=== PATIENT | female | born 1955 | race Caucasian/White ===

== ENCOUNTER 2016-10-10 08:42 | Inpatient (IN) ==
[2016-10-10] MEDS ORDERED: ACETAMINOPHEN 325 MG TABLET PO PRN (08:48)
[2016-10-10] MEDS ORDERED: ONDANSETRON 4 MG/2 ML VIAL IV PRN (08:48)
--- NOTE | 2016-10-10 10:28 | Family Practice History&Phys ---
Assessment and Plan (1) probable abscess mid abdomen Status: Acute Assessment and plan: We'll obtain cultures and started on appropriate antibiotics consult surgery. (2) abdominal pain unknown etiology Status: Acute Assessment and plan: We'll obtain an abdominal CT and consult surgery (3) area of skin breakdown midabdomen Status: Acute Assessment and plan: . Appropriate wound care and obtain cultures (4) large area of scar tissue midabdomen Status: Acute Assessment and plan: We'll start appropriate wound care and obtain cultures (5) hypertension Status: Chronic Assessment and plan: We'll resume home medications and monitor (6) iron deficiency anemia Status: Chronic Assessment and plan: We'll resume home meds and obtain lab studies (7) hyperlipidemia Status: Chronic Assessment and plan: We will resume home meds and pain laxities (8) previous gastric bypass Status: Chronic Assessment and plan: Stable at present History of Present Illness Chief complaint: draining abscess abdominal wall History of present illness: Ms. Ramachandran is a 61 year old female Patient is 61-year-old white female who is intubated the emergency room on 2 occasions the last 7-10 days with a draining abscess from the abdominal wall. This had a previous hernia repair. Subsequently had poor healing and required prolonged wound care. Subsequently developed a large area of scar tissue in the mid abdominal wall.. States she's had skin breakdown with a purulent drainage over the last 2 weeks.. She has been to the emergency room on 2 occasions and placed on medications with no significant improvement.. Now has approximately 3 cm area of skin breakdown in the center of the wound.. She's been on various antibiotics with no improvement. Now complaining of significant abdominal pain in the region of the area of skin breakdown. She has some induration and diffuse tenderness on palpation . Patient states that she says some chills and low-grade fever.. Generally feels bad. States she's been very weak. Apparently had cultures obtained on one of the ER visits but it did not have a copy of that report. In view of diarrhea. Symptoms will admit for more aggressive evaluation and treatment. Home Medications Medication Instructions Recorded Confirmed Type Atorvastatin Calcium 20 mg PO DAILY 08/18/16 08/18/16 History Citalopram [CeleXA] 40 mg PO BEDTIME 08/18/16 08/18/16 History Clindamycin HCl [Clindamycin Cap] 300 mg PO Q6HR 7 Days 08/18/16 Rx Cyanocobalamin (Vitamin B-12) 1,000 mcg IJ Q30D 08/18/16 08/18/16 History [Cyanocobalamin Injection] Cyclobenzaprine HCl 10 mg PO BEDTIME 08/18/16 08/18/16 History Ferrous Sulfate 325 mg PO BID 08/18/16 08/18/16 History HYDROcodone/ACETAMIN 5-325 [[place] 1 tablet PO Q6H PRN #10 tablet 08/18/16 Rx 5-325] Meloxicam [Mobic] 15 mg PO DAILY 08/18/16 08/18/16 History amLODIPine [Norvasc] 10 mg PO DAILY 08/18/16 08/18/16 History cloNIDine TAB [Catapres Tab] 0.2 mg PO DAILY 08/18/16 08/18/16 History Allergies Allergy/AdvReac Type Severity Reaction Status Date / Time Penicillins Allergy RASH Verified 08/18/16 11:02 Medical,Surgical,& Family Hx - Medical History Cardio: History of: Hypertension Endocrine: History of: Dyslipidemia Rheumatology: History of;: Fibromyalgia Gastrointestinal: History of: GERD Musculoskeletal: History of: Musculoskeletal Problems Hematology: History of: Anemia (history iron deficiency anemia) Other: History of: Miscellaneous Medical Problems (history of depression and B12 deficiency) - Surgical History Abdominal Surgeries: Surgical HX of: Cholecystectomy, Gastric Bypass Surgery, Hernia Repair Reproductive Surgeries: Surgical HX of;: Section Orthopedic Surgeries: Surgical HX of;: Total Hip Replacement (left hip) - Family History Family History: Reports;: Family Heart Disease, Family Hypertension - Social History Smoking Status: Current every day smoker Have you smoked in the last 12 months: Yes Time spent discussing smoking cessation with patient: 3 to 10 minutes Frequency of Alcohol Use: None Type of Drug Use: None Marital Status: Lives With:: Alone Functional capacity: independent ambulation Exam - Constitutional General appearance: mild distress - Head Head exam: Present: normal inspection - Eye Pupils: Present: RIOS - ENT ENT exam: Present: normal exam - Neck Neck exam: Present: normal inspection - Respiratory Respiratory exam: Present: clear to auscultation bilaterally - Cardiovascular Cardiovascular exam: Present: regular rate and rhythm - GI/Abdominal GI/Abdominal exam: Present: normal bowel sounds, tenderness, other (has area approximately 3 cm of the skin breakdown and mid abdomen with some clear drainage present.. Has some diffuse tenderness and fullness in the area of scar tissue from previous hernia repair) - Extremities Exam Extremities exam: Present: normal inspection - Back Exam Back exam: Present: normal inspection - Neurological Exam Neurological exam: Present: alert - Psychiatric Psychiatric exam: Present: normal affect - Skin Skin exam: Present: normal color
[2016-10-10] MEDS ORDERED: POVIDONE IODINE 10% TOP PRN (11:29)
[2016-10-10 12:07] LABS: Basophils % 0.4 % (0.0-0.8); Eosinophils # 0.1 10*3/uL (0.0-0.87); Hematocrit 44.8 VOL% (35.7-47.0); Hemoglobin 14.6 GM/DL (12.0-16.0); Immature Granulocytes % 0.2 %; Immature Granulocytes Absolute 0.02 #; Lymphocytes # 3.5 10*3/uL (1.4-4.0); Lymphocytes % 33.9 % (21.3-54.2); Mean Corpuscular HGB Conc 32.6 GM/DL (32-36); Mean Corpuscular Hemoglobin 30 PG (27-34); Mean Corpuscular Volume 92.4 FL (87-102); Mean Platelet Volume 11.9 FL (9.6-12.0); Monocytes # 0.8 10*3/uL (0.11-0.8); Monocytes % 7.3 % (1.7-12.7); Neutrophils # 5.9 10*3/uL (1.4-7.4); Neutrophils % 57.2 % (38.7-73.9); Platelet Count 218 T/CUMM (130-400); Red Blood Count 4.85 MC/CUMM (3.8-5.5); Red Cell Distribution Width 14.1 % (9.3-17.3); White Blood Count 10.3 T/CUMM (4-12)
[2016-10-10] MEDS: SODIUM CHLORIDE 0.45% 1,000 ML IV SCH ×2 (12:14→20:35)
[2016-10-10 12:37] LABS: Albumin 3.2 G/DL (3.4-5.0); Bilirubin,Total 0.4 MG/DL (0.2-1.0); Calcium 8.8 MG/DL (8.5-10.1); Potassium 3.8 MMOL/L (3.5-5.1); Total Protein 5.8 G/DL (6.4-8.3)
--- NOTE | 2016-10-10 14:02 | CT Report ---
Exam: CT abdomen pelvis w con Date: 10/10/2016 1:11 PM Comparison: None Indication: Abdominal pain, mass Total DLP: 1618.6 mGy*cm Technical: Oral contrast administered. Images were obtained from the lung bases to the iliac crest continuation through the pelvis with 100 cc of Omnipaque 350 with axial sagittal coronal imaging available for review. Dose reduction was performed with decreasing kv and mA and automated exposure Findings: Lung bases: No obvious infiltrates or effusions the heart is normal in size. Liver and Spleen: Unremarkable Gallbladder and Pancreas: Previous cholecystectomy the pancreas is otherwise unremarkable Adrenals: There is enlargement of the left adrenal gland. This area measures approximately 3.08 3.4 cm. The right adrenal gland is also prominent measuring 2.6 x 1.6 cm. Kidneys: The right kidney is demonstrated with a cyst measuring 3.7 x 4.4 cm. The left kidney reveals a small interpolar stone measuring approximately 4 to 5 mm. Small cyst is also present measuring approximately 7 to 8 mm. Smaller calculi are also present measuring 2 to 3 mm no obstruction present. Small stone in the right kidney measures 1 to 2 mm Stomach: Incomplete distended with air fluid and debris and small hiatal hernia present with previous surgical changes at the GE junction. Retroperitoneum: No enlarged lymph nodes. Aorta and IVC: No obvious aneurysm aorta iliac vessels. Vascular calcinosis present. The [place] IVC filter is present. Bowel and Mesentery: A large ventral hernia is present in the lower abdomen and pelvis containing small bowel. No obstruction is present. Moderate fecal debris is present in the large bowel. No diverticulosis or diverticulitis or appendicitis noted. Pelvis: Bladder: Incompletely distended with fluid Fluid: No free fluid identified. Lymph nodes: No enlarged lymph nodes. Pelvic organs: Uterus is slightly deviated towards the right with a small right ovarian cyst Osseous structures: Degenerative changes thoracolumbar spine with vacuum phenomena. Left total hip prosthesis present. Impression: 1. Large ventral hernia containing bowel the abdominal wall defect measures approximately 12.7 cm 2. Left total hip prosthesis present. 3. IVC filter in place 4. Vascular calcinosis 5. Bilateral adrenal enlargement that suggest adrenal adenomas left greater than right. 6. Right renal cyst 7. Bilateral nephrolithiasis 8. Small right ovarian cyst. PROCEDURE INTERPRETED AT [facility] DEPARTMENT OF RADIOLOGY Final Report Signed by: Dr. Juice Molina
[2016-10-10 14:22] LABS: Apearance,Urine Slightly Hazy (Clear); Bilirubin,Urine Negative (Negative); Blood, Urine Negative (Negative); Glucose,Urine (UA) Negative (Negative); Ketones,Urine 5 mg/dL (Negative); Mucus,Urine Occasional /LPF (Occasional); Nitrite,Urine Negative (Negative); Protein,Urine Negative; RBC,Urine 1 /HPF (0-4); Squamous Epithelial Cell,Urine Occasional /HPF (0-10); Urine Color Dark yellow (Yellow); Urine Urobilinogen < 2.0 EU/DL (0.2-1.0); WBC,Urine 1 /HPF (0-6)
--- NOTE | 2016-10-10 14:51 | General Surgery Consult Note ---
Assessment and Plan - Time spent with patient Time spent with patient: Greater than 30 minutes (1) area of skin breakdown midabdomen Status: Acute Assessment and plan: This is likely a chronic draining sinus from her previous surgical scar which probably has mesh beneath it. I would suspect that these are chronic sinuses draining from prosthetic mesh. I reviewed her CT scan and she has a hernia recurrence and I think I can see mesh superiorly. We do not have her off note from [place]. I have reviewed all of the records in our system. We are going to request her op note from [place] and make a plan as far as repair. This will be a very complex repair. For now I would treat her with antibiotics to see that we got any infection cleared up as much as possible. To get definitive repair of this will require resection of this complex scar and an abdominal wall reconstruction which will involve removal of old prosthetic mesh and repair with probably new mesh or a biologic prosthesis. The risks of complications with this will be very high in this repair may fail. This was discussed in detail with the patient and she would like to avoid surgery for now if possible. I do not think that we have signs of strangulated bowel or a contained abscess that needs drainage. I would agree with antibiotics for now. Current Visit: Yes (2) Incisional hernia of anterior abdominal wall without obstruction or gangrene Status: Acute Assessment and plan: This appears to be a chronically incarcerated recurrent incisional hernia which is very complex. This will eventually need repair. I evaluated the integrity of her musculature and she appears to have displacement or loss over rectus muscle in the lower midline to the right. This may make repair more difficult. Current Visit: Yes History of Present Illness Chief complaint: abdominal wound History of present illness: Ms. Ramachandran is a 61 year old female Has a long history of a complex abdominal wound. This dates back to surgery that she had a normal [place] over a year ago. She states that this was a hernia repair then opened up and was treated with an open wound. She was eventually followed up back and [facility] and is been treated at the wound healing center. She is intermittently had draining areas from her old wide complex midline scar. She is recently had increased pain and drainage from a new location. She has had some subjective fever. She has not had GI symptoms. The pain she has is mild and worse with movement. It is localized to her scar. She does not know of aggravating or alleviating factors. [place] in [place] and had her surgery in [place] when she was taking care of a relative. She does not know if mesh was placed. Home Medications Medication Instructions Recorded Confirmed Type Atorvastatin Calcium 20 mg PO DAILY 08/18/16 10/10/16 History Citalopram [CeleXA] 40 mg PO BEDTIME 08/18/16 10/10/16 History Cyclobenzaprine HCl 10 mg PO BEDTIME 08/18/16 10/10/16 History Ferrous Sulfate 325 mg PO BID 08/18/16 10/10/16 History amLODIPine [Norvasc] 10 mg PO DAILY 08/18/16 10/10/16 History cloNIDine TAB [Catapres Tab] 0.2 mg PO DAILY 08/18/16 10/10/16 History HYDROcodone/ACETAMIN 5-325 [[place] 1 tablet PO Q4HR 10/10/16 10/10/16 History 5-325] Lorazepam [Ativan] See Protocol PO BID PRN 10/10/16 10/10/16 History Mv,Iron,Min/Folic Acid/Biotin See Protocol PO DAILY 10/10/16 10/10/16 History [Hair Formula Tablet] Omeprazole [Prilosec] 20 mg PO DAILY 10/10/16 10/10/16 History Vit No.124/Iron/FA 1 each PO DAILY 10/10/16 10/10/16 History [ Vitamin Tablet] Allergies Allergy/AdvReac Type Severity Reaction Status Date / Time Penicillins Allergy RASH Verified 08/18/16 11:02 Medical,Surgical,& Family Hx - Medical History Cardio: History of: Hypertension Endocrine: History of: Dyslipidemia Rheumatology: History of;: Fibromyalgia Gastrointestinal: History of: GERD Musculoskeletal: History of: Musculoskeletal Problems Hematology: History of: Anemia (history iron deficiency anemia) Other: History of: Miscellaneous Medical Problems (history of depression and B12 deficiency) - Surgical History Cardiac Surgeries: Patient Denies: Cardiac Catheterization Abdominal Surgeries: Surgical HX of: Cholecystectomy, Gastric Bypass Surgery, Hernia Repair Reproductive Surgeries: Surgical HX of;: Section Orthopedic Surgeries: Surgical HX of;: Total Hip Replacement (left hip) - Family History Family History: Reports;: Family Heart Disease, Family Hypertension - Social History Smoking Status: Current every day smoker Frequency of Alcohol Use: None Type of Drug Use: None - Constitutional Constitutional: Present: chills, fever(s). Absent: anorexia - Cardiovascular Cardiovascular: Absent: chest pain at rest, chest pain with activity, dyspnea, dyspnea on exertion, syncope - Respiratory Respiratory: Absent: dyspnea, hemoptysis, dyspnea on exertion - Gastrointestinal Gastrointestinal: Present: abdominal pain. Absent: bloating, hematemesis, hematochezia, nausea, vomiting, jaundice - Genitourinary Genitourinary: Absent: hematuria - Musculoskeletal Musculoskeletal: Absent: back pain - Neurological Neurological: Absent: focal weakness, syncope - Endocrine Endocrine: Absent: polyuria Hematologic/Lymphatic: Absent: easy bleeding, easy bruising Exam - Constitutional Vitals: Period Temp Pulse Resp BP Sys/Gil Pulse Ox Last 24 Hr 98.6 F 73 16 113/81 98 General appearance: no acute distress, morbidly obese - Head Head exam: Present: normocephalic - Eye Eye exam: Absent: scleral icterus - ENT Mouth exam: Present: normal voice - Neck Neck exam: Present: trachea midline - Respiratory Respiratory exam: Present: clear to auscultation bilaterally. Absent: accessory muscle use - Cardiovascular Cardiovascular exam: Present: RRR - GI/Abdominal GI/Abdominal exam: Present: normal bowel sounds, soft, other (there is a complex old midline scar with several ulcerated areas which appeared to be old chronic draining sinuses there is no cellulitis.). Absent: distended, guarding , tenderness, rebound - Neurological Exam Neurological exam: Present: alert, oriented X3. Absent: motor sensory deficit Speech: Present: normal - Skin Skin exam: Present: normal color Results - Labs CBC & BMP: 10/10/16 11:39 10/10/16 11:39 Lab Results: I have reviewed the past 24 hour labs - Diagnostic Findings Procedure: CT Abdomen and Pelvis: image reviewed by me, report reviewed by me
--- NOTE | 2016-10-10 16:17 | XRay Report ---
Exam: Chest 2 views Date: October 10, 2016 at 4:07 PM Comparison: Chest PA lateral September 19, 2011 Reason: Shortness of breath Findings: The cardiac silhouette is normal in size. The right hilum is prominent but stable, likely secondary to vascular structures. There is also bronchial wall thickening bilaterally, which can be seen in bronchitis. No focal consolidation, pneumothorax or pleural effusion is identified. There may be a calcified granuloma at the peripheral aspect the left lung base. There is mild degenerative change at the thoracic spine, but no acute osseous process is seen. Surgical clips are present within the upper abdomen, and there appears to be an IVC filter. Impression: Bronchial wall thickening is present bilaterally. This can be seen in bronchitis. PROCEDURE INTERPRETED AT [facility] DEPARTMENT OF RADIOLOGY Final Report Signed by: Dr. Josephine Cook
[2016-10-10] MEDS: PANTOPRAZOLE 40 MG TABLET PO SCH (16:43)
[2016-10-10] MEDS: DOCUSATE SODIUM 100 MG CAPSULE PO SCH ×2 (16:43→20:19)
[2016-10-10] MEDS: VANCOMYCIN INJ 1,000 MG in SODIUM CHLORIDE 0.9% 250 ML IV SCH (16:44)
--- NOTE | 2016-10-10 18:40 | Ultrasound Report ---
Referring Physician: Alvaro Sheets Exam: US renal Bilateral Date: October 10, 2016 Reason: Possible adrenal adenomas and renal calculi Comparison: CT abdomen and pelvis October 10, 2016 Technique: Grayscale ultrasound images of both kidneys were obtained. Ultrasound images were captured and stored. Findings: The right kidney measures 10.6 x 5.7 x 5.6 cm, and the left kidney measures 9.6 x 5.2 x 4.7 cm. No hydronephrosis is present. There is a 5.4 x 5.1 x 4.5 cm exophytic simple cyst at the upper pole of the right kidney. The renal parenchyma echogenicity is unremarkable as visualized. Nonobstructing renal calculi and bilateral adrenal nodules were seen on the recent CT but are not well demonstrated by ultrasound. Impression: 1. The previously seen adrenal nodules and nonobstructing renal calculi are not well demonstrated by ultrasound. 2. Right renal cyst. PROCEDURE INTERPRETED AT [facility] DEPARTMENT OF RADIOLOGY Final Report Signed by: Dr. Josephine Cook
[2016-10-10] MEDS: LEVOFLOXACIN INJ 500 MG in PREMIX 1 EACH IV SCH (18:42)
[2016-10-10] MEDS: FERROUS SULFATE 325 MG TABLET PO SCH (20:19)
[2016-10-10] MEDS: CITALOPRAM 40 MG TABLET PO SCH (20:19)
[2016-10-10] MEDS: LORazepam 1 MG TABLET PO PRN (20:22)
[2016-10-11] MEDS: SODIUM CHLORIDE 0.45% 1,000 ML IV SCH ×3 (04:10→18:28)
[2016-10-11] MEDS: VANCOMYCIN INJ 1,000 MG in SODIUM CHLORIDE 0.9% 250 ML IV SCH ×2 (04:10→16:02)
[2016-10-11 04:53] LABS: Basophils # 0.1 10*3/uL (0.0-0.2); Basophils % 0.6 % (0.0-0.8); Eosinophils # 0.2 10*3/uL (0.0-0.87); Eosinophils % 1.9 % (0.00-10.9); Hemoglobin 14.4 GM/DL (12.0-16.0); Immature Granulocytes % 0.1 %; Immature Granulocytes Absolute 0.01 #; Lymphocytes # 2.7 10*3/uL (1.4-4.0); Lymphocytes % 34.4 % (21.3-54.2); Mean Corpuscular Hemoglobin 31 PG (27-34); Mean Corpuscular Volume 95.3 FL (87-102); Mean Platelet Volume 12.4 FL (9.6-12.0); Monocytes # 0.7 10*3/uL (0.11-0.8); Monocytes % 9.4 % (1.7-12.7); Neutrophils # 4.1 10*3/uL (1.4-7.4); Neutrophils % 53.6 % (38.7-73.9); Platelet Count 197 T/CUMM (130-400); Red Blood Count 4.72 MC/CUMM (3.8-5.5); Red Cell Distribution Width 13.8 % (9.3-17.3); White Blood Count 7.7 T/CUMM (4-12)
[2016-10-11 05:21] LABS: Calcium 8.4 MG/DL (8.5-10.1); Osmolality,Calculated 291.4 MOS/KG (273-304); Potassium 4.1 MMOL/L (3.5-5.1)
[2016-10-11 05:24] LABS: Risk Ratio 1.85; VLDL CHOLESTEROL 11.2 MG/DL
[2016-10-11 05:31] LABS: Ferritin 40.5 ng/ml (8-252); Free T4 (Free Thyroxine) 1.07 NG/DL (0.76-1.46); Thyroid Stimulating Hormone 0.846 uIU/ml (0.358-3.74)
--- NOTE | 2016-10-11 08:18 | Family Practice Progress Note ---
Family Practice - PN: Subj Interval history: Patient states she feels better overall. Reviewed findings in detail with patient. She understands the need for repair of abdominal hernia and revision of previous mesh and scar tissue. She is in agreement with this and understands that we need to clear up any infection or other complications prior even considering surgery. Presently is on Levaquin and vancomycin in view of her penicillin allergies. Her vitals remained stable and lab studies are stable. Appearance-general alert and oriented HEENT-no acute changes Heart-regular rate and rhythm no murmurs Lungs-clear to auscultation Abdomen-soft , wound is slowly healing, still has some diffuse tenderness across the previous scar tissue and abdomen Extremities-slight edema Neurological exam-stable to present PLAN-we will continue present antibiotics and treatment plan Exam (Progress Note) - Constitutional Vitals: Period Temp Pulse Resp BP Sys/Gil Pulse Ox Last 24 Hr 97.9 F-98.6 F 64-97 16-18 96-113/50-81 93-98 Results - Labs CBC & BMP: 10/11/16 04:00 10/11/16 04:45 Assessment and Plan (1) probable abscess mid abdomen Status: Acute Assessment and plan: We'll obtain cultures and started on appropriate antibiotics consult surgery. Current Visit: Yes (2) abdominal pain unknown etiology Status: Acute Assessment and plan: We'll obtain an abdominal CT and consult surgery Current Visit: Yes (3) area of skin breakdown midabdomen Status: Acute Assessment and plan: . Appropriate wound care and obtain cultures Current Visit: Yes (4) large area of scar tissue midabdomen Status: Acute Assessment and plan: We'll start appropriate wound care and obtain cultures Current Visit: Yes (5) hypertension Status: Chronic Assessment and plan: We'll resume home medications and monitor Current Visit: Yes (6) iron deficiency anemia Status: Chronic Assessment and plan: We'll resume home meds and obtain lab studies Current Visit: Yes (7) hyperlipidemia Status: Chronic Assessment and plan: We will resume home meds and pain laxities Current Visit: Yes (8) previous gastric bypass Status: Chronic Assessment and plan: Stable at present Current Visit: Yes
[2016-10-11] MEDS: PANTOPRAZOLE 40 MG TABLET PO SCH (09:35)
[2016-10-11] MEDS: amLODIPine 10 MG TABLET PO SCH (09:35)
[2016-10-11] MEDS: ATORVASTATIN 20 MG TABLET PO SCH (09:35)
[2016-10-11] MEDS: FERROUS SULFATE 325 MG TABLET PO SCH ×2 (09:35→20:54)
[2016-10-11] MEDS: DOCUSATE SODIUM 100 MG CAPSULE PO SCH ×2 (09:35→20:54)
--- NOTE | 2016-10-11 12:49 | General Surgery Progress Note ---
Assessment and Plan (1) area of skin breakdown midabdomen Status: Acute Assessment and plan: This is likely a chronic draining sinus from her previous surgical scar which probably has mesh beneath it. I would suspect that these are chronic sinuses draining from prosthetic mesh. I reviewed her CT scan and she has a hernia recurrence and I think I can see mesh superiorly. We do not have her off note from [place]. I have reviewed all of the records in our system. We are going to request her op note from [place] and make a plan as far as repair. This will be a very complex repair. For now I would treat her with antibiotics to see that we got any infection cleared up as much as possible. To get definitive repair of this will require resection of this complex scar and an abdominal wall reconstruction which will involve removal of old prosthetic mesh and repair with probably new mesh or a biologic prosthesis. The risks of complications with this will be very high in this repair may fail. This was discussed in detail with the patient and she would like to avoid surgery for now if possible. I do not think that we have signs of strangulated bowel or a contained abscess that needs drainage. I would agree with antibiotics for now. 3/: She feels much better today. She is afebrile and her white blood cell count is coming down to normal she denies abdominal pain today. The ulcerated areas in her scar have actually dried up and are not draining. These areas are nontender and I see no evidence of fistula. I think that this is clearing nicely and she can be discharged home soon area we will need to deal with the hernia reconstruction which will probably involve removing her old mesh and reconstructing her abdominal wall electively. I need to get her records from [place] to see exactly what they did before to help all plan definitive surgery. She understands the surgery will be high risk and very high risk for wound complications and failure. Current Visit: Yes (2) Incisional hernia of anterior abdominal wall without obstruction or gangrene Status: Acute Assessment and plan: This appears to be a chronically incarcerated recurrent incisional hernia which is very complex. This will eventually need repair. I evaluated the integrity of her musculature and she appears to have displacement or loss over rectus muscle in the lower midline to the right. This may make repair more difficult. Current Visit: Yes Subjective Patient reports: Present: feels better, pain is less. Absent: fever Exam - Constitutional Vitals: Period Temp Pulse Resp BP Sys/Gil Pulse Ox Last 24 Hr 97.9 F-98.6 F 59-97 16-18 96-130/50-63 93-97 General appearance: no acute distress - Respiratory Respiratory exam: Absent: accessory muscle use - GI/Abdominal GI/Abdominal exam: Present: soft, other (the 2 ulcerated areas are actually drying up and there is no cellulitis or drainage). Absent: distended, tenderness, rebound Results - Labs CBC & BMP: 10/11/16 04:00 10/11/16 04:45 Lab Results: I have reviewed the past 24 hour labs
[2016-10-11] MEDS: LEVOFLOXACIN INJ 500 MG in PREMIX 1 EACH IV SCH (18:27)
[2016-10-11] MEDS: CITALOPRAM 40 MG TABLET PO SCH (20:54)
[2016-10-11] MEDS: LORazepam 1 MG TABLET PO PRN (20:54)
[2016-10-12] MEDS: SODIUM CHLORIDE 0.45% 1,000 ML IV SCH ×3 (02:14→11:27)
[2016-10-12] MEDS: VANCOMYCIN INJ 1,000 MG in SODIUM CHLORIDE 0.9% 250 ML IV SCH (04:36)
[2016-10-12 06:20] LABS: Basophils # 0.1 10*3/uL (0.0-0.2); Basophils % 0.6 % (0.0-0.8); Eosinophils # 0.1 10*3/uL (0.0-0.87); Eosinophils % 1.2 % (0.00-10.9); Hematocrit 45.3 VOL% (35.7-47.0); Hemoglobin 14.4 GM/DL (12.0-16.0); Immature Granulocytes % 0.2 %; Immature Granulocytes Absolute 0.02 #; Lymphocytes # 2.3 10*3/uL (1.4-4.0); Lymphocytes % 25.7 % (21.3-54.2); Mean Corpuscular HGB Conc 31.8 GM/DL (32-36); Mean Corpuscular Hemoglobin 31 PG (27-34); Mean Corpuscular Volume 96.4 FL (87-102); Mean Platelet Volume 12.1 FL (9.6-12.0); Monocytes # 0.7 10*3/uL (0.11-0.8); Neutrophils # 5.8 10*3/uL (1.4-7.4); Neutrophils % 64.3 % (38.7-73.9); Platelet Count 178 T/CUMM (130-400); Red Cell Distribution Width 13.7 % (9.3-17.3)
[2016-10-12 06:54] LABS: Osmolality,Calculated 290.3 MOS/KG (273-304); Potassium 4.2 MMOL/L (3.5-5.1)
--- NOTE | 2016-10-12 07:36 | General Surgery Progress Note ---
Assessment and Plan (1) area of skin breakdown midabdomen Status: Acute Assessment and plan: This is likely a chronic draining sinus from her previous surgical scar which probably has mesh beneath it. I would suspect that these are chronic sinuses draining from prosthetic mesh. I reviewed her CT scan and she has a hernia recurrence and I think I can see mesh superiorly. We do not have her off note from [place]. I have reviewed all of the records in our system. We are going to request her op note from [place] and make a plan as far as repair. This will be a very complex repair. For now I would treat her with antibiotics to see that we got any infection cleared up as much as possible. To get definitive repair of this will require resection of this complex scar and an abdominal wall reconstruction which will involve removal of old prosthetic mesh and repair with probably new mesh or a biologic prosthesis. The risks of complications with this will be very high in this repair may fail. This was discussed in detail with the patient and she would like to avoid surgery for now if possible. I do not think that we have signs of strangulated bowel or a contained abscess that needs drainage. I would agree with antibiotics for now. 3/2: She feels much better today. She is afebrile and her white blood cell count is coming down to normal she denies abdominal pain today. The ulcerated areas in her scar have actually dried up and are not draining. These areas are nontender and I see no evidence of fistula. I think that this is clearing nicely and she can be discharged home soon area we will need to deal with the hernia reconstruction which will probably involve removing her old mesh and reconstructing her abdominal wall electively. I need to get her records from [place] to see exactly what they did before to help all plan definitive surgery. She understands the surgery will be high risk and very high risk for wound complications and failure. 33: She feels much better today and denies abdominal pain. Her abdomen is nontender and she appears to have responded to antibiotics. I will leave discharge up to you. I will see her back in the clinic in the next week or so and we can then make plans for definitive repair of her complex recurrent incisional hernia and possibly chronic infected mesh. Current Visit: Yes (2) Incisional hernia of anterior abdominal wall without obstruction or gangrene Status: Acute Assessment and plan: This appears to be a chronically incarcerated recurrent incisional hernia which is very complex. This will eventually need repair. I evaluated the integrity of her musculature and she appears to have displacement or loss over rectus muscle in the lower midline to the right. This may make repair more difficult. Current Visit: Yes Subjective Patient reports: Present: feels better. Absent: still having pain, nausea, vomiting, shortness of breath, fever Exam - Constitutional Vitals: Period Temp Pulse Resp BP Sys/Gil Pulse Ox Last 24 Hr 98.3 F-99.6 F 59-68 16-18 100-130/53-67 96-98 General appearance: no acute distress - Head Head exam: Present: normocephalic - Eye Eye exam: Absent: scleral icterus - Respiratory Respiratory exam: Absent: accessory muscle use - GI/Abdominal GI/Abdominal exam: Present: soft. Absent: distended, tenderness, rebound Results - Labs CBC & BMP: 10/12/16 06:09 10/12/16 06:09 Lab Results: I have reviewed the past 24 hour labs
[2016-10-12] MEDS: FERROUS SULFATE 325 MG TABLET PO SCH (09:02)
[2016-10-12] MEDS: amLODIPine 10 MG TABLET PO SCH (09:02)
[2016-10-12] MEDS: PANTOPRAZOLE 40 MG TABLET PO SCH (09:02)
[2016-10-12] MEDS: DOCUSATE SODIUM 100 MG CAPSULE PO SCH (09:03)
[2016-10-12] MEDS: ATORVASTATIN 20 MG TABLET PO SCH (09:03)
[2016-10-12 11:37] VITALS: BP 101/63
[2016-10-12] MEDS ORDERED: SULFAMETHOX/TRIMETHOPRIM 800-160 MG TABLET PO SCH (13:30)
--- NOTE | 2016-10-12 13:33 | Discharge Summary ---
Hospital Course - Hospital Course Hospital Course: History of Present Illness Chief complaint: draining abscess abdominal wall History of present illness: Ms. Ramachandran is a 61 year old female Patient is 61-year-old white female who is intubated the emergency room on 2 occasions the last 7-10 days with a draining abscess from the abdominal wall. This had a previous hernia repair. Subsequently had poor healing and required prolonged wound care. Subsequently developed a large area of scar tissue in the mid abdominal wall.. States she's had skin breakdown with a purulent drainage over the last 2 weeks.. She has been to the emergency room on 2 occasions and placed on medications with no significant improvement.. Now has approximately 3 cm area of skin breakdown in the center of the wound.. She's been on various antibiotics with no improvement. Now complaining of significant abdominal pain in the region of the area of skin breakdown. She has some induration and diffuse tenderness on palpation . Patient states that she says some chills and low-grade fever.. Generally feels bad. States she's been very weak. Apparently had cultures obtained on one of the ER visits but it did not have a copy of that report. In view of the degree of Symptoms will admit for more aggressive evaluation and treatment. Hospital course-patient was admitted to hospital lab and x-ray studies obtained. After appropriate cultures obtained patient was started on antibiotics and appropriate wound care was carried out. She was seen in consultation by Dr. Harvey III. Abdominal CT revealed a large ventral hernia containing bowel with a large abdominal wall defect measuring approximately 12.7 cm. There was also some question of bilateral adrenal enlargement. Bilateral renal ultrasound did not show any significant adrenal enlargement. Numerous lab studies were obtained which were stable. Dr. Candice Rayo concurred with antibiotic treatment to try to clear up any infection.. He has discussed in detail with patient and feels that she needs a repair and revision. This will be a very complex procedure and he has spent significant time discussing with patient. The patient is much improved and stable at time of discharge. All cultures have been negative but patient had been on antibiotics prior to admission. Plan to discharge to home on oral antibiotics and recheck to the office. Dr. Harvey will follow the patient and plans to do surgery in the near future. Advised patient to call or return to the emergency room if condition worsens or new problems develop. 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 Status: Acute (3) Large ventral wall hernia Status: Acute (4) area of skin breakdown midabdomen Status: Acute (5) large area of scar tissue midabdomen Status: Acute (6) hypertension Status: Chronic (7) iron deficiency anemia Status: Chronic (8) hyperlipidemia Status: Chronic (9) previous gastric bypass Status: Chronic Discharge Plan - Discharge Data Disposition: Disch To Home/Self Care Condition at Discharge: Stable Discharge Diet: advance to your usual diet Activity: resume usual activities as tolerated Weight Bearing at Discharge: full weight bearing Driving: no restrictions Contact your physician if you experience:: fever over 101, Redness or swelling - Discharge Medications New Sulfameth/Trimeth 800-160 Tab [Bactrim DS Tab] 1 tablet PO BID #30 tablet Povidone Iodine 10% Oint [Betadine Oint] 1 applic TOP PRN PRN #1 applic PRN Reason: Per Protocol Continue Ferrous Sulfate 325 mg PO BID Citalopram [CeleXA] 40 mg PO BEDTIME cloNIDine TAB [Catapres Tab] 0.2 mg PO DAILY amLODIPine [Norvasc] 10 mg PO DAILY Atorvastatin Calcium 20 mg PO DAILY HYDROcodone/ACETAMIN 5-325 [[place] 5-325] 1 tablet PO Q4HR Lorazepam [Ativan] See Protocol PO BID PRN PRN Reason: Anxiety Vit No.124/Iron/FA [ Vitamin Tablet] 1 each PO DAILY Mv,Iron,Min/Folic Acid/Biotin [Hair Formula Tablet] See Protocol PO DAILY Cyclobenzaprine HCl 10 mg PO BEDTIME Omeprazole [Prilosec] 20 mg PO DAILY - Follow Up or Referral Follow Up: Shaji Harvey III., MD [Physician] - (Follow-up in 10 days as directed. Patient will call for appointment) Alvaro Sheets DO [Primary Care Provider] - 1 Week (Have patient call Saturday to arrange a follow-up appointment in 1 week) - Forms/Instructions Exam - Constitutional Vitals: Period Temp Pulse Resp BP Sys/Gil Pulse Ox Last 24 Hr 98.2 F-99.6 F 61-67 16-18 100-119/58-79 96-99 General appearance: no acute distress - Head Head exam: Present: normal inspection - ENT ENT exam: Present: normal exam - Neck Neck exam: Present: normal inspection - Respiratory Respiratory exam: Present: clear to auscultation bilaterally - Cardiovascular Cardiovascular exam: Present: regular rate and rhythm - GI/Abdominal GI/Abdominal exam: Present: normal bowel sounds, other (Large area of scar tissue formation mid abdomen. Draining sinus tract from previous surgery. Large ventral wall hernia noted which is tender on palpation) - Extremities Exam Extremities exam: Present: normal inspection - Back Exam Back exam: Present: normal inspection - Neurological Exam Neurological exam: Present: alert - Psychiatric Psychiatric exam: Present: normal affect - Skin Skin exam: Present: normal color Discharge Results Procedures and tests throughout hospitalization: Pending Orders 10/10/16 06:00 Wound Culture Stat 10/10/16 11:39 Blood Culture Stat 10/12/16 15:30 Vancomycin,Trough Timed 10/13/16 04:00 Basic Metabolic Panel IN AM 10/14/16 04:00 Basic Metabolic Panel IN AM Labs on day of discharge: Labs from last 24 hours 10/12/16 10/12/16 06:09 06:09 WBC 9.0 RBC 4.70 Hgb 14.4 Hct 45.3 MCV 96.4 MCH 31 MCHC 31.8 L RDW 13.7 Plt Count 178 MPV 12.1 H Neut % (Auto) 64.3 Lymph % (Auto) 25.7 [place] % (Auto) 8.0 Eos % (Auto) 1.2 Baso % (Auto) 0.6 Neut # (Auto) 5.8 Lymph # (Auto) 2.3 [place] # (Auto) 0.7 Eos # (Auto) 0.1 Baso # (Auto) 0.1 Immature Gran % 0.2 Nucleated RBC % 0.0 Immature Gran # 0.02 Nucleated RBCs # 0.00 Sodium 148 H Potassium 4.2 Chloride 111 H Carbon Dioxide 27 Anion Gap 14.2 BUN 8 Creatinine 0.50 L GFR Calculation 109 BUN/Creatinine Ratio 16.00 Glucose 88 Calculated Osmolality 290.3 Calcium 8.0 L Preliminary micro results at discharge 10/10/16 06:00 Wound Culture - Preliminary Abdomen - Abscess No growth at 24 hours 10/10/16 11:39 Blood Culture - Preliminary Blood No growth at 1 day 10/10/16 11:39 Blood Culture - Preliminary Blood No growth at 1 day DS: Provider Date of admission: 10/10/16 10:25 Primary care physician: Alvaro Sheets DO Attending physician on admission: Alvaro Sheets DO Consults: 10/10/16 08:48 Consult to Case Mgmt/Social Srvs [CONS] Routine Reason for Case Mgmt/Social Srvs: Discharge Planning Consult to Physician [CONS] Routine Comment: Physician manager neonatal Consulting Provider: Shaji Harvey III. Person Notified: [email or web address] Date Notified: 10/10/16 Time Notified: 11:33 10/10/16 13:45 Consult to Pharmacy [CONS] Routine Reason for Pharmacy Consult: Dose/Manage Vancomycin Discharging clinician: Alvaro Sheets DO
--- NOTE | 2016-10-17 15:05 | Physician Query Form ---
CLICK EDIT DOCUMENT TO SELECT QUERY ANSWER --> OK --> SIGN Sunitha Garces RN Clinical Dairy Farm Manager W) [phone] (f) [phone] [email or web address]: Make your selection(s) from the choices in EACH section by typing an "x" and enter comments in the comment section. Please use your independent medical judgment in providing your response. This request does not imply that any particular answer is desired or expected. CLINICAL INDICATORS: (Providers should not edit this section) Based on documentation of "acute abdominal pain" and "probable abscess mid abdomen". Wound culture of abdomen abscess showed no growth. Dr. Harvey note states " complex recurrent incisional hernia and possibly chronic infected mesh ". Based on the above, could you clarify the appropriate diagnosis, if significant , that supports the above abnormalities and additional evaluation, monitoring, and/or treatment rendered: ( ) Abdominal pain due to probable abscess mid abdomen ( ) Abdominal pain due to recurrent incisional hernia (x ) Abdominal pain due to possible chronic infected mesh ( ) Abdominal pain due to ( ) Other, please specify: ( ) Clinically unable to determine COMMENTS: Use of terms such as suspected, likely, or probable (associated with a specific diagnosis that is being evaluated, monitored, or treated as if it exists) are acceptable and can be restated in the discharge summary if not ruled out. MTDD
== END 2016-10-12 15:01 | disposition home or self-care (01) | DRG 920 ==
LOC: N.5E 10:25
PROVIDERS: ADMIT Family Medicine; ATTEND Family Medicine

== ENCOUNTER 2016-11-08 05:36 | Inpatient (IN) ==
--- NOTE | 2016-11-02 14:51 | EKG Report ---
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
[2016-11-02 15:07] LABS: Basophils % 0.3 % (0.0-0.8); Eosinophils # 0.1 10*3/uL (0.0-0.87); Eosinophils % 1.3 % (0.00-10.9); Hematocrit 47.7 VOL% (35.7-47.0); Hemoglobin 15.2 GM/DL (12.0-16.0); Immature Granulocytes % 0.2 %; Immature Granulocytes Absolute 0.02 #; Lymphocytes # 4.2 10*3/uL (1.4-4.0); Lymphocytes % 43.4 % (21.3-54.2); Mean Corpuscular HGB Conc 31.9 GM/DL (32-36); Mean Corpuscular Hemoglobin 31 PG (27-34); Mean Corpuscular Volume 96.2 FL (87-102); Monocytes # 0.7 10*3/uL (0.11-0.8); Monocytes % 7.6 % (1.7-12.7); Neutrophils # 4.6 10*3/uL (1.4-7.4); Neutrophils % 47.2 % (38.7-73.9); Platelet Count 201 T/CUMM (130-400); Red Blood Count 4.96 MC/CUMM (3.8-5.5); Red Cell Distribution Width 13.9 % (9.3-17.3); White Blood Count 9.6 T/CUMM (4-12)
[2016-11-02 15:34] LABS: Albumin 3.4 G/DL (3.4-5.0); Bilirubin,Total 0.6 MG/DL (0.2-1.0); Calcium 8.3 MG/DL (8.5-10.1); Osmolality,Calculated 290.4 MOS/KG (273-304); Potassium 4.6 MMOL/L (3.5-5.1)
[2016-11-08] MEDS ORDERED: CIPROFLOXACIN INJ 400 MG in PREMIX 1 EACH IV ONE (06:00)
[2016-11-08] MEDS ORDERED: metroNIDAZOLE INJ 500 MG in PREMIX 1 EACH IV ONE (06:00)
[2016-11-08] MEDS ORDERED: FAMOTIDINE 20 MG TABLET PO ONE (06:12)
[2016-11-08] MEDS ORDERED: DIAZEPAM 5 MG TABLET PO ONE (06:12)
[2016-11-08] MEDS ORDERED: metroNIDAZOLE 500 MG/100 ML PREMIX IV ONE (06:14)
[2016-11-08] MEDS ORDERED: CIPROFLOXACIN 400 MG/200 ML PREMIX IV ONE (06:14)
[2016-11-08] MEDS ORDERED: BUPIVACAINE MPF 0.25% /EPI 30 ML VIAL ONE (06:26)
[2016-11-08] MEDS ORDERED: LIDOCAINE 2%/EPI 20 ML VIAL ONE (06:26)
[2016-11-08] MEDS ORDERED: ceFAZolin 1,000 MG VIAL ONE (06:27)
[2016-11-08] MEDS ORDERED: LACTATED RINGERS 1,000 ML IV SCH (06:30)
[2016-11-08] MEDS ORDERED: FAMOTIDINE 20 MG TABLET ONE (06:33)
[2016-11-08] MEDS ORDERED: DIAZEPAM 5 MG TABLET ONE (06:33)
--- NOTE | 2016-11-08 07:18 | History and Physical Update ---
History and Physical Update - History and Physical H&P was reviewed, the patient examined and there: are no changes in the patients condition since last H&P was completed. - Physical Exam History and Physical Changes: Her EKG was read by the computer resect infarcted and the patient has had no chest pain or shortness of breath and has no knowledge of any previous cardiac events. I reviewed her old records from [place] and there were no EKGs in the record but no mention of any cardiac problems during her prolonged complicated course over there. I had her EKG reviewed by Dr. Stevens from cardiology and he feels it is safe to go ahead and proceed with surgery. He does not appear to be inactive change or active events on her EKG. We have contacted the patient yesterday and offered to postpone the surgery and have formal cardiac evaluation performed prior to surgery and she used this. I'll offered that again today and she does not want to do that and wants to go ahead with surgery. I also reviewed the EKG with anesthesia and they feel that her risk for a cardiac event should be low and are willing to proceed with elective surgery. Patient understands there certainly is a risk from a cardiovascular standpoint and that this may be a very prolonged stressful surgery. I also discussed this case with Dr. Sheets as well.
[2016-11-08] MEDS ORDERED: LIDOCAINE 100 MG/5 ML SYRINGE ONE (08:58)
[2016-11-08] MEDS ORDERED: PHENYLEPHRINE 1 MG/10 ML SYRINGE IV ONE (08:58)
[2016-11-08] MEDS ORDERED: KETOROLAC 30 MG/1 ML VIAL ONE (08:58)
[2016-11-08] MEDS ORDERED: GLYCOPYRROLATE 0.4 MG/2 ML VIAL ONE (08:58)
[2016-11-08] MEDS ORDERED: PROPOFOL 200 MG/20 ML VIAL IV ONE (08:58)
[2016-11-08] MEDS ORDERED: SUCCINYLCHOLINE 200 MG/10 ML VIAL ONE (08:58)
[2016-11-08] MEDS ORDERED: ETOMIDATE 20 MG/10 ML VIAL IV ONE (08:58)
[2016-11-08] MEDS ORDERED: MINERAL OIL/PETROLATUM OPH OINT 3.5 GM TUBE ONE (08:58)
[2016-11-08] MEDS ORDERED: ROCURONIUM 100 MG/10 ML VIAL IV ONE (08:58)
[2016-11-08] MEDS ORDERED: NEOSTIGMINE 10 MG/10 ML VIAL ONE (08:58)
[2016-11-08] MEDS ORDERED: ONDANSETRON 4 MG/2 ML VIAL ONE (08:58)
[2016-11-08] MEDS ORDERED: ROPIVACAINE 0.5% 30 ML VIAL ONE (09:16)
[2016-11-08 11:12] LABS: Apearance,Urine CLEAR (Clear); Bilirubin,Urine Negative (Negative); Blood, Urine Negative (Negative); Glucose,Urine (UA) Negative (Negative); Ketones,Urine Negative (Negative); Mucus,Urine Occasional /LPF (Occasional); Nitrite,Urine Negative (Negative); Protein,Urine Negative; RBC,Urine 2 /HPF (0-4); Squamous Epithelial Cell,Urine Occasional /HPF (0-10); Urine Color Yellow (Yellow); Urine Urobilinogen < 2.0 EU/DL (0.2-1.0); WBC,Urine <1 /HPF (0-6)
[2016-11-08] MEDS ORDERED: MIDAZOLAM 2 MG/2 ML VIAL ONE (11:41)
[2016-11-08] MEDS ORDERED: ePHEDrine 50 MG/ML AMP ONE (11:41)
[2016-11-08] MEDS ORDERED: fentaNYL 100 MCG/2 ML VIAL ONE (11:41)
[2016-11-08] MEDS ORDERED: VANCOMYCIN 500 MG VIAL ONE (12:01)
[2016-11-08] MEDS ORDERED: VANCOMYCIN 1,000 MG VIAL ONE (12:02)
--- NOTE | 2016-11-08 13:21 | Operative Note ---
Date of procedure: 11/08/16 Pre-op diagnosis: large complex recurrent incisional hernias midline abdominal wound with com Post-op diagnosis: same Procedure: Abdominal wall reconstruction with repair of multiple large incarcerated recurrent incisional hernias with preperitoneal dissection and placement of 20 x 25 cm stratus biologic mesh prosthesis #2 right sided component separation and myofascial advancement Findings and technique: After informed consent was obtained the patient was brought to the operating room and placed in supine position. After successful induction with general anesthesia the patient's abdomen was prepped and draped in usual sterile fashion. Incision was made inferior to the patient's previous complex scar. Complex scar measured 6 cm wide by 12 cm in length and was jaqueline-shaped. I felt that if I could get into the hernia sac inferiorly that I could not ascertain whether or not bowel was involved in the complex scar and previous repair. I dissected out a hernia sac which was about 12 cm in diameter in the lower midline. The inferior edge of the fascial defect was probably about 4 cm above the symphysis pubis. I dissected this out and then opened up the sac which had incarcerated bowel within it and this bowel was dissected free from the peritoneum and the sac and reduced back into the peritoneal cavity. I could not appreciate any adherence bowel behind the complex scar. I could not identify mesh at this location for really any mesh behind the complex scar. At this point I then excised the complex scar which was probably about a centimeter thick. There was no bowel behind the scar and there was actually a thin layer of subcutaneous tissue behind the scar. There were multiple Ethibond sutures within the scar and behind the scar which appeared to be associated with sinus tracts into the scar which appeared to be the source of her previous draining sinuses. There was not mesh in this location. I excised the scar and then working through the 12 cm fascial defect inferiorly did a preperitoneal dissection inferiorly behind the symphysis pubis and laterally behind the rectus muscles. The right rectus muscle was retracted to the right Bulging was folded upon itself. The left rectus muscle was very thin but was intact. As I dissected the rectus muscle there was a bulging area at the midpoint and then intact fascia lateral to this. I dissected beneath the fascia superiorly and there were several defects and then I encountered her previous mesh which appeared to be a composite mesh and it appeared to be in the preperitoneal and peritoneal space. I dissected the inferior portion of this for about 4 cm to that I would have a point to anchor the new mesh. There was no sign of infection or communication with the skin or the scar and this was actually superior to where her complex scar was located and superior to the areas where she had had draining sinuses. At this point I did a extensive preperitoneal mobilization dissecting about 15 cm to the right and the left well behind the rectus muscles and oblique muscles into each flank. Following this I dissected along the anterior aspect of the muscle medially and laterally and freed up the right rectus muscle and dissected lateral to this were this seemed to be rather fresh tissue. I then did a component separation releasing the internal and external oblique gaining about 2 cm of mobilization of the rectus muscle to the midline. I did an identical dissection left with her was more scar tissue and appeared that there been a previous component release through the oblique muscles on the left. I did not do another component release on the left. I then placed a stratus biologic mesh in the preperitoneal space 20 x 25 cm cut an oval shape. It was anchored inferiorly at the symphysis pubis and superiorly to the inferior edge of the old composite mesh. This was done with 2-0 Prolene suture. Laterally it was anchored through the oblique muscles through all muscle layers about 10 cm back from the fascial edges and secured full-thickness with 2-0 Prolene suture. The fascia in the midline was then closed without any tension with a running 0 Prolene suture. CIERRA drains were placed in the subcutaneous space in the subcutaneous layer closed in the midline with interrupted 2-0 Vicryl suture and the skin closed with skin clips. She appeared to tolerate the procedure well. This was a much more difficult and complex procedure than usual with the previous surgery previous infection and morbid obesity and multiple hernia defects greatly added into the complex in the case and greatly added to the operative time. Anesthesia: GETA Surgeon / Physician: Shaji Harvey III. Estimated blood loss: other (100 mL) Specimens: none sent Condition: stable Disposition: PACU Results - Labs CBC & BMP: 11/02/16 15:00 11/02/16 15:00 Discharge Plan - Discharge Medications No Action Ferrous Sulfate 325 mg PO BID Citalopram [CeleXA] 40 mg PO BEDTIME cloNIDine TAB [Catapres Tab] 0.2 mg PO BID amLODIPine [Norvasc] 10 mg PO DAILY Atorvastatin Calcium 20 mg PO DAILY HYDROcodone/ACETAMIN 5-325 [[place] 5-325] 1 tablet PO Q4HR Lorazepam [Ativan] 2 mg PO BID PRN PRN Reason: Anxiety Vit No.124/Iron/FA [ Vitamin Tablet] 1 each PO DAILY Mv,Iron,Min/Folic Acid/Biotin [Hair Formula Tablet] 1 tablet PO DAILY Sulfameth/Trimeth 800-160 Tab [Bactrim DS Tab] 1 tablet PO BID #30 tablet Cyanocobalamin Inj [Vitamin B12 Inj] 1,000 mcg IM Q30D Aspirin [Ecotrin] 81 mg PO DAILY Cyclobenzaprine HCl 10 mg PO BEDTIME Omeprazole [Prilosec] 20 mg PO DAILY Povidone Iodine 10% Oint [Betadine Oint] 1 applic TOP PRN PRN #1 applic PRN Reason: Per Protocol Lactobacillus Cmb#7/Fos/Inulin [Probiotic Complex Tablet] 1 each PO DAILY - Follow Up or Referral - Forms/Instructions
[2016-11-08] MEDS ORDERED: diphenhydrAMINE CAP 25 MG CAPSULE PO PRN (13:30)
[2016-11-08] MEDS ORDERED: diphenhydrAMINE 50 MG/1 ML VIAL IV PRN (13:30)
[2016-11-08] MEDS ORDERED: ONDANSETRON 4 MG/2 ML VIAL IV PRN (13:30)
[2016-11-08] MEDS: fentaNYL 2 MCG/ROPIV 0.2% EPID 150 ML EPIDURAL SCH (14:26)
[2016-11-08 15:31] LABS: Hematocrit 42.8 VOL% (35.7-47.0); Hemoglobin 13.5 GM/DL (12.0-16.0)
--- NOTE | 2016-11-08 15:39 | EKG Report ---
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
--- NOTE | 2016-11-08 15:50 | Event Note ---
She looks and feels well. She is awake and alert and her pain is controlled. She is conversational and pleased with her surgery. We will observe her overnight in the ICU with the epidural in place especially in light of the amount of soft tissue dissection and the fact that her blood pressure run a little low. This is probably from the epidural. We'll keep an eye on her urine output. Dr. Gaming and will be covering in my absence until Saturday.
[2016-11-08] MEDS: KETOROLAC 10 MG TABLET PO PRN (15:53)
--- NOTE | 2016-11-08 15:58 | Cardiology Consult Note ---
<Janelle Boston Jhoan - Last Filed: 11/08/16 15:50> Assessment and Plan - Time spent with patient Time spent with patient: Less than 30 minutes (1) Abnormal EKG Status: Acute Assessment and plan: Preop EKG showed sinus rhythm, possible right ventricular hypertrophy, septal myocardial infarction, right axis deviation. Patient denies any cardiac symptoms or history of myocardial infarction. We will obtain an echocardiogram to evaluate her heart function. Will further discuss with Dr. Puckett and await her recommendations. Current Visit: Yes (2) Incisional hernia of anterior abdominal wall without obstruction or gangrene Status: Acute Assessment and plan: General surgery is following. Epidural is in place. Current Visit: No (3) hyperlipidemia Status: Chronic Assessment and plan: Continue atorvastatin. Current Visit: No (4) hypertension Status: Chronic Assessment and plan: Currently well controlled with borderline hypotension at times. We will continue to monitor and adjust as needed. Current Visit: No (5) Tobacco abuse Status: Chronic Assessment and plan: Currently smokes 1 pack every 3 days. Encouraged to stop smoking altogether. Current Visit: Yes (6) Obesity Status: Chronic Assessment and plan: Patient has had gastric bypass surgery 7 years ago. Current Visit: Yes (7) Presence of IVC filter Status: Chronic Assessment and plan: Placed prior to gastric bypass surgery in 2009. Current Visit: Yes (8) previous gastric bypass Status: Chronic Assessment and plan: Done in 2009. Current Visit: No History of Present Illness - Data of Consult Patient: new to practice Consult date: 11/08/16 Requesting Physician: Shaji Harvey III. - Consult Narrative Reason for consult: abnormal EKG prior to surgery History of present illness: Ms. 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 She has a history of hypertension, hyperlipidemia, gastric bypass surgery, IVC filter placement, obesity, tobacco abuse. She has risk factors significant for: Hypertension, hyperlipidemia, tobacco abuse, sedentary lifestyle, obesity, family history of CAD. She denies any history of strokes or diabetes. She tells me her father had coronary artery bypass grafting when he was in his 50s. One year ago she had surgery to repair a ventral hernia and was recently referred to Dr. Candice III 4 probable ventral incisional hernia after being hospitalized with an infected complex scar on the center of her abdomen. She was admitted to the hospital today as an outpatient for repair of multiple large incarcerated recurrent incisional hernias. She received an outpatient workup prior to surgery and was found to have an abnormal EKG which showed sinus rhythm, possible right ventricular hypertrophy, septal myocardial infarction, right axis deviation. She denies ever experiencing chest pain or shortness of breath. She reports she does not have chest pain on exertion or dyspnea on exertion. She denies palpitations, dizziness, lightheadedness, syncope, diaphoresis, nausea, vomiting, melena, hematochezia. She denies knowledge of ever having a myocardial infarction. We will obtain repeat EKG and echocardiogram and review. We will further discuss with Dr. Puckett and await her recommendations. Currently her blood pressure is well controlled and she is in normal sinus rhythm with well- controlled rate. Preoperative lab work includes potassium 4.6, creatinine 0.8. CC: Shaji Harvey III., - Home Medications and Allergies Home Medications: Home Medications Medication Instructions Recorded Confirmed Type Atorvastatin Calcium 20 mg PO DAILY 08/18/16 11/08/16 History Citalopram [CeleXA] 40 mg PO BEDTIME 08/18/16 11/08/16 History Cyclobenzaprine HCl 10 mg PO BEDTIME 08/18/16 11/08/16 History Ferrous Sulfate 325 mg PO BID 08/18/16 11/08/16 History amLODIPine [Norvasc] 10 mg PO DAILY 08/18/16 11/08/16 History cloNIDine TAB [Catapres Tab] 0.2 mg PO BID 08/18/16 11/08/16 History HYDROcodone/ACETAMIN 5-325 [[place] 1 tablet PO Q4HR 10/10/16 11/08/16 History 5-325] Lorazepam [Ativan] 2 mg PO BID PRN 10/10/16 11/08/16 History Mv,Iron,Min/Folic Acid/Biotin 1 tablet PO DAILY 10/10/16 11/08/16 History [Hair Formula Tablet] Omeprazole [Prilosec] 20 mg PO DAILY 10/10/16 11/08/16 History Vit No.124/Iron/FA 1 each PO DAILY 10/10/16 11/08/16 History [ Vitamin Tablet] Povidone Iodine 10% Oint [Betadine 1 applic TOP PRN PRN #1 applic 10/12/1611/02 Rx Oint] Sulfameth/Trimeth 800-160 Tab 1 tablet PO BID #30 tablet 10/12/16 11/08/16 Rx [Bactrim DS Tab] Aspirin [Ecotrin] 81 mg PO DAILY 11/02/16 11/08/16 History Cyanocobalamin Inj [Vitamin B12 1,000 mcg IM Q30D 11/02/16 11/08/16 History Inj] Lactobacillus Cmb#7/Fos/Inulin 1 each PO DAILY 11/02/16 11/08/16 History [Probiotic Complex Tablet] Allergies/Adverse Reactions: Allergies Allergy/AdvReac Type Severity Reaction Status Date / Time morphine Allergy Severe Vomiting Verified 11/08/16 06:00 Penicillins Allergy Mild RASH Verified 11/08/16 06:00 Review of systems: - Constitutional: Present: As per HPI. Absent: anorexia, chills, daytime sleepiness, excessive sweating, fever(s), frequent falls, headache(s), increased appetite, lethargy, malaise, night sweats, stops breathing during sleep, weakness, weight gain, weight loss, fatigue. - EENT Eyes: Present: As per HPI. Absent: blurry vision, diplopia, loss of vision Ears: Present: As per HPI. Absent: decreased hearing, ear discharge, ear pain Nose, mouth and throat: Present: As per HPI. Absent: dysphagia, epistaxis, headache(s), hoarseness, lip swelling, nasal congestion, neck mass, neck pain, sinus pressure, sore throat, throat swelling, tongue swelling, vertigo - Cardiovascular: Present: as per HPI. Absent: chest pain at rest, chest pain with activity, dyspnea, dyspnea on exertion, edema, claudication, diaphoresis, radiating jaw, neck or arm pain, lightheadedness, orthopnea, palpitations, PND - Respiratory: Present: as per HPI. Absent: dyspnea, dyspnea on exertion, cough , hemoptysis, wheezing, snoring, pain on inspiration - Gastrointestinal: Present: abdominal pain, As per HPI. Absent: bloating, change in bowel habits, constipation, diarrhea, heartburn, hematemesis, hematochezia, loose stools, melena, nausea, vomiting - Genitourinary: Present: As per HPI. Absent: difficulty urinating, dysuria, flank pain, hematuria, nocturia, urinary frequency, urinary incontinence - Musculoskeletal: Present: As per HPI. Absent: arthralgias, back pain, joint swelling, limited range of motion, muscle cramps, muscle weakness, myalgias - Neurological: Present: As per HPI. Absent: abnormal gait, abnormal speech, behavioral changes, confusion, convulsions, disequilibrium, dizziness, focal weakness, frequent falls, headache(s), memory loss, numbness, paresthesias, radicular pain, syncope, tremor(s) - Psychiatric: Present: As per HPI. Absent: anxiety, confusion, depression, panic attacks - Endocrine: Present: As per HPI. Absent: cold intolerance, fatigue, heat intolerance, polydipsia, polyphagia - Hematologic/Lymphatic: Present: As per HPI. Absent: easy bleeding, easy bruising, lymphadenopathy Medical,Surgical,& Family Hx - Medical History Cardio: History of: Hypertension No history of: Cardiac Dysrhythmia, CHF, [place], Pacemaker Psychological: History of: Depression Neurology: No history of: Seizures HEENT: History of: Eye Problem (GLASSSES) Endocrine: History of: Dyslipidemia No history of: Diabetes Mellitus (IDDM), Diabetes Mellitus (NIDDM) Rheumatology: History of;: Fibromyalgia Respiratory: No history of: Pulmonary Embolism, Pneumonia, Lung Cancer, Respiratory Problems (FLU VAC- YES; PNEU VAC- YES.) Gastrointestinal: History of: GERD Musculoskeletal: History of: Musculoskeletal Problems Hematology: History of: Anemia (history iron deficiency anemia) Other: History of: Miscellaneous Medical Problems (history of depression and B12 deficiency. IVC FILTER LEFT GROIN.) - Surgical History Cardiac Surgeries: Patient Denies: Cardiac Catheterization HEENT Surgeries: Patient denies: Tonsilectomy & Adenoidectomy Abdominal Surgeries: Surgical HX of: Cholecystectomy, Gastric Bypass Surgery ( 2009), Hernia Repair (06/2015 [facility]) Patient denies: Appendectomy Reproductive Surgeries: Surgical HX of;: Section (X2) Orthopedic Surgeries: Surgical HX of;: Total Hip Replacement (left hip (2011)) - Family History Family History: Reports;: Family Heart Disease, Family Hypertension - Social History Smoking Status: Current every day smoker Have you smoked in the last 12 months: Yes (Currently smokes 1 pack every 3 days and has smoked off and on for 40 years) Time spent discussing smoking cessation with patient: 3 to 10 minutes Frequency of Alcohol Use: Rarely Type of Drug Use: None Marital Status: Single Lives With:: Alone Functional capacity: independent ambulation Physical Examination Vital Signs Temp Pulse Resp BP Pulse Ox 97.3 F L 69 20 100/54 99 11/08/16 06:09 11/08/16 06:09 11/08/16 06:09 11/08/16 06:09 11/08/16 06:09 Other: General: Present: Appears Well, No Apparent Distress. Pleasant and cooperative. Appears comfortable. Epidural in place. HEENT: Present: PERRL, Normocephaly, atraumatic. Mucus Membranes Moist. No jaundice noted. Conjunctiva moist and clear, sclerae anicteric Neck: Present: Supple Neck, Midline Trachea, No Masses, No Bruit Cardiac: Present: Regular Rate and Rhythm, No Murmur Lungs: Present: Clear to auscultation bilaterally, no wheeze, rhonchi, rales. Neuro: Present: Awake, alert, and oriented x3. Moves all extremities well without hemiparesis or paralysis. Grossly Intact. Absent: Resting Tremor, Essential Tremor Abdomen: Present: Soft, hypoactive Bowel Sounds, No Masses, Tender. No abdominal bruit or thrill noted. Midline abdominal incision dry and intact. Skin: Present: Clear. Absent: Rash, No skin breakdown. Musculoskeletal: Present: No Fluid Collection, No Pain, Normal Range of Motion Extremities: Present: Normal Gait, No Clubbing, No Cyanosis, Upper Extr. Pulses 2+, Lower Extr. Pulses 2+, No edema. Capillary refill less than 3 seconds. Left radial arterial line in place. Result/EKG - Labs CBC & BMP: 11/08/16 15:30 11/02/16 15:00 Lab Results: I have reviewed the past 24 hour labs Labs: Laboratory Results - last 24 hr 11/08/16 11/08/16 09:30 15:30 Hgb 13.5 Hct 42.8 Urine Color Yellow Urine Appearance Clear Urine pH 7.0 Ur Specific [place] 1.010 Urine Protein Negative Urine Glucose (UA) Negative Urine Ketones Negative Urine Blood Negative Urine Nitrate Negative Urine Bilirubin Negative Urine Urobilinogen < 2.0 H Urine Leukocytes Negative Urine RBC 2 Urine WBC <1 Ur Squamous Epith Cells Occasional Urine Mucus Occasional Ur Culture Indicated? Not indicated - EKG EKG results: interpreted by me, sinus rhythm <Sruthi Puckett - Last Filed: 11/08/16 22:51> History of Present Illness - Consult Narrative History of present illness: I personally interviewed and examined the patient, reviewed the chart, discussed medical decision making with Practioner Darvin. I have read this note and agree with the findings described herein. She has an abnormal ECG which can be a non-specific finding related to lead placement in women, or could represent prior [place]. She has no cadiac sx. we will f/u echo. CC: Shaji Harvey III., Physical Examination Vital Signs Temp Pulse Resp BP Pulse Ox 97.3 F L 69 20 100/54 99 11/08/16 06:09 11/08/16 06:09 11/08/16 06:09 11/08/16 06:09 11/08/16 06:09 Result/EKG - Labs CBC & BMP: 11/08/16 21:57 11/02/16 15:00 Labs: Laboratory Results - last 24 hr 11/08/16 11/08/16 11/08/16 09:30 15:30 19:59 Hgb 13.5 Hct 42.8 POC Glucose 146 H Urine Color Yellow Urine Appearance Clear Urine pH 7.0 Ur Specific [place] 1.010 Urine Protein Negative Urine Glucose (UA) Negative Urine Ketones Negative Urine Blood Negative Urine Nitrate Negative Urine Bilirubin Negative Urine Urobilinogen < 2.0 H Urine Leukocytes Negative Urine RBC 2 Urine WBC <1 Ur Squamous Epith Cells Occasional Urine Mucus Occasional Ur Culture Indicated? Not indicated 11/08/16 21:57 Hgb 12.4 Hct 38.1 POC Glucose Urine Color Urine Appearance Urine pH Ur Specific [place] Urine Protein Urine Glucose (UA) Urine Ketones Urine Blood Urine Nitrate Urine Bilirubin Urine Urobilinogen Urine Leukocytes Urine RBC Urine WBC Ur Squamous Epith Cells Urine Mucus Ur Culture Indicated?
[2016-11-08] MEDS: DEXTROSE 5% LACTATED RINGERS 1,000 ML IV SCH (16:35)
[2016-11-08] MEDS: LORazepam 1 MG TABLET PO PRN ×2 (17:03→22:29)
--- NOTE | 2016-11-08 18:13 | Anesthesia ---
Anesthesia Post OP - Post Ansesthetic Evaluation Patient seen in post op: Yes Resp: within normal limits CV: within normal limits Mental: within normal limits Temp: within normal limits [id number]: within normal limits Nausea and Vomiting: within normal limits Pain: within normal limits
[2016-11-08] MEDS: LACTATED RINGERS 1,000 ML IV SCH (18:18)
[2016-11-08] MEDS ORDERED: KETOROLAC 30 MG/1 ML VIAL IM PRN (19:30)
--- NOTE | 2016-11-08 19:46 | Family Practice History&Phys ---
Assessment and Plan (1) Large ventral wall hernia Status: Acute Assessment and plan: Patient is now status post repair ventral wall hernia and sinus tracts. 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 Assessment and plan: Patient is status post resection of abdominal wall hernia and multiple sinus tract Current Visit: No (3) large area of scar tissue midabdomen Status: Chronic Assessment and plan: Patient is status post resection of large area of scar tissue in sinus tract Current Visit: No (4) Presence of IVC filter Status: Chronic Assessment and plan: Stable for Current Visit: Yes (5) hyperlipidemia Status: Chronic Assessment and plan: Stable on present meds Current Visit: No (6) hypertension Status: Chronic Current Visit: No (7) iron deficiency anemia Status: Chronic Assessment and plan: Stable at present Current Visit: No (8) previous gastric bypass Status: Chronic Assessment and plan: Stable to present Current Visit: No History of Present Illness Chief complaint: Abdominal wall hernia and sinus tracts History of present illness: Ms. Ramachandran is a 61 year old female Patient is well-known to me who was recently admitted for infection to abdominal wall and large abdominal wall hernia. Patient has had a previous extensive mid abdominal surgery for hernia repair which apparently was not successful. She has had intermittent episodes of purulent drainage from the wound site and during recent admission was noted to have multiple sinus tracts. Evaluation and admission revealed a persistent large abdominal wall hernia. This is because patient significant loss of work and pain. Patient seen in consultation with Dr. Harvey and we treated her with appropriate antibiotics and aggressive treatment. She improved and is now admitted for repair of the abdominal wall hernia. She is status post procedure at the time of my evaluation and is presently doing well. Presently is stable and I will review all studies and follow with you. Home Medications Medication Instructions Recorded Confirmed Type Atorvastatin Calcium 20 mg PO DAILY 08/18/16 11/08/16 History Citalopram [CeleXA] 40 mg PO BEDTIME 08/18/16 11/08/16 History Cyclobenzaprine HCl 10 mg PO BEDTIME 08/18/16 11/08/16 History Ferrous Sulfate 325 mg PO BID 08/18/16 11/08/16 History amLODIPine [Norvasc] 10 mg PO DAILY 08/18/16 11/08/16 History cloNIDine TAB [Catapres Tab] 0.2 mg PO BID 08/18/16 11/08/16 History HYDROcodone/ACETAMIN 5-325 [[place] 1 tablet PO Q4HR 10/10/16 11/08/16 History 5-325] Lorazepam [Ativan] 2 mg PO BID PRN 10/10/16 11/08/16 History Mv,Iron,Min/Folic Acid/Biotin 1 tablet PO DAILY 10/10/16 11/08/16 History [Hair Formula Tablet] Omeprazole [Prilosec] 20 mg PO DAILY 10/10/16 11/08/16 History Vit No.124/Iron/FA 1 each PO DAILY 10/10/16 11/08/16 History [ Vitamin Tablet] Povidone Iodine 10% Oint [Betadine 1 applic TOP PRN PRN #1 applic 10/12/1611/02 Rx Oint] Sulfameth/Trimeth 800-160 Tab 1 tablet PO BID #30 tablet 10/12/16 11/08/16 Rx [Bactrim DS Tab] Aspirin [Ecotrin] 81 mg PO DAILY 11/02/16 11/08/16 History Cyanocobalamin Inj [Vitamin B12 1,000 mcg IM Q30D 11/02/16 11/08/16 History Inj] Lactobacillus Cmb#7/Fos/Inulin 1 each PO DAILY 11/02/16 11/08/16 History [Probiotic Complex Tablet] Allergies Allergy/AdvReac Type Severity Reaction Status Date / Time morphine Allergy Severe Vomiting Verified 11/08/16 06:00 Penicillins Allergy Mild RASH Verified 11/08/16 06:00 Medical,Surgical,& Family Hx - Medical History Cardio: History of: Hypertension No history of: Cardiac Dysrhythmia, CHF, [place], Pacemaker Psychological: History of: Depression Neurology: No history of: Seizures HEENT: History of: Eye Problem (GLASSSES) Endocrine: History of: Dyslipidemia No history of: Diabetes Mellitus (IDDM), Diabetes Mellitus (NIDDM) Rheumatology: History of;: Fibromyalgia Respiratory: No history of: Pulmonary Embolism, Pneumonia, Lung Cancer, Respiratory Problems (FLU VAC- YES; PNEU VAC- YES.) Gastrointestinal: History of: GERD Musculoskeletal: History of: Musculoskeletal Problems Hematology: History of: Anemia (history iron deficiency anemia) Other: History of: Miscellaneous Medical Problems (history of depression and B12 deficiency. IVC FILTER LEFT GROIN.) - Surgical History Cardiac Surgeries: Patient Denies: Cardiac Catheterization HEENT Surgeries: Patient denies: Tonsilectomy & Adenoidectomy Abdominal Surgeries: Surgical HX of: Cholecystectomy, Gastric Bypass Surgery ( 2010), Hernia Repair (06/2015 [facility]) Patient denies: Appendectomy Reproductive Surgeries: Surgical HX of;: Section (X2) Orthopedic Surgeries: Surgical HX of;: Total Hip Replacement (left hip (2011)) - Family History Family History: Reports;: Family Heart Disease, Family Hypertension - Social History Smoking Status: Current every day smoker Frequency of Alcohol Use: Rarely Type of Drug Use: None Marital Status: Lives With:: Alone Exam - Constitutional Vitals: Period Temp Pulse Resp BP Sys/Gil Pulse Ox Last 24 Hr 97 F-97.8 F 66-110 14-22 87-167/35-81 96-100 General appearance: mild distress - Head Head exam: Present: normal inspection - ENT ENT exam: Present: normal exam - Neck Neck exam: Present: normal inspection - Respiratory Respiratory exam: Present: clear to auscultation bilaterally - Cardiovascular Cardiovascular exam: Present: regular rate and rhythm (Patient is status post extensive abdominal hernia repair) - Extremities Exam Extremities exam: Present: normal inspection - Back Exam Back exam: Present: normal inspection - Neurological Exam Neurological exam: Present: alert - Psychiatric Psychiatric exam: Present: normal affect - Skin Skin exam: Present: normal color Results - Labs CBC & BMP: 11/08/16 15:30 11/02/16 15:00
[2016-11-08] MEDS: CITALOPRAM 20 MG TABLET PO SCH (20:18)
[2016-11-08 22:28] LABS: Hematocrit 38.1 VOL% (35.7-47.0); Hemoglobin 12.4 GM/DL (12.0-16.0)
[2016-11-09] MEDS: DEXTROSE 5% LACTATED RINGERS 1,000 ML IV SCH ×5 (00:36→20:44)
[2016-11-09] MEDS: KETOROLAC 10 MG TABLET PO PRN (02:57)
[2016-11-09 05:21] LABS: Basophils % 0.1 % (0.0-0.8); Eosinophils # 0.1 10*3/uL (0.0-0.87); Eosinophils % 0.8 % (0.00-10.9); Hematocrit 37.1 VOL% (35.7-47.0); Hemoglobin 11.9 GM/DL (12.0-16.0); Immature Granulocytes % 0.3 %; Immature Granulocytes Absolute 0.03 #; Lymphocytes # 0.5 10*3/uL (1.4-4.0); Lymphocytes % 5.8 % (21.3-54.2); Mean Corpuscular HGB Conc 32.1 GM/DL (32-36); Mean Corpuscular Hemoglobin 30 PG (27-34); Mean Corpuscular Volume 94.4 FL (87-102); Mean Platelet Volume 13.2 FL (9.6-12.0); Monocytes # 0.7 10*3/uL (0.11-0.8); Monocytes % 8.4 % (1.7-12.7); Neutrophils # 7.4 10*3/uL (1.4-7.4); Neutrophils % 84.6 % (38.7-73.9); Platelet Count 145 T/CUMM (130-400); Red Blood Count 3.93 MC/CUMM (3.8-5.5); Red Cell Distribution Width 14.2 % (9.3-17.3); White Blood Count 8.8 T/CUMM (4-12)
[2016-11-09 06:04] LABS: Calcium 7.5 MG/DL (8.5-10.1); Osmolality,Calculated 282.3 MOS/KG (273-304); Potassium 4.3 MMOL/L (3.5-5.1)
[2016-11-09] MEDS ORDERED: ENOXAPARIN 40 MG/0.4 ML SYRINGE SUBCUT SCH (09:00)
[2016-11-09] MEDS: ATORVASTATIN 20 MG TABLET PO SCH (09:25)
[2016-11-09] MEDS: PANTOPRAZOLE 40 MG TABLET PO SCH (09:25)
[2016-11-09] MEDS: amLODIPine 10 MG TABLET PO SCH (09:25)
[2016-11-09] MEDS: ASPIRIN EC 81 MG TABLET PO SCH (09:26)
--- NOTE | 2016-11-09 10:04 | Event Note ---
Afebrile vital signs stable. Pain does not appear to be well controlled per the patient. She also complains of headache. She's been tolerating full liquid diet with no nausea or vomiting. She denies flatus or bowel movement but has excellent bowel sounds on exam. Her abdomen appears soft and appropriately tender nondistended. CIERRA drain with serosanguineous output. Plan: We'll ask anesthesia to adjust her epidural as needed. We'll advance to a regular diet. Continue SCDs. Whenever the epidural was eventually discontinued will be able to get the Edgar out and start her on Lovenox and get her ambulating.
--- NOTE | 2016-11-09 11:38 | ECHO Report ---
Iza Ramachandran Exam Date: 11/09/2016 07:37 Referring Physician: Technologist: Ailyn Castellano Age: 61 Ht (in): Wt (lb): Gender: F Exam Location: [facility] Echo Indications: Abn. EKG, tobacco abuse, obesity, HTN, hyperlipidema BP: 129 / 78 HR: 90 Rhythm: Sinus Technical Quality: Fair IMPRESSIONS Normal LV systolic function without regional wall motion of the mallet. Grade 1/4 diastolic dysfunction. Moderate concentric left ventricular hypertrophy. Trace to mild mitral regurgitation. Mild to moderate tricuspid regurgitation. MEASUREMENTS (Male / Female) Normal Values 2D ECHO LV Diastolic Diameter PLAX 3.7 cm 4.2 - 5.9 / 3.9 - 5.3 cm LV Systolic Diameter PLAX 2.3 cm LV Fractional Shortening PLAX 37.8 % IVS Diastolic Thickness 1.7 cm 0.6 - 1.0 / 0.6 - 0.9 cm LVPW Diastolic Thickness 1.5 cm 0.6 - 1.0 / 0.6 - 0.9 cm RV Internal Dim ED PLAX 3.0 cm Aortic Root Diameter 2.4 cm LA Systolic Diameter LX 3.8 cm 3.0 - 4.0 / 2.7 - 3.8 cm DOPPLER TR Peak Velocity 247.0 cm/s TR Peak Gradient 24.4 mmHg FINDINGS Left Ventricle Normal left ventricular cavity size. Moderate concentric left ventricular hypertrophy with diastolic dysfunction. Left ventricular ejection fraction is estimated at 55-60 %. Right Ventricle Normal right ventricular size. Right Atrium The right atrium is mildly enlarged. Left Atrium Normal left atrial size. Mitral Valve Mild mitral valve sclerosis. Trace - mild mitral valve regurgitation. Aortic Valve Mild aortic valve sclerosis. Tricuspid Valve Morphologically normal tricuspid valve. [id number] tricuspid valve regurgitation. Tricuspid regurgitation velocities suggest a PAP of 24.4 mmHg + RAP. Pulmonic Valve Pulmonic valve not well visualized. Pericardium No pericardial effusion. Aorta Normal size aortic root and proximal ascending aorta. Sruthi Puckett MD (Electronically Signed) Final Date: 09 November 2016 11:37
[2016-11-09] MEDS ORDERED: ENOXAPARIN 30 MG/0.3 ML SYRINGE SUBCUT SCH (12:00)
[2016-11-09] MEDS: ACETAMINOPHEN 325 MG TABLET PO PRN ×2 (12:08→22:40)
[2016-11-09] MEDS: fentaNYL 2 MCG/ROPIV 0.2% EPID 150 ML EPIDURAL SCH (12:21)
--- NOTE | 2016-11-09 13:20 | Family Practice Progress Note ---
Family Practice - PN: Subj Interval history: Patient is generally doing well. She has had moderate pain and her epidural is being adjusted to compensate. Her vitals have remained stable. A.m. labs are stable. Her abdomen is soft with some bowel sounds present. No new problems identified. PLAN: We will continue present treatment plan. Her pain medications are being adjusted via epidural. Hopefully will continue to improve. We'll repeat labs in a.m. Exam (Progress Note) - Constitutional Vitals: Period Temp Pulse Resp BP Sys/Gil Pulse Ox Last 24 Hr 97 F-98.7 F 66-99 12-23 87-181/30-152 93-100 Results - Labs CBC & BMP: 11/09/16 02:58 11/09/16 03:58 Assessment and Plan (1) Large ventral wall hernia Status: Acute Assessment and plan: Patient is now status post repair ventral wall hernia and sinus tracts. 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
--- NOTE | 2016-11-09 14:11 | Cardiology Progress Note ---
Saman Martinez Vanessa, RN, am scribing for, and in the presence of, Sruthi Puckett MD 14:11. Assessment and Plan - Time spent with patient Time spent with patient: Greater than 30 minutes (1) Abnormal EKG Status: Acute Assessment and plan: She has not experienced any recent or current chest discomfort, dyspnea, or other anginal complaint. Denies knowledge of prior FL or other cardiac history. Echocardiogram does not reveal any structural abnormalities or suggestion of prior myocardial infarction. Current Visit: Yes (2) Obesity Status: Chronic Current Visit: Yes (3) Presence of IVC filter Status: Chronic Current Visit: Yes (4) Tobacco abuse Status: Chronic Current Visit: Yes (5) Incisional hernia of anterior abdominal wall without obstruction or gangrene Status: Acute Current Visit: No (6) hyperlipidemia Status: Chronic Assessment and plan: Continue statin. Current Visit: No (7) hypertension Status: Chronic Assessment and plan: Overall, controlled at this time. No adjustments at this time. Current Visit: No (8) previous gastric bypass Status: Chronic Current Visit: No Cardiology - PN: Subj Interval history: Ms. Ramachandran remains in CCU this morning. She is awake and alert this morning. She is status post repair of multiple large incarcerated recurrent incisional hernias on 11/08/16. She is seen in follow up today after consultation for abnormal EKG. EKG demonstrated possible RVH, septal FL. She has not experienced any recent or current chest discomfort, shortness of breath, or other overt anginal complaint. Only complaint is related to surgical pain. Epidural is continued. Echocardiogram completed this morning and reviewed. Sinus rhythm with pulse in the 80s, SBP 120-140. Labs reviewed. Overall unremarkable. She has no prior cardiac history and no cardiac symptoms. ECG was incidentally mildly abnormal in a nonspecific way. Echocardiogram does not show any evidence of prior myocardial infarction. We will sign off, please contact us for any cardiac issues that may arise during her hospital stay. Exam (Progress Note) - Constitutional Vitals: Period Temp Pulse Resp BP Sys/Gil Pulse Ox Last 24 Hr 97 F-98.7 F 66-110 14-22 87-181/30-152 93-100 Exam: General: Present: Appears Well, No Apparent Distress. Pleasant and cooperative. Appears comfortable. Epidural in place. HEENT: Present: PERRL, Normocephaly, atraumatic. Mucus Membranes Moist. No jaundice noted. Conjunctiva moist and clear, sclerae anicteric Neck: Present: Supple Neck, Midline Trachea, No Masses, No Bruit Cardiac: Present: Regular Rate and Rhythm, No Murmur Lungs: Present: Clear to auscultation bilaterally, no wheeze, rhonchi, rales. Neuro: Present: Awake, alert, and oriented x3. Moves all extremities well without hemiparesis or paralysis. Grossly Intact. Absent: Resting Tremor, Essential Tremor Abdomen: Present: Soft, hypoactive Bowel Sounds, No Masses, Tender. No abdominal bruit or thrill noted. Midline abdominal incision dry and intact abdominal binder in place. Skin: Present: Clear. Absent: Rash, No skin breakdown. Musculoskeletal: Present: No Fluid Collection, No Pain, Normal Range of Motion Extremities: Present: Normal Gait, No Clubbing, No Cyanosis, Upper Extr. Pulses 2+, Lower Extr. Pulses 2+, No edema. Capillary refill less than 3 seconds. Left radial arterial line in place. Result/EKG - Labs CBC & BMP: 11/09/16 02:58 11/09/16 03:58 Lab Results: I have reviewed the past 24 hour labs Labs: Laboratory Results - last 24 hr 11/08/16 11/08/16 11/08/16 09:30 15:30 19:59 WBC RBC Hgb 13.5 Hct 42.8 MCV MCH MCHC RDW Plt Count MPV Neut % (Auto) Lymph % (Auto) Chester % (Auto) Eos % (Auto) Baso % (Auto) Neut # (Auto) Lymph # (Auto) Chester # (Auto) Eos # (Auto) Baso # (Auto) Immature Gran % Nucleated RBC % Immature Gran # Nucleated RBCs # Sodium Potassium Chloride Carbon Dioxide Anion Gap BUN Creatinine GFR Calculation BUN/Creatinine Ratio Glucose POC Glucose 146 H Calculated Osmolality Calcium Urine Color Yellow Urine Appearance Clear Urine pH 7.0 Ur Specific Hermosa 1.010 Urine Protein Negative Urine Glucose (UA) Negative Urine Ketones Negative Urine Blood Negative Urine Nitrate Negative Urine Bilirubin Negative Urine Urobilinogen < 2.0 H Urine Leukocytes Negative Urine RBC 2 Urine WBC <1 Ur Squamous Epith Cells Occasional Urine Mucus Occasional Ur Culture Indicated? Not indicated 11/08/16 11/09/16 11/09/16 21:57 02:58 03:58 WBC 8.8 RBC 3.93 Hgb 12.4 11.9 L Hct 38.1 37.1 MCV 94.4 MCH 30 MCHC 32.1 RDW 14.2 Plt Count 145 MPV 13.2 H Neut % (Auto) 84.6 H Lymph % (Auto) 5.8 L Chester % (Auto) 8.4 Eos % (Auto) 0.8 Baso % (Auto) 0.1 Neut # (Auto) 7.4 Lymph # (Auto) 0.5 L Chester # (Auto) 0.7 Eos # (Auto) 0.1 Baso # (Auto) 0.0 Immature Gran % 0.3 Nucleated RBC % 0.0 Immature Gran # 0.03 Nucleated RBCs # 0.00 Sodium 141 Potassium 4.3 Chloride 108 H Carbon Dioxide 25 Anion Gap 12.3 BUN 12 Creatinine 0.70 GFR Calculation 102 BUN/Creatinine Ratio 17.00 Glucose 127 H POC Glucose Calculated Osmolality 282.3 Calcium 7.5 L Urine Color Urine Appearance Urine pH Ur Specific Hermosa Urine Protein Urine Glucose (UA) Urine Ketones Urine Blood Urine Nitrate Urine Bilirubin Urine Urobilinogen Urine Leukocytes Urine RBC Urine WBC Ur Squamous Epith Cells Urine Mucus Ur Culture Indicated? 11/09/16 07:24 WBC RBC Hgb Hct MCV MCH MCHC RDW Plt Count MPV Neut % (Auto) Lymph % (Auto) Chester % (Auto) Eos % (Auto) Baso % (Auto) Neut # (Auto) Lymph # (Auto) Chester # (Auto) Eos # (Auto) Baso # (Auto) Immature Gran % Nucleated RBC % Immature Gran # Nucleated RBCs # Sodium Potassium Chloride Carbon Dioxide Anion Gap BUN Creatinine GFR Calculation BUN/Creatinine Ratio Glucose POC Glucose 105 Calculated Osmolality Calcium Urine Color Urine Appearance Urine pH Ur Specific Herm[place] Urine Protein Urine Glucose (UA) Urine Ketones Urine Blood Urine Nitrate Urine Bilirubin Urine Urobilinogen Urine Leukocytes Urine RBC Urine WBC Ur Squamous Epith Cells Urine Mucus Ur Culture Indicated? - EKG EKG results: interpreted by me EKG shows: sinus rhythm IItalo Jennifer, MD, personally performed the services described in this documentation, ascribed by Jessica Davison RN in my presence, and it is both accurate and complete [id number] .
[2016-11-09] MEDS: LACTATED RINGERS 1,000 ML IV SCH (15:09)
[2016-11-09] MEDS: LORazepam 1 MG TABLET PO PRN ×2 (15:36→20:45)
[2016-11-09] MEDS: ENOXAPARIN 30 MG/0.3 ML SYRINGE SUBCUT SCH (15:36)
[2016-11-09] MEDS: CITALOPRAM 20 MG TABLET PO SCH (20:45)
[2016-11-10] MEDS: DEXTROSE 5% LACTATED RINGERS 1,000 ML IV SCH (04:48)
[2016-11-10 04:57] LABS: Basophils % 0.1 % (0.0-0.8); Eosinophils # 0.3 10*3/uL (0.0-0.87); Eosinophils % 3.6 % (0.00-10.9); Hematocrit 38.7 VOL% (35.7-47.0); Hemoglobin 12.5 GM/DL (12.0-16.0); Immature Granulocytes % 0.5 %; Immature Granulocytes Absolute 0.05 #; Lymphocytes # 1.5 10*3/uL (1.4-4.0); Lymphocytes % 15.7 % (21.3-54.2); Mean Corpuscular HGB Conc 32.3 GM/DL (32-36); Mean Corpuscular Hemoglobin 31 PG (27-34); Mean Corpuscular Volume 95.3 FL (87-102); Monocytes # 0.7 10*3/uL (0.11-0.8); Monocytes % 7.3 % (1.7-12.7); Neutrophils # 6.7 10*3/uL (1.4-7.4); Neutrophils % 72.8 % (38.7-73.9); Platelet Count 145 T/CUMM (130-400); Red Blood Count 4.06 MC/CUMM (3.8-5.5); Red Cell Distribution Width 14.3 % (9.3-17.3); White Blood Count 9.2 T/CUMM (4-12)
[2016-11-10 05:23] LABS: Calcium 7.7 MG/DL (8.5-10.1); Osmolality,Calculated 286.7 MOS/KG (273-304); Potassium 3.7 MMOL/L (3.5-5.1)
[2016-11-10 05:25] LABS: Calcium 7.8 MG/DL (8.5-10.1); Osmolality,Calculated 284.8 MOS/KG (273-304); Potassium 3.7 MMOL/L (3.5-5.1)
[2016-11-10] MEDS: ACETAMINOPHEN 325 MG TABLET PO PRN (05:40)
[2016-11-10] MEDS: fentaNYL 2 MCG/ROPIV 0.2% EPID 150 ML EPIDURAL SCH (08:07)
[2016-11-10] MEDS: amLODIPine 10 MG TABLET PO SCH (08:24)
[2016-11-10] MEDS: PANTOPRAZOLE 40 MG TABLET PO SCH (08:24)
[2016-11-10] MEDS: ATORVASTATIN 20 MG TABLET PO SCH (08:25)
[2016-11-10] MEDS: ASPIRIN EC 81 MG TABLET PO SCH (08:25)
--- NOTE | 2016-11-10 11:36 | Event Note ---
Afebrile vital signs stable. She is tolerating regular diet with nausea when she has waves of pain. Her main complaint is of pain. She has gotten up to chair. Her abdomen is soft and appropriately tender nondistended and the incisions look good. CIERRA drains with moderate serosanguineous output. Will stop her IV fluids. Anesthesia is managing the epidural.
--- NOTE | 2016-11-10 11:37 | Internal Med Progress Note ---
Assessment and Plan (1) Large ventral wall hernia Status: Acute Assessment and plan: 61-year-old female admitted to acute * Status post ventral hernia repair. Patient is doing well after surgery. She is still requiring epidural for pain control * Hypertension. Continue current treatment * Anemia. She will continue iron * Okay to go to floor when okay with surgery Current Visit: No (2) hyperlipidemia Status: Chronic Current Visit: No (3) hypertension Status: Chronic Current Visit: No (4) iron deficiency anemia Status: Chronic Current Visit: No (5) previous gastric bypass Status: Chronic Current Visit: No Internal Medicine - PN: Subj Interval history: 61-year-old female with history of hypertension, hyperlipidemia, gastric bypass surgery, IVC filter placement who underwent incisional hernia repair. She has an epidural in place and is getting pain medications. She feels tired and weak. She is also complaining of abdominal pain. She denies any chest pain or shortness of breath. Exam (Progress Note) - Constitutional Vitals: Period Temp Pulse Resp BP Sys/Gil Pulse Ox Last 24 Hr 97 F-99.6 F 81-100 14-26 94-141/46-79 93-99 Exam: Examination: GENERAL: Patient sedated HEENT: PERRLA. EOMI. NECK: Neck is supple. CVS: Regular rate and rhythm. S1 and S2 are normal. RESPIRATORY: Lungs are clear. No rales or rhonchi. ABDOMEN: Soft and nontender. Bowel sounds are present. Incisional hernia repair EXT: No edema. Peripheral pulses are present. SUPPORT SERVICES MANAGER: Patient is awake, alert and oriented to time place and person. Moving both upper and lower extremities SKIN: Warm and dry. Results - Labs CBC & BMP: 11/10/16 04:26 11/10/16 04:26 Lab Results: I have reviewed the past 24 hour labs
[2016-11-10] MEDS: LACTATED RINGERS 1,000 ML IV SCH (12:45)
[2016-11-10] MEDS: ENOXAPARIN 30 MG/0.3 ML SYRINGE SUBCUT SCH (15:13)
[2016-11-10] MEDS: HYDROmorphone 2 MG/1 ML VIAL IV PRN (15:13)
[2016-11-10] MEDS: KETOROLAC 30 MG/1 ML VIAL IV PRN (18:18)
[2016-11-10] MEDS: LORazepam 1 MG TABLET PO PRN (21:01)
[2016-11-10] MEDS: CITALOPRAM 20 MG TABLET PO SCH (21:01)
[2016-11-11] MEDS: fentaNYL 2 MCG/ROPIV 0.2% EPID 150 ML EPIDURAL SCH ×2 (02:38→21:03)
[2016-11-11] MEDS: KETOROLAC 30 MG/1 ML VIAL IV PRN ×2 (03:51→23:38)
[2016-11-11 05:02] LABS: Basophils % 0.3 % (0.0-0.8); Eosinophils # 0.5 10*3/uL (0.0-0.87); Eosinophils % 4.9 % (0.00-10.9); Hematocrit 40.4 VOL% (35.7-47.0); Hemoglobin 12.7 GM/DL (12.0-16.0); Immature Granulocytes % 0.3 %; Immature Granulocytes Absolute 0.03 #; Lymphocytes # 2.5 10*3/uL (1.4-4.0); Lymphocytes % 26.7 % (21.3-54.2); Mean Corpuscular HGB Conc 31.4 GM/DL (32-36); Mean Corpuscular Hemoglobin 31 PG (27-34); Mean Corpuscular Volume 97.3 FL (87-102); Mean Platelet Volume 12.7 FL (9.6-12.0); Monocytes # 0.9 10*3/uL (0.11-0.8); Monocytes % 9.1 % (1.7-12.7); Neutrophils # 5.5 10*3/uL (1.4-7.4); Neutrophils % 58.7 % (38.7-73.9); Platelet Count 175 T/CUMM (130-400); Red Blood Count 4.15 MC/CUMM (3.8-5.5); Red Cell Distribution Width 14.1 % (9.3-17.3); White Blood Count 9.4 T/CUMM (4-12)
[2016-11-11 05:30] LABS: Calcium 7.9 MG/DL (8.5-10.1); Magnesium 2.2 MG/DL (1.8-2.4); Osmolality,Calculated 290.4 MOS/KG (273-304); Potassium 3.7 MMOL/L (3.5-5.1)
[2016-11-11] MEDS: ASPIRIN EC 81 MG TABLET PO SCH (09:25)
[2016-11-11] MEDS: ATORVASTATIN 20 MG TABLET PO SCH (09:25)
[2016-11-11] MEDS: PANTOPRAZOLE 40 MG TABLET PO SCH (09:25)
[2016-11-11] MEDS: amLODIPine 10 MG TABLET PO SCH (09:25)
--- NOTE | 2016-11-11 11:01 | Internal Med Progress Note ---
Assessment and Plan (1) Large ventral wall hernia Status: Acute Assessment and plan: 61-year-old female admitted to acute * Status post ventral hernia repair. Patient is doing well after surgery. She still has epidural for pain control. * Encouraged patient to use incentive spirometry * Hypertension. Continue current treatment * Anemia. She will continue iron * Okay to go to floor when okay with surgery Current Visit: No (2) hyperlipidemia Status: Chronic Current Visit: No (3) hypertension Status: Chronic Current Visit: No (4) iron deficiency anemia Status: Chronic Current Visit: No (5) previous gastric bypass Status: Chronic Current Visit: No Internal Medicine - PN: Subj Interval history: 61-year-old female with history of hypertension, hyperlipidemia, gastric bypass surgery, IVC filter placement who underwent incisional hernia repair. She has an epidural in place and is getting pain medications. She is feeling better today. No chest pain or shortness of breath. She is still having abdominal wall pain Exam (Progress Note) - Constitutional Vitals: Period Temp Pulse Resp BP Sys/Gil Pulse Ox Last 24 Hr 97.2 F-98.1 F 78-115 12-25 104-152/52-94 93-97 Exam: Examination: GENERAL: Patient sedated NECK: Neck is supple. CVS: Regular rate and rhythm. RESPIRATORY: Lungs are clear. Coarse breath sounds ABDOMEN: Soft and nontender. Bowel sounds are present. Incisional hernia repair EXT: No edema. Peripheral pulses are present. FOOTWEAR SALES COORDINATOR: Nonfocal SKIN: Warm and dry. Results - Labs CBC & BMP: 11/11/16 04:25 11/11/16 04:25 Lab Results: I have reviewed the past 24 hour labs
[2016-11-11] MEDS ORDERED: FUROSEMIDE 20 MG/2 ML VIAL IV ONE (11:40)
--- NOTE | 2016-11-11 13:17 | Event Note ---
Patient had several very large bowel movements. Pain appears better controlled. Anesthesia has been adjusting the epidural. She is also on Toradol. She's been sitting up better. Still requiring quite a bit of nursing care. Her CIERRA drain output has picked up. It remains serosanguineous. She is probably mobilizing a lot of the fluid as she is getting up. Will continue her present care. Hopefully they'll be able to wean the epidural and get it out soon so that she can get up and walk more.
[2016-11-11] MEDS: LACTATED RINGERS 1,000 ML IV SCH (15:39)
[2016-11-11] MEDS: ENOXAPARIN 30 MG/0.3 ML SYRINGE SUBCUT SCH (15:39)
[2016-11-11] MEDS: HYDROmorphone 2 MG/1 ML VIAL IV PRN (15:40)
[2016-11-11] MEDS: LORazepam 1 MG TABLET PO PRN (20:28)
[2016-11-11] MEDS: CITALOPRAM 20 MG TABLET PO SCH (20:28)
[2016-11-12] MEDS: HYDROmorphone 2 MG/1 ML VIAL IV PRN ×2 (03:30→15:42)
[2016-11-12] MEDS: ONDANSETRON 4 MG/2 ML VIAL IV PRN ×3 (03:30→22:56)
[2016-11-12 05:24] LABS: Calcium 8.4 MG/DL (8.5-10.1); Magnesium 2.3 MG/DL (1.8-2.4); Osmolality,Calculated 286.8 MOS/KG (273-304); Potassium 3.7 MMOL/L (3.5-5.1)
--- NOTE | 2016-11-12 08:13 | Event Note ---
She looks and feels well. Her pain is controlled. She is afebrile with stable vital signs and her abdomen looks good. I think where a point we should get her epidural out and get her up into a regular room. Hopefully she will be ready for discharge by tomorrow. She is having bowel movements and has normal bowel function. I see no signs of infection recurrence or any complication at this point.
[2016-11-12] MEDS: ATORVASTATIN 20 MG TABLET PO SCH (09:16)
[2016-11-12] MEDS: amLODIPine 10 MG TABLET PO SCH (09:16)
[2016-11-12] MEDS: ASPIRIN EC 81 MG TABLET PO SCH (09:16)
[2016-11-12] MEDS: PANTOPRAZOLE 40 MG TABLET PO SCH (09:16)
--- NOTE | 2016-11-12 13:56 | Progress Note ---
Family Medicine PN Sub Interval history: On 11/12/16 at 13:34 the epidural catheter was removed intact with a sterile technic by Dr. Blair in ICU. The epidural tip was visualized and shown to the RN Jocelyne. No bleeding. Pt needs to be restarted on Lovenox 40 mg SC today not earlier than 6:30 pm , which was discussed with pt's RN Jocelyne. Dr. Edson Blair Exam (Progress Note) - Constitutional Vitals: Period Temp Pulse Resp BP Sys/Gil Pulse Ox Last 24 Hr 97.6 F-98.5 F 70-92 12-24 85-136/50-96 90-98 Results - Labs CBC & BMP: 11/11/16 04:25 11/12/16 03:57
[2016-11-12] MEDS: LACTATED RINGERS 1,000 ML IV SCH (14:34)
[2016-11-12] MEDS ORDERED: ONDANSETRON 4 MG/2 ML VIAL IV ONE (18:11)
--- NOTE | 2016-11-12 18:22 | Family Practice Progress Note ---
Family Practice - PN: Subj Interval history: Patient is having almost unbearable pain since stopping the epidural. She is crying and unable to lie still due to pain. The Dilaudid caused significant nausea. She lists an allergy to morphine but states it causes nausea no other associated symptoms. Spent a long time since she has tried the morphine and she would like to try this as opposed to staying with the Dilaudid. Advised they can give nausea medications prior to the morphine. She had been well controlled on the fentanyl feels the epidural. I will also place a 25 mg Duragesic patch at least for temporary basis. She appears to be in significant pain. She has never been a pain seeker in the past. Her physical is otherwise stable. Hopefully this will bring her pain under control and we can begin tapering medications Exam (Progress Note) - Constitutional Vitals: Period Temp Pulse Resp BP Sys/Gil Pulse Ox Last 24 Hr 97.6 F-98.5 F 70-87 12-24 85-145/43-96 89-97 Results - Labs CBC & BMP: 11/11/16 04:25 11/12/16 03:57 Assessment and Plan (1) Large ventral wall hernia Status: Acute Assessment and plan: Patient is now status post repair ventral wall hernia and sinus tracts. 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
[2016-11-12] MEDS: MORPHINE 2 MG/1 ML SYRINGE IV PRN ×2 (18:42→22:55)
[2016-11-12] MEDS: ENOXAPARIN 30 MG/0.3 ML SYRINGE SUBCUT SCH (18:46)
[2016-11-12] MEDS: fentaNYL 25 MCG/HR PATCH TRANSDERM SCH (18:47)
[2016-11-12] MEDS ORDERED: POVIDONE IODINE 10% TOP PRN (20:12)
[2016-11-12] MEDS: SULFAMETHOX/TRIMETHOPRIM 800-160 MG TABLET PO SCH (20:46)
[2016-11-12] MEDS: LORazepam 1 MG TABLET PO PRN (20:46)
[2016-11-12] MEDS: CYCLOBENZAPRINE 10 MG TABLET PO SCH (20:46)
[2016-11-12] MEDS: CITALOPRAM 20 MG TABLET PO SCH (20:46)
[2016-11-12] MEDS: FERROUS SULFATE 325 MG TABLET PO SCH (20:46)
[2016-11-13] MEDS: ONDANSETRON 4 MG/2 ML VIAL IV PRN ×3 (05:48→18:28)
[2016-11-13] MEDS: MORPHINE 2 MG/1 ML SYRINGE IV PRN ×2 (05:48→18:30)
[2016-11-13 06:40] LABS: Basophils # 0.1 10*3/uL (0.0-0.2); Basophils % 0.6 % (0.0-0.8); Eosinophils # 0.3 10*3/uL (0.0-0.87); Eosinophils % 3.5 % (0.00-10.9); Hematocrit 40.1 VOL% (35.7-47.0); Hemoglobin 12.7 GM/DL (12.0-16.0); Immature Granulocytes % 0.9 %; Immature Granulocytes Absolute 0.08 #; Lymphocytes # 1.3 10*3/uL (1.4-4.0); Lymphocytes % 15.2 % (21.3-54.2); Mean Corpuscular HGB Conc 31.7 GM/DL (32-36); Mean Corpuscular Hemoglobin 30 PG (27-34); Mean Corpuscular Volume 93.7 FL (87-102); Mean Platelet Volume 12.3 FL (9.6-12.0); Monocytes # 0.9 10*3/uL (0.11-0.8); Monocytes % 10.3 % (1.7-12.7); Neutrophils # 6.2 10*3/uL (1.4-7.4); Neutrophils % 69.5 % (38.7-73.9); Platelet Count 242 T/CUMM (130-400); Red Blood Count 4.28 MC/CUMM (3.8-5.5); Red Cell Distribution Width 13.4 % (9.3-17.3); White Blood Count 8.8 T/CUMM (4-12)
--- NOTE | 2016-11-13 07:10 | Event Note ---
She had a lot of pain once her epidural was discontinued yesterday but Dr. Sheets as adjusting her pain medication and she feels better this morning. She is afebrile with stable vital signs. Her abdomen and wound looked good. She has gotten up some. We will get her Edgar catheter out. We will ambulate her more today and hopefully can discharge her home later today or tomorrow.
[2016-11-13 07:12] LABS: Calcium 7.9 MG/DL (8.5-10.1); Osmolality,Calculated 288.8 MOS/KG (273-304); Potassium 3.8 MMOL/L (3.5-5.1)
[2016-11-13] MEDS: FERROUS SULFATE 325 MG TABLET PO SCH ×2 (08:27→20:25)
[2016-11-13] MEDS: ASPIRIN EC 81 MG TABLET PO SCH (08:27)
[2016-11-13] MEDS: ATORVASTATIN 20 MG TABLET PO SCH (08:27)
[2016-11-13] MEDS: amLODIPine 10 MG TABLET PO SCH (08:27)
[2016-11-13] MEDS: MULTIVITAMIN (CENTRUM) TABLET PO SCH (08:27)
[2016-11-13] MEDS: PANTOPRAZOLE 40 MG TABLET PO SCH (08:27)
[2016-11-13] MEDS: LACTOBACILLUS RHAMNOSUS GG CAPSULE PO SCH (08:27)
[2016-11-13] MEDS: HYDROmorphone 2 MG/1 ML VIAL IV PRN (09:47)
[2016-11-13] MEDS: MULTIVITAMIN (PRENATAL) TABLET PO SCH (09:47)
[2016-11-13] MEDS: SULFAMETHOX/TRIMETHOPRIM 800-160 MG TABLET PO SCH ×2 (09:47→20:25)
--- NOTE | 2016-11-13 13:24 | Pathology Report from [facility] ---
ACCESSION # : [id number] PATIENT NAME : Iza Ramachandran ORDERING DR : KVNG VARGAS III, MD CLINICAL HX: Chronic recurrent incarcerated incisional hernia POST-OP DX: Same SPECIMEN INFO: Midline scar tissue GROSS DESCRIPTION: The specimen is received in formalin labeled with the patient 's name Iza Ramachandran is a triangular shaped fragment of pale byrne subcutaneous tissue measuring 11.5 x up to 0.5 x 2 cm. Pediatric Anesthesiologist sections are submitted in cassettes A through C. DIAGNOSIS FOR IZA RAMACHANDRAN: MIDLINE SCAR TISSUE: Skin with underlying hypertrophic fibrosis, chronic inflammation, hemosiderophages, granulation. SERVICE DATE: 11/08/2016 REPORT DATE: 11/09/2016 PATHOLOGIST: Yariel Don M.D. [facility]
[2016-11-13] MEDS: ENOXAPARIN 30 MG/0.3 ML SYRINGE SUBCUT SCH (18:23)
[2016-11-13] MEDS: CITALOPRAM 20 MG TABLET PO SCH (20:24)
[2016-11-13] MEDS: CYCLOBENZAPRINE 10 MG TABLET PO SCH (20:25)
--- NOTE | 2016-11-13 21:14 | Family Practice Progress Note ---
Family Practice - PN: Subj Interval history: Pt. is doing better this pm.Pain is controlled and she has been up in room and sitting in chair.Vitals are stable and she denies any new problems. Labs are stable.Her exam is stable with active bowl sounds.Pt. is requesting swing bed .she lives alone and doesn't feel she can care for herself.Hopefully will continue to improve. Exam (Progress Note) - Constitutional Vitals: Period Temp Pulse Resp BP Sys/Gil Pulse Ox Last 24 Hr 96.7 F-99.4 F 73-96 16-19 87-143/47-83 90-94 Results - Labs CBC & BMP: 11/13/16 06:12 11/13/16 06:12 Assessment and Plan (1) Large ventral wall hernia Status: Acute Assessment and plan: Patient is now status post repair ventral wall hernia and sinus tracts. 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
[2016-11-13] MEDS ORDERED: SODIUM CHLORIDE 0.9% 500 ML IV ONE (21:53)
[2016-11-14 05:45] LABS: Apearance,Urine Slightly Hazy (Clear); Bacteria,Urine Occasional /HPF (Few); Bilirubin,Urine Negative (Negative); Blood, Urine Negative (Negative); Glucose,Urine (UA) Negative (Negative); Ketones,Urine Negative (Negative); Mucus,Urine Many /LPF (Occasional); Nitrite,Urine Negative (Negative); Protein,Urine Negative; RBC,Urine 3 /HPF (0-4); Squamous Epithelial Cell,Urine Occasional /HPF (0-10); Urine Specific Gravity 1.029 (1.001-1.035); WBC,Urine 7 /HPF (0-6)
[2016-11-14 05:46] LABS: Urine Color Dark yellow (Yellow)
[2016-11-14 05:50] LABS: Basophils # 0.1 10*3/uL (0.0-0.2); Basophils % 0.8 % (0.0-0.8); Eosinophils # 0.6 10*3/uL (0.0-0.87); Eosinophils % 6.6 % (0.00-10.9); Hemoglobin 11.8 GM/DL (12.0-16.0); Immature Granulocytes Absolute 0.09 #; Lymphocytes # 3.5 10*3/uL (1.4-4.0); Lymphocytes % 38.9 % (21.3-54.2); Mean Corpuscular HGB Conc 30.3 GM/DL (32-36); Mean Corpuscular Hemoglobin 30 PG (27-34); Mean Platelet Volume 11.9 FL (9.6-12.0); Monocytes # 0.9 10*3/uL (0.11-0.8); Monocytes % 10.3 % (1.7-12.7); Neutrophils # 3.9 10*3/uL (1.4-7.4); Neutrophils % 42.4 % (38.7-73.9); Platelet Count 236 T/CUMM (130-400); Red Blood Count 3.94 MC/CUMM (3.8-5.5); Red Cell Distribution Width 13.5 % (9.3-17.3); White Blood Count 9.1 T/CUMM (4-12)
[2016-11-14 06:29] LABS: Calcium 7.8 MG/DL (8.5-10.1); Osmolality,Calculated 289.7 MOS/KG (273-304); Potassium 4.1 MMOL/L (3.5-5.1)
--- NOTE | 2016-11-14 08:43 | Event Note ---
She has moderate pain which seems consistent with typical postoperative pain. She is afebrile. Her wound incisions looked good. The drainage in her CIERRA drains serosanguineous. I see no signs of infection. She is getting up some. If we can get her pain controlled I think she should be fine for discharge today.
[2016-11-14] MEDS: ATORVASTATIN 20 MG TABLET PO SCH (09:01)
[2016-11-14] MEDS: FERROUS SULFATE 325 MG TABLET PO SCH ×2 (09:01→20:30)
[2016-11-14] MEDS: amLODIPine 10 MG TABLET PO SCH (09:01)
[2016-11-14] MEDS: MULTIVITAMIN (PRENATAL) TABLET PO SCH (09:01)
[2016-11-14] MEDS: SULFAMETHOX/TRIMETHOPRIM 800-160 MG TABLET PO SCH ×2 (09:01→20:30)
[2016-11-14] MEDS: LACTOBACILLUS RHAMNOSUS GG CAPSULE PO SCH (09:01)
[2016-11-14] MEDS: PANTOPRAZOLE 40 MG TABLET PO SCH (09:01)
[2016-11-14] MEDS: ASPIRIN EC 81 MG TABLET PO SCH (09:01)
[2016-11-14] MEDS: MULTIVITAMIN (CENTRUM) TABLET PO SCH (09:01)
[2016-11-14] MEDS: ENOXAPARIN 30 MG/0.3 ML SYRINGE SUBCUT SCH (18:24)
--- NOTE | 2016-11-14 19:37 | Family Practice Progress Note ---
Family Practice - PN: Subj Interval history: Patient continues to slowly improve. Pain is moderately controlled. Trying to get her placed at swing bed. Denies any new complaints. Vitals and labs are stable. Exam is stable with some diffuse incisional pain as would be expected. Patient is ambulating with assistance. We'll continue present treatment plan. Hopefully will be approved for swing bed tomorrow Exam (Progress Note) - Constitutional Vitals: Period Temp Pulse Resp BP Sys/Gil Pulse Ox Last 24 Hr 96.3 F-98.9 F 58-77 16-20 88-106/47-55 91-96 Results - Labs CBC & BMP: 11/14/16 05:33 11/14/16 05:33 Assessment and Plan (1) Large ventral wall hernia Status: Acute Assessment and plan: Patient is now status post repair ventral wall hernia and sinus tracts. 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
[2016-11-14] MEDS: CYCLOBENZAPRINE 10 MG TABLET PO SCH (20:30)
[2016-11-14] MEDS: CITALOPRAM 20 MG TABLET PO SCH (20:30)
[2016-11-14] MEDS: LORazepam 1 MG TABLET PO PRN (20:36)
--- NOTE | 2016-11-15 08:26 | Family Practice Progress Note ---
Family Practice - PN: Subj Interval history: Patient states that she has had increased pain since we have increased level of activity. Does not want to change her present pain medications. She has been able to ambulate with assistance is sitting in a chair some. I reviewed all lab and studies which are stable. Her vitals have remained stable. She denies any new problems.. Her physical exam is stable except for incisional pain. Patient is tentatively scheduled for transfer to swing bed today. She should continue to do well. Exam (Progress Note) - Constitutional Vitals: Period Temp Pulse Resp BP Sys/Gil Pulse Ox Last 24 Hr 96.3 F-98.2 F 58-73 16-18 90-113/46-62 91-98 Results - Labs CBC & BMP: 11/14/16 05:33 11/14/16 05:33 Assessment and Plan (1) Large ventral wall hernia Status: Acute Assessment and plan: Patient is now status post repair ventral wall hernia and sinus tracts. 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
[2016-11-15] MEDS: fentaNYL 25 MCG/HR PATCH TRANSDERM SCH (09:05)
[2016-11-15] MEDS: amLODIPine 10 MG TABLET PO SCH (09:06)
[2016-11-15] MEDS: ATORVASTATIN 20 MG TABLET PO SCH (09:07)
[2016-11-15] MEDS: LACTOBACILLUS RHAMNOSUS GG CAPSULE PO SCH (09:07)
[2016-11-15] MEDS: MULTIVITAMIN (CENTRUM) TABLET PO SCH (09:07)
[2016-11-15] MEDS: FERROUS SULFATE 325 MG TABLET PO SCH (09:07)
[2016-11-15] MEDS: SULFAMETHOX/TRIMETHOPRIM 800-160 MG TABLET PO SCH (09:07)
[2016-11-15] MEDS: ASPIRIN EC 81 MG TABLET PO SCH (09:07)
[2016-11-15] MEDS: MULTIVITAMIN (PRENATAL) TABLET PO SCH (09:07)
[2016-11-15] MEDS: PANTOPRAZOLE 40 MG TABLET PO SCH (09:07)
[2016-11-15] MEDS ORDERED: DOCUSATE SODIUM 100 MG CAPSULE PO PRN (09:46)
--- NOTE | 2016-11-15 09:57 | Discharge Summary ---
Hospital Course - Hospital Course Hospital Course: See history and physical. The patient has history of previous ventral hernia repair which failed and required surgical intervention. Surgery was performed by Dr. Harvey in the day of discharge including abdominal reconstruction with repair of multiple large incisional hernias as well as implantation of a bioprosthetic mesh. Postoperatively, she required epidural for pain management and was monitored in the ICU for her extensive procedure. Ultimately, she progressed well. Appreciate consultations from family practice and cardiology for which there were no complications. The patient pain was ultimately well controlled on oral analgesics. She was able to produce a bowel movement was voiding without difficulty. Tolerating p.o. intake. She had 2 CIERRA drains with persistent output is serosanguinous in nature decreasing in volume appropriately day by day. She tolerated physical therapy and Occupational Therapy, but did require assistance with mobility and transfers. Ultimately she was deemed appropriate and accepted to a swing bed unit to which she was discharged. 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 No pushing, pulling or lifting >10 lb) Hygiene: keep area(s) dry Driving: not until seen by doctor Contact your physician if you experience:: fever over 101, Difficulty voiding, Redness or swelling, Nausea/Vomiting, Shortness of breath, Bleeding, pain uncontrolled by pain medications Wound / Dressing Care Instructions: Keep wounds clean, dry and covered. May shower if no drainage. - Discharge Medications New HYDROcodone/ACETAMIN 5-325 [Bryan 5-325] 1 - 2 tablet PO Q6H PRN #60 tablet PRN Reason: Pain Moderate To Severe (4-10) LORazepam TAB [Ativan Tab] 2 mg PO BID PRN #0 tablet PRN Reason: Anxiety fentaNYL [Fentanyl 12.5 mcg/hr Patch] 1 patch TRANSDERM Q3DAY #5 patch Docusate Sodium Cap [Colace Cap] 100 mg PO BID PRN #0 capsule PRN Reason: Constipation Pantoprazole Tab [Protonix Tab] 40 mg PO DAILY tablet Continue Ferrous Sulfate 325 mg PO BID Citalopram [CeleXA] 40 mg PO BEDTIME cloNIDine TAB [Catapres Tab] 0.2 mg PO BID amLODIPine [Norvasc] 10 mg PO DAILY Atorvastatin Calcium 20 mg PO DAILY Vit No.124/Iron/FA [ Vitamin Tablet] 1 each PO DAILY Mv,Iron,Min/Folic Acid/Biotin [Hair Formula Tablet] 1 tablet PO DAILY Cyanocobalamin Inj [Vitamin B12 Inj] 1,000 mcg IM Q30D Aspirin [Ecotrin] 81 mg PO DAILY Cyclobenzaprine HCl 10 mg PO BEDTIME Lactobacillus Cmb#7/Fos/Inulin [Probiotic Complex Tablet] 1 each PO DAILY Discontinued HYDROcodone/ACETAMIN 5-325 [Bryan 5-325] 1 tablet PO Q4HR Lorazepam [Ativan] 2 mg PO BID PRN PRN Reason: Anxiety Sulfameth/Trimeth 800-160 Tab [Bactrim DS Tab] 1 tablet PO BID #30 tablet Omeprazole [Prilosec] 20 mg PO DAILY Povidone Iodine 10% Oint [Betadine Oint] 1 applic TOP PRN PRN #1 applic PRN Reason: Per Protocol - Follow Up or Referral Follow Up: Shaji Harvey III., MD [Physician] - Alvaro Sheets DO [Primary Care Provider] - (2-3 weeks for hospital f/u) - Forms/Instructions Instructions: Ventral Hernia (DC) Additional Discharge Instructions: Wear 1-2 binders at all times. May be removed for hygiene. Exam - Constitutional Vitals: Period Temp Pulse Resp BP Sys/Gil Pulse Ox Last 24 Hr 96.3 F-98.2 F 58-73 16-18 90-113/46-62 91-98 General appearance: no acute distress - Head Head exam: Present: normal inspection, normocephalic - Eye Eye exam: Absent: conjunctival injection, scleral icterus - Respiratory Respiratory exam: Present: clear to auscultation bilaterally - Cardiovascular Cardiovascular exam: Present: regular rate and rhythm - GI/Abdominal GI/Abdominal exam: Present: normal bowel sounds, soft, other (dressings c/d/i. CIERRA drains x 2 with serosanguinous output - decreased in volume #1 with 380cc last 24 hrs and #2 with 270cc). Absent: distended, firm, guarding, tenderness, rebound - Extremities Exam Extremities exam: Absent: calf tenderness, edema - Neurological Exam Neurological exam: Present: alert, oriented X3 - Psychiatric Psychiatric exam: Present: normal affect, normal mood - Skin Skin exam: Present: normal color, warm Discharge Results Procedures and tests throughout hospitalization: Pending Orders 11/14/16 Urine Culture Routine Echo: moderate LVH; mild-moderate TR; otherwise, unremarkable Labs on day of discharge: None. Stable prior to discharge. DS: Provider Date of admission: 11/08/16 13:23 Primary care physician: Alvaro Sheets DO Attending physician on admission: Shaji Harvey III., Consults: 11/08/16 13:23 Consult to Physician [CONS] Routine Comment: Consulting Provider: Alvaro Sheets Person Notified: Violet Date Notified: 11/08/16 Time Notified: 14:47 11/08/16 13:28 Consult to Physician [CONS] Routine Comment: abnormal EKG preop please follow Consulting Provider: Cardiology - [facility] Person Notified: Sarai Byrnes Date Notified: 11/08/16 Time Notified: 14:48 11/08/16 14:33 Consult to Pharmacy [CONS] Routine Reason for Pharmacy Consult: Adjust Meds Renal Funct 11/12/16 07:31 Consult to Anesthesiology [CONS] Routine Consulting Provider: Reason for Anesthesiology: Epidural Consult Comment: Have Anesthesia to come and pull epidural per Dr. Barraza 11/13/16 13:38 Consult to Occupational Therapy [CONS] Routine Reason for Occupational Therapy: Evaluate and Treat Consult Comment: Evuluate and Treat for Swing Bed Placement. Consult to Physical Therapy [CONS] Routine Reason for Physical Therapy: Evaluate and Treat Consult Comment: Evaluate and Treat for Swing Bed Placement Discharging clinician: Shayla Rose PA-C
[2016-11-15 11:21] VITALS: BP 88/48
--- NOTE | 2016-11-15 13:13 | Event Note ---
She feels well. Her pain is much better controlled. She is had normal GI function. She is afebrile and her abdomen is benign on exam. We will remove her drains. I think she is okay for discharge to swing bed and we will see her back in the office in the next week or so.
[2016-12-04] MEDS ORDERED: CYANOCOBALAMIN 1000 MCG/1 ML VIAL IM SCH (09:00)
== END 2016-11-15 14:45 | disposition swing bed (61) | DRG 354 ==
LOC: N.OR 05:36 → N.SDSINP 05:37 → N.CC 14:57 → N.3E 11-12 22:06
PROVIDERS: ADMIT Surgery; ATTEND Surgery

== ENCOUNTER 2016-12-08 11:08 | Inpatient (IN) ==
--- NOTE | 2016-12-08 12:07 | Emergency Department Note ---
ICandelario Brittany, am scribing for, and in the presence of, Krystal Leon DO 11:45. IEdward Debra, DO, personally performed the services described in this documentation, ascribed by Xiomara Palomino in my presence, and it is both accurate and complete . Arrival - Arrival Chief Complaint: Non-Specific Stated Complaint: Swelling due to surgery ED Nursing Triage Note: C/O " WHEN I GOT UP THIS MORNING I NOTICED I HAD SWELLING IN RIGHT FOOT AND RIGH ARM"., STATES SHE JUST FEELS BAD., STATES SHE HAD A HERNIA REPAIR ON THE OF LAST MONTH BY DR. RAMON,. DENIES HAVING INCREASE TEMP.,DENIES HAVING INCREASE TEMP., DENIES HAVING ANY NEW PAIN Mode of Arrival: Wheelchair Limitations: No Limitations Source: Patient, RN Notes Reviewed Time Seen by Provider: 12/08/16 11:30 - History of Present Illness HPI Narrative: Patient is a 61 y/o white female presenting to the ED with c/o right foot swelling and right arm swelling that onset this morning. Patient reports recent Hernia Repair November [address] Candice LEE. She was admitted to [facility] for rehabilitation. She was recently discharged a week ago. Patient reports that since discharge she has ambulated and tried to perform as much physical activity that she could tolerate. She has had some abdominal pain as well. She notes that she has also had some suprapubic abdominal erythema and confirms tenderness to palpation. She denies having any shortness of breath, nausea, or vomiting. Patient denies having any history of cardiac issues. No other complaint/pain. Allergies/Adverse Reactions: Allergies Allergy/AdvReac Type Severity Reaction Status Date / Time morphine Allergy Severe Vomiting Verified 12/08/16 11:15 Penicillins Allergy Mild RASH Verified 12/08/16 11:15 Home Medications: Home Medications Medication Instructions Recorded Confirmed Type Atorvastatin Calcium 20 mg PO BEDTIME 08/18/16 12/08/16 History Citalopram [CeleXA] 40 mg PO BEDTIME 08/18/16 12/08/16 History Cyclobenzaprine HCl 10 mg PO BEDTIME 08/18/16 12/08/16 History Ferrous Sulfate 325 mg PO BID 08/18/16 12/08/16 History amLODIPine [Norvasc] 10 mg PO QAM 08/18/16 12/08/16 History cloNIDine TAB [Catapres Tab] 0.2 mg PO BID 08/18/16 12/08/16 History Vit No.124/Iron/Folic 1 each PO QAM 10/10/16 12/08/16 History [ Vitamin Tablet] Aspirin [Ecotrin] 81 mg PO QAM 11/02/16 12/08/16 History Cyanocobalamin Inj [Vitamin B12 1,000 mcg IM Q30D 11/02/16 12/08/16 History Inj] Lactobacillus Cmb#7/Fos/Inulin 1 each PO QAM 11/02/16 12/08/16 History [Probiotic Complex Tablet] Docusate Sodium Cap [Colace Cap] 100 mg PO BID PRN #0 capsule 11/15/16 12/08/16 Rx HYDROcodone/ACETAMIN 5-325 [[place] 2 tablet PO Q6H PRN 11/15/16 12/08/16 History 5-325] LORazepam TAB [Ativan Tab] 2 mg PO BID PRN #0 tablet 11/15/16 12/08/16 Rx fentaNYL [Fentanyl 12.5 mcg/hr 1 patch TRANSDERM Q3DAY #5 patch 11/15/16 Rx Patch] Esomeprazole Magnesium 20 mg PO QPM 12/08/16 12/08/16 History [Esomeprazole] Review of System - Review of System 12 point system: reviewed and no additional remarkable complaints except as stated - Review of System Gastrointestinal: Present: as per HPI, abdominal pain Musculoskeletal: Present: as per HPI Skin: Present: as per HPI Medical,Surgical,& Family Hx - Medical History Cardio: History of: Hypertension No history of: Cardiac Dysrhythmia, CHF, OR, Pacemaker Psychological: History of: Depression Neurology: No history of: Seizures HEENT: History of: Eye Problem (GLASSSES) Endocrine: History of: Dyslipidemia No history of: Diabetes Mellitus (IDDM), Diabetes Mellitus (NIDDM) Rheumatology: History of;: Fibromyalgia Respiratory: No history of: Pulmonary Embolism, Pneumonia, Lung Cancer, Respiratory Problems (FLU VAC- YES; PNEU VAC- YES.) Gastrointestinal: History of: GERD Musculoskeletal: History of: Musculoskeletal Problems Hematology: History of: Anemia (history iron deficiency anemia) Other: History of: Miscellaneous Medical Problems (history of depression and B12 deficiency. IVC FILTER LEFT GROIN.) - Surgical History Cardiac Surgeries: Patient Denies: Cardiac Catheterization Thoracic Surgeries: Patient denies;: Organ Transplant HEENT Surgeries: Patient denies: Tonsilectomy & Adenoidectomy Abdominal Surgeries: Surgical HX of: Abdominal Surgery, Cholecystectomy, Gastric Bypass Surgery (2009), Hernia Repair (06/2015 [place], [place] Patient denies: Appendectomy Reproductive Surgeries: Surgical HX of;: Section (X2), Tubal Ligation Patient denies;: Genitourinary Surgery Orthopedic Surgeries: Surgical HX of;: Total Hip Replacement (left hip (2011)) - Family History Family History: Reports;: Family Heart Disease, Family Hypertension - Social History Smoking Status: Smoker, status unknown Frequency of Alcohol Use: Rarely Type of Drug Use: None Exam Vital Signs: Vital Signs Temperature 98.3 F 12/08/16 12:22 Pulse Rate 101 H 12/08/16 12:22 Respiratory Rate 18 12/08/16 12:22 Blood Pressure 136/80 12/08/16 12:22 O2 Sat by Pulse Oximetry 96 12/08/16 11:11 - General General appearance: alert, in no apparent distress - Head Head exam: Present: atraumatic, normocephalic, normal inspection - Eye Eye exam: Present: normal appearance, PERRL, EOMI - ENT ENT exam: Present: normal exam, normal oropharynx, mucous membranes moist - Neck Neck exam: Present: normal inspection, full ROM, trachea midline - Chest Chest inspection: Present: normal inspection, symmetric chest wall rise - Respiratory Respiratory exam: Present: normal lung sounds bilaterally - Cardiovascular Cardiovascular exam: Present: regular rate, normal rhythm, normal heart sounds - Abdominal Exam Abdominal exam: Present: soft, tenderness (suprapubic), normal bowel sounds, incision (scar consistent with recent surgical procedure). Absent: distention, guarding - Extremities Exam Extremities exam: Present: full ROM, tenderness (right lock tender to palpation) . Absent: normal inspection (swollen right foot) - Back Exam Back exam: Present: normal inspection - Neurological Exam Neurological exam: Present: alert, oriented X3, CN II-XII intact. Absent: motor sensory deficit - Psychiatric Psychiatric exam: Present: normal affect, normal mood - Skin Skin exam: Present: warm, dry, erythema (suprapubic erythema) Results - Labs CBC & BMP: 12/08/16 11:53 12/08/16 11:53 Lab Results: I have reviewed the patients labs Labs: Laboratory Tests 12/08/16 11:53 WBC 8.4 RBC 4.49 Hgb 13.9 Hct 42.9 Plt Count 261 Laboratory Tests 12/08/16 11:53 Sodium 142 Potassium 3.9 Chloride 108 H Carbon Dioxide 28 BUN 11 Creatinine 0.50 L BUN/Creatinine Ratio 22.00 H Glucose 90 AST 16 ALT 18 Alkaline Phosphatase 127 H Total Protein 5.3 L Albumin 2.5 L Globulin 2.8 Albumin/Globulin Ratio 0.8 L - Diagnostic Findings Procedure: CT Abdomen and Pelvis: report reviewed by me (1. Development of prominent fluid density throughout the anterior abdominal wall hernia sac. No definite evidence of small bowel or colonic dilatation/obstruction. No free air is visualized. Lack of oral and intravenous contrast limits evaluation. Impending bowel infarct with assoicated edema remains a consideration. Also correlate with any recent surgical procedures. 2. Stable bilateral edema adrenal nodules likely representing adenomas and bilateral simple appearing renal cysts.) Disposition Clinical Impression: abdominal pain unknown etiology Case discussed with: patient Disposition: Still a Patient Condition: Stable Time of Disposition: 14:06
[2016-12-08 12:23] LABS: Basophils # 0.1 10*3/uL (0.0-0.2); Basophils % 0.7 % (0.0-0.8); Eosinophils # 0.6 10*3/uL (0.0-0.87); Eosinophils % 6.6 % (0.00-10.9); Hematocrit 42.9 VOL% (35.7-47.0); Hemoglobin 13.9 GM/DL (12.0-16.0); Immature Granulocytes % 0.1 %; Immature Granulocytes Absolute 0.01 #; Lymphocytes # 2.1 10*3/uL (1.4-4.0); Lymphocytes % 25.5 % (21.3-54.2); Mean Corpuscular HGB Conc 32.4 GM/DL (32-36); Mean Corpuscular Hemoglobin 31 PG (27-34); Mean Corpuscular Volume 95.5 FL (87-102); Mean Platelet Volume 11.6 FL (9.6-12.0); Monocytes # 0.7 10*3/uL (0.11-0.8); Monocytes % 7.9 % (1.7-12.7); Neutrophils % 59.2 % (38.7-73.9); Platelet Count 261 T/CUMM (130-400); Red Blood Count 4.49 MC/CUMM (3.8-5.5); Red Cell Distribution Width 13.7 % (9.3-17.3); White Blood Count 8.4 T/CUMM (4-12)
--- NOTE | 2016-12-08 12:31 | CT Report ---
CT abdomen pelvis wo con Indication: Abdominal pain, swelling, large abdominal wall hernia. Comparison: 10/10/2016 CT abdomen and pelvis Technique: CT of the abdomen and pelvis was performed without administration of intravenous contrast. Coronal and sagittal reformatted images were additionally created and submitted for review. The total DLP is 1084 mGy*cm. Dose reduction: This CT exam was performed using one or more of the following dose reduction techniques: Automated exposure control, automated adjustment of the mA and/or KV according to patient size, or use of iterative reconstruction technique. Findings: Very minimal posterior basilar dependent atelectatic changes are noted bilaterally. Lung bases are otherwise clear. There is no pleural or pericardial effusion. ABDOMEN: Liver/Gallbladder: Unenhanced liver is grossly unremarkable. There is been a prior cholecystectomy. Spleen: No acute findings. Pancreas: No acute findings. Adrenals: Both adrenal glands demonstrate hypodense nodules, which are similar primarily represent adenomas with near water density noted centrally. Kidneys: Large upper pole right renal cyst appears stable from prior. The left kidney demonstrates a punctate calcific density likely representing a nonobstructing stone. There is no hydronephrosis bilaterally. Bowel/mesentery: Since the prior study, there has been development of marked fluid density about the lower anterior abdominal wall, possibly related to interval surgical procedure versus inflammatory changes within the prominent amount of mesenteric fat and small/large bowel herniated into the anterior soft tissues. There is no obvious evidence of small bowel dilatation/obstruction. Lack of oral and intravenous contrast limits evaluation. No definite free air is visualized within the intra-abdominal mesentery or anterior abdominal wall hernia sac. Retroperitoneum: No evidence of aortic aneurysm or significant retroperitoneal adenopathy. IVC filter is noted in place. PELVIS: No free fluid. No adenopathy. Bladder appears unremarkable. There has been a prior hysterectomy. Left hip total arthroplasty metallic hardware causes streak artifact and limits evaluation. BONES: No acute or suspicious osseous abnormalities are identified. Left total hip arthroplasty hardware noted in place but is poorly evaluated by CT technique. Moderately advanced degenerative changes with disc space loss and endplate sclerosis and facet arthropathy are noted within the mid lumbar spine. IMPRESSION: 1. Development of prominent fluid density throughout the anterior abdominal wall hernia sac. No definite evidence of small bowel or colonic dilatation/obstruction. No free air is visualized. Lack of oral and intravenous contrast limits evaluation. Impending bowel infarct with associated edema remains a consideration. Also correlate with any recent surgical procedures. 2. Stable bilateral adrenal nodules likely representing adenomas and bilateral simple appearing renal cysts. 12/08/2016 12:06 PM PROCEDURE INTERPRETED AT [facility] DEPARTMENT OF RADIOLOGY Final Report Signed by: John Mayo
[2016-12-08 12:54] LABS: Alanine Aminotransferase 18 U/L (13-56); Albumin 2.5 G/DL (3.4-5.0); Alkaline Phosphatase 127 U/L (45-117); Aspartate Amino Transferase 16 U/L (0-37); Bilirubin,Total < 0.39 MG/DL (0.2-1.0); Blood Urea Nitrogen 11 MG/DL (7-18); Calcium 8.5 MG/DL (8.5-10.1); Glucose 90 MG/DL (74-106); Osmolality,Calculated 281.1 MOS/KG (273-304); Potassium 3.9 MMOL/L (3.5-5.1); Sodium 142 MMOL/L (136-145); Total Protein 5.3 G/DL (6.4-8.3)
[2016-12-08] MEDS ORDERED: ONDANSETRON 4 MG/2 ML VIAL IV STA (13:44)
[2016-12-08] MEDS ORDERED: HYDROmorphone 2 MG/1 ML VIAL IV STA (13:44)
[2016-12-08] MEDS ORDERED: HYDROmorphone 2 MG/1 ML VIAL ONE (13:44)
[2016-12-08] MEDS ORDERED: ONDANSETRON 4 MG/2 ML VIAL ONE (13:44)
[2016-12-08] MEDS ORDERED: CIPROFLOXACIN INJ 400 MG in PREMIX 1 EACH IV STA (13:47)
[2016-12-08] MEDS ORDERED: metroNIDAZOLE INJ 500 MG in PREMIX 1 EACH IV STA (13:47)
[2016-12-08] MEDS ORDERED: HYDROmorphone 2 MG/1 ML VIAL IV PRN (13:55)
[2016-12-08] MEDS ORDERED: ONDANSETRON 4 MG/2 ML VIAL IV PRN (13:55)
[2016-12-08] MEDS ORDERED: metroNIDAZOLE 500 MG/100 ML PREMIX IV ONE (14:32)
--- NOTE | 2016-12-08 14:37 | Ultrasound Report ---
Indication: Right leg swelling Duplex scan of the right lower extremity veins Technique: Duplex scan of the right lower extremity veins using B-mode/grayscale imaging and Doppler spectral analysis and color flow Findings: Major venous structures of the right lower extremity demonstrate a normal course and caliber. There is no evidence of deep vein thrombosis. No abnormal intrinsic echogenic lesions are demonstrated in the scanned blood vessels. Veins demonstrate good compressibility with normal color flow study and spectral analysis. Impression: Unremarkable duplex imaging of the right lower extremity veins. No evidence of DVT PROCEDURE INTERPRETED AT [facility] DEPARTMENT OF RADIOLOGY Final Report Signed by: John Mayo
[2016-12-08] MEDS ORDERED: LEVOFLOXACIN INJ 750 MG in PREMIX 1 EACH IV SCH (15:00)
[2016-12-08] MEDS: DEXTROSE 5% NACL 0.45% 1,000 ML IV SCH (16:04)
[2016-12-08] MEDS: metroNIDAZOLE INJ 500 MG in PREMIX 1 EACH IV SCH ×2 (16:35→21:04)
[2016-12-08] MEDS ORDERED: CYANOCOBALAMIN 1000 MCG/1 ML VIAL IM SCH (17:30)
[2016-12-08] MEDS: PANTOPRAZOLE 40 MG TABLET PO SCH (18:26)
[2016-12-08] MEDS: CITALOPRAM 40 MG TABLET PO SCH (20:46)
[2016-12-08] MEDS: FERROUS SULFATE 325 MG TABLET PO SCH (20:46)
[2016-12-08] MEDS: CYCLOBENZAPRINE 10 MG TABLET PO SCH (20:46)
[2016-12-08] MEDS: ATORVASTATIN 20 MG TABLET PO SCH (20:46)
[2016-12-08] MEDS: LORazepam 1 MG TABLET PO PRN (20:46)
[2016-12-09] MEDS: DEXTROSE 5% NACL 0.45% 1,000 ML IV SCH ×4 (01:25→20:18)
[2016-12-09 04:34] LABS: Basophils % 0.6 % (0.0-0.8); Eosinophils # 1.2 10*3/uL (0.0-0.87); Eosinophils % 16.5 % (0.00-10.9); Hematocrit 40.1 VOL% (35.7-47.0); Hemoglobin 12.4 GM/DL (12.0-16.0); Immature Granulocytes % 0.1 %; Immature Granulocytes Absolute 0.01 #; Lymphocytes # 2.4 10*3/uL (1.4-4.0); Lymphocytes % 33.5 % (21.3-54.2); Mean Corpuscular HGB Conc 30.9 GM/DL (32-36); Mean Corpuscular Hemoglobin 30 PG (27-34); Mean Corpuscular Volume 96.9 FL (87-102); Monocytes # 0.6 10*3/uL (0.11-0.8); Monocytes % 8.1 % (1.7-12.7); Neutrophils # 2.9 10*3/uL (1.4-7.4); Neutrophils % 41.2 % (38.7-73.9); Platelet Count 239 T/CUMM (130-400); Red Blood Count 4.14 MC/CUMM (3.8-5.5); Red Cell Distribution Width 13.7 % (9.3-17.3)
[2016-12-09 05:10] LABS: Albumin 2.2 G/DL (3.4-5.0); Bilirubin,Total 0.4 MG/DL (0.2-1.0); Calcium 7.9 MG/DL (8.5-10.1); Potassium 4.3 MMOL/L (3.5-5.1); Total Protein 4.8 G/DL (6.4-8.3)
[2016-12-09 05:30] LABS: Eosinophils 19 % (0-10); Lymphocytes 32 % (20-55); Myelocytes 1 %; Platelet Estimate Normal; Segmented Neutrophils 37 % (50-85); Total Cells Counted 100
[2016-12-09] MEDS: metroNIDAZOLE INJ 500 MG in PREMIX 1 EACH IV SCH (06:12)
[2016-12-09] MEDS: amLODIPine 10 MG TABLET PO SCH (08:39)
[2016-12-09] MEDS: FERROUS SULFATE 325 MG TABLET PO SCH ×2 (08:40→20:16)
[2016-12-09] MEDS: ASPIRIN EC 81 MG TABLET PO SCH (08:40)
[2016-12-09] MEDS ORDERED: PANTOPRAZOLE 40 MG VIAL IV SCH (09:00)
--- NOTE | 2016-12-09 10:08 | Event Note ---
Interval note. This 61-year-old female with multiple comorbidities who underwent extensive abdominal reconstruction and hernia repair by Dr. Harvey several weeks ago. She required swing bed after surgery. She came to the emergency room complaining of swelling of her abdomen. She states it was slowly getting larger and larger. She feels like it pulls on her back because her abdomen is so large. She has not had any nausea or vomiting and has been having bowel movements. She does complain of constipation over the last 24 hours. On exam her abdomen is soft mildly tender at the old incision but no peritoneal signs or any significant intra-abdominal tenderness is appreciated. Lab work was all normal. CT scan revealed recurrence of the hernia with a lot of fluid in the sac. There is no evidence of bowel compromise. I see no evidence of infection. We will stop antibiotics. Dr. Candice Rayo will be back tomorrow to discuss further options with the patient.
[2016-12-09] MEDS ORDERED: BISACODYL 10 MG SUPP RECTAL ONE (10:17)
--- NOTE | 2016-12-09 10:50 | Family Practice History&Phys ---
Assessment and Plan (1) Incisional hernia of anterior abdominal wall without obstruction or gangrene Status: Acute Assessment and plan: Patient has a large hernia sac with large amount of fluid. No signs of infection are vascular compromise. Current Visit: No (2) Status post hernia repair Status: Acute Assessment and plan: Patient has had recent extensive hernia repair. The wound is healed well but apparently the hernia has reoccurred. She was at high risk of recurrence in view of the previous failure from a hernia repair. Current Visit: No (3) Elevated liver enzymes Status: Acute Assessment and plan: Not sure why the enzymes are elevated. Will order additional studies and repeat enzymes in a.m. Current Visit: Yes (4) Gastroesophageal reflux Status: Chronic Assessment and plan: Stable on present medications Current Visit: Yes (5) Presence of IVC filter Status: Chronic Assessment and plan: Stable at present Current Visit: No (6) Tobacco abuse Status: Chronic Current Visit: No (7) hyperlipidemia Status: Chronic Assessment and plan: Stable on present medication Current Visit: No (8) hypertension Status: Chronic Assessment and plan: Stable on present medications Current Visit: No (9) iron deficiency anemia Status: Chronic Assessment and plan: Stable at present Current Visit: No History of Present Illness Chief complaint: Abdominal pain and swelling History of present illness: Ms. Ramachandran is a 61 year old female This 61-year-old female with multiple comorbidities who underwent extensive abdominal reconstruction and hernia repair by Dr. Harvey several weeks ago. She required swing bed after surgery. She came to the emergency room complaining of swelling of her abdomen. She states it was slowly getting larger and larger. She feels like it pulls on her back because her abdomen is so large. She has not had any nausea or vomiting and has been having bowel movements. She does complain of constipation over the last 24 hours. On exam her abdomen is soft mildly tender at the old incision but no peritoneal signs or any significant intra-abdominal tenderness is appreciated. Lab work was all normal. CT scan revealed recurrence of the hernia with a lot of fluid in the sac. There is no evidence of bowel compromise. Patient has a significant amount of swelling on physical examination. No active infection noted. Dr. Banegas has stopped antibiotics. Dr. Harvey will review case in a.m. Will follow with you and repeat abnormal lab studies Home Medications Medication Instructions Recorded Confirmed Type Atorvastatin Calcium 20 mg PO BEDTIME 08/18/16 12/08/16 History Citalopram [CeleXA] 40 mg PO BEDTIME 08/18/16 12/08/16 History Cyclobenzaprine HCl 10 mg PO BEDTIME 08/18/16 12/08/16 History Ferrous Sulfate 325 mg PO BID 08/18/16 12/08/16 History amLODIPine [Norvasc] 10 mg PO QAM 08/18/16 12/08/16 History cloNIDine TAB [Catapres Tab] 0.2 mg PO BID 08/18/16 12/08/16 History Vit No.124/Iron/Folic 1 each PO QAM 10/10/16 12/08/16 History [ Vitamin Tablet] Aspirin [Ecotrin] 81 mg PO QAM 11/02/16 12/08/16 History Cyanocobalamin Inj [Vitamin B12 1,000 mcg IM Q30D 11/02/16 12/08/16 History Inj] Lactobacillus Cmb#7/Fos/Inulin 1 each PO QAM 11/02/16 12/08/16 History [Probiotic Complex Tablet] Docusate Sodium Cap [Colace Cap] 100 mg PO BID PRN #0 capsule 11/15/16 12/08/16 Rx HYDROcodone/ACETAMIN 5-325 [[place] 2 tablet PO Q6H PRN 11/15/16 12/08/16 History 5-325] LORazepam TAB [Ativan Tab] 2 mg PO BID PRN #0 tablet 11/15/16 12/08/16 Rx fentaNYL [Fentanyl 12.5 mcg/hr 1 patch TRANSDERM Q3DAY #5 patch 11/15/16 Rx Patch] Esomeprazole Magnesium 20 mg PO QPM 12/08/16 12/08/16 History [Esomeprazole] Allergies Allergy/AdvReac Type Severity Reaction Status Date / Time morphine Allergy Severe Vomiting Verified 12/08/16 11:15 Penicillins Allergy Mild RASH Verified 12/08/16 11:15 Medical,Surgical,& Family Hx - Medical History Cardio: History of: Hypertension No history of: Cardiac Dysrhythmia, CHF, NE, Pacemaker Psychological: History of: Depression Neurology: No history of: Seizures HEENT: History of: Eye Problem (GLASSSES) Endocrine: History of: Dyslipidemia No history of: Diabetes Mellitus (IDDM), Diabetes Mellitus (NIDDM) Rheumatology: History of;: Fibromyalgia Respiratory: No history of: Pulmonary Embolism, Pneumonia, Lung Cancer, Respiratory Problems (FLU VAC- YES; PNEU VAC- YES.) Gastrointestinal: History of: GERD Musculoskeletal: History of: Musculoskeletal Problems Hematology: History of: Anemia (history iron deficiency anemia) Other: History of: Miscellaneous Medical Problems (history of depression and B12 deficiency. IVC FILTER LEFT GROIN.) - Surgical History Cardiac Surgeries: Patient Denies: Cardiac Catheterization Thoracic Surgeries: Patient denies;: Organ Transplant, Lobectomy Neurologic Surgeries: Patient denies: Neurologic Surgery HEENT Surgeries: Patient denies: Tonsilectomy & Adenoidectomy Abdominal Surgeries: Surgical HX of: Abdominal Surgery, Cholecystectomy, Gastric Bypass Surgery (2009), Hernia Repair (06/2015 [facility] [place] [place]) Patient denies: Appendectomy Reproductive Surgeries: Surgical HX of;: Section (X2), Tubal Ligation Patient denies;: Genitourinary Surgery Orthopedic Surgeries: Surgical HX of;: Total Hip Replacement (left hip (2011)) - Family History Family History: Reports;: Family Heart Disease, Family Hypertension - Social History Smoking Status: Smoker, status unknown Frequency of Alcohol Use: Rarely Type of Drug Use: None Marital Status: Lives With:: Alone Functional capacity: independent ambulation Exam - Constitutional Vitals: Period Temp Pulse Resp BP Sys/Gil Pulse Ox Last 24 Hr 96.6 F-98.8 F 78-82 14-81 97-131/50-79 94-100 General appearance: no acute distress - Head Head exam: Present: normal inspection - ENT ENT exam: Present: normal exam - Neck Neck exam: Present: normal inspection - Respiratory Respiratory exam: Present: clear to auscultation bilaterally - Cardiovascular Cardiovascular exam: Present: regular rate and rhythm - GI/Abdominal GI/Abdominal exam: Present: normal bowel sounds, soft, other (Stomach is enlarged and soft. Has a large hernia sac with fluid on CT scan) - Extremities Exam Extremities exam: Present: edema, other (Full range of motion all extremities. Swelling in right leg probably secondary to edema from hernia) - Back Exam Back exam: Present: normal inspection - Neurological Exam Neurological exam: Present: alert, oriented X3 - Psychiatric Psychiatric exam: Present: normal affect, normal mood - Skin Skin exam: Present: normal color Results - Labs CBC & BMP: 12/09/16 03:24 12/09/16 03:24 Quality Measures - Stroke Symptom Onset Unknown: No
--- NOTE | 2016-12-09 12:53 | XRay Report ---
XR abdomen 2V Clinical Information: Abdominal Pain Comparison: Abdomen radiograph 08/18/[address] abdomen and pelvis 12/08/2016 Findings: Bowel gas pattern is nonspecific and within normal limits. No abnormally dilated small bowel loops are identified to suggest obstruction. There is no free air identified. Large anterior abdominal wall hernia sac seen on prior cross-sectional images is not visualized radiographically. Scattered fecal material is noted throughout colon, which is otherwise nondilated. No abnormal focal soft tissue masses or calcific densities are identified in the abdomen or pelvis. Cholestatic clips are noted. Lung bases appear predominantly clear. Tyree tulip IVC filter is noted in place. There is no acute osseous abnormality. No suspicious osseous lesions are identified. Impression: No acute radiographic abnormality in the abdomen. A mild-moderate degree of fecal stasis/constipation is suspected. PROCEDURE INTERPRETED AT [facility] DEPARTMENT OF RADIOLOGY Final Report Signed by: John Mayo
[2016-12-09] MEDS: PANTOPRAZOLE 40 MG TABLET PO SCH (18:00)
[2016-12-09] MEDS: CYCLOBENZAPRINE 10 MG TABLET PO SCH (20:15)
[2016-12-09] MEDS: BISACODYL 10 MG SUPP RECTAL SCH (20:15)
[2016-12-09] MEDS: CITALOPRAM 40 MG TABLET PO SCH (20:16)
[2016-12-09] MEDS: ATORVASTATIN 20 MG TABLET PO SCH (20:16)
[2016-12-09] MEDS: LORazepam 1 MG TABLET PO PRN (20:16)
[2016-12-10] MEDS: DEXTROSE 5% NACL 0.45% 1,000 ML IV SCH ×3 (04:22→18:55)
[2016-12-10 06:38] LABS: Basophils # 0.1 10*3/uL (0.0-0.2); Basophils % 0.7 % (0.0-0.8); Eosinophils # 1.3 10*3/uL (0.0-0.87); Hematocrit 45.2 VOL% (35.7-47.0); Hemoglobin 13.9 GM/DL (12.0-16.0); Immature Granulocytes % 1.1 %; Immature Granulocytes Absolute 0.09 #; Lymphocytes # 2.5 10*3/uL (1.4-4.0); Lymphocytes % 30.6 % (21.3-54.2); Mean Corpuscular HGB Conc 30.8 GM/DL (32-36); Mean Corpuscular Hemoglobin 30 PG (27-34); Mean Corpuscular Volume 98.7 FL (87-102); Mean Platelet Volume 11.7 FL (9.6-12.0); Monocytes # 0.8 10*3/uL (0.11-0.8); Monocytes % 9.7 % (1.7-12.7); Neutrophils # 3.4 10*3/uL (1.4-7.4); Neutrophils % 41.9 % (38.7-73.9); Platelet Count 209 T/CUMM (130-400); Red Blood Count 4.58 MC/CUMM (3.8-5.5); Red Cell Distribution Width 13.8 % (9.3-17.3); White Blood Count 8.1 T/CUMM (4-12)
[2016-12-10 06:56] LABS: Alanine Aminotransferase 81 U/L (13-56); Albumin 2.3 G/DL (3.4-5.0); Alkaline Phosphatase 231 U/L (45-117); Aspartate Amino Transferase 63 U/L (0-37); Bilirubin,Total < 0.39 MG/DL (0.2-1.0); Blood Urea Nitrogen 7 MG/DL (7-18); Calcium 7.8 MG/DL (8.5-10.1); Cholesterol 113 MG/DL (50-200); Ferritin 116.3 ng/ml (8-252); Glucose 91 MG/DL (74-106); HDL Cholesterol 58 MG/DL (40-60); Magnesium 2.1 MG/DL (1.8-2.4); Potassium 4.1 MMOL/L (3.5-5.1); Risk Ratio 1.95; Sodium 143 MMOL/L (136-145); Total Protein 4.8 G/DL (6.4-8.3); Triglycerides 59 MG/DL (2-150); VLDL CHOLESTEROL 11.8 MG/DL
[2016-12-10 07:26] LABS: Eosinophils 8 % (0-10); Lymphocytes 38 % (20-55); Myelocytes 1 %; Segmented Neutrophils 49 % (50-85); Total Cells Counted 100
[2016-12-10 07:27] LABS: Hypochromasia Slight; Platelet Estimate Adequate
--- NOTE | 2016-12-10 07:32 | Event Note ---
The patient is well known to me and had an abdominal wall reconstruction several weeks ago. She came to the emergency department because of complaints of leg swelling but was noted to have abdominal distention. DVT studies were negative however CT scan of her abdomen shows recurrence of her abdominal wall defect. She had component separation and placement of porcine prosthesis posteriorly. This appears to have given way. She does not have any symptoms consistent with obstruction or infection. I discussed her options with her including attempts at re-repair of this which will be difficult versus referral to Medical [facility] which she has declined. She would rather me do her surgery and I did explain that this may recur again. We discussed the risks associated with the surgery which are not insignificant and will include recurrence bowel injury infection etc. she understands that I may place an additional mesh prosthesis as an overlay to reinforce forces on her midline.
[2016-12-10 07:57] LABS: Hepatitis A Ab IgM Quant 0.21 Index; Hepatitis A Ab IgM Result Negative (Negative); Hepatitis B Core IgM Quant 0.33 Index; Hepatitis B Core IgM Result Negative (Negative); Hepatitis B Surface Ag Quant < 0.10 Index; Hepatitis B Surface Ag Result Negative (Negative); Hepatitis C Virus Ab Quant 0.08 Index; Hepatitis C Virus Ab Result Negative (Negative); Vitamin B12 1552 PG/ML (211-911)
[2016-12-10] MEDS ORDERED: VANCOMYCIN INJ 1,500 MG in SODIUM CHLORIDE 0.9% 500 ML IV ONE (08:00)
[2016-12-10 08:31] LABS: Apearance,Urine CLEAR (Clear); Bilirubin,Urine Negative (Negative); Blood, Urine Negative (Negative); Glucose,Urine (UA) Negative (Negative); Ketones,Urine Negative (Negative); Nitrite,Urine Negative (Negative); Protein,Urine Negative; RBC,Urine 1 /HPF (0-4); Squamous Epithelial Cell,Urine Occasional /HPF (0-10); Urine Color Straw (Yellow); Urine Specific Gravity 1.004 (1.001-1.035); Urine Urobilinogen < 2.0 EU/DL (0.2-1.0); WBC,Urine 1 /HPF (0-6)
[2016-12-10] MEDS: amLODIPine 10 MG TABLET PO SCH (09:26)
[2016-12-10] MEDS ORDERED: BUPIVACAINE MPF 0.25% /EPI 30 ML VIAL ONE (12:19)
[2016-12-10] MEDS ORDERED: LIDOCAINE 1%/EPI INJ 20 ML VIAL ONE (12:19)
[2016-12-10] MEDS ORDERED: VANCOMYCIN 500 MG VIAL ONE (13:12)
--- NOTE | 2016-12-10 14:54 | Operative Note ---
Date of procedure: 12/10/16 Pre-op diagnosis: Recurrent incarcerated giant abdominal wall ventral hernia Post-op diagnosis: same Procedure: Repair complex recurrent incarcerated incisional ventral hernia with 15 x 20 cm Prolene mesh Findings and technique: After informed consent was obtained and an offer made to the patient to transfer her to [facility] she elected to have me do the surgery. This was after a detailed discussion once again about the complexity and high risk of her case and the high risk of failure. She understood these risks and wishes to proceed at our institution. After successful induction with general anesthesia the patient's abdomen was prepped and draped in usual sterile fashion. Incision was made through her old scar where after dissecting through about 2 cm of subcutaneous tissue a fluid-filled seroma cavity was entered which contained small bowel. Some of the small bowel was adherent within the seroma cavity to the subcutaneous tissues and this was dissected free from the subcutaneous tissues including subcutaneous tissue with the dissection in a few cases to avoid risk of injury to the bowel and fistulization. The bowel was completely freed up and reduced back into the peritoneal cavity where it wass herniated through the superior aspect of her previous repair. It appeared that the Stratus had pulled loose superiorly and from the left side and the midline closure had disrupted. After I replaced the bowel back into its normal position the Stratus was then resutured within the preperitoneal space which had to be re-created with tedious dissection. Stratus was anchored out lateral to the rectus muscles on the left. I did not re-anchored on the right because it appeared to be well adherent and I did not want to dissect this free. The midline closure had pulled apart and I felt that there was too much tension on this closure. To get complete coverage over the Stratus and keep this from brain being a bridging repair of biologic material felt that we needed to get complete midline closure. I had only done the component separation previously on the right side because her left side was so scarred. I then did a component separation on the left with this procedure incising lateral to the rectus sheath through the external oblique fascia. This gave me about 2 cm of mobilization towards the midline and the midline defect was then closed with multiple interrupted 2-0 Prolene sutures. This was done after I had re-anchored the Stratus and the preperitoneal space full- thickness through the fascial layers with interrupted horizontal mattress 2-0 Prolene sutures. After I had complete midline closure of the muscle and fascia are then laid a 15 x 20 cm piece of polypropylene mesh over this closure and anchored it laterally with running 2-0 Prolene suture and above and below the closure with interrupted 2-0 Prolene sutures. This was to hopefully help take tension off of the repair. The mesh was irrigated with antibiotic saline and good hemostasis noted. There was a huge seroma cavity which I placed 2 10 mm CIERRA drains in and closed the subcutaneous layer over the mesh with interrupted 2- 0 Vicryl suture and the skin with skin clips. She appeared to tolerate the procedure well. This was a much more difficult procedure than usual with the much larger hernia and all of these factors especially the fact that it was reoperative added greatly to the complexity and time associated with this case. This essentially doubled the expected operative time. Anesthesia: KYLEA Surgeon / Physician: Shaji Harvey III. Estimated blood loss: other (50 mL) Specimens: none sent Condition: stable Disposition: PACU Results - Labs CBC & BMP: 12/10/16 05:46 12/10/16 05:46 Discharge Plan - Discharge Medications No Action Ferrous Sulfate 325 mg PO BID Citalopram [CeleXA] 40 mg PO BEDTIME cloNIDine TAB [Catapres Tab] 0.2 mg PO BID amLODIPine [Norvasc] 10 mg PO QAM Atorvastatin Calcium 20 mg PO BEDTIME Vit No.124/Iron/Folic [ Vitamin Tablet] 1 each PO QAM Cyanocobalamin Inj [Vitamin B12 Inj] 1,000 mcg IM Q30D Aspirin [Ecotrin] 81 mg PO QAM LORazepam TAB [Ativan Tab] 2 mg PO BID PRN #0 tablet PRN Reason: Anxiety fentaNYL [Fentanyl 12.5 mcg/hr Patch] 1 patch TRANSDERM Q3DAY #5 patch Cyclobenzaprine HCl 10 mg PO BEDTIME Lactobacillus Cmb#7/Fos/Inulin [Probiotic Complex Tablet] 1 each PO QAM Docusate Sodium Cap [Colace Cap] 100 mg PO BID PRN #0 capsule PRN Reason: Constipation Esomeprazole Magnesium [Esomeprazole] 20 mg PO QPM HYDROcodone/ACETAMIN 5-325 [[place] 5-325] 2 tablet PO Q6H PRN PRN Reason: Pain Moderate To Severe (4-10) - Follow Up or Referral - Forms/Instructions
[2016-12-10] MEDS ORDERED: ONDANSETRON 4 MG/2 ML VIAL IV PRN (15:11)
[2016-12-10] MEDS ORDERED: MIDAZOLAM 2 MG/2 ML VIAL ONE (15:14)
[2016-12-10] MEDS ORDERED: DESFLURANE 1 UNIT/15 MINUTE INH ONE (15:14)
[2016-12-10] MEDS ORDERED: LACTATED RINGERS 1,000 ML IV ONE (15:14)
[2016-12-10] MEDS ORDERED: ONDANSETRON 4 MG/2 ML VIAL ONE (15:19)
[2016-12-10] MEDS ORDERED: HYDROmorphone 2 MG/1 ML VIAL ONE (15:19)
[2016-12-10] MEDS: HYDROmorphone 2 MG/1 ML VIAL IV PRN ×4 (15:20→23:18)
[2016-12-10] MEDS: ASPIRIN EC 81 MG TABLET PO SCH (16:31)
[2016-12-10] MEDS: FERROUS SULFATE 325 MG TABLET PO SCH ×2 (16:32→20:24)
[2016-12-10] MEDS: BISACODYL 10 MG SUPP RECTAL SCH ×2 (16:32→21:39)
--- NOTE | 2016-12-10 17:19 | Anesthesia Post-Op ---
Anesthesia Post OP - Post Ansesthetic Evaluation Patient seen in post op: Yes Resp: within normal limits CV: within normal limits Mental: within normal limits Temp: within normal limits [id number]: within normal limits Nausea and Vomiting: within normal limits Pain: within normal limits
[2016-12-10 17:27] LABS: Hematocrit 42.4 VOL% (35.7-47.0); Hemoglobin 13.4 GM/DL (12.0-16.0)
[2016-12-10] MEDS: PANTOPRAZOLE 40 MG TABLET PO SCH (18:56)
[2016-12-10] MEDS: LORazepam 1 MG TABLET PO PRN (20:24)
[2016-12-10] MEDS: ATORVASTATIN 20 MG TABLET PO SCH (20:24)
[2016-12-10] MEDS: CITALOPRAM 40 MG TABLET PO SCH (20:24)
[2016-12-10] MEDS: CYCLOBENZAPRINE 10 MG TABLET PO SCH (20:24)
[2016-12-11 00:42] LABS: Hematocrit 40.8 VOL% (35.7-47.0); Hemoglobin 12.7 GM/DL (12.0-16.0)
[2016-12-11] MEDS: DEXTROSE 5% NACL 0.45% 1,000 ML IV SCH ×3 (02:07→18:37)
[2016-12-11] MEDS: HYDROmorphone 2 MG/1 ML VIAL IV PRN ×3 (05:26→20:34)
[2016-12-11 06:21] LABS: Basophils # 0.1 10*3/uL (0.0-0.2); Basophils % 0.5 % (0.0-0.8); Eosinophils # 1.2 10*3/uL (0.0-0.87); Eosinophils % 11.6 % (0.00-10.9); Hematocrit 41.4 VOL% (35.7-47.0); Immature Granulocytes % 0.2 %; Immature Granulocytes Absolute 0.02 #; Lymphocytes # 2.1 10*3/uL (1.4-4.0); Lymphocytes % 20.7 % (21.3-54.2); Mean Corpuscular HGB Conc 31.4 GM/DL (32-36); Mean Corpuscular Hemoglobin 30 PG (27-34); Mean Platelet Volume 11.5 FL (9.6-12.0); Monocytes # 1.1 10*3/uL (0.11-0.8); Monocytes % 11.1 % (1.7-12.7); Neutrophils # 5.7 10*3/uL (1.4-7.4); Neutrophils % 55.9 % (38.7-73.9); Platelet Count 245 T/CUMM (130-400); Red Blood Count 4.27 MC/CUMM (3.8-5.5); Red Cell Distribution Width 13.6 % (9.3-17.3); White Blood Count 10.2 T/CUMM (4-12)
[2016-12-11 06:50] LABS: Eosinophils 9 % (0-10); Hypochromasia Slight; Lymphocytes 21 % (20-55); Platelet Estimate Adequate; Segmented Neutrophils 62 % (50-85); Total Cells Counted 100
--- NOTE | 2016-12-11 07:28 | Event Note ---
Feels well. no NV. VSS. Abdomen OK. Hct stable. Get up OOB this morning.
--- NOTE | 2016-12-11 08:26 | Family Practice Progress Note ---
Family Practice - PN: Subj Interval history: Patient has had a lot of pain but is generally doing well. Denies any nausea or other related complaints. Her vitals are stable and a.m. labs are stable. Denies any other associated complaints. Present meds are controlling pain. Physical examination is stable except for tenderness over abdomen. We will continue present therapy repeat labs in a.m. hopefully will continue to improve. Exam (Progress Note) - Constitutional Vitals: Period Temp Pulse Resp BP Sys/Gil Pulse Ox Last 24 Hr 97.2 F-98.5 F 69-87 14-28 91-124/43-77 90-100 Results - Labs CBC & BMP: 12/11/16 06:05 12/10/16 05:46 Assessment and Plan (1) Incisional hernia of anterior abdominal wall without obstruction or gangrene Status: Acute Assessment and plan: Patient has a large hernia sac with large amount of fluid. No signs of infection are vascular compromise. Current Visit: No (2) Status post hernia repair Status: Acute Assessment and plan: Patient has had recent extensive hernia repair. The wound is healed well but apparently the hernia has reoccurred. She was at high risk of recurrence in view of the previous failure from a hernia repair. Current Visit: No (3) Elevated liver enzymes Status: Acute Assessment and plan: Not sure why the enzymes are elevated. Will order additional studies and repeat enzymes in a.m. Current Visit: Yes (4) Gastroesophageal reflux Status: Chronic Assessment and plan: Stable on present medications Current Visit: Yes (5) Presence of IVC filter Status: Chronic Assessment and plan: Stable at present Current Visit: No (6) Tobacco abuse Status: Chronic Current Visit: No (7) hyperlipidemia Status: Chronic Assessment and plan: Stable on present medication Current Visit: No (8) hypertension Status: Chronic Assessment and plan: Stable on present medications Current Visit: No (9) iron deficiency anemia Status: Chronic Assessment and plan: Stable at present Current Visit: No Quality Measures - VTE Contraindication to Pharmacological VTE Prophylaxis: High Risk of Bleeding - Stroke Symptom Onset Unknown: No
[2016-12-11] MEDS ORDERED: fentaNYL 12 MCG/HR PATCH TRANSDERM SCH (09:00)
[2016-12-11] MEDS: FERROUS SULFATE 325 MG TABLET PO SCH ×2 (09:17→20:35)
[2016-12-11] MEDS: ASPIRIN EC 81 MG TABLET PO SCH (09:17)
[2016-12-11] MEDS: ENOXAPARIN 40 MG/0.4 ML SYRINGE SUBCUT SCH (09:21)
[2016-12-11] MEDS: amLODIPine 10 MG TABLET PO SCH (09:23)
[2016-12-11] MEDS: BISACODYL 10 MG SUPP RECTAL SCH ×2 (09:23→20:35)
[2016-12-11] MEDS: LORazepam 1 MG TABLET PO PRN (12:45)
[2016-12-11] MEDS: PANTOPRAZOLE 40 MG TABLET PO SCH (18:12)
[2016-12-11] MEDS: CITALOPRAM 40 MG TABLET PO SCH (20:34)
[2016-12-11] MEDS: CYCLOBENZAPRINE 10 MG TABLET PO SCH (20:35)
[2016-12-11] MEDS: ATORVASTATIN 20 MG TABLET PO SCH (20:35)
[2016-12-12] MEDS: DEXTROSE 5% NACL 0.45% 1,000 ML IV SCH ×2 (02:09→14:50)
[2016-12-12 06:26] LABS: Basophils # 0.1 10*3/uL (0.0-0.2); Basophils % 0.4 % (0.0-0.8); Eosinophils # 1.5 10*3/uL (0.0-0.87); Eosinophils % 12.5 % (0.00-10.9); Hematocrit 42.1 VOL% (35.7-47.0); Hemoglobin 13.3 GM/DL (12.0-16.0); Immature Granulocytes % 0.3 %; Immature Granulocytes Absolute 0.03 #; Lymphocytes # 2.7 10*3/uL (1.4-4.0); Lymphocytes % 22.5 % (21.3-54.2); Mean Corpuscular HGB Conc 31.6 GM/DL (32-36); Mean Corpuscular Hemoglobin 30 PG (27-34); Mean Corpuscular Volume 94.6 FL (87-102); Mean Platelet Volume 12.2 FL (9.6-12.0); Monocytes # 1.4 10*3/uL (0.11-0.8); Monocytes % 11.9 % (1.7-12.7); Neutrophils # 6.2 10*3/uL (1.4-7.4); Neutrophils % 52.4 % (38.7-73.9); Platelet Count 272 T/CUMM (130-400); Red Blood Count 4.45 MC/CUMM (3.8-5.5); Red Cell Distribution Width 13.8 % (9.3-17.3); White Blood Count 11.9 T/CUMM (4-12)
[2016-12-12 06:46] LABS: Burr Cells Slight; Eosinophils 18 % (0-10); Hypochromasia 1+; Lymphocytes 17 % (20-55); Ovalocytes Slight; Platelet Estimate Adequate; Segmented Neutrophils 54 % (50-85); Total Cells Counted 100
[2016-12-12 06:49] LABS: Bilirubin,Total 0.7 MG/DL (0.2-1.0); Calcium 7.8 MG/DL (8.5-10.1); Osmolality,Calculated 279.3 MOS/KG (273-304); Potassium 4.1 MMOL/L (3.5-5.1); Total Protein 4.4 G/DL (6.4-8.3)
--- NOTE | 2016-12-12 08:33 | Event Note ---
She feels well. She has no fever and stable vital signs. I took her binding and dressing down today and her wound looks good and I see no signs of infection or recurrence. I think she is okay to go home with a binder in place and I want her to wear this at all times. She obviously is at high risk for breakdown of her repair considering her multiple failures in the past as well as her underlying comorbidities which include liver disease and hypoalbuminemia all of these issues have been discussed with the patient. I would like to keep her CIERRA drains in place and we will arrange for home health to help her manage this.
[2016-12-12] MEDS: ASPIRIN EC 81 MG TABLET PO SCH (08:58)
[2016-12-12] MEDS: FERROUS SULFATE 325 MG TABLET PO SCH (08:58)
[2016-12-12] MEDS: amLODIPine 10 MG TABLET PO SCH (08:59)
[2016-12-12] MEDS: ENOXAPARIN 40 MG/0.4 ML SYRINGE SUBCUT SCH (09:00)
[2016-12-12] MEDS: BISACODYL 10 MG SUPP RECTAL SCH (11:26)
--- NOTE | 2016-12-12 12:31 | Discharge Summary ---
Hospital Course - Hospital Course Hospital Course: The patient is a 61-year-old female who verbally had failure of her most recent ventral hernia repair with re-recurrent incarcerated large ventral hernia which required repair with larger mesh. The patient has had multiple surgeries this initially a complex procedure and she has a high risk for failure again. Postoperatively, she actually progressed very well. She was tolerating p.o. intake, mobilizing well, voiding without difficulty, and passing flatus. Her pain was well controlled. Patient was discharged home in good condition in the care of her son and the assistance of home health with continue CIERRA drainage and abdominal binder usage with renewal analgesics. Postoperative bowel regimen was reviewed. No complications to note. Diagnosis - Discharge Diagnosis (1) Large ventral wall hernia Status: Acute (2) Tobacco abuse Status: Chronic Specialty Discharge - Follow Up or Referrals Follow up with: Shaji Harvey III., MD [Physician] - Discharge Plan - Discharge Data Disposition: Home Health Service Condition at Discharge: Stable Discharge Diet: advance to your usual diet Activity: no lifting (>5 lb) Hygiene: may shower Driving: other (No driving while taking narcotics) Contact your physician if you experience:: fever over 101, Difficulty voiding, Redness or swelling, Nausea/Vomiting, Shortness of breath, Bleeding, pain uncontrolled by pain medications Wound / Dressing Care Instructions: -Keep surgical incisions clean, dry and covered. -Empty CIERRA drain twice daily - keep CIERRA drain journal recording amount of fluid - bring to f/u appt with Dr. Harvey. -Change dressing around CIERRA drain daily - Discharge Medications Continue Ferrous Sulfate 325 mg PO BID Citalopram [CeleXA] 40 mg PO BEDTIME cloNIDine TAB [Catapres Tab] 0.2 mg PO BID amLODIPine [Norvasc] 10 mg PO QAM Atorvastatin Calcium 20 mg PO BEDTIME Vit No.124/Iron/Folic [ Vitamin Tablet] 1 each PO QAM Cyanocobalamin Inj [Vitamin B12 Inj] 1,000 mcg IM Q30D Aspirin [Ecotrin] 81 mg PO QAM LORazepam TAB [Ativan Tab] 2 mg PO BID PRN #0 tablet PRN Reason: Anxiety fentaNYL [Fentanyl 12.5 mcg/hr Patch] 1 patch TRANSDERM Q3DAY #5 patch Cyclobenzaprine HCl 10 mg PO BEDTIME Lactobacillus Cmb#7/Fos/Inulin [Probiotic Complex Tablet] 1 each PO QAM Docusate Sodium Cap [Colace Cap] 100 mg PO BID PRN #0 capsule PRN Reason: Constipation Esomeprazole Magnesium [Esomeprazole] 20 mg PO QPM Changed HYDROcodone/ACETAMIN 5-325 [[place] 5-325] 1 tablet PO Q6H PRN #30 PRN Reason: Pain Moderate To Severe (4-10) - Follow Up or Referral Follow Up: Shaji Harvey III., MD [Physician] - 1 Week - Forms/Instructions Instructions: Candelario J-P Drain Discharge Instructions, Abdominal Binder (DC) , Hydrocodone/Acetaminophen (By mouth) Additional Discharge Instructions: Keep abdominal binder in place at all times. Exam - Constitutional Vitals: Period Temp Pulse Resp BP Sys/Gil Pulse Ox Last 24 Hr 97.1 F-99.7 F 84-99 18-20 82-137/43-65 91-100 General appearance: no acute distress - Respiratory Respiratory exam: Present: clear to auscultation bilaterally - Cardiovascular Cardiovascular exam: Present: regular rate and rhythm - GI/Abdominal GI/Abdominal exam: Present: normal bowel sounds, tenderness (appropriate postoperative tenderness), soft. Absent: distended, firm, guarding, rebound - Extremities Exam Extremities exam: Absent: calf tenderness, edema - Neurological Exam Neurological exam: Present: alert, oriented X3 - Psychiatric Psychiatric exam: Present: normal affect, normal mood - Skin Skin exam: Present: normal color, warm Discharge Results Procedures and tests throughout hospitalization: Repair of incarcerated large ventral incisional hernia with mesh prosthesis Labs on day of discharge: Labs from last 24 hours 12/12/16 12/12/16 05:18 05:18 WBC 11.9 RBC 4.45 Hgb 13.3 Hct 42.1 MCV 94.6 MCH 30 MCHC 31.6 L RDW 13.8 Plt Count 272 MPV 12.2 H Neut % (Auto) 52.4 Lymph % (Auto) 22.5 [place] % (Auto) 11.9 Eos % (Auto) 12.5 H Baso % (Auto) 0.4 Neut # (Auto) 6.2 Lymph # (Auto) 2.7 [place] # (Auto) 1.4 H Eos # (Auto) 1.5 H Baso # (Auto) 0.1 Total Counted 100 Immature Gran % 0.3 Nucleated RBC % 0.0 Immature Gran # 0.03 Segmented Neutrophils 54 Lymphocytes 17 L Monocytes 11 Eosinophils 18 H Nucleated RBCs # 0.00 Platelet Estimate Adequate Hypochromasia 1+ Ovalocytes Slight Luis Cells Slight Morphology Comment Sodium 141 Potassium 4.1 Chloride 105 Carbon Dioxide 29 Anion Gap 11.1 BUN 7 Creatinine 0.50 L GFR Calculation 115 BUN/Creatinine Ratio 14.00 Glucose 109 H Calculated Osmolality 279.3 Calcium 7.8 L Total Bilirubin 0.70 AST 141 H ALT 217 H Alkaline Phosphatase 354 H Total Protein 4.4 L Albumin 2.0 L Globulin 2.4 Albumin/Globulin Ratio 0.8 L - Imaging and Cardiology Procedure: Abdominal x-ray: image reviewed by me, report reviewed by me, CT Abdomen and Pelvis: image reviewed by me, report reviewed by me DS: Provider Date of admission: 12/08/16 13:55 Primary care physician: Alvaro Sheets DO Attending physician on admission: Shaji Harvey III., Consults: 12/08/16 14:28 Consult to Pharmacy [CONS] Routine Reason for Pharmacy Consult: Adjust Meds Renal Funct 12/08/16 16:13 Consult to Physician [CONS] Routine Comment: Consulting Provider: Alvaro Sheets Consulting Provider Notified: Yes When should Consulting Provider be notified: Now Person Notified: Dr. Sheets Date Notified: 12/08/16 Time Notified: 16:21 Consult Notification Comment: Dr. Sheets said he would see her on the floor aj called with room number on 12/10/16 12/12/16 08:14 Consult to Case Mgmt/Social Srvs [CONS] Routine Reason for Case Mgmt/Social Srvs: Home Health Consult Comment: SN f/wound care & CIERRA drain x 2 care when D/C'd home Discharging clinician: Shayla Rose PA-C
[2016-12-12 16:03] VITALS: BP 92/53
== END 2016-12-12 16:16 | disposition home health service (06) | DRG 355 ==
LOC: N.ED 11:08 → N.EDINP 13:55 → N.3E 15:30
PROVIDERS: ADMIT Surgery; ATTEND Surgery

== ENCOUNTER 2016-12-15 14:21 | Inpatient (IN) ==
[2016-12-15] MEDS ORDERED: HYDROmorphone 2 MG/1 ML VIAL IV STA (18:23)
[2016-12-15] MEDS ORDERED: SODIUM CHLORIDE 0.9% 1,000 ML IV STA ×2 (18:23→21:54)
[2016-12-15] MEDS ORDERED: ONDANSETRON 4 MG/2 ML VIAL IV STA (18:23)
[2016-12-15] MEDS ORDERED: HYDROmorphone 2 MG/1 ML VIAL ONE (18:39)
[2016-12-15] MEDS ORDERED: PIPERACILLIN/TAZOBACTAM 3,375 MG in SODIUM CHLORIDE 0.9% 100 ML IV STA (18:49)
--- NOTE | 2016-12-15 18:52 | Emergency Department Note ---
Arrival - Arrival Chief Complaint: Fever Stated Complaint: fever,cold,and body aches,red fluids ED Nursing Triage Note: HAD RECONSTRUCTIVE HERNIA SURGERY THIS PAST SATURDAY, ABD PAIN AND FEVER Mode of Arrival: Wheelchair Limitations: No Limitations Source: Patient Time Seen by Provider: 12/15/16 17:55 - History of Present Illness HPI Narrative: The patient complains of fever and increased abdominal pain since this morning. She had a hernia repair done on December 09 and had to have subsequent revision done 5 days ago. She was discharged 3 days ago with drains. She states the drains have been putting out normal amounts of the serosanguineous fluid. No purulence. No drainage from the wounds. Her stools have been normal. Intake has been normal. No vomiting. She denies cough, dysuria, rhinorrhea, sore throat or other symptoms. Allergies/Adverse Reactions: Allergies Allergy/AdvReac Type Severity Reaction Status Date / Time morphine Allergy Severe Vomiting Verified 12/08/16 11:15 Penicillins Allergy Mild RASH Verified 12/08/16 11:15 Home Medications: Home Medications Medication Instructions Recorded Confirmed Type Atorvastatin Calcium 20 mg PO BEDTIME 08/18/16 12/15/16 History Citalopram [CeleXA] 40 mg PO BEDTIME 08/18/16 12/15/16 History Cyclobenzaprine HCl 10 mg PO BEDTIME 08/18/16 12/15/16 History Ferrous Sulfate 325 mg PO BID 08/18/16 12/15/16 History amLODIPine [Norvasc] 10 mg PO QAM 08/18/16 12/15/16 History cloNIDine TAB [Catapres Tab] 0.2 mg PO BID 08/18/16 12/15/16 History Vit No.124/Iron/Folic 1 each PO QAM 10/10/16 12/15/16 History [ Vitamin Tablet] Aspirin [Ecotrin] 81 mg PO QAM 11/02/16 12/15/16 History Cyanocobalamin Inj [Vitamin B12 1,000 mcg IM Q30D 11/02/16 12/15/16 History Inj] Lactobacillus Cmb#7/Fos/Inulin 1 each PO QAM 11/02/16 12/15/16 History [Probiotic Complex Tablet] Docusate Sodium Cap [Colace Cap] 100 mg PO BID PRN #0 capsule 11/15/16 12/15/16 Rx LORazepam TAB [Ativan Tab] 2 mg PO BID PRN #0 tablet 11/15/16 12/15/16 Rx fentaNYL [Fentanyl 12.5 mcg/hr 1 patch TRANSDERM Q3DAY #5 patch 11/15/16 Rx Patch] Esomeprazole Magnesium 20 mg PO QPM 12/08/16 12/15/16 History [Esomeprazole] HYDROcodone/ACETAMIN 5-325 [[place] 1 tablet PO Q6H PRN #30 12/12/16 12/15/16 Rx 5-325] Review of System - Review of System 12 point system: reviewed and no additional remarkable complaints except as stated - Review of System Constitutional: Present: fever Head/Ears/Nose/Throat: Absent: nasal drainage, sore throat Respiratory: Absent: cough, respiratory distress Cardiovascular: Absent: chest pain Gastrointestinal: Present: abdominal pain. Absent: nausea, vomiting, diarrhea, constipation Genitourinary female: Absent: dysuria, frequency Medical,Surgical,& Family Hx - Medical History Cardio: History of: Hypertension No history of: Cardiac Dysrhythmia, CHF, [place], Pacemaker Psychological: History of: Depression Neurology: No history of: Seizures HEENT: History of: Eye Problem (GLASSSES) Endocrine: History of: Dyslipidemia No history of: Diabetes Mellitus (IDDM), Diabetes Mellitus (NIDDM) Rheumatology: History of;: Fibromyalgia Respiratory: No history of: Pulmonary Embolism, Pneumonia, Lung Cancer, Respiratory Problems (FLU VAC- YES; PNEU VAC- YES.) Gastrointestinal: History of: GERD Musculoskeletal: History of: Musculoskeletal Problems Hematology: History of: Anemia (history iron deficiency anemia) Other: History of: Miscellaneous Medical Problems (history of depression and B12 deficiency. IVC FILTER LEFT GROIN.) - Surgical History Cardiac Surgeries: Patient Denies: Cardiac Catheterization Thoracic Surgeries: Patient denies;: Organ Transplant, Lobectomy Neurologic Surgeries: Patient denies: Neurologic Surgery HEENT Surgeries: Patient denies: Tonsilectomy & Adenoidectomy Abdominal Surgeries: Surgical HX of: Abdominal Surgery, Cholecystectomy, Gastric Bypass Surgery (2009), Hernia Repair (06/2015 [facility]) Patient denies: Appendectomy Reproductive Surgeries: Surgical HX of;: Section (X2), Tubal Ligation Patient denies;: Genitourinary Surgery Orthopedic Surgeries: Surgical HX of;: Total Hip Replacement (left hip (2011)) - Family History Family History: Reports;: Family Heart Disease, Family Hypertension - Social History Smoking Status: Smoker, status unknown Exam Physical Examination: GENERAL: Alert. No acute distress. HEENT: Normocephalic and atraumatic. There is no nasal drainage. No pharyngeal erythema or exudate. Mucous membranes a little dry. NECK: Normal inspection. Supple. No lymphadenopathy or meningismus. LUNGS: No respiratory distress. Clear to auscultation bilaterally, no wheezes, rales or rhonchi. HEART: Regular rate and rhythm. ABDOMEN: Soft, nondistended. Normal bowel sounds. Moderate diffuse tenderness without guarding or rebound. There is a large midline incision with deangelo in place. No drainage or excessive erythema. There are 2 drains in as well, draining serosanguineous fluid. There is no erythema or drainage around these wounds either. BACK: Normal inspection. SKIN: Color normal. Warm and dry. EXTREMITIES: Nontender. Normal range of motion. No pedal edema. NEUROLOGICAL/PSYCHIATRIC: Alert and oriented -3 with normal mood and affect. Cranial nerves normal. No motor or sensory deficit. Vital Signs: Vital Signs Temperature 100.2 F H 12/15/16 17:50 Pulse Rate 104 H 12/15/16 17:48 Respiratory Rate 20 12/15/16 17:48 Blood Pressure 98/44 12/15/16 17:48 Course - Reevaluation(s) Reevaluation #1: The CT scan of the abdomen shows no definite abscess but there is a fluid collection and some air around the mesh. Given the patient's increasing tenderness and fever I suspect that this is an abscess. Regardless she will need to be admitted for antibiotics and observation. I have discussed patient with Dr. Terry and will admit to Dr. Candice Rayo Time: 21:52 Results - Labs CBC & BMP: 12/15/16 18:39 12/15/16 18:39 Lab Results: I have reviewed the patients labs Labs: Laboratory Tests 12/15/16 12/15/16 12/15/16 18:39 18:39 Unknown Lactic Acid 1.8 Total Bilirubin 0.60 AST 21 ALT 44 Urine pH 6.0 Ur Specific [place] 1.027 Urine Protein 30 Urine Leukocytes Negative Disposition Clinical Impression: Abdominal pain, Postsurgical fever Case discussed with: patient, patient's family Disposition: Still a Patient Condition: Stable Time of Disposition: 21:53
[2016-12-15 18:53] LABS: Basophils # 0.1 10*3/uL (0.0-0.2); Basophils % 0.4 % (0.0-0.8); Eosinophils # 0.1 10*3/uL (0.0-0.87); Eosinophils % 0.3 % (0.00-10.9); Hematocrit 37.8 VOL% (35.7-47.0); Hemoglobin 12.5 GM/DL (12.0-16.0); Immature Granulocytes % 0.4 %; Immature Granulocytes Absolute 0.07 #; Lymphocytes # 1.7 10*3/uL (1.4-4.0); Lymphocytes % 9.9 % (21.3-54.2); Mean Corpuscular HGB Conc 33.1 GM/DL (32-36); Mean Corpuscular Hemoglobin 31 PG (27-34); Mean Corpuscular Volume 92.4 FL (87-102); Mean Platelet Volume 11.5 FL (9.6-12.0); Monocytes # 1.5 10*3/uL (0.11-0.8); Monocytes % 8.9 % (1.7-12.7); Neutrophils # 13.5 10*3/uL (1.4-7.4); Neutrophils % 80.1 % (38.7-73.9); Platelet Count 355 T/CUMM (130-400); Red Blood Count 4.09 MC/CUMM (3.8-5.5); Red Cell Distribution Width 13.8 % (9.3-17.3); White Blood Count 16.8 T/CUMM (4-12)
--- NOTE | 2016-12-15 18:57 | XRay Report ---
Referring Physician: Juice Oh Exam: XR chest 1V portable Date: December 15, 2016 at 6:34 PM Reason: Fever Comparison: Chest 2 views November 23, 2016, chest PA lateral November 26, 2009 Findings: The cardiac silhouette is normal in size for the portable technique, but there is calcified plaque at the aortic arch. No focal consolidation, pneumothorax or pleural effusion is identified. However, there may be venous congestion. No acute osseous process is seen. Impression: Possible venous congestion. No focal consolidation is identified. PROCEDURE INTERPRETED AT [facility] DEPARTMENT OF RADIOLOGY Final Report Signed by: Dr. Josephine Cook
[2016-12-15 19:32] LABS: Albumin 1.7 G/DL (3.4-5.0); Bilirubin,Total 0.6 MG/DL (0.2-1.0); Calcium 7.5 MG/DL (8.5-10.1); Osmolality,Calculated 276.5 MOS/KG (273-304); Potassium 4.4 MMOL/L (3.5-5.1); Total Protein 4.3 G/DL (6.4-8.3)
--- NOTE | 2016-12-15 19:42 | CT Report ---
Referring physician: Juice Oh EXAM: CT abdomen and pelvis with contrast DATE: December 15, 2016 COMPARISON: CT abdomen and pelvis without contrast December 08, 2016, CT abdomen and pelvis with contrast October 10, 2016 REASON: Status post hernia surgery, pain and fever TECHNIQUE: Axial images of the abdomen and pelvis were obtained after administration of 100 cc of Omnipaque 350 IV contrast. Coronal and sagittal reformatted images were also provided. Total DLP is 2264.3 mGy*cm. FINDINGS: Lower thorax: There is minimal bibasilar atelectasis. There is also mild bronchial wall thickening at the lower lobes and mild bronchial secretions at the left lower lobe. A small hiatal hernia is present, and there is surgical change at gastroesophageal junction.. ABDOMEN: Liver: Unremarkable. Gallbladder and bile ducts: The patient is status post cholecystectomy. The intrahepatic bile ducts are slightly prominent. This may be related to the cholecystectomy status, but please correlate with bilirubin levels. Pancreas: The pancreatic tail is not well visualized and may be partially surgically resected. Spleen: Unremarkable. Adrenals: There is a 2.5 cm right adrenal nodule and 3.2 cm left adrenal nodule. These nodules demonstrated Hounsfield units of less than -10 on the previous noncontrast study and are most consistent with adrenal adenomas. They are stable in size when considering differences in measuring technique. Kidneys and ureters: No hydronephrosis is present, but there are nonobstructing left renal calculi, measuring up to 0.4 cm. There are also bilateral renal hypodensities. These hypodensities are most consistent with cysts, but some are too small to well characterize. The largest is located at the right kidney and measures 5.2 cm. PELVIS: Bladder: The bladder is poorly distended and difficult to evaluate. Reproductive: Unremarkable as visualized. ABDOMEN AND PELVIS: Bowel: There is again surgical change at the stomach, which could reflect gastrectomy or gastric bypass surgery. There are few mildly prominent loops of small bowel with air-fluid levels present. There is also mild air within the colon. This could represent enteritis or mild ileus. There are also colonic diverticula but no evidence of diverticulitis. Appendix: The appendix is not identified, but there are no secondary signs of appendicitis. Vasculature: The abdominal aorta is normal in size. There is mild scattered calcified plaque at the arteries. An IVC filter is present. Peritoneum/retroperitoneum/abdominal wall: There is mesenteric fat stranding within the right lower quadrant, extending to the anterior abdominal wall. The patient is status post interval ventral hernia repair. There is minimal fluid and scattered foci of air adjacent to the mesh, and surgical drains are in place at the anterior lower aspect of the mesh material. The amount of fluid in this region has decreased. Prominent subcutaneous edema is also seen at the lower abdominal and pelvic wall, and there is skin thickening. This could be related to recent surgery or could reflect cellulitis. A surgical scar is noted near midline. There is also scattered anasarca at the remaining abdominal and pelvic wall. Varicosities are noted at the anterior pelvic wall. Lymph nodes: No suspicious adenopathy is seen. Bones: The patient is status post left total hip replacement. There is also degenerative change and mild scoliosis at the spine. No acute osseous process is identified. IMPRESSION: 1. There has been interval ventral hernia repair at the lower abdominal wall/pelvic wall with surgical mesh material in place. There is mesenteric fat stranding within the right lower quadrant, extending to the mesh. There is also minimal fluid and scattered foci of air adjacent to the mesh and prominent subcutaneous edema and skin thickening at the lower abdominal wall and pelvic wall. These findings could be related to surgery, but an infectious process cannot be excluded. As mentioned above, there is minimal fluid adjacent to the mesh, but there is no clear evidence of abscess formation at this time. Follow-up could be performed to see if an abscess develops. 2. There are a few minimally prominent loops of small bowel and air-fluid levels at the small bowel. However, there is also mild air within the colon. This could represent mild ileus or enteritis. 3. Stable bilateral adrenal lesions, most consistent with adrenal adenomas. 4. There is mild bronchial wall thickening at the lower lobes and mild bronchial secretions at the left lower lobe. 5. The intrahepatic bile ducts are minimally prominent. This could be related to the cholecystectomy status, especially since the common bile duct is not dilated. However, please correlate with bilirubin levels. 6. There is a small hiatal hernia and surgical change at the stomach as before. 7. Small nonobstructing left renal calculi. There are also bilateral renal cysts, some of which are too small to well characterize. 8. Colonic diverticulosis without evidence diverticulitis. The CT exam was performed using one or more of the following dose reduction techniques: Automated exposure control and adjustment of the mA and/or kV according to patient size. PROCEDURE INTERPRETED AT [facility] DEPARTMENT OF RADIOLOGY Final Report Signed by: Dr. Josephine Cook
[2016-12-15 19:44] LABS: Apearance,Urine CLEAR (Clear); Bilirubin,Urine Negative (Negative); Blood, Urine Negative (Negative); Glucose,Urine (UA) Negative (Negative); Ketones,Urine Negative (Negative); Mucus,Urine Occasional /LPF (Occasional); Nitrite,Urine Negative (Negative); Protein,Urine 30 MG/DL; RBC,Urine 1 /HPF (0-4); Squamous Epithelial Cell,Urine Occasional /HPF (0-10); Urine Color Amber (Yellow); Urine Specific Gravity 1.027 (1.001-1.035); WBC,Urine 2 /HPF (0-6)
[2016-12-15] MEDS ORDERED: ACETAMINOPHEN 325 MG TABLET PO PRN (23:49)
[2016-12-15] MEDS ORDERED: ONDANSETRON 4 MG/2 ML VIAL IV PRN (23:49)
[2016-12-16] MEDS: DEXT 5% LACT RING KCL 20 MEQ 20 MEQ/1,000 ML BAG IV SCH ×5 (00:38→18:35)
[2016-12-16] MEDS: HYDROmorphone 2 MG/1 ML VIAL IV PRN (07:43)
[2016-12-16] MEDS ORDERED: ALUMINUM/MAGNES/SIMETH MAX STR 30 ML UDCUP PO PRN (07:58)
[2016-12-16] MEDS ORDERED: DOCUSATE SODIUM 100 MG CAPSULE PO PRN (08:23)
--- NOTE | 2016-12-16 08:27 | General Surg History&Physical ---
Assessment and Plan (1) abdominal pain and no etiology Status: Acute Assessment and plan: Impression: 1. Abdominal pain with fever status post surgical repair of ventral hernia 2. Status post large ventral hernia repair 3. Moderate abdominal pain and discomfort in relation to her hernia repair 4. Low blood pressure may be related to medication rather than infection Plan: Continue present IV fluids and IV antibiotics Careful observation at this time Current Visit: No History of Present Illness Chief complaint: Fever and increased abdominal pain status post hernia repair History of present illness: Ms. Ramachandran is a 61 year old female white female who is status post a large ventral hernia repair comes in because of increased fever and pain and discomfort. White count was 16,[address] scan was questionable for any infection. Because of blood pressure was low probably related to pain medication where she was put in the unit given some additional IV fluids. Patient had a large hernia repair back in October had come back in and have a revision with drains left this past Saturday. She still has drains in place who was sent home on Saturday came back last night because of her increased pain and concern for fever. Exam really does not suggest that there is any recurrent infection present that I can tell at this time because her blood pressure will keep her in the unit today see how she does especially with pain management. Home Medications Medication Instructions Recorded Confirmed Type Atorvastatin Calcium 20 mg PO BEDTIME 08/18/16 12/15/16 History Citalopram [CeleXA] 40 mg PO BEDTIME 08/18/16 12/15/16 History Cyclobenzaprine HCl 10 mg PO BEDTIME 08/18/16 12/15/16 History Ferrous Sulfate 325 mg PO BID 08/18/16 12/15/16 History amLODIPine [Norvasc] 10 mg PO QAM 08/18/16 12/15/16 History cloNIDine TAB [Catapres Tab] 0.2 mg PO BID 08/18/16 12/15/16 History Vit No.124/Iron/Folic 1 each PO QAM 10/10/16 12/15/16 History [ Vitamin Tablet] Aspirin [Ecotrin] 81 mg PO QAM 11/02/16 12/15/16 History Cyanocobalamin Inj [Vitamin B12 1,000 mcg IM Q30D 11/02/16 12/15/16 History Inj] Lactobacillus Cmb#7/Fos/Inulin 1 each PO QAM 11/02/16 12/15/16 History [Probiotic Complex Tablet] Docusate Sodium Cap [Colace Cap] 100 mg PO BID PRN #0 capsule 11/15/16 12/15/16 Rx LORazepam TAB [Ativan Tab] 2 mg PO BID PRN #0 tablet 11/15/16 12/15/16 Rx fentaNYL [Fentanyl 12.5 mcg/hr 1 patch TRANSDERM Q3DAY #5 patch 11/15/16 Rx Patch] Esomeprazole Magnesium 20 mg PO QPM 12/08/16 12/15/16 History [Esomeprazole] HYDROcodone/ACETAMIN 5-325 [[place] 1 tablet PO Q6H PRN #30 12/12/16 12/15/16 Rx 5-325] Allergies Allergy/AdvReac Type Severity Reaction Status Date / Time morphine Allergy Severe Vomiting Verified 12/08/16 11:15 Penicillins Allergy Mild RASH Verified 12/08/16 11:15 Medical,Surgical,& Family Hx - Medical History Cardio: History of: Hypertension No history of: Cardiac Dysrhythmia, CHF, [place], Pacemaker Psychological: History of: Depression Neurology: No history of: Seizures HEENT: History of: Eye Problem (GLASSSES) Endocrine: History of: Dyslipidemia No history of: Diabetes Mellitus (IDDM), Diabetes Mellitus (NIDDM) Rheumatology: History of;: Fibromyalgia Respiratory: No history of: Pulmonary Embolism, Pneumonia, Lung Cancer, Respiratory Problems (FLU VAC- YES; PNEU VAC- YES.) Gastrointestinal: History of: GERD Musculoskeletal: History of: Musculoskeletal Problems Hematology: History of: Anemia (history iron deficiency anemia) No history of: Blood Transfusion Reaction Other: History of: Miscellaneous Medical Problems (history of depression and B12 deficiency. IVC FILTER LEFT GROIN.) - Surgical History Cardiac Surgeries: Patient Denies: Cardiac Catheterization Thoracic Surgeries: Patient denies;: Organ Transplant, Lobectomy Neurologic Surgeries: Patient denies: Neurologic Surgery HEENT Surgeries: Patient denies: Tonsilectomy & Adenoidectomy Abdominal Surgeries: Surgical HX of: Abdominal Surgery, Cholecystectomy, Gastric Bypass Surgery (2009), Hernia Repair (06/2015 [facility].) Patient denies: Appendectomy Reproductive Surgeries: Surgical HX of;: Section (X2), Tubal Ligation Patient denies;: Genitourinary Surgery Orthopedic Surgeries: Surgical HX of;: Total Hip Replacement (left hip (2012)) - Family History Family History: Reports;: Family Heart Disease, Family Hypertension - Social History Smoking Status: Smoker, status unknown Frequency of Alcohol Use: Occasionally Exam - Constitutional Vitals: Period Temp Pulse Resp BP Sys/Gil Pulse Ox Last 24 Hr 98.6 F-101.3 F 77-93 14-17 78-112/43-62 92-97 General appearance: mild distress - Head Head exam: Present: normal inspection - ENT ENT exam: Present: normal exam - Neck Neck exam: Present: normal inspection - Respiratory Respiratory exam: Present: rales - Cardiovascular Cardiovascular exam: Present: RRR - GI/Abdominal GI/Abdominal exam: Present: normal bowel sounds, tenderness (Tenderness over the lower pole of the abdomen with there is bruising and some induration a little bit around the incisional area.), other (Large midline incision present with no obvious erythematous changes or draining present. 2 CIERRA drains are present and they appear to be draining just serosanguineous fluid.). Absent: distended - Extremities Exam Extremities exam: Present: normal inspection - Neurological Exam Neurological exam: Present: alert, oriented X3, CN II-XII intact - Skin Skin exam: Present: normal color, warm, dry 12 point system: reviewed and no additional remarkable complaints except as stated Results - Labs CBC & BMP: 12/15/16 18:39 12/15/16 18:39 Lab Results: I have reviewed the past 24 hour labs
[2016-12-16] MEDS ORDERED: CYANOCOBALAMIN 1000 MCG/1 ML VIAL IM SCH (08:30)
[2016-12-16] MEDS: PANTOPRAZOLE 40 MG VIAL IV SCH (09:40)
[2016-12-16] MEDS: amLODIPine 10 MG TABLET PO SCH (09:47)
[2016-12-16] MEDS: LACTOBACILLUS RHAMNOSUS GG CAPSULE PO SCH (09:48)
[2016-12-16] MEDS: FERROUS SULFATE 325 MG TABLET PO SCH ×2 (09:48→20:42)
[2016-12-16] MEDS: MULTIVITAMIN (PRENATAL) TABLET PO SCH (09:48)
[2016-12-16] MEDS: CITALOPRAM 40 MG TABLET PO SCH (20:42)
[2016-12-16] MEDS: PANTOPRAZOLE 40 MG TABLET PO SCH (20:42)
[2016-12-16] MEDS: ATORVASTATIN 20 MG TABLET PO SCH (20:43)
[2016-12-16] MEDS: LORazepam 1 MG TABLET PO PRN (20:46)
[2016-12-16] MEDS ORDERED: CYCLOBENZAPRINE 10 MG TABLET PO SCH (21:00)
[2016-12-17] MEDS: DEXT 5% LACT RING KCL 20 MEQ 20 MEQ/1,000 ML BAG IV SCH ×3 (03:04→16:10)
[2016-12-17 05:07] LABS: Basophils % 0.3 % (0.0-0.8); Eosinophils % 10.1 % (0.00-10.9); Hematocrit 36.7 VOL% (35.7-47.0); Hemoglobin 11.4 GM/DL (12.0-16.0); Immature Granulocytes % 0.5 %; Immature Granulocytes Absolute 0.05 #; Lymphocytes # 1.7 10*3/uL (1.4-4.0); Mean Corpuscular HGB Conc 31.1 GM/DL (32-36); Mean Corpuscular Hemoglobin 30 PG (27-34); Mean Corpuscular Volume 96.6 FL (87-102); Mean Platelet Volume 11.5 FL (9.6-12.0); Monocytes % 10.1 % (1.7-12.7); Neutrophils # 6.4 10*3/uL (1.4-7.4); Platelet Count 318 T/CUMM (130-400); Red Cell Distribution Width 13.8 % (9.3-17.3); White Blood Count 10.3 T/CUMM (4-12)
[2016-12-17 05:40] LABS: Calcium 7.6 MG/DL (8.5-10.1); Magnesium 2.1 MG/DL (1.8-2.4); Osmolality,Calculated 280.1 MOS/KG (273-304); Potassium 4.3 MMOL/L (3.5-5.1)
--- NOTE | 2016-12-17 08:29 | Event Note ---
She feels better. She has not had fever though she reported having fever at home. Her white blood cell count is now normal. Her vital signs are stable and her abdomen is benign. There is nothing in her CIERRA drains that looks purulent. Her CT scan does not show anything specific as far as abscess and this looks like postoperative change to me with an intact repair. She is okay to go to the floor.
[2016-12-17] MEDS: PROMETHAZINE 25 MG/1 ML VIAL IM PRN ×3 (09:30→20:51)
[2016-12-17] MEDS: LORazepam 1 MG TABLET PO PRN (09:30)
[2016-12-17] MEDS: HYDROmorphone 2 MG/1 ML VIAL IV PRN ×2 (09:30→16:00)
[2016-12-17] MEDS: LACTOBACILLUS RHAMNOSUS GG CAPSULE PO SCH (10:56)
[2016-12-17] MEDS: amLODIPine 10 MG TABLET PO SCH (10:58)
[2016-12-17] MEDS: FERROUS SULFATE 325 MG TABLET PO SCH ×2 (10:58→20:37)
[2016-12-17] MEDS: MULTIVITAMIN (PRENATAL) TABLET PO SCH (10:58)
[2016-12-17] MEDS: PANTOPRAZOLE 40 MG VIAL IV SCH (10:58)
[2016-12-17] MEDS: PANTOPRAZOLE 40 MG TABLET PO SCH (18:32)
[2016-12-17] MEDS ORDERED: HYDROmorphone 2 MG/1 ML VIAL IV PRN (19:12)
[2016-12-17] MEDS ORDERED: LORazepam 0.5 MG TABLET PO PRN (19:12)
[2016-12-17] MEDS ORDERED: CYCLOBENZAPRINE 10 MG TABLET PO PRN (19:12)
--- NOTE | 2016-12-17 19:22 | Family Practice History&Phys ---
Assessment and Plan (1) Fever of unknown etiology Status: Acute Assessment and plan: Have ordered additional studies and cultures. Patient improved at the time of evaluation Current Visit: Yes (2) Abdominal pain Status: Acute Assessment and plan: Abdominal pain secondary to recent hernia repair and incision. No signs of infection or other abdominal pathology noted Current Visit: Yes (3) Status post hernia repair Status: Acute Assessment and plan: Recent abdominal hernia repair and revision stable at present Current Visit: No (4) Gastroesophageal reflux Status: Chronic Assessment and plan: Stable on present medication Current Visit: No (5) Presence of IVC filter Status: Chronic Current Visit: No (6) hyperlipidemia Status: Chronic Assessment and plan: Stable at present Current Visit: No (7) hypertension Status: Chronic Assessment and plan: Stable on present medication Current Visit: No History of Present Illness Chief complaint: Abdominal pain and fever History of present illness: Ms. Ramachandran is a 61 year old female Patient was admitted to the emergency room after she reported having temperature of 101 associated with abdominal pain and weakness. Patient related that her abdominal pain had worsened since the a.m. of admission. Patient was recently discharged after having a revision of a very large hernia repair. Very complicated surgery but had a good outcome. When seen in emergency room she had a temperature of 100.2 and was slightly hypotensive 98/ 44. She has some slight tenderness over the wound site but no signs of infection were noted. She had no active drainage from her wound VAC. No purulence is noted. White blood cell count was elevated at 16,800 but hemoglobin and hematocrit were stable. No source of infection was noted. In view of history and degree of symptoms she was admitted for close observation therapy. She was initially admitted to intensive care in view of the hypotension, but is now being transferred to a regular floor. She is afebrile at the time of my evaluation. We will plan to follow with surgery. Home Medications Medication Instructions Recorded Confirmed Type Atorvastatin Calcium 20 mg PO BEDTIME 08/18/16 12/15/16 History Citalopram [CeleXA] 40 mg PO BEDTIME 08/18/16 12/15/16 History Cyclobenzaprine HCl 10 mg PO BEDTIME 08/18/16 12/15/16 History Ferrous Sulfate 325 mg PO BID 08/18/16 12/15/16 History amLODIPine [Norvasc] 10 mg PO QAM 08/18/16 12/15/16 History cloNIDine TAB [Catapres Tab] 0.2 mg PO BID 08/18/16 12/15/16 History Vit No.124/Iron/Folic 1 each PO QAM 10/10/16 12/15/16 History [ Vitamin Tablet] Aspirin [Ecotrin] 81 mg PO QAM 11/02/16 12/15/16 History Cyanocobalamin Inj [Vitamin B12 1,000 mcg IM Q30D 11/02/16 12/15/16 History Inj] Lactobacillus Cmb#7/Fos/Inulin 1 each PO QAM 11/02/16 12/15/16 History [Probiotic Complex Tablet] Docusate Sodium Cap [Colace Cap] 100 mg PO BID PRN #0 capsule 11/15/16 12/15/16 Rx LORazepam TAB [Ativan Tab] 2 mg PO BID PRN #0 tablet 11/15/16 12/15/16 Rx fentaNYL [Fentanyl 12.5 mcg/hr 1 patch TRANSDERM Q3DAY #5 patch 11/15/16 Rx Patch] Esomeprazole Magnesium 20 mg PO QPM 12/08/16 12/15/16 History [Esomeprazole] HYDROcodone/ACETAMIN 5-325 [[place] 1 tablet PO Q6H PRN #30 12/12/16 12/15/16 Rx 5-325] Allergies Allergy/AdvReac Type Severity Reaction Status Date / Time morphine Allergy Severe Vomiting Verified 12/08/16 11:15 Penicillins Allergy Mild RASH Verified 12/08/16 11:15 Medical,Surgical,& Family Hx - Medical History Cardio: History of: Hypertension No history of: Cardiac Dysrhythmia, CHF, MD, Pacemaker Psychological: History of: Depression Neurology: No history of: Seizures HEENT: History of: Eye Problem (GLASSSES) Endocrine: History of: Dyslipidemia No history of: Diabetes Mellitus (IDDM), Diabetes Mellitus (NIDDM) Rheumatology: History of;: Fibromyalgia Respiratory: No history of: Pulmonary Embolism, Pneumonia, Lung Cancer, Respiratory Problems (FLU VAC- YES; PNEU VAC- YES.) Gastrointestinal: History of: GERD Musculoskeletal: History of: Musculoskeletal Problems Hematology: History of: Anemia (history iron deficiency anemia) No history of: Blood Transfusion Reaction Other: History of: Miscellaneous Medical Problems (history of depression and B12 deficiency. IVC FILTER LEFT GROIN.) - Surgical History Cardiac Surgeries: Patient Denies: Cardiac Catheterization Thoracic Surgeries: Patient denies;: Organ Transplant, Lobectomy Neurologic Surgeries: Patient denies: Neurologic Surgery HEENT Surgeries: Patient denies: Tonsilectomy & Adenoidectomy Abdominal Surgeries: Surgical HX of: Abdominal Surgery, Cholecystectomy, Gastric Bypass Surgery (2010), Hernia Repair (06/2015 [place] Patient denies: Appendectomy Reproductive Surgeries: Surgical HX of;: Section (X2), Tubal Ligation Patient denies;: Genitourinary Surgery Orthopedic Surgeries: Surgical HX of;: Total Hip Replacement (left hip (2011)) - Family History Family History: Reports;: Family Heart Disease, Family Hypertension - Social History Smoking Status: Smoker, status unknown Frequency of Alcohol Use: Occasionally Marital Status: Lives With:: Alone Functional capacity: independent ambulation Exam - Constitutional Vitals: Period Temp Pulse Resp BP Sys/Gil Pulse Ox Last 24 Hr 97.8 F-98.7 F 72-97 8-25 90-160/26-85 90-99 General appearance: mild distress - Head Head exam: Present: normal inspection - ENT ENT exam: Present: normal exam - Neck Neck exam: Present: normal inspection - Respiratory Respiratory exam: Present: clear to auscultation bilaterally - Cardiovascular Cardiovascular exam: Present: tachycardia. Absent: regular rate and rhythm - GI/Abdominal GI/Abdominal exam: Present: normal bowel sounds, tenderness - Extremities Exam Extremities exam: Present: normal inspection - Back Exam Back exam: Present: normal inspection - Neurological Exam Neurological exam: Present: alert, oriented X3 - Psychiatric Psychiatric exam: Present: normal affect - Skin Skin exam: Present: normal color Results - Labs CBC & BMP: 12/17/16 04:52 12/17/16 04:52
[2016-12-17] MEDS ORDERED: ENOXAPARIN 40 MG/0.4 ML SYRINGE SUBCUT SCH (19:30)
[2016-12-17] MEDS: ATORVASTATIN 20 MG TABLET PO SCH (20:37)
[2016-12-17] MEDS: CITALOPRAM 40 MG TABLET PO SCH (20:37)
[2016-12-18 05:49] LABS: Basophils % 0.5 % (0.0-0.8); Eosinophils % 12.3 % (0.00-10.9); Hematocrit 37.3 VOL% (35.7-47.0); Hemoglobin 11.7 GM/DL (12.0-16.0); Immature Granulocytes % 0.6 %; Immature Granulocytes Absolute 0.05 #; Lymphocytes # 1.6 10*3/uL (1.4-4.0); Lymphocytes % 20.1 % (21.3-54.2); Mean Corpuscular HGB Conc 31.4 GM/DL (32-36); Mean Corpuscular Hemoglobin 30 PG (27-34); Mean Corpuscular Volume 94.7 FL (87-102); Mean Platelet Volume 11.6 FL (9.6-12.0); Monocytes # 0.7 10*3/uL (0.11-0.8); Neutrophils # 4.7 10*3/uL (1.4-7.4); Neutrophils % 57.5 % (38.7-73.9); Platelet Count 400 T/CUMM (130-400); Red Blood Count 3.94 MC/CUMM (3.8-5.5); Red Cell Distribution Width 13.5 % (9.3-17.3); White Blood Count 8.1 T/CUMM (4-12)
[2016-12-18 06:17] LABS: Potassium 4.4 MMOL/L (3.5-5.1)
[2016-12-18 06:21] LABS: Band Neutrophils 2 % (0-10); Eosinophils 14 % (0-10); Hypochromasia 1+; Lymphocytes 17 % (20-55); Segmented Neutrophils 59 % (50-85); Total Cells Counted 100
--- NOTE | 2016-12-18 07:04 | Event Note ---
She feels well. She has minimal abdominal discomfort now. She is gotten out of bed. Her wound looks good and there is no fever or signs of infection. I think that she is fine for discharge home and I will follow her up in the next week or so. We will keep her CIERRA drains for now because of the large space in her subcutaneous layer.
--- NOTE | 2016-12-18 08:01 | Family Practice Progress Note ---
Family Practice - PN: Subj Interval history: Patient states she is hearing much improved this a.m. She has remained afebrile lab studies are stable. AM WBC is 8,100. Denies any new complaints. Tolerating diet activity medications. Abdomen is soft flat some incisional pain but otherwise stable. No active signs of infection. Cultures have remained negative. Dr. Harvey plans to discharge this a.m. was follow-up in the clinic. Call or return to emergency room condition worsening problems develop Exam (Progress Note) - Constitutional Vitals: Period Temp Pulse Resp BP Sys/Gil Pulse Ox Last 24 Hr 97.8 F-98.2 F 75-96 8-21 90-123/26-74 92-99 Results - Labs CBC & BMP: 12/18/16 05:12 12/18/16 05:12 Assessment and Plan (1) Fever of unknown etiology Status: Acute Assessment and plan: Have ordered additional studies and cultures. Patient improved at the time of evaluation Current Visit: Yes (2) Abdominal pain Status: Acute Assessment and plan: Abdominal pain secondary to recent hernia repair and incision. No signs of infection or other abdominal pathology noted Current Visit: Yes (3) Status post hernia repair Status: Acute Assessment and plan: Recent abdominal hernia repair and revision stable at present Current Visit: No (4) Gastroesophageal reflux Status: Chronic Assessment and plan: Stable on present medication Current Visit: No (5) Presence of IVC filter Status: Chronic Current Visit: No (6) hyperlipidemia Status: Chronic Assessment and plan: Stable at present Current Visit: No (7) hypertension Status: Chronic Assessment and plan: Stable on present medication Current Visit: No
[2016-12-18] MEDS ORDERED: ASPIRIN EC 81 MG TABLET PO SCH (09:00)
[2016-12-18] MEDS: amLODIPine 10 MG TABLET PO SCH (09:50)
[2016-12-18] MEDS: LACTOBACILLUS RHAMNOSUS GG CAPSULE PO SCH (09:50)
[2016-12-18] MEDS: FERROUS SULFATE 325 MG TABLET PO SCH (09:50)
--- NOTE | 2016-12-18 10:54 | Discharge Summary ---
Hospital Course - Hospital Course Hospital Course: Patient is a 61-year-old female readmitted status post complicated abdominal hernia repair with fever and leukocytosis. She was also hypotensive and there was concern for sepsis so she was placed in the intensive care unit. There she received fluid resuscitation and IV antibiotics. She quickly responded with improvement in her blood pressures and she remained afebrile for the remainder of the stay and her leukocytosis resolved. Hypotension thought to possibly be secondary to medications. Etiology of fever remains unclear. Blood cultures were negative. CT abdomen pelvis is negative. Chest x-ray was unremarkable and influenza testing was also negative. Patient was ultimately discharged home in good condition. Diagnosis - Discharge Diagnosis (1) Fever of unknown etiology Status: Acute (2) Status post hernia repair Status: Acute (3) Obesity Status: Chronic Discharge Plan - Discharge Data Disposition: Disch To Home/Self Care Condition at Discharge: Stable Discharge Diet: advance to your usual diet Activity: no lifting (> 5lb) Hygiene: may shower Driving: not until seen by doctor Contact your physician if you experience:: fever over 101, Difficulty voiding, Redness or swelling, Nausea/Vomiting, Shortness of breath, Bleeding, pain uncontrolled by pain medications Wound / Dressing Care Instructions: CIERRA drain care as attached. Maintain abdominal binder at all times. - Discharge Medications Continue Ferrous Sulfate 325 mg PO BID Citalopram [CeleXA] 40 mg PO BEDTIME Atorvastatin Calcium 20 mg PO BEDTIME Vit No.124/Iron/Folic [ Vitamin Tablet] 1 each PO QAM Cyanocobalamin Inj [Vitamin B12 Inj] 1,000 mcg IM Q30D Aspirin [Ecotrin] 81 mg PO QAM HYDROcodone/ACETAMIN 5-325 [[place] 5-325] 1 tablet PO Q6H PRN #30 PRN Reason: Pain Moderate To Severe (4-10) Lactobacillus Cmb#7/Fos/Inulin [Probiotic Complex Tablet] 1 each PO QAM Docusate Sodium Cap [Colace Cap] 100 mg PO BID PRN #0 capsule PRN Reason: Constipation Esomeprazole Magnesium [Esomeprazole] 20 mg PO QPM Changed Cyclobenzaprine HCl 10 mg PO BEDTIME PRN #0 PRN Reason: Muscle Spasm LORazepam TAB [Ativan Tab] 1 mg PO BID PRN #0 tablet PRN Reason: Anxiety Discontinued cloNIDine TAB [Catapres Tab] 0.2 mg PO BID amLODIPine [Norvasc] 10 mg PO QAM fentaNYL [Fentanyl 12.5 mcg/hr Patch] 1 patch TRANSDERM Q3DAY #5 patch - Follow Up or Referral Follow Up: Shaji Harvey III., MD [Physician] - 1 Week Alvaro Sheets DO [Primary Care Provider] - 1 Week - Forms/Instructions Instructions: Candelario Reinoso Drain Discharge Instructions, Hydrocodone/ Acetaminophen (By mouth), How to Take a Blood Pressure (DC) Additional Discharge Instructions: -Take blood pressure twice daily and document for primary care physician. Notify physician if BP elevating with SBP ( top number) >160 and/or DBP (bottom number) >90. -Recommend taking 1/2 dose of lorazepam and flexeril. -Hold previous home blood pressure medications and monitor pressure as above. Resume medications as under direction of your primary care provider only. Exam - Constitutional Vitals: Period Temp Pulse Resp BP Sys/Gil Pulse Ox Last 24 Hr 97.7 F-98.2 F 75-96 8-21 90-137/26-84 92-99 General appearance: no acute distress, morbidly obese - Head Head exam: Present: normal inspection, normocephalic - Eye Eye exam: Absent: conjunctival injection, scleral icterus - Respiratory Respiratory exam: Present: clear to auscultation bilaterally - Cardiovascular Cardiovascular exam: Present: regular rate and rhythm - GI/Abdominal GI/Abdominal exam: Present: normal bowel sounds, soft, other (Midline surgical incision is clean, dry and intact with deangelo intact. No erythema edema or drainage. CIERRA drains with serosanguineous drainage. Drain site is clean and dry without erythema.). Absent: distended, firm, tenderness - Extremities Exam Extremities exam: Absent: calf tenderness, edema - Back Exam Back exam: Absent: CVA tenderness (L), CVA tenderness (R) - Neurological Exam Neurological exam: Present: alert, oriented X3 - Psychiatric Psychiatric exam: Present: normal affect, normal mood - Skin Skin exam: Present: normal color, warm Discharge Results Labs on day of discharge: Labs from last 24 hours 12/18/16 12/18/16 05:12 05:12 WBC 8.1 RBC 3.94 Hgb 11.7 L Hct 37.3 MCV 94.7 MCH 30 MCHC 31.4 L RDW 13.5 Plt Count 400 D MPV 11.6 Neut % (Auto) 57.5 Lymph % (Auto) 20.1 L Gillespie % (Auto) 9.0 Eos % (Auto) 12.3 H Baso % (Auto) 0.5 Neut # (Auto) 4.7 Lymph # (Auto) 1.6 Gillespie # (Auto) 0.7 Eos # (Auto) 1.0 H Baso # (Auto) 0.0 Total Counted 100 Immature Gran % 0.6 Nucleated RBC % 0.0 Immature Gran # 0.05 Segmented Neutrophils 59 Band Neutrophils 2 Lymphocytes 17 L Monocytes 8 Eosinophils 14 H Nucleated RBCs # 0.00 Hypochromasia 1+ Morphology Comment Sodium 143 Potassium 4.4 Chloride 105 Carbon Dioxide 31 Anion Gap 11.4 BUN 6 L Creatinine 0.80 GFR Calculation 86 BUN/Creatinine Ratio 7.00 Glucose 76 Calculated Osmolality 281.0 Calcium 8.0 L - Imaging and Cardiology Procedure: Chest x-ray: image reviewed by me, report reviewed by me, CT Abdomen and Pelvis: image reviewed by me, report reviewed by me DS: Provider Date of admission: 12/15/16 21:54 Primary care physician: Alvaro Sheets DO Attending physician on admission: Shaji Harvey III., Consults: 12/15/16 23:49 Consult to Physician [CONS] Routine Comment: Consulting Provider: Alvaro Sheets 12/16/16 08:20 Consult to Physician [CONS] Routine Comment: pt known to you s/p hernia repair Consulting Provider: Shaji Harvey III. When should Consulting Provider be notified: In am Discharging clinician: Shayla Rose PA-C
[2016-12-18 12:17] VITALS: BP 141/81
== END 2016-12-18 15:55 | disposition home or self-care (01) | DRG 864 ==
LOC: N.ED 14:21 → N.EDINP 21:54 → N.3E 22:12 → N.CC 22:37
PROVIDERS: ADMIT Surgery; ATTEND Surgery

== ENCOUNTER 2017-01-05 09:57 | Inpatient (IN) ==
--- NOTE | 2017-01-05 10:53 | Emergency Department Note ---
Arrival - Arrival Chief Complaint: Extremity Problem Stated Complaint: infection on rt leg alex't move it ED Nursing Triage Note: c/o having pain in the left foot since last night, denies having known injury., states she woke up with rash on legs bilateral up to the knees., states did not having the rash on either leg when went to sleep., Mode of Arrival: Ambulatory Limitations: No Limitations Source: Patient (Poor historian), Family, RN Notes Reviewed Time Seen by Provider: 01/05/17 10:20 - History of Present Illness HPI Narrative: 61-year-old white female presents to ED with chief complaint of rash on lower legs, and pain in left foot. Rash onset was this a.m., patient states the rash was definitely not there last night when she went to bed. Significant history is hernia repair done twice in the last 2 months. Incision is still present on abdomen, daughter states it has become red. She has had an elevated temp intermittently previous to the rash. Temp max was 100.0. Surgery was done by Dr. Harvey. PCP is Dr. Sheets. Denies CAD, renal problems, liver problems, diabetes. Rest of medical history is listed in chart. Patient denies any new medications. She is on [place] postop, but states she was on this before surgery. Allergies/Adverse Reactions: Allergies Allergy/AdvReac Type Severity Reaction Status Date / Time morphine Allergy Severe Vomiting Verified 01/05/17 10:02 Penicillins Allergy Mild RASH Verified 01/05/17 10:02 Home Medications: Home Medications Medication Instructions Recorded Confirmed Type Atorvastatin Calcium 20 mg PO BEDTIME 08/18/16 01/05/17 History Citalopram [CeleXA] 40 mg PO BEDTIME 08/18/16 01/05/17 History Ferrous Sulfate 325 mg PO BID 08/18/16 01/05/17 History Vit No.124/Iron/Folic 1 each PO QAM 10/10/16 01/05/17 History [ Vitamin Tablet] Aspirin [Ecotrin] 81 mg PO QAM 11/02/16 01/05/17 History Cyanocobalamin Inj [Vitamin B12 1,000 mcg IM Q30D 11/02/16 01/05/17 History Inj] Lactobacillus Cmb#7/Fos/Inulin 1 each PO QAM 11/02/16 01/05/17 History [Probiotic Complex Tablet] Docusate Sodium Cap [Colace Cap] 100 mg PO BID PRN #0 capsule 11/15/16 01/05/17 Rx Cyclobenzaprine HCl 10 mg PO BEDTIME PRN #0 12/18/16 01/05/17 Rx Hydrocodone/Acetaminophen [[place] 1 each PO Q4H PRN 01/05/17 01/05/17 History 10-325 Tablet] LORazepam [Lorazepam] 2 mg PO BEDTIME 01/05/17 01/05/17 History Omeprazole [Prilosec] 20 mg PO DAILY 01/05/17 01/05/17 History Sulfameth/Trimeth 800-160 Tab 1 tablet PO BID 01/05/17 01/05/17 History [Bactrim DS Tab] amLODIPine [Norvasc] 10 mg PO DAILY 01/05/17 01/05/17 History cloNIDine TAB [Catapres Tab] 0.2 mg PO BEDTIME 01/05/17 01/05/17 History Review of System - Review of System 12 point system: reviewed and no additional remarkable complaints except as stated - Review of System Skin: Present: as per HPI, rash, lesions Medical,Surgical,& Family Hx - Medical History Cardio: History of: Hypertension No history of: Cardiac Dysrhythmia, CHF, DC, Pacemaker Psychological: History of: Depression Neurology: No history of: Seizures HEENT: History of: Eye Problem (GLASSSES) Endocrine: History of: Dyslipidemia No history of: Diabetes Mellitus (IDDM), Diabetes Mellitus (NIDDM) Rheumatology: History of;: Fibromyalgia Respiratory: No history of: Pulmonary Embolism, Pneumonia, Lung Cancer, Respiratory Problems (FLU VAC- YES; PNEU VAC- YES.) Gastrointestinal: History of: GERD Musculoskeletal: History of: Musculoskeletal Problems Hematology: History of: Anemia (history iron deficiency anemia) No history of: Blood Transfusion Reaction Other: History of: Miscellaneous Medical Problems (history of depression and B12 deficiency. IVC FILTER LEFT GROIN.) - Surgical History Cardiac Surgeries: Patient Denies: Cardiac Catheterization Thoracic Surgeries: Patient denies;: Organ Transplant, Lobectomy Neurologic Surgeries: Patient denies: Neurologic Surgery HEENT Surgeries: Patient denies: Tonsilectomy & Adenoidectomy Abdominal Surgeries: Surgical HX of: Abdominal Surgery, Cholecystectomy, Gastric Bypass Surgery (2009), Hernia Repair (06/[facility]) Patient denies: Appendectomy Reproductive Surgeries: Surgical HX of;: Section (X2), Tubal Ligation Patient denies;: Genitourinary Surgery Orthopedic Surgeries: Surgical HX of;: Total Hip Replacement (left hip (2012)) - Family History Family History: Reports;: Family Heart Disease, Family Hypertension - Social History Smoking Status: Smoker, status unknown Frequency of Alcohol Use: None Type of Drug Use: None Exam Physical Examination: - General General appearance: alert, in no apparent distress - Head Head exam: Present: atraumatic, normocephalic - Chest Chest inspection: Present: normal inspection, symmetric chest wall rise - Respiratory Respiratory exam: Present: normal lung sounds bilaterally. Absent: rales, rhonchi, wheezes - Cardiovascular Cardiovascular exam: Present: regular rate, normal rhythm, normal heart sounds - Abdominal Exam Abdominal exam: Present: soft, normal bowel sounds. Incision to mid abdomen poorly approximated on ~1/3 distal area, with minimal drainage present, Steri- Strips still intact to distal 1/4 of incision. Erythema and stasis edema noted to lower abdomen. Absent: distention, - Extremities Exam Extremities exam: Present: rash as described below, full ROM - Neurological Exam Neurological exam: Present: alert, oriented X3 - Psychiatric Psychiatric exam: Present: normal affect, normal mood - Skin Skin exam: Present: Circular lesions, dried to lower legs. One large area on right foot. Circular area approximately 3-4 cm in diameter with prominent red streaks. These are pruritic. Approximately 5 cm area on the left foot that is erythematous and warm to touch. This area is painful to touch. - Expanded Skin Exam Type of lesion: Present: rash, purpuric Distribution: Present: BLE Description: Present: circular lesions, flat, surrounded by erythema, one lesion on right foot as described above Absent: Discharge, Fluctuance, Induration Vital Signs: Vital Signs Temperature 99.4 F 01/07/17 20:35 Pulse Rate 107 H 01/07/17 20:35 Respiratory Rate 20 01/07/17 20:35 Blood Pressure 109/62 01/07/17 20:35 O2 Sat by Pulse Oximetry 95 01/07/17 22:02 Course - Reevaluation(s) Time: 11:45 (Pt given report of my converstaion with Dr. Harvey and updated plan of care.) - Consultations Time: 11:30 (Dr. Harvey notified of patient presence and status.) Time: 12:50 (Dr. Harvey here. Will admit patient.) Results - Labs CBC & BMP: 01/07/17 04:56 01/05/17 11:13 Lab Results: I have reviewed the patients labs Labs: Laboratory Tests 01/05/17 11:13 AST 15 ALT 12 L Alkaline Phosphatase 117 Total Protein 5.1 L Albumin 1.4 L Globulin 3.7 H Albumin/Globulin Ratio 0.3 L Laboratory Tests 01/05/17 11:13 INR 1.1 PT Patient/Control Mix 11.2 Disposition Clinical Impression: probable abscess mid abdomen, Rash and nonspecific skin eruption, Purpura Case discussed with: patient, patient's family, patient's physician Disposition: Still a Patient Condition: Stable
[2017-01-05 11:31] LABS: Basophils % 0.5 % (0.0-0.8); Eosinophils # 0.2 10*3/uL (0.0-0.87); Eosinophils % 2.1 % (0.00-10.9); Hematocrit 34.5 VOL% (35.7-47.0); Hemoglobin 10.9 GM/DL (12.0-16.0); Immature Granulocytes % 0.4 %; Immature Granulocytes Absolute 0.03 #; Lymphocytes # 1.4 10*3/uL (1.4-4.0); Mean Corpuscular HGB Conc 31.6 GM/DL (32-36); Mean Corpuscular Hemoglobin 29 PG (27-34); Mean Corpuscular Volume 90.8 FL (87-102); Monocytes # 0.8 10*3/uL (0.11-0.8); Monocytes % 9.1 % (1.7-12.7); Neutrophils % 70.9 % (38.7-73.9); Platelet Count 460 T/CUMM (130-400); Red Cell Distribution Width 13.7 % (9.3-17.3); White Blood Count 8.5 T/CUMM (4-12)
[2017-01-05 11:50] LABS: INR 1.1; PT Patient Result 11.2 SECS
[2017-01-05 12:03] LABS: Alanine Aminotransferase 12 U/L (13-56); Albumin 1.4 G/DL (3.4-5.0); Alkaline Phosphatase 117 U/L (45-117); Aspartate Amino Transferase 15 U/L (0-37); Bilirubin,Total < 0.39 MG/DL (0.2-1.0); Blood Urea Nitrogen 14 MG/DL (7-18); Calcium 7.9 MG/DL (8.5-10.1); Glucose 77 MG/DL (74-106); Lactic Acid 0.9 MMOL/L (0.4-2.0); Sodium 143 MMOL/L (136-145); Total Protein 5.1 G/DL (6.4-8.3)
--- NOTE | 2017-01-05 13:06 | General Surg History&Physical ---
Assessment and Plan - Time spent with patient Time spent with patient: Less than 30 minutes (1) Rash and nonspecific skin eruption Status: Acute Assessment and plan: The etiology of this rash is unclear. Its relationship to the swelling and tenderness of her left ankle which may represent cellulitis is also unclear her wound does not overtly look infected but there is increased edema and erythema of the abdominal wall pannus. This is not tender. We will put her in and stop the Bactrim. This could be drug related. I am going to put her on IV vancomycin. Current Visit: Yes History of Present Illness Chief complaint: Rash on legs History of present illness: Ms. Ramachandran is a 61 year old female Who woke up this morning with a diffuse rash on both of her lower extremities as well as increased redness in her trunk especially along her abdominal wall pannus. She has not had abdominal pain or drainage. She does not think that she has had fever or chills. She is also developed redness and tenderness of her left ankle. She does not know of any aggravating or alleviating factors. She states that she was doing well yesterday. She is on Bactrim. I do not know if we started this on her as an outpatient or not. Home Medications Medication Instructions Recorded Confirmed Type Atorvastatin Calcium 20 mg PO BEDTIME 08/18/16 01/05/17 History Citalopram [CeleXA] 40 mg PO BEDTIME 08/18/16 01/05/17 History Ferrous Sulfate 325 mg PO BID 08/18/16 01/05/17 History Vit No.124/Iron/Folic 1 each PO QAM 10/10/16 01/05/17 History [ Vitamin Tablet] Aspirin [Ecotrin] 81 mg PO QAM 11/02/16 01/05/17 History Cyanocobalamin Inj [Vitamin B12 1,000 mcg IM Q30D 11/02/16 01/05/17 History Inj] Lactobacillus Cmb#7/Fos/Inulin 1 each PO QAM 11/02/16 01/05/17 History [Probiotic Complex Tablet] Docusate Sodium Cap [Colace Cap] 100 mg PO BID PRN #0 capsule 11/15/16 01/05/17 Rx Cyclobenzaprine HCl 10 mg PO BEDTIME PRN #0 12/18/16 01/05/17 Rx Hydrocodone/Acetaminophen [[place] 1 each PO Q4H PRN 01/05/17 01/05/17 History 10-325 Tablet] LORazepam [Lorazepam] 2 mg PO BEDTIME 01/05/17 01/05/17 History Omeprazole [Prilosec] 20 mg PO DAILY 01/05/17 01/05/17 History Sulfameth/Trimeth 800-160 Tab 1 tablet PO BID 01/05/17 01/05/17 History [Bactrim DS Tab] amLODIPine [Norvasc] 10 mg PO DAILY 01/05/17 01/05/17 History cloNIDine TAB [Catapres Tab] 0.2 mg PO BEDTIME 01/05/17 01/05/17 History Allergies Allergy/AdvReac Type Severity Reaction Status Date / Time morphine Allergy Severe Vomiting Verified 01/05/17 10:02 Penicillins Allergy Mild RASH Verified 01/05/17 10:02 Medical,Surgical,& Family Hx - Medical History Cardio: History of: Hypertension No history of: Cardiac Dysrhythmia, CHF, [place], Pacemaker Psychological: History of: Depression Neurology: No history of: Seizures HEENT: History of: Eye Problem (GLASSSES) Endocrine: History of: Dyslipidemia No history of: Diabetes Mellitus (IDDM), Diabetes Mellitus (NIDDM) Rheumatology: History of;: Fibromyalgia Respiratory: No history of: Pulmonary Embolism, Pneumonia, Lung Cancer, Respiratory Problems (FLU VAC- YES; PNEU VAC- YES.) Gastrointestinal: History of: GERD Musculoskeletal: History of: Musculoskeletal Problems Hematology: History of: Anemia (history iron deficiency anemia) No history of: Blood Transfusion Reaction Other: History of: Miscellaneous Medical Problems (history of depression and B12 deficiency. IVC FILTER LEFT GROIN.) - Surgical History Cardiac Surgeries: Patient Denies: Cardiac Catheterization Thoracic Surgeries: Patient denies;: Organ Transplant, Lobectomy Neurologic Surgeries: Patient denies: Neurologic Surgery HEENT Surgeries: Patient denies: Tonsilectomy & Adenoidectomy Abdominal Surgeries: Surgical HX of: Abdominal Surgery, Cholecystectomy, Gastric Bypass Surgery (2009), Hernia Repair (06/2015 [facility] Patient denies: Appendectomy Reproductive Surgeries: Surgical HX of;: Section (X2), Tubal Ligation Patient denies;: Genitourinary Surgery Orthopedic Surgeries: Surgical HX of;: Total Hip Replacement (left hip (2011)) - Family History Family History: Reports;: Family Heart Disease, Family Hypertension - Social History Smoking Status: Smoker, status unknown Frequency of Alcohol Use: None Type of Drug Use: None Exam - Constitutional Vitals: Period Temp Pulse Resp BP Sys/Gil Pulse Ox Last 24 Hr 98.0 F-98.0 F 86-101 16-20 104-136/62-78 96-96 General appearance: no acute distress, morbidly obese - Head Head exam: Present: normocephalic - Eye Eye exam: Absent: scleral icterus - ENT Mouth exam: Present: normal voice - Respiratory Respiratory exam: Present: clear to auscultation bilaterally. Absent: accessory muscle use - Cardiovascular Cardiovascular exam: Present: RRR - GI/Abdominal GI/Abdominal exam: Present: soft. Absent: distended, guarding, tenderness, rebound - Extremities Exam Extremities exam: Present: other (The left ankle is very tender and red and she has a petechial rash on both of her lower extremities.). Absent: calf tenderness, edema - Neurological Exam Neurological exam: Present: alert, oriented X3 Speech: Present: normal - Skin Skin exam: Present: normal color - Constitutional Constitutional: Absent: anorexia, chills, fever(s), weight loss - Cardiovascular Cardiovascular: Absent: chest pain at rest, dyspnea, dyspnea on exertion - Respiratory Respiratory: Absent: cough, dyspnea - Gastrointestinal Gastrointestinal: Absent: abdominal pain, bloating, hematemesis, hematochezia, nausea, vomiting - Musculoskeletal Musculoskeletal: Absent: back pain - Neurological Neurological: Absent: focal weakness, syncope Hematologic/Lymphatic: Absent: easy bruising Results - Labs CBC & BMP: 01/05/17 11:13 01/05/17 11:13 Lab Results: I have reviewed the past 24 hour labs
[2017-01-05] MEDS ORDERED: ONDANSETRON 4 MG/2 ML VIAL IV PRN (13:13)
[2017-01-05] MEDS ORDERED: GLUCAGON 1 MG VIAL IM PRN (13:13)
[2017-01-05] MEDS ORDERED: ACETAMINOPHEN 325 MG TABLET PO PRN (13:13)
[2017-01-05] MEDS ORDERED: DEXTROSE 50% 25 GM/50 ML VIAL IV PRN (13:13)
--- NOTE | 2017-01-05 14:17 | XRay Report ---
History: Ankle pain Date: 01/04/2017 Study: Left ankle 3 views Comparison exam: No previous similar study There is no fracture, dislocation, or focal destructive osseous abnormality. There is some mild plantar calcaneal spur formation. There is minimal osteophyte formation of the tibiotalar joint. There is suspected mild osteopenia. Impression: No acute fracture. Degenerative changes. Mild osteopenia PROCEDURE INTERPRETED AT [facility] DEPARTMENT OF RADIOLOGY Final Report Signed by: Dr. Celeste Arteaga
[2017-01-05] MEDS: VANCOMYCIN INJ 1,250 MG in SODIUM CHLORIDE 0.9% 250 ML IV SCH (15:37)
[2017-01-05] MEDS: HYDROmorphone 2 MG/1 ML VIAL IV PRN (16:40)
[2017-01-06] MEDS: HYDROmorphone 2 MG/1 ML VIAL IV PRN ×4 (00:06→23:41)
[2017-01-06] MEDS: VANCOMYCIN INJ 1,250 MG in SODIUM CHLORIDE 0.9% 250 ML IV SCH ×2 (03:42→16:33)
--- NOTE | 2017-01-06 08:29 | Consultation ---
Assessment and Plan (1) Purpura Status: Acute Assessment and plan: 12/29/2016: I do not think this is Henoch-Schonlein Purpura. Patient also has a normal platelet count. I do not think her Lovenox is causing this rash. Her sed rate is 104 and I am certainly worried she may have septic emboli but once again her white counts normal and she is not running fever. This is probably a reaction to the Bactrim and I certainly agree with stopping this. I think she would benefit from low-dose steroids but I am going to go ahead and check blood cultures uric acid and CRP. Current Visit: Yes History of Present Illness - Data of Consult Patient: new to practice Consult date: 01/06/17 Requesting Physician: Shaji Harvey III. - Consult Narrative Reason for consult: Rash History of present illness: Ms. Ramachandran is a 61 year old female Patient 58-year-old white female who was admitted with increasing abdominal pain she also noted to have left ankle pain and a rash. Patient states this started 2 days ago and she has not had any trauma or injury. Left ankle is quite swollen and red and states she can barely bear weight on it. She has been on Bactrim for wound infection and this was halted. Patient is on Lovenox as well. She denies any fever or chills and states her rash is not painful and her left ankle certainly is. She has never had gout. CC: Shaji Harvey III., - Home Medications and Allergies Home Medications: Home Medications Medication Instructions Recorded Confirmed Type Atorvastatin Calcium 20 mg PO BEDTIME 08/18/16 01/05/17 History Citalopram [CeleXA] 40 mg PO BEDTIME 08/18/16 01/05/17 History Ferrous Sulfate 325 mg PO BID 08/18/16 01/05/17 History Vit No.124/Iron/Folic 1 each PO QAM 10/10/16 01/05/17 History [ Vitamin Tablet] Aspirin [Ecotrin] 81 mg PO QAM 11/02/16 01/05/17 History Cyanocobalamin Inj [Vitamin B12 1,000 mcg IM Q30D 11/02/16 01/05/17 History Inj] Lactobacillus Cmb#7/Fos/Inulin 1 each PO QAM 11/02/16 01/05/17 History [Probiotic Complex Tablet] Docusate Sodium Cap [Colace Cap] 100 mg PO BID PRN #0 capsule 11/15/16 01/05/17 Rx Cyclobenzaprine HCl 10 mg PO BEDTIME PRN #0 12/18/16 01/05/17 Rx Hydrocodone/Acetaminophen [[place] 1 each PO Q4H PRN 01/05/17 01/05/17 History 10-325 Tablet] LORazepam [Lorazepam] 2 mg PO BEDTIME 01/05/17 01/05/17 History Omeprazole [Prilosec] 20 mg PO DAILY 01/05/17 01/05/17 History Sulfameth/Trimeth 800-160 Tab 1 tablet PO BID 01/05/17 01/05/17 History [Bactrim DS Tab] amLODIPine [Norvasc] 10 mg PO DAILY 01/05/17 01/05/17 History cloNIDine TAB [Catapres Tab] 0.2 mg PO BEDTIME 01/05/17 01/05/17 History Allergies/Adverse Reactions: Allergies Allergy/AdvReac Type Severity Reaction Status Date / Time morphine Allergy Severe Vomiting Verified 01/05/17 10:02 Penicillins Allergy Mild RASH Verified 01/05/17 10:02 - Constitutional Constitutional: Present: fever(s) (Subjective). Absent: chills, night sweats - EENT Eyes: Absent: blurry vision Nose, mouth and throat: Absent: epistaxis, nasal congestion, sinus pressure, sore throat - Cardiovascular Cardiovascular: Absent: chest pain at rest, chest pain with activity - Respiratory Respiratory: Absent: cough, dyspnea on exertion - Gastrointestinal Gastrointestinal: Present: abdominal pain. Absent: diarrhea, nausea, vomiting - Genitourinary Genitourinary: Absent: difficulty urinating, dysuria, hematuria, urinary frequency - Musculoskeletal Musculoskeletal: Present: as per HPI, arthralgias, joint swelling (Left ankle) - Neurological Neurological: Absent: focal weakness, numbness, paresthesias - Psychiatric Psychiatric: Absent: anxiety, confusion - Endocrine Endocrine: Absent: fatigue, polydipsia, polyphagia - Hematologic/Lymphatic Hematologic/Lymphatic: Absent: easy bleeding, easy bruising Medical,Surgical,& Family Hx - Medical History Cardio: History of: Hypertension No history of: Cardiac Dysrhythmia, CHF, [place], Pacemaker Psychological: History of: Depression Neurology: No history of: Seizures HEENT: History of: Eye Problem (GLASSSES) Endocrine: History of: Dyslipidemia No history of: Diabetes Mellitus (IDDM), Diabetes Mellitus (NIDDM) Rheumatology: History of;: Fibromyalgia Respiratory: No history of: Pulmonary Embolism, Pneumonia, Lung Cancer, Respiratory Problems (FLU VAC- YES; PNEU VAC- YES.) Gastrointestinal: History of: GERD Musculoskeletal: History of: Musculoskeletal Problems Hematology: History of: Anemia (history iron deficiency anemia) No history of: Blood Transfusion Reaction Other: History of: Miscellaneous Medical Problems (history of depression and B12 deficiency. IVC FILTER LEFT GROIN.) - Surgical History Cardiac Surgeries: Patient Denies: Cardiac Catheterization Thoracic Surgeries: Patient denies;: Organ Transplant, Lobectomy Neurologic Surgeries: Patient denies: Neurologic Surgery HEENT Surgeries: Patient denies: Tonsilectomy & Adenoidectomy Abdominal Surgeries: Surgical HX of: Abdominal Surgery, Cholecystectomy, Gastric Bypass Surgery (2009), Hernia Repair (06/2015 [facility]) Patient denies: Appendectomy Reproductive Surgeries: Surgical HX of;: Section (X2), Tubal Ligation Patient denies;: Genitourinary Surgery Orthopedic Surgeries: Surgical HX of;: Total Hip Replacement (left hip (2011)) - Family History Family History: Reports;: Family Cancer (mother-skin, father-penile, brother- prostate), Family Diabetes (brother and sister), Family Heart Disease (father- heart attack), Family Hypertension (mother, father, brother, sister-HTN) - Social History Smoking Status: Current every day smoker Frequency of Alcohol Use: None Type of Drug Use: None Exam - Constitutional Vitals: Period Temp Pulse Resp BP Sys/Gil Pulse Ox Last 24 Hr 98.0 F-99.3 F 86-102 16-20 94-136/55-78 93-96 Exam: General: Objective patient is a well-developed white female in no acute distress. She is able give good history. HEENT: Pupils equal and reactive to light. Patent nares and airway. Patient's pharynx is benign and there is no petechiae on the gums or the oral mucosa. Neck: No meningismus, adenopathy, thyromegaly. There are no auscultated carotid bruits. Cardiovascular: Regular rhythm. No murmurs or gallops Chest: Clear to auscultation without rales rhonchi wheezes. Abdomen: Soft nontender to palpation No masses, rebound, guarding or tenderness. Neuro: Cranial nerves intact and DTRs and strength symmetric in all extremities. Dermatologic: Patient's noted to have a purpuric rash to the lower extremities. She has a large erythematous purpura to the dorsum of the right foot and other smaller lesions scattered to both lower extremities. I saw a few lesions on her fingers but nowhere else. Musculoskeletal: Patient has prominent joint swelling in the left ankle which is both warm and erythematous. Results - Labs CBC & BMP: 01/05/17 11:13 01/05/17 11:13 Lab Results: I have reviewed the past 24 hour labs
[2017-01-06] MEDS: PANTOPRAZOLE 40 MG TABLET PO SCH (08:42)
[2017-01-06] MEDS: ENOXAPARIN 40 MG/0.4 ML SYRINGE SUBCUT SCH (08:42)
[2017-01-06 09:45] LABS: Uric Acid 2.3 MG/DL (2.6-6.0)
--- NOTE | 2017-01-06 11:53 | General Surgery Progress Note ---
Assessment and Plan - Time spent with patient Time spent with patient: Less than 30 minutes (1) Rash and nonspecific skin eruption Status: Acute Assessment and plan: The etiology of this rash is unclear. Its relationship to the swelling and tenderness of her left ankle which may represent cellulitis is also unclear her wound does not overtly look infected but there is increased edema and erythema of the abdominal wall pannus. This is not tender. We will put her in and stop the Bactrim. This could be drug related. I am going to put her on IV vancomycin. 01/06: The etiology of her rash is unclear. There is also a appearance of panniculitis of her large abdominal wall pannus. This pannus actually hangs down below where her hernia repair was done. Certainly there is a risk of infection in her abdominal wall and in her hernia repair. This is made more troublesome by the fact that she now has a prosthetic mesh as an onlay over her abdominal wall closure. If this had to be removed and this would not disrupt her main abdominal wall reconstruction which consists of an underlay of biologic mesh. I do not think that it is clear at this point that she has a mesh or surgical site infection. I would continue to watch this for now. The relationship between this and the rash is unclear. She was on Bactrim which we have stopped. She does have a markedly elevated ESR and C-reactive protein. Current Visit: Yes Subjective Patient reports: Present: feels better, pain is less. Absent: nausea, vomiting , fever Exam - Constitutional Vitals: Period Temp Pulse Resp BP Sys/Gil Pulse Ox Last 24 Hr 97.6 F-99.3 F 86-102 17-20 92-113/44-60 93-96 General appearance: no acute distress, morbidly obese - Respiratory Respiratory exam: Absent: accessory muscle use - GI/Abdominal GI/Abdominal exam: Present: other (There is some erythema of her lower abdominal wall pannus suggestive of a panniculitis type of picture). Absent: distended, guarding, tenderness, rebound - Neurological Exam Neurological exam: Present: alert, oriented X3 - Skin Skin exam: Present: petechiae, rash Results - Labs CBC & BMP: 01/05/17 11:13 01/05/17 11:13 Lab Results: I have reviewed the past 24 hour labs
[2017-01-07] MEDS: VANCOMYCIN INJ 1,250 MG in SODIUM CHLORIDE 0.9% 250 ML IV SCH ×2 (03:33→16:57)
[2017-01-07 05:23] LABS: Basophils % 0.4 % (0.0-0.8); Eosinophils # 0.2 10*3/uL (0.0-0.87); Eosinophils % 1.6 % (0.00-10.9); Immature Granulocytes % 0.4 %; Immature Granulocytes Absolute 0.04 #; Lymphocytes # 1.8 10*3/uL (1.4-4.0); Lymphocytes % 18.4 % (21.3-54.2); Mean Corpuscular HGB Conc 31.4 GM/DL (32-36); Mean Corpuscular Hemoglobin 28 PG (27-34); Mean Corpuscular Volume 89.5 FL (87-102); Mean Platelet Volume 11.1 FL (9.6-12.0); Monocytes # 0.9 10*3/uL (0.11-0.8); Monocytes % 9.2 % (1.7-12.7); Neutrophils # 6.9 10*3/uL (1.4-7.4); Platelet Count 423 T/CUMM (130-400); Red Blood Count 3.91 MC/CUMM (3.8-5.5); Red Cell Distribution Width 14.1 % (9.3-17.3); White Blood Count 9.9 T/CUMM (4-12)
--- NOTE | 2017-01-07 06:06 | General Surgery Progress Note ---
Assessment and Plan (1) Rash and nonspecific skin eruption Status: Acute Assessment and plan: The etiology of this rash is unclear. Its relationship to the swelling and tenderness of her left ankle which may represent cellulitis is also unclear her wound does not overtly look infected but there is increased edema and erythema of the abdominal wall pannus. This is not tender. We will put her in and stop the Bactrim. This could be drug related. I am going to put her on IV vancomycin. 01/06: The etiology of her rash is unclear. There is also a appearance of panniculitis of her large abdominal wall pannus. This pannus actually hangs down below where her hernia repair was done. Certainly there is a risk of infection in her abdominal wall and in her hernia repair. This is made more troublesome by the fact that she now has a prosthetic mesh as an onlay over her abdominal wall closure. If this had to be removed and this would not disrupt her main abdominal wall reconstruction which consists of an underlay of biologic mesh. I do not think that it is clear at this point that she has a mesh or surgical site infection. I would continue to watch this for now. The relationship between this and the rash is unclear. She was on Bactrim which we have stopped. She does have a markedly elevated ESR and C-reactive protein. 01/07: The pannus appears to have panniculitis. Whether this is related to the surgical site whether or not this cellulitis communicates with the deep space and the mesh is unclear. White blood cell count is normal. She is afebrile. If this persists then I can explore her wound. I think this is the only way to know if there is mesh involvement. If this is an isolated panniculitis and I hate to expose the deep space to any potential skin or subcutaneous infection. I will continue IV antibiotics for now. If this persists over the next couple of days then I may need to look at surgical exploration. Current Visit: Yes Subjective Patient reports: Present: feels better, still having pain. Absent: nausea, vomiting, shortness of breath, fever Exam - Constitutional Vitals: Period Temp Pulse Resp BP Sys/Gil Pulse Ox Last 24 Hr 97.6 F-99.3 F 89-94 18-20 92-116/44-68 91-96 General appearance: no acute distress, morbidly obese - Eye Eye exam: Absent: scleral icterus - Respiratory Respiratory exam: Absent: accessory muscle use - GI/Abdominal GI/Abdominal exam: Present: soft, other (There is erythema of the pannus below the incision). Absent: distended, guarding, tenderness, rebound Results - Labs CBC & BMP: 01/07/17 04:56 01/05/17 11:13 Lab Results: I have reviewed the past 24 hour labs
[2017-01-07] MEDS: HYDROmorphone 2 MG/1 ML VIAL IV PRN ×3 (06:40→23:11)
--- NOTE | 2017-01-07 09:17 | Family Practice Progress Note ---
Family Practice - PN: Subj Interval history: Patient states she is feeling about the same and her rash is certainly not progressed. Left ankle is feeling a little bit better. Her CRP and sed rate are very high. I suspect these represent septic emboli and I think her left ankle may be the result of this as well. Her uric acid level was normal. She is on vancomycin which certainly probably the best choice of antibiotic for this problem. I discussed this with Dr. Harvey and see if he would be agreeable to me consulting orthopedic surgeons for their opinion. Exam (Progress Note) - Constitutional Vitals: Period Temp Pulse Resp BP Sys/Gil Pulse Ox Last 24 Hr 98.2 F-99.3 F 89-97 18-20 94-116/47-68 91-96 Exam: Objective a well-developed white female no acute distress this morning. She states her left ankle may be feeling a little bit better. She has no pain in her rash. I told her I was concerned that she may have septic embolization leading to this rash and causing her ankle pain as well. She is presently on vancomycin told her I did not think we could improve upon that she was present. Cardiovascular heart rates regular without murmurs or gallops. Respiratory: Lungs clear to auscultation. Extremities: Patient has purpuric rash which is quite erythematous. Her left ankle pain and swelling has declined Results - Labs CBC & BMP: 01/07/17 04:56 01/05/17 11:13 Lab Results: I have reviewed the past 24 hour labs Assessment and Plan (1) Purpura Status: Acute Assessment and plan: 12/29/2016: I do not think this is Henoch-Schonlein Purpura. Patient also has a normal platelet count. I do not think her Lovenox is causing this rash. Her sed rate is 104 and I am certainly worried she may have septic emboli but once again her white counts normal and she is not running fever. This is probably a reaction to the Bactrim and I certainly agree with stopping this. I think she would benefit from low-dose steroids but I am going to go ahead and check blood cultures uric acid and CRP. 01/06/2017: Think her rash probably represents septic embolization Current Visit: Yes
[2017-01-07] MEDS: PANTOPRAZOLE 40 MG TABLET PO SCH (10:31)
[2017-01-07] MEDS: ENOXAPARIN 40 MG/0.4 ML SYRINGE SUBCUT SCH (10:34)
[2017-01-08] MEDS ORDERED: CYANOCOBALAMIN 1000 MCG/1 ML VIAL IM SCH (08:30)
--- NOTE | 2017-01-08 08:33 | Family Practice Progress Note ---
Family Practice - PN: Subj Interval history: Patient has had several recent admissions for abdominal hernia repair and complications thereof. She was admitted this time as she developed a diffuse rash with pain and swelling her left ankle. There was some redness around the posterior aspect of the recent wound but no obvious infection or abscess formation. She actually feels better today with less swelling and pain in her stomach and and left ankle. Presently on IV vancomycin. Dr. Harvey is trying to keep from having to explore her abdominal wound which would potentially infect her mesh. Findings on the leg could be from septic emboli or could simply be from the Septra that she has been on since discharge her. She seems to be responding to therapy and I would be more inclined to continue the vancomycin. Physical examination is otherwise stable. We will repeat labs in a.m. Exam (Progress Note) - Constitutional Vitals: Period Temp Pulse Resp BP Sys/Gil Pulse Ox Last 24 Hr 97.2 F-99.9 F 89-107 18-20 109-137/56-65 88-95 Results - Labs CBC & BMP: 01/07/17 04:56 01/05/17 11:13
--- NOTE | 2017-01-08 08:42 | General Surgery Progress Note ---
Assessment and Plan (1) Rash and nonspecific skin eruption Status: Acute Assessment and plan: The etiology of this rash is unclear. Its relationship to the swelling and tenderness of her left ankle which may represent cellulitis is also unclear her wound does not overtly look infected but there is increased edema and erythema of the abdominal wall pannus. This is not tender. We will put her in and stop the Bactrim. This could be drug related. I am going to put her on IV vancomycin. 01/06: The etiology of her rash is unclear. There is also a appearance of panniculitis of her large abdominal wall pannus. This pannus actually hangs down below where her hernia repair was done. Certainly there is a risk of infection in her abdominal wall and in her hernia repair. This is made more troublesome by the fact that she now has a prosthetic mesh as an onlay over her abdominal wall closure. If this had to be removed and this would not disrupt her main abdominal wall reconstruction which consists of an underlay of biologic mesh. I do not think that it is clear at this point that she has a mesh or surgical site infection. I would continue to watch this for now. The relationship between this and the rash is unclear. She was on Bactrim which we have stopped. She does have a markedly elevated ESR and C-reactive protein. 01/07: The pannus appears to have panniculitis. Whether this is related to the surgical site whether or not this cellulitis communicates with the deep space and the mesh is unclear. White blood cell count is normal. She is afebrile. If this persists then I can explore her wound. I think this is the only way to know if there is mesh involvement. If this is an isolated panniculitis and I hate to expose the deep space to any potential skin or subcutaneous infection. I will continue IV antibiotics for now. If this persists over the next couple of days then I may need to look at surgical exploration. Current Visit: Yes (2) Panniculitis Status: Acute Assessment and plan: It is unclear whether this is an isolated panniculitis or whether or not this involves her surgical site. I am reluctant to explore her deep spaces as this could introduce infection from the panniculitis into her recent abdominal wall reconstruction where she has an onlay piece of prosthetic mesh. The redness of her pannus is subsiding with IV antibiotics. I would continue this for now. This is inferior to the actual area of the repair. Current Visit: Yes Subjective Patient reports: Present: feels better, pain is less, fever (Low-grade). Absent : nausea, vomiting Exam - Constitutional Vitals: Period Temp Pulse Resp BP Sys/Gil Pulse Ox Last 24 Hr 97.2 F-99.9 F 89-107 18-20 109-137/56-65 88-95 General appearance: no acute distress, morbidly obese - Eye Eye exam: Absent: scleral icterus - Respiratory Respiratory exam: Absent: accessory muscle use - GI/Abdominal GI/Abdominal exam: Present: soft. Absent: distended, tenderness, rebound Results - Labs CBC & BMP: 01/07/17 04:56 01/05/17 11:13 Lab Results: I have reviewed the past 24 hour labs
--- NOTE | 2017-01-08 09:35 | Orthopedic Consult Note ---
History of Present Illness Chief complaint: Left ankle pain/ swelling History of present illness: Ms. Ramachandran is a 61 year old female admitted to the medical service with acute onset of rash and left ankle pain she is being treated now by the [facility] as well as Dr. Candice Tsai. in consultation I was asked to evaluate but after Dr. Mosqueda rounded yesterday regarding orthopedic impression regarding left ankle pain patient reports she had acute onset of pain on Saturday 3 days ago she is markedly improved today reporting she is able to stand and walk on it without much discomfort she also reports that the swelling and erythema have dissipated. Exam confirms well-developed nourished to femur the left ankle wrist reveals functional range of motion actively and there is no edema there is no ankle joint effusion or swelling about the hindfoot midfoot or forefoot there is an area of erythema and soft tissue swelling just above the ankle in the anterior compartment is mildly tender there is no fluctuance, about 3 cm in length. There is no pain over the fibula more proximally to the knee X-rays left ankle are normal I see no bony involvement Impression cellulitis left ankle improved Plan I do not see much to add at this point she is markedly better over the past 48 hours is getting IV Vanco expect that to continue have encouraged her to continue with bed to chair mobility and even weightbearing as tolerated. Call me if any changes or worsening of condition. Home Medications Medication Instructions Recorded Confirmed Type Atorvastatin Calcium 20 mg PO BEDTIME 08/18/16 01/05/17 History Citalopram [CeleXA] 40 mg PO BEDTIME 08/18/16 01/05/17 History Ferrous Sulfate 325 mg PO BID 08/18/16 01/05/17 History Vit No.124/Iron/Folic 1 each PO QAM 10/10/16 01/05/17 History [ Vitamin Tablet] Aspirin [Ecotrin] 81 mg PO QAM 11/02/16 01/05/17 History Cyanocobalamin Inj [Vitamin B12 1,000 mcg IM Q30D 11/02/16 01/05/17 History Inj] Lactobacillus Cmb#7/Fos/Inulin 1 each PO QAM 11/02/16 01/05/17 History [Probiotic Complex Tablet] Docusate Sodium Cap [Colace Cap] 100 mg PO BID PRN #0 capsule 11/15/16 01/05/17 Rx Cyclobenzaprine HCl 10 mg PO BEDTIME PRN #0 12/18/16 01/05/17 Rx Hydrocodone/Acetaminophen [[place] 1 each PO Q4H PRN 01/05/17 01/05/17 History 10-325 Tablet] LORazepam [Lorazepam] 2 mg PO BEDTIME 01/05/17 01/05/17 History Omeprazole [Prilosec] 20 mg PO DAILY 01/05/17 01/05/17 History Sulfameth/Trimeth 800-160 Tab 1 tablet PO BID 01/05/17 01/05/17 History [Bactrim DS Tab] amLODIPine [Norvasc] 10 mg PO DAILY 01/05/17 01/05/17 History cloNIDine TAB [Catapres Tab] 0.2 mg PO BEDTIME 01/05/17 01/05/17 History Allergies Allergy/AdvReac Type Severity Reaction Status Date / Time morphine Allergy Severe Vomiting Verified 01/05/17 10:02 Penicillins Allergy Mild RASH Verified 01/05/17 10:02 Medical,Surgical,& Family Hx - Medical History Cardio: History of: Hypertension No history of: Cardiac Dysrhythmia, CHF, MT, Pacemaker Psychological: History of: Depression Neurology: No history of: Seizures HEENT: History of: Eye Problem (GLASSSES) Endocrine: History of: Dyslipidemia No history of: Diabetes Mellitus (IDDM), Diabetes Mellitus (NIDDM) Rheumatology: History of;: Fibromyalgia Respiratory: No history of: Pulmonary Embolism, Pneumonia, Lung Cancer, Respiratory Problems (FLU VAC- YES; PNEU VAC- YES.) Gastrointestinal: History of: GERD Musculoskeletal: History of: Musculoskeletal Problems Hematology: History of: Anemia (history iron deficiency anemia) No history of: Blood Transfusion Reaction Other: History of: Miscellaneous Medical Problems (history of depression and B12 deficiency. IVC FILTER LEFT GROIN.) - Surgical History Cardiac Surgeries: Patient Denies: Cardiac Catheterization Thoracic Surgeries: Patient denies;: Organ Transplant, Lobectomy Neurologic Surgeries: Patient denies: Neurologic Surgery HEENT Surgeries: Patient denies: Tonsilectomy & Adenoidectomy Abdominal Surgeries: Surgical HX of: Abdominal Surgery, Cholecystectomy, Gastric Bypass Surgery (2009), Hernia Repair (06/2015 [facility]) Patient denies: Appendectomy Reproductive Surgeries: Surgical HX of;: Section (X2), Tubal Ligation Patient denies;: Genitourinary Surgery Orthopedic Surgeries: Surgical HX of;: Total Hip Replacement (left hip (2012)) - Family History Family History: Reports;: Family Cancer (mother-skin, father-penile, brother- prostate), Family Diabetes (brother and sister), Family Heart Disease, Family Hypertension - Social History Smoking Status: Smoker, status unknown Frequency of Alcohol Use: None Type of Drug Use: None Exam - Constitutional Vitals: Period Temp Pulse Resp BP Sys/Gil Pulse Ox Last 24 Hr 97.2 F-99.9 F 89-107 18-20 109-137/56-65 88-95 Results - Labs CBC & BMP: 01/07/17 04:56 01/05/17 11:13
[2017-01-08] MEDS: amLODIPine 10 MG TABLET PO SCH (09:46)
[2017-01-08] MEDS: ENOXAPARIN 40 MG/0.4 ML SYRINGE SUBCUT SCH (09:52)
[2017-01-08] MEDS: FERROUS SULFATE 325 MG TABLET PO SCH ×2 (09:53→21:12)
[2017-01-08] MEDS: ASPIRIN EC 81 MG TABLET PO SCH (09:53)
[2017-01-08] MEDS: MULTIVITAMIN (PRENATAL) TABLET PO SCH (09:53)
[2017-01-08] MEDS: LACTOBACILLUS RHAMNOSUS GG CAPSULE PO SCH (09:53)
[2017-01-08] MEDS: PANTOPRAZOLE 40 MG TABLET PO SCH (09:54)
[2017-01-08] MEDS: VANCOMYCIN INJ 1,250 MG in SODIUM CHLORIDE 0.9% 250 ML IV SCH ×2 (11:52→21:12)
[2017-01-08] MEDS: ATORVASTATIN 20 MG TABLET PO SCH (21:12)
[2017-01-08] MEDS: LORazepam 1 MG TABLET PO SCH (21:12)
[2017-01-08] MEDS: CITALOPRAM 40 MG TABLET PO SCH (21:12)
[2017-01-09 04:28] LABS: Basophils % 0.5 % (0.0-0.8); Eosinophils # 0.4 10*3/uL (0.0-0.87); Eosinophils % 4.6 % (0.00-10.9); Hematocrit 30.9 VOL% (35.7-47.0); Hemoglobin 9.5 GM/DL (12.0-16.0); Immature Granulocytes % 0.5 %; Immature Granulocytes Absolute 0.04 #; Lymphocytes # 1.7 10*3/uL (1.4-4.0); Lymphocytes % 21.9 % (21.3-54.2); Mean Corpuscular HGB Conc 30.7 GM/DL (32-36); Mean Corpuscular Hemoglobin 28 PG (27-34); Mean Corpuscular Volume 90.1 FL (87-102); Mean Platelet Volume 11.3 FL (9.6-12.0); Monocytes # 0.8 10*3/uL (0.11-0.8); Neutrophils # 4.9 10*3/uL (1.4-7.4); Neutrophils % 62.5 % (38.7-73.9); Platelet Count 433 T/CUMM (130-400); Red Blood Count 3.43 MC/CUMM (3.8-5.5); Red Cell Distribution Width 14.2 % (9.3-17.3); White Blood Count 7.9 T/CUMM (4-12)
[2017-01-09 05:30] LABS: Calcium 7.9 MG/DL (8.5-10.1); Osmolality,Calculated 281.1 MOS/KG (273-304); Potassium 4.2 MMOL/L (3.5-5.1)
[2017-01-09 08:40] LABS: Sedimentation Rate-Westergren 102 MM/HR (0-30)
--- NOTE | 2017-01-09 09:19 | Internal Med Progress Note ---
Assessment and Plan (1) Purpura Status: Acute Assessment and plan: 61-year-old female admitted to acute care * Purpuric rash. Patient is on IV antibiotics and the rash is improved. Continue vancomycin * Incisional hernia wound. Appears to be improving * Hypertension. Blood pressure is stable * Hyperlipidemia. Continue atorvastatin * Discussed with patient. Current Visit: Yes (2) Rash and nonspecific skin eruption Status: Acute Current Visit: Yes (3) Status post hernia repair Status: Acute Current Visit: No (4) Gastroesophageal reflux Status: Chronic Current Visit: No (5) Obesity Status: Chronic Current Visit: No Internal Medicine - PN: Subj Interval history: Patient is 61-year-old female known to me from previous visits. She is a patient of Dr. Sheets who is out of town and will be following her. She was admitted with rash on her left lower extremity. Patient has history of recurrent abdominal incisional hernia for which she has underwent several surgeries. She also has history of morbid obesity, hypertension, anxiety. She is feeling better this morning. She denies any chest pain or shortness of breath. She denies any nausea vomiting or diarrhea Exam (Progress Note) - Constitutional Vitals: Period Temp Pulse Resp BP Sys/Gil Pulse Ox Last 24 Hr 96.1 F-98.1 F 79-92 18-20 89-130/48-84 94-99 Exam: Examination: GENERAL: NAD. NECK: Neck is supple. CVS: Regular rate and rhythm. S1 and S2 are normal. RESPIRATORY: Lungs are clear. No rales or rhonchi. ABDOMEN: Soft and nontender. Bowel sounds are present. No hepatosplenomegaly. Healing incisional wound on the abdominal wall EXT: No edema. Peripheral pulses are present. SKIN: Warm and dry. Purpuric rash on the right ankle. Rash on the left lower extremity is resolving MSK: No obvious deformity. Results - Labs CBC & BMP: 01/09/17 03:48 01/09/17 03:48 Lab Results: I have reviewed the past 24 hour labs
[2017-01-09] MEDS: FERROUS SULFATE 325 MG TABLET PO SCH ×2 (11:35→21:10)
[2017-01-09] MEDS: ASPIRIN EC 81 MG TABLET PO SCH (11:35)
[2017-01-09] MEDS: LACTOBACILLUS RHAMNOSUS GG CAPSULE PO SCH (11:35)
[2017-01-09] MEDS: VANCOMYCIN INJ 1,250 MG in SODIUM CHLORIDE 0.9% 250 ML IV SCH ×2 (11:36→21:10)
[2017-01-09] MEDS: PANTOPRAZOLE 40 MG TABLET PO SCH (11:36)
[2017-01-09] MEDS: amLODIPine 10 MG TABLET PO SCH (11:36)
[2017-01-09] MEDS: ENOXAPARIN 40 MG/0.4 ML SYRINGE SUBCUT SCH (11:36)
[2017-01-09] MEDS: MULTIVITAMIN (PRENATAL) TABLET PO SCH (11:36)
[2017-01-09] MEDS: HYDROmorphone 2 MG/1 ML VIAL IV PRN (18:40)
[2017-01-09] MEDS: LORazepam 1 MG TABLET PO SCH (21:10)
[2017-01-09] MEDS: CITALOPRAM 40 MG TABLET PO SCH (21:11)
[2017-01-09] MEDS: ATORVASTATIN 20 MG TABLET PO SCH (21:11)
--- NOTE | 2017-01-10 08:18 | Internal Med Progress Note ---
Assessment and Plan (1) Purpura Status: Acute Assessment and plan: 61-year-old female admitted to acute care * Purpuric rash. Improving * Incisional hernia wound. Continue antibiotics. Cultures are negative so far * Hypertension. Blood pressure is stable * Hyperlipidemia. Continue atorvastatin * Discussed with patient. Current Visit: Yes (2) Rash and nonspecific skin eruption Status: Acute Current Visit: Yes (3) Status post hernia repair Status: Acute Current Visit: No (4) Gastroesophageal reflux Status: Chronic Current Visit: No (5) Obesity Status: Chronic Current Visit: No Internal Medicine - PN: Subj Interval history: Patient is 61-year-old female known to me. She is feeling okay this morning. She had a good night. She denies any chest pain or shortness of breath Exam (Progress Note) - Constitutional Vitals: Period Temp Pulse Resp BP Sys/Gil Pulse Ox Last 24 Hr 97.5 F-98.4 F 64-97 16-20 83-124/50-78 94-98 Exam: Examination: GENERAL: NAD. NECK: Neck is supple. CVS: Regular rate and rhythm. S1 and S2 are normal. RESPIRATORY: Lungs are clear. No rales or rhonchi. ABDOMEN: Soft and nontender. Healing incisional wound on the abdominal wall. She still has some drainage EXT: No edema. Peripheral pulses are present. SKIN: Warm and dry. Purpuric rash on the right ankle. Rash on the left lower extremity is resolving MSK: No obvious deformity. Results - Labs CBC & BMP: 01/09/17 03:48 01/09/17 03:48 Lab Results: I have reviewed the past 24 hour labs
[2017-01-10] MEDS: MULTIVITAMIN (PRENATAL) TABLET PO SCH (08:56)
[2017-01-10] MEDS: LACTOBACILLUS RHAMNOSUS GG CAPSULE PO SCH (08:56)
[2017-01-10] MEDS: ASPIRIN EC 81 MG TABLET PO SCH (08:56)
[2017-01-10] MEDS: ENOXAPARIN 40 MG/0.4 ML SYRINGE SUBCUT SCH (08:56)
[2017-01-10] MEDS: VANCOMYCIN INJ 1,250 MG in SODIUM CHLORIDE 0.9% 250 ML IV SCH ×2 (08:56→21:59)
[2017-01-10] MEDS: amLODIPine 10 MG TABLET PO SCH (08:56)
[2017-01-10] MEDS: FERROUS SULFATE 325 MG TABLET PO SCH ×2 (08:56→21:58)
[2017-01-10] MEDS: PANTOPRAZOLE 40 MG TABLET PO SCH (08:56)
--- NOTE | 2017-01-10 10:14 | General Surgery Progress Note ---
Assessment and Plan (1) Rash and nonspecific skin eruption Status: Acute Assessment and plan: The etiology of this rash is unclear. Its relationship to the swelling and tenderness of her left ankle which may represent cellulitis is also unclear her wound does not overtly look infected but there is increased edema and erythema of the abdominal wall pannus. This is not tender. We will put her in and stop the Bactrim. This could be drug related. I am going to put her on IV vancomycin. 01/06: The etiology of her rash is unclear. There is also a appearance of panniculitis of her large abdominal wall pannus. This pannus actually hangs down below where her hernia repair was done. Certainly there is a risk of infection in her abdominal wall and in her hernia repair. This is made more troublesome by the fact that she now has a prosthetic mesh as an onlay over her abdominal wall closure. If this had to be removed and this would not disrupt her main abdominal wall reconstruction which consists of an underlay of biologic mesh. I do not think that it is clear at this point that she has a mesh or surgical site infection. I would continue to watch this for now. The relationship between this and the rash is unclear. She was on Bactrim which we have stopped. She does have a markedly elevated ESR and C-reactive protein. 01/07: The pannus appears to have panniculitis. Whether this is related to the surgical site whether or not this cellulitis communicates with the deep space and the mesh is unclear. White blood cell count is normal. She is afebrile. If this persists then I can explore her wound. I think this is the only way to know if there is mesh involvement. If this is an isolated panniculitis and I hate to expose the deep space to any potential skin or subcutaneous infection. I will continue IV antibiotics for now. If this persists over the next couple of days then I may need to look at surgical exploration. Current Visit: Yes (2) Panniculitis Status: Acute Assessment and plan: It is unclear whether this is an isolated panniculitis or whether or not this involves her surgical site. I am reluctant to explore her deep spaces as this could introduce infection from the panniculitis into her recent abdominal wall reconstruction where she has an onlay piece of prosthetic mesh. The redness of her pannus is subsiding with IV antibiotics. I would continue this for now. This is inferior to the actual area of the repair. 01/10: Her panniculitis seems to be slowly resolving. I think this is more of a panniculitis than a surgical site infection. I do not have evidence of deep space infection. Her white blood cell count is normal. This appears to slowly be responding to vancomycin. I think that she will need several more days of IV vancomycin Current Visit: Yes Subjective Patient reports: Present: feels better, pain is less. Absent: fever Exam - Constitutional Vitals: Period Temp Pulse Resp BP Sys/Gil Pulse Ox Last 24 Hr 97.5 F-98.4 F 64-97 16-20 83-124/50-78 94-98 General appearance: no acute distress, morbidly obese - GI/Abdominal GI/Abdominal exam: Present: soft, other (Less intense erythema of her abdominal wall pannus). Absent: distended, tenderness Results - Labs CBC & BMP: 01/09/17 03:48 01/09/17 03:48 Lab Results: I have reviewed the past 24 hour labs
[2017-01-10] MEDS: HYDROmorphone 2 MG/1 ML VIAL IV PRN (15:23)
[2017-01-10] MEDS: ATORVASTATIN 20 MG TABLET PO SCH (21:58)
[2017-01-10] MEDS: CITALOPRAM 40 MG TABLET PO SCH (21:58)
[2017-01-10] MEDS: LORazepam 1 MG TABLET PO SCH (21:59)
[2017-01-11 07:28] LABS: Basophils % 0.4 % (0.0-0.8); Eosinophils # 0.3 10*3/uL (0.0-0.87); Eosinophils % 3.8 % (0.00-10.9); Hematocrit 31.3 VOL% (35.7-47.0); Hemoglobin 9.8 GM/DL (12.0-16.0); Immature Granulocytes % 0.7 %; Immature Granulocytes Absolute 0.06 #; Lymphocytes # 1.9 10*3/uL (1.4-4.0); Lymphocytes % 23.2 % (21.3-54.2); Mean Corpuscular HGB Conc 31.3 GM/DL (32-36); Mean Corpuscular Hemoglobin 28 PG (27-34); Mean Corpuscular Volume 89.4 FL (87-102); Monocytes # 0.9 10*3/uL (0.11-0.8); Monocytes % 10.9 % (1.7-12.7); Neutrophils # 5.1 10*3/uL (1.4-7.4); Platelet Count 433 T/CUMM (130-400); Red Cell Distribution Width 14.4 % (9.3-17.3); White Blood Count 8.4 T/CUMM (4-12)
--- NOTE | 2017-01-11 08:41 | General Surgery Progress Note ---
Assessment and Plan (1) Rash and nonspecific skin eruption Status: Acute Assessment and plan: The etiology of this rash is unclear. Its relationship to the swelling and tenderness of her left ankle which may represent cellulitis is also unclear her wound does not overtly look infected but there is increased edema and erythema of the abdominal wall pannus. This is not tender. We will put her in and stop the Bactrim. This could be drug related. I am going to put her on IV vancomycin. 01/06: The etiology of her rash is unclear. There is also a appearance of panniculitis of her large abdominal wall pannus. This pannus actually hangs down below where her hernia repair was done. Certainly there is a risk of infection in her abdominal wall and in her hernia repair. This is made more troublesome by the fact that she now has a prosthetic mesh as an onlay over her abdominal wall closure. If this had to be removed and this would not disrupt her main abdominal wall reconstruction which consists of an underlay of biologic mesh. I do not think that it is clear at this point that she has a mesh or surgical site infection. I would continue to watch this for now. The relationship between this and the rash is unclear. She was on Bactrim which we have stopped. She does have a markedly elevated ESR and C-reactive protein. 01/07: The pannus appears to have panniculitis. Whether this is related to the surgical site whether or not this cellulitis communicates with the deep space and the mesh is unclear. White blood cell count is normal. She is afebrile. If this persists then I can explore her wound. I think this is the only way to know if there is mesh involvement. If this is an isolated panniculitis and I hate to expose the deep space to any potential skin or subcutaneous infection. I will continue IV antibiotics for now. If this persists over the next couple of days then I may need to look at surgical exploration. Current Visit: Yes (2) Panniculitis Status: Acute Assessment and plan: It is unclear whether this is an isolated panniculitis or whether or not this involves her surgical site. I am reluctant to explore her deep spaces as this could introduce infection from the panniculitis into her recent abdominal wall reconstruction where she has an onlay piece of prosthetic mesh. The redness of her pannus is subsiding with IV antibiotics. I would continue this for now. This is inferior to the actual area of the repair. 01/10: Her panniculitis seems to be slowly resolving. I think this is more of a panniculitis than a surgical site infection. I do not have evidence of deep space infection. Her white blood cell count is normal. This appears to slowly be responding to vancomycin. I think that she will need several more days of IV vancomycin 01/11: I have reviewed her CT scan images but it has not been read by radiology. See a large fluid collection anterior to her repair. It is unclear whether this is infected or not but there are some gas bubbles in this fluid. This needs drainage and I think this can best be accomplished percutaneously. It is a single large collection. I will discuss this with radiology. She does have a piece of Prolene mesh anterior to the repair as an onlay which may have to be removed but I would drain this first and see how she does. The longer that I can keep this mesh in place better her chances of keeping this repair intact. This may have to be removed however. Fortunately if I remove this mesh it does not disrupt her repair. Current Visit: Yes Subjective Patient reports: Present: feels better, still having pain. Absent: fever Exam - Constitutional Vitals: Period Temp Pulse Resp BP Sys/Gil Pulse Ox Last 24 Hr 96.8 F-99.3 F 75-91 15-20 96-149/49-91 93-99 General appearance: no acute distress, morbidly obese - Respiratory Respiratory exam: Absent: accessory muscle use - GI/Abdominal GI/Abdominal exam: Present: soft, other (She has increased erythema along the right side of her abdominal wall which is higher than it was before. For her to been limited to her abdominal pannus but is now on the right side of her abdominal wall). Absent: distended, guarding, tenderness, rebound Results - Labs CBC & BMP: 01/11/17 07:05 01/09/17 03:48 - Diagnostic Findings Procedure: CT Abdomen and Pelvis: image reviewed by me
--- NOTE | 2017-01-11 09:12 | CT Report ---
CT abdomen pelvis w con Indication: Clinical concern for abdominal abscess. Comparison: CT of the abdomen and pelvis 12/15/2016. Technique: CT of the abdomen and pelvis was performed following administration of intravenous contrast. The CT examination was performed using one or more of the following dose reduction techniques: Automatic exposure control, adjustment of the mA and kV according to patient size, or iterative reconstruction techniques. Findings: Small bilateral pleural effusions are present. Minimal compressive atelectasis of the lower lobes is present. Small moderate hiatal hernia is demonstrated. Mild prominence of the intrahepatic bile ducts is demonstrated. Gallbladder is surgically absent. The extrahepatic bile duct also is minimally enlarged, a nonspecific finding in the setting of prior cholecystectomy. Spleen is upper limits of normal in size measuring 14 cm in greatest dimension. Bilateral adrenal nodules are demonstrated. Right adrenal nodule measures 18 mm transverse dimension. Left adrenal nodule measures 29 Hounsfield units in attenuation. In the delayed phase, attenuation is -2 Hounsfield units on the left and -4 on the right. These nodules are compatible with adrenal adenomas. Bilateral renal cysts are demonstrated and appear stable. Negative for left within the posterior mid to lower left kidney is stable. Aorta and inferior vena cava demonstrate no significant interval change. IVC filter remains present. Postsurgical changes suggesting bariatric surgery are present involving the stomach. Small bowel demonstrates no significant abnormality. Colonic diverticula are present within the descending and sigmoid colon. No inflammatory changes are present. Small rounded focus of intermediate attenuation is noted within the peritoneal fat image #[id number] along the left anterolateral abdominal wall. This may represent a small focal area of fat necrosis. A large fluid collection is present anterior to the implanted mesh repair of abdominal wall hernia. This fluid collection has multiple scattered bubbles of air both in the dependent and antidependent locations of the fluid collection and is likely reflective of abscess. This fluid collection measures 28 cm transverse dimension, 9.3 cm AP dimension, and 23 cm's in craniocaudal dimension. A fairly well organized wall is present. When compared to the previous study, the fluid collections posterior to the inner layer mesh appear to have resolved. In addition, small collections of fluid along the superficial surface of the deep layer mesh are no longer identified and appear to have resolved. Intrapelvic contents demonstrate no acute findings. Streak artifact from left hip prosthesis obscures a portion of the pelvis. Osseous structures demonstrate no acute findings. Impression: 1. Large fluid collection containing multiple bubbles of air superficial to the implanted mesh repair for hernia is compatible with loculated abscess. Findings were discussed with Dr. Harvey and images were reviewed with Dr. Harvey. 2. Previously demonstrated fluid collections with air along the peritoneal surface of the deep mesh layer as well as interposed between the 2 layers of mesh have resolved. 3. Otherwise stable appearance of the abdomen and pelvis no acute findings are otherwise demonstrated within the abdomen or pelvis. 4. Small bilateral pleural effusions. 01/11/2017 8:39 AM PROCEDURE INTERPRETED AT [facility] DEPARTMENT OF RADIOLOGY Final Report Signed by: Dr. Lawson Navarro
[2017-01-11] MEDS: amLODIPine 10 MG TABLET PO SCH (09:32)
[2017-01-11] MEDS: ENOXAPARIN 40 MG/0.4 ML SYRINGE SUBCUT SCH (09:32)
[2017-01-11] MEDS: HYDROmorphone 2 MG/1 ML VIAL IV PRN (09:32)
[2017-01-11] MEDS: ASPIRIN EC 81 MG TABLET PO SCH (09:33)
[2017-01-11] MEDS: PANTOPRAZOLE 40 MG TABLET PO SCH (09:33)
[2017-01-11] MEDS: FERROUS SULFATE 325 MG TABLET PO SCH ×2 (09:33→21:46)
[2017-01-11] MEDS: MULTIVITAMIN (PRENATAL) TABLET PO SCH (09:33)
[2017-01-11] MEDS: VANCOMYCIN INJ 1,250 MG in SODIUM CHLORIDE 0.9% 250 ML IV SCH ×2 (09:42→21:46)
[2017-01-11] MEDS: LACTOBACILLUS RHAMNOSUS GG CAPSULE PO SCH (09:44)
--- NOTE | 2017-01-11 11:34 | Internal Med Progress Note ---
Assessment and Plan (1) Purpura Status: Acute Assessment and plan: 61-year-old female admitted to acute care * Purpuric rash. Improving * Incisional hernia wound. Patient had a CT scan done which showed possible fluid collection and/or abscess. It would be drained percutaneously per Dr. Harvey. * Hypertension. Blood pressure is stable * Hyperlipidemia. Continue atorvastatin * Discussed with patient. Current Visit: Yes (2) Rash and nonspecific skin eruption Status: Acute Current Visit: Yes (3) Status post hernia repair Status: Acute Current Visit: No (4) Gastroesophageal reflux Status: Chronic Current Visit: No (5) Obesity Status: Chronic Current Visit: No Internal Medicine - PN: Subj Interval history: Patient is not feeling well today. No specific complaints. No chest pain or shortness of breath. No nausea or vomiting. Exam (Progress Note) - Constitutional Vitals: Period Temp Pulse Resp BP Sys/Gil Pulse Ox Last 24 Hr 96.8 F-99.3 F 75-91 15-20 96-149/49-91 93-97 Exam: Examination: GENERAL: NAD. NECK: Neck is supple. CVS: Regular rate and rhythm. RESPIRATORY: Lungs are clear. No rales or rhonchi. ABDOMEN: Soft and nontender. Healing incisional wound on the abdominal wall. She still has some drainage EXT: No edema. Peripheral pulses are present. SKIN: Warm and dry. Results - Labs CBC & BMP: 01/11/17 07:05 01/09/17 03:48 Lab Results: I have reviewed the past 24 hour labs
[2017-01-11] MEDS ORDERED: DIAZEPAM 5 MG TABLET PO ONE (12:47)
--- NOTE | 2017-01-11 14:25 | Post Interventional Procedure ---
Pre-op diagnosis: Abdominal wall abscess Post-op diagnosis: same Procedure: Ultrasound-guided abscess drainage abdomen/abdominal wall Radiologist: Celeste Arteaga [employer] Set Up Operator: Mandeep Renteria Anesthesia: local Specimens: other (30 ml serosanguinous fluid sent for gram stain and culture/ sensitivity) Estimated blood loss: minimal (less than 3 ml) Complications: none Condition: stable Description/Findings: Informed consent was obtained. A formal timeout was performed. A large encapsulated fluid collection containing air bubbles in the anterior abdominal wall was identified with ultrasound. The ventral abdominal wall was prepped and draped in sterile fashion. Under sonographic guidance, a 12 [place] pigtail catheter was advanced into the effusion using trocar technique. A captured sonographic image documents needle position. The needle was removed. Through the catheter, we obtained a total of 1600 cc of serosanguineous fluid. The catheter was left in place and hooked to accordion drainage bag. A bandage was placed at the catheter site. The patient tolerated the procedure well Assessment and Plan - Time spent with patient Time spent with patient: Less than 30 minutes
--- NOTE | 2017-01-11 14:27 | Ultrasound Report ---
History: Abdominal wall abscess Date: 01/11/2017 Study: Ultrasound-guided abscess drainage abdomen/abdominal wall Comparison exam: CT abdomen and pelvis 01/11/2017 Informed consent was obtained. A formal timeout was performed. A large encapsulated fluid collection containing air bubbles in the anterior abdominal wall was identified with ultrasound. The ventral abdominal wall was prepped and draped in sterile fashion. Under sonographic guidance, a 12 [place] pigtail catheter was advanced into the effusion using trocar technique. A captured sonographic image documents needle position. The needle was removed. Through the catheter, we obtained a total of 1600 cc of serosanguineous fluid. The catheter was left in place and hooked to accordion drainage bag. A bandage was placed at the catheter site. The patient tolerated the procedure well. Impression: Ultrasound-guided placement of abscess drainage catheter performed with technical success PROCEDURE INTERPRETED AT [facility] DEPARTMENT OF RADIOLOGY Final Report Signed by: Dr. Celeste Arteaga
[2017-01-11] MEDS: CITALOPRAM 40 MG TABLET PO SCH (21:46)
[2017-01-11] MEDS: ATORVASTATIN 20 MG TABLET PO SCH (21:46)
[2017-01-11] MEDS: LORazepam 1 MG TABLET PO SCH (21:46)
[2017-01-12] MEDS ORDERED: BISACODYL 10 MG SUPP RECTAL ONE (08:20)
[2017-01-12] MEDS: amLODIPine 10 MG TABLET PO SCH (08:38)
[2017-01-12] MEDS: LACTOBACILLUS RHAMNOSUS GG CAPSULE PO SCH (08:38)
[2017-01-12] MEDS: ASPIRIN EC 81 MG TABLET PO SCH (08:38)
[2017-01-12] MEDS: ENOXAPARIN 40 MG/0.4 ML SYRINGE SUBCUT SCH (08:38)
[2017-01-12] MEDS: MULTIVITAMIN (PRENATAL) TABLET PO SCH (08:38)
[2017-01-12] MEDS: PANTOPRAZOLE 40 MG TABLET PO SCH (08:38)
[2017-01-12] MEDS: FERROUS SULFATE 325 MG TABLET PO SCH ×2 (08:38→20:38)
[2017-01-12] MEDS: VANCOMYCIN INJ 1,250 MG in SODIUM CHLORIDE 0.9% 250 ML IV SCH ×2 (08:45→20:38)
--- NOTE | 2017-01-12 09:21 | Event Note ---
01/12/2017. Patient is afebrile at this time white count only 8000. She has a drain in place with minimal drainage present at this time. Culture appears to be positive for staph. Still has a good bit of induration of the abdominal wall especially on the right lower part of the abdomen at this time. On antibiotics at this time will maintain present level of care.
--- NOTE | 2017-01-12 11:56 | Internal Med Progress Note ---
Assessment and Plan (1) Purpura Status: Acute Assessment and plan: 61-year-old female admitted to acute care * Incisional hernia wound. Patient had over 1500 cc of fluid removed by interventional radiology. Continue antibiotics * Hypertension. Blood pressure is stable * Hyperlipidemia. Continue atorvastatin * Discussed with patient. Current Visit: Yes (2) Rash and nonspecific skin eruption Status: Acute Current Visit: Yes (3) Status post hernia repair Status: Acute Current Visit: No (4) Gastroesophageal reflux Status: Chronic Current Visit: No (5) Obesity Status: Chronic Current Visit: No Internal Medicine - PN: Subj Interval history: Patient is feeling much better today. She denies any chest pain or shortness of breath. She denies any nausea vomiting or diarrhea Exam (Progress Note) - Constitutional Vitals: Period Temp Pulse Resp BP Sys/Gil Pulse Ox Last 24 Hr 96.8 F-98.1 F 16-95 14-20 98-145/53-68 93-100 Exam: Examination: GENERAL: NAD. NECK: Neck is supple. CVS: Regular rate and rhythm. RESPIRATORY: Lungs are clear. No rales or rhonchi. ABDOMEN: Soft and nontender. She has a drainage catheter in place. Her abdomen wall is less indurated EXT: No edema. Peripheral pulses are present. SKIN: Warm and dry. Results - Labs CBC & BMP: 01/11/17 07:05 01/09/17 03:48
[2017-01-12] MEDS: CITALOPRAM 40 MG TABLET PO SCH (20:38)
[2017-01-12] MEDS: LORazepam 1 MG TABLET PO SCH (20:38)
[2017-01-12] MEDS: ATORVASTATIN 20 MG TABLET PO SCH (20:38)
--- NOTE | 2017-01-13 07:34 | Internal Med Progress Note ---
Assessment and Plan (1) Purpura Status: Acute Assessment and plan: 61-year-old female admitted to acute care * Incisional hernia wound. Catheter is draining. Cultures are pending * Melena. Patient is taking iron. Will check CBC * Hypertension. Blood pressure is stable * Hyperlipidemia. Continue atorvastatin * Discussed with patient. Current Visit: Yes (2) Rash and nonspecific skin eruption Status: Acute Current Visit: Yes (3) Status post hernia repair Status: Acute Current Visit: No (4) Gastroesophageal reflux Status: Chronic Current Visit: No (5) Obesity Status: Chronic Current Visit: No Internal Medicine - PN: Subj Interval history: Patient is feeling much better. She did have a black colored bowel movement. She takes iron but it was ashli than usual. Her abdominal pain is better Exam (Progress Note) - Constitutional Vitals: Period Temp Pulse Resp BP Sys/Gil Pulse Ox Last 24 Hr 96.9 F-98.0 F 75-87 18-18 95-106/38-74 94-100 Exam: Examination: GENERAL: NAD. NECK: Neck is supple. CVS: Regular rate and rhythm. RESPIRATORY: Lungs are clear. No rales or rhonchi. ABDOMEN: Soft and nontender. She has a drainage catheter in place. EXT: No edema. Peripheral pulses are present. SKIN: Warm and dry. Results - Labs CBC & BMP: 01/11/17 07:05 01/09/17 03:48 Lab Results: I have reviewed the past 24 hour labs
[2017-01-13 08:01] LABS: Basophils % 0.5 % (0.0-0.8); Eosinophils # 0.4 10*3/uL (0.0-0.87); Eosinophils % 4.9 % (0.00-10.9); Hematocrit 33.8 VOL% (35.7-47.0); Hemoglobin 10.6 GM/DL (12.0-16.0); Immature Granulocytes % 0.5 %; Immature Granulocytes Absolute 0.04 #; Lymphocytes # 2.3 10*3/uL (1.4-4.0); Lymphocytes % 28.4 % (21.3-54.2); Mean Corpuscular HGB Conc 31.4 GM/DL (32-36); Mean Corpuscular Hemoglobin 28 PG (27-34); Mean Corpuscular Volume 90.1 FL (87-102); Monocytes # 0.7 10*3/uL (0.11-0.8); Monocytes % 8.4 % (1.7-12.7); Neutrophils # 4.6 10*3/uL (1.4-7.4); Neutrophils % 57.3 % (38.7-73.9); Platelet Count 484 T/CUMM (130-400); Red Blood Count 3.75 MC/CUMM (3.8-5.5); Red Cell Distribution Width 14.6 % (9.3-17.3)
[2017-01-13 08:21] LABS: Osmolality,Calculated 284.8 MOS/KG (273-304); Potassium 4.1 MMOL/L (3.5-5.1)
[2017-01-13] MEDS: VANCOMYCIN INJ 1,250 MG in SODIUM CHLORIDE 0.9% 250 ML IV SCH ×2 (09:16→21:02)
[2017-01-13] MEDS: LACTOBACILLUS RHAMNOSUS GG CAPSULE PO SCH (09:17)
[2017-01-13] MEDS: ASPIRIN EC 81 MG TABLET PO SCH (09:17)
[2017-01-13] MEDS: amLODIPine 10 MG TABLET PO SCH (09:17)
[2017-01-13] MEDS: FERROUS SULFATE 325 MG TABLET PO SCH ×2 (09:17→21:02)
[2017-01-13] MEDS: PANTOPRAZOLE 40 MG TABLET PO SCH (09:17)
[2017-01-13] MEDS: MULTIVITAMIN (PRENATAL) TABLET PO SCH (09:17)
[2017-01-13] MEDS: ENOXAPARIN 40 MG/0.4 ML SYRINGE SUBCUT SCH (09:17)
--- NOTE | 2017-01-13 10:39 | Event Note ---
01/13/2017. Patient continues to do fairly well but is difficult to tell exactly how much drainage were getting from the drains at this time. Left side of the abdomen is soft and flat with the right remains somewhat indurated and distended at this time. Is unclear exactly where we stand on this especially on that other side so will consider an ultrasound to get a look at that right side for now. Continue present antibiotics. Patient complained of some black stools but she is taking iron at this time. Will plan to plan check stools for occult blood. Her hematocrit is better today
[2017-01-13] MEDS: CYCLOBENZAPRINE 10 MG TABLET PO PRN (21:02)
[2017-01-13] MEDS: CITALOPRAM 40 MG TABLET PO SCH (21:03)
[2017-01-13] MEDS: ATORVASTATIN 20 MG TABLET PO SCH (21:03)
[2017-01-13] MEDS: LORazepam 1 MG TABLET PO SCH (21:03)
[2017-01-14 06:13] LABS: Basophils # 0.1 10*3/uL (0.0-0.2); Basophils % 0.8 % (0.0-0.8); Eosinophils # 0.5 10*3/uL (0.0-0.87); Eosinophils % 6.1 % (0.00-10.9); Hematocrit 33.5 VOL% (35.7-47.0); Hemoglobin 10.2 GM/DL (12.0-16.0); Immature Granulocytes % 0.5 %; Immature Granulocytes Absolute 0.04 #; Lymphocytes # 2.3 10*3/uL (1.4-4.0); Lymphocytes % 30.6 % (21.3-54.2); Mean Corpuscular HGB Conc 30.4 GM/DL (32-36); Mean Corpuscular Hemoglobin 28 PG (27-34); Mean Platelet Volume 11.2 FL (9.6-12.0); Monocytes # 0.7 10*3/uL (0.11-0.8); Monocytes % 9.3 % (1.7-12.7); Neutrophils % 52.7 % (38.7-73.9); Platelet Count 461 T/CUMM (130-400); Red Blood Count 3.68 MC/CUMM (3.8-5.5); Red Cell Distribution Width 14.6 % (9.3-17.3); White Blood Count 7.6 T/CUMM (4-12)
--- NOTE | 2017-01-14 07:32 | General Surgery Progress Note ---
Assessment and Plan (1) Rash and nonspecific skin eruption Status: Acute Assessment and plan: The etiology of this rash is unclear. Its relationship to the swelling and tenderness of her left ankle which may represent cellulitis is also unclear her wound does not overtly look infected but there is increased edema and erythema of the abdominal wall pannus. This is not tender. We will put her in and stop the Bactrim. This could be drug related. I am going to put her on IV vancomycin. 01/06: The etiology of her rash is unclear. There is also a appearance of panniculitis of her large abdominal wall pannus. This pannus actually hangs down below where her hernia repair was done. Certainly there is a risk of infection in her abdominal wall and in her hernia repair. This is made more troublesome by the fact that she now has a prosthetic mesh as an onlay over her abdominal wall closure. If this had to be removed and this would not disrupt her main abdominal wall reconstruction which consists of an underlay of biologic mesh. I do not think that it is clear at this point that she has a mesh or surgical site infection. I would continue to watch this for now. The relationship between this and the rash is unclear. She was on Bactrim which we have stopped. She does have a markedly elevated ESR and C-reactive protein. 01/07: The pannus appears to have panniculitis. Whether this is related to the surgical site whether or not this cellulitis communicates with the deep space and the mesh is unclear. White blood cell count is normal. She is afebrile. If this persists then I can explore her wound. I think this is the only way to know if there is mesh involvement. If this is an isolated panniculitis and I hate to expose the deep space to any potential skin or subcutaneous infection. I will continue IV antibiotics for now. If this persists over the next couple of days then I may need to look at surgical exploration. Current Visit: Yes (2) Panniculitis Status: Acute Assessment and plan: It is unclear whether this is an isolated panniculitis or whether or not this involves her surgical site. I am reluctant to explore her deep spaces as this could introduce infection from the panniculitis into her recent abdominal wall reconstruction where she has an onlay piece of prosthetic mesh. The redness of her pannus is subsiding with IV antibiotics. I would continue this for now. This is inferior to the actual area of the repair. 01/10: Her panniculitis seems to be slowly resolving. I think this is more of a panniculitis than a surgical site infection. I do not have evidence of deep space infection. Her white blood cell count is normal. This appears to slowly be responding to vancomycin. I think that she will need several more days of IV vancomycin 01/11: I have reviewed her CT scan images but it has not been read by radiology. See a large fluid collection anterior to her repair. It is unclear whether this is infected or not but there are some gas bubbles in this fluid. This needs drainage and I think this can best be accomplished percutaneously. It is a single large collection. I will discuss this with radiology. She does have a piece of Prolene mesh anterior to the repair as an onlay which may have to be removed but I would drain this first and see how she does. The longer that I can keep this mesh in place better her chances of keeping this repair intact. This may have to be removed however. Fortunately if I remove this mesh it does not disrupt her repair. 01/14: She feels better and has no pain this morning. The erythema is still present but is subsiding. We will continue with IV antibiotics and drainage for now. I may need to look at opening up and washing out this cavity and probably will need to remove the Prolene mesh. This was discussed in detail with the patient. Current Visit: Yes Subjective Patient reports: Present: feels better, pain is less. Absent: nausea, vomiting , fever Exam - Constitutional Vitals: Period Temp Pulse Resp BP Sys/Gil Pulse Ox Last 24 Hr 96.8 F-97.7 F 75-85 18-20 94-129/52-64 91-98 General appearance: no acute distress - Eye Eye exam: Absent: scleral icterus - Respiratory Respiratory exam: Absent: accessory muscle use - GI/Abdominal GI/Abdominal exam: Present: soft. Absent: distended, rebound Results - Labs CBC & BMP: 01/14/17 05:07 01/13/17 07:40 Lab Results: I have reviewed the past 24 hour labs
--- NOTE | 2017-01-14 07:54 | Family Practice Progress Note ---
Family Practice - PN: Subj Interval history: Patient stable this a.m. she is now having x-ray or procedure at the time of my visit. Reviewed lab and x-ray studies. Reviewed cultures. Dr. Harvey is considering having to remove mesh. Labs and vitals are stable. We will continue present treatment plan Exam (Progress Note) - Constitutional Vitals: Period Temp Pulse Resp BP Sys/Gil Pulse Ox Last 24 Hr 96.8 F-97.7 F 75-85 18-20 94-129/52-64 91-98 Results - Labs CBC & BMP: 01/14/17 05:07 01/13/17 07:40
[2017-01-14] MEDS: LACTOBACILLUS RHAMNOSUS GG CAPSULE PO SCH (08:30)
[2017-01-14] MEDS: amLODIPine 10 MG TABLET PO SCH (08:31)
[2017-01-14] MEDS: FERROUS SULFATE 325 MG TABLET PO SCH ×2 (08:31→20:55)
[2017-01-14] MEDS: MULTIVITAMIN (PRENATAL) TABLET PO SCH (08:31)
[2017-01-14] MEDS: PANTOPRAZOLE 40 MG TABLET PO SCH (08:32)
[2017-01-14] MEDS: ASPIRIN EC 81 MG TABLET PO SCH (08:32)
[2017-01-14] MEDS: ENOXAPARIN 40 MG/0.4 ML SYRINGE SUBCUT SCH (08:33)
--- NOTE | 2017-01-14 09:44 | Ultrasound Report ---
US abdomen limited Indication: Right abdominal wall abscess, has been in place. Induration about the drain tube catheter. Abscess catheter placed 01-11-17 Comparison: Prior CT abdomen pelvis 01-11-17. Technique: Multiple longitudinal and transverse real-time sonographic images of the right upper quadrant of the abdomen are obtained. Findings: Targeted ultrasound evaluation of the anterior abdominal wall was performed in the vicinity of the previously noted large subcutaneous abscess. There is a residual collection noted with ultrasound measurements of up to 24 x [address] measurements were up to 27 x 10 cm in the axial plane. The drainage catheter is not visualized definitively. There is no significant blood flow within this collection. IMPRESSION: Large residual collection in the anterior abdominal wall superficial soft tissues, which is slightly decreased in size from the 01/11/2017 CT study. If drainage catheter is not functioning properly, consider aggressive flushing. Ultrasound images were captured and stored. PROCEDURE INTERPRETED AT [facility] DEPARTMENT OF RADIOLOGY Final Report Signed by: John Mayo
[2017-01-14] MEDS: VANCOMYCIN INJ 1,250 MG in SODIUM CHLORIDE 0.9% 250 ML IV SCH ×2 (10:20→20:55)
[2017-01-14] MEDS: LORazepam 1 MG TABLET PO SCH (20:55)
[2017-01-14] MEDS: CITALOPRAM 40 MG TABLET PO SCH (20:55)
[2017-01-14] MEDS: ATORVASTATIN 20 MG TABLET PO SCH (20:55)
[2017-01-14] MEDS: CYCLOBENZAPRINE 10 MG TABLET PO PRN (21:11)
[2017-01-15 06:02] LABS: Basophils % 0.5 % (0.0-0.8); Eosinophils # 0.5 10*3/uL (0.0-0.87); Eosinophils % 5.9 % (0.00-10.9); Hematocrit 33.2 VOL% (35.7-47.0); Immature Granulocytes % 0.7 %; Immature Granulocytes Absolute 0.05 #; Lymphocytes # 2.4 10*3/uL (1.4-4.0); Lymphocytes % 31.9 % (21.3-54.2); Mean Corpuscular HGB Conc 30.1 GM/DL (32-36); Mean Corpuscular Hemoglobin 28 PG (27-34); Mean Corpuscular Volume 92.2 FL (87-102); Mean Platelet Volume 10.9 FL (9.6-12.0); Monocytes # 0.7 10*3/uL (0.11-0.8); Monocytes % 8.9 % (1.7-12.7); Neutrophils % 52.1 % (38.7-73.9); Platelet Count 477 T/CUMM (130-400); Red Cell Distribution Width 14.9 % (9.3-17.3); White Blood Count 7.6 T/CUMM (4-12)
[2017-01-15 06:34] LABS: Albumin 1.6 G/DL (3.4-5.0); Bilirubin,Total 0.7 MG/DL (0.2-1.0); Calcium 8.3 MG/DL (8.5-10.1); Osmolality,Calculated 284.8 MOS/KG (273-304); Potassium 4.3 MMOL/L (3.5-5.1); Total Protein 5.1 G/DL (6.4-8.3)
--- NOTE | 2017-01-15 07:16 | General Surgery Progress Note ---
Assessment and Plan (1) Rash and nonspecific skin eruption Status: Acute Assessment and plan: The etiology of this rash is unclear. Its relationship to the swelling and tenderness of her left ankle which may represent cellulitis is also unclear her wound does not overtly look infected but there is increased edema and erythema of the abdominal wall pannus. This is not tender. We will put her in and stop the Bactrim. This could be drug related. I am going to put her on IV vancomycin. 01/06: The etiology of her rash is unclear. There is also a appearance of panniculitis of her large abdominal wall pannus. This pannus actually hangs down below where her hernia repair was done. Certainly there is a risk of infection in her abdominal wall and in her hernia repair. This is made more troublesome by the fact that she now has a prosthetic mesh as an onlay over her abdominal wall closure. If this had to be removed and this would not disrupt her main abdominal wall reconstruction which consists of an underlay of biologic mesh. I do not think that it is clear at this point that she has a mesh or surgical site infection. I would continue to watch this for now. The relationship between this and the rash is unclear. She was on Bactrim which we have stopped. She does have a markedly elevated ESR and C-reactive protein. 01/07: The pannus appears to have panniculitis. Whether this is related to the surgical site whether or not this cellulitis communicates with the deep space and the mesh is unclear. White blood cell count is normal. She is afebrile. If this persists then I can explore her wound. I think this is the only way to know if there is mesh involvement. If this is an isolated panniculitis and I hate to expose the deep space to any potential skin or subcutaneous infection. I will continue IV antibiotics for now. If this persists over the next couple of days then I may need to look at surgical exploration. Current Visit: Yes (2) Panniculitis Status: Acute Assessment and plan: It is unclear whether this is an isolated panniculitis or whether or not this involves her surgical site. I am reluctant to explore her deep spaces as this could introduce infection from the panniculitis into her recent abdominal wall reconstruction where she has an onlay piece of prosthetic mesh. The redness of her pannus is subsiding with IV antibiotics. I would continue this for now. This is inferior to the actual area of the repair. 01/10: Her panniculitis seems to be slowly resolving. I think this is more of a panniculitis than a surgical site infection. I do not have evidence of deep space infection. Her white blood cell count is normal. This appears to slowly be responding to vancomycin. I think that she will need several more days of IV vancomycin 01/11: I have reviewed her CT scan images but it has not been read by radiology. See a large fluid collection anterior to her repair. It is unclear whether this is infected or not but there are some gas bubbles in this fluid. This needs drainage and I think this can best be accomplished percutaneously. It is a single large collection. I will discuss this with radiology. She does have a piece of Prolene mesh anterior to the repair as an onlay which may have to be removed but I would drain this first and see how she does. The longer that I can keep this mesh in place better her chances of keeping this repair intact. This may have to be removed however. Fortunately if I remove this mesh it does not disrupt her repair. 01/14: She feels better and has no pain this morning. The erythema is still present but is subsiding. We will continue with IV antibiotics and drainage for now. I may need to look at opening up and washing out this cavity and probably will need to remove the Prolene mesh. This was discussed in detail with the patient. 01/15: She feels better and has less discomfort and less intense erythema but there is still erythema present. I am going to re-CT her abdomen to see if there is any remaining fluid collection. If there is we may need to look at operative exploration. I have been reluctant to reoperate because I am worried about not being able to close her abdomen. Current Visit: Yes Subjective Patient reports: Present: feels better, pain is less. Absent: fever Exam - Constitutional Vitals: Period Temp Pulse Resp BP Sys/Gil Pulse Ox Last 24 Hr 96.6 F-100.6 F 69-83 18-20 95-122/55-70 93-98 General appearance: no acute distress - GI/Abdominal GI/Abdominal exam: Present: soft, other (The erythema along her pannus is less intense). Absent: distended, guarding, tenderness Results - Labs CBC & BMP: 01/15/17 05:38 01/15/17 05:38
[2017-01-15] MEDS: ASPIRIN EC 81 MG TABLET PO SCH (08:13)
[2017-01-15] MEDS: FERROUS SULFATE 325 MG TABLET PO SCH ×2 (08:13→20:44)
[2017-01-15] MEDS: amLODIPine 10 MG TABLET PO SCH (08:13)
[2017-01-15] MEDS: LACTOBACILLUS RHAMNOSUS GG CAPSULE PO SCH (08:13)
[2017-01-15] MEDS: PANTOPRAZOLE 40 MG TABLET PO SCH (08:14)
[2017-01-15] MEDS: MULTIVITAMIN (PRENATAL) TABLET PO SCH (08:14)
[2017-01-15] MEDS: ENOXAPARIN 40 MG/0.4 ML SYRINGE SUBCUT SCH (08:14)
--- NOTE | 2017-01-15 08:35 | Family Practice Progress Note ---
Family Practice - PN: Subj Interval history: Patient states she continues to feel better. Her abdominal pain and fullness has improved. Her vitals remained stable. Her a.m. lab studies are normal. Patient's abdomen is improved today with less erythema and tenderness. Still has moderate thick drainage present. Patient scheduled for an abdominal CT today. Dr. Harvey is still trying to avoid surgery if possible. Agree with continued antibiotic and treatment plan. Her physical examination is otherwise stable Exam (Progress Note) - Constitutional Vitals: Period Temp Pulse Resp BP Sys/Gil Pulse Ox Last 24 Hr 96.6 F-100.6 F 61-83 17-20 95-122/55-70 93-98 Results - Labs CBC & BMP: 01/15/17 05:38 01/15/17 05:38
--- NOTE | 2017-01-15 09:30 | CT Report ---
[facility] EX[facility]: CT abdomen and pelvis without contrast DATE: January 15, 2017 COMPARISON: CT abdomen and pelvis with contrast January 11, 2017 REASON: Abscess TECHNIQUE: Axial images of the abdomen and pelvis were obtained without the use of contrast. Coronal and sagittal reformatted images were also provided. Total DLP is 1125.2 mGy*cm. FINDINGS: Lower thorax: Mild dependent opacities are present within both lower lobes. This is most consistent with atelectasis. There is also minimal bilateral pleural fluid, left greater than right. A small hiatal hernia is present, and there is surgical change at the gastroesophageal junction. ABDOMEN: Liver: Unremarkable. Gallbladder and bile ducts: The patient is status post cholecystectomy. The common bile duct is mildly prominent but stable. This could be related to the cholecystectomy status. Pancreas: The pancreatic tail is small in size. This could be related to prior surgery or fatty replacement. The pancreas is otherwise unremarkable. Spleen: Unremarkable. Adrenals: Bilateral adrenal nodules are present, measuring 2 cm on the right and 2.9 cm on the left. This is stable when considering differences in measuring technique. The right adrenal nodule demonstrates -25 Hounsfield units, and the left adrenal nodule demonstrates -21 Hounsfield units. These nodules are most consistent with adrenal adenomas. Kidneys and ureters: No hydronephrosis is present. There is a punctate nonobstructing stone at the right mid kidney and 3 nonobstructing stones at the left kidney, measuring up to 0.3 cm. Bilateral renal cysts are present but are not well characterized on this noncontrast study. No ureteral calculi are seen. PELVIS: Bladder: Unremarkable. Reproductive: Unremarkable as visualized. ABDOMEN AND PELVIS: Bowel: There is no evidence of bowel obstruction. Surgical change is seen at the stomach and small bowel. This could be related to previous gastric bypass. A few colonic diverticula are also present, but there is no evidence of diverticulitis. Appendix: The appendix is not identified, but there are no secondary signs of appendicitis. Vasculature: The abdominal aorta is normal in size. There is moderate scattered calcified plaque at the arteries. An IVC filter is in place. Peritoneum: No free air is seen. There is mild scattered mesenteric fat stranding/edema, especially within the right lower quadrant. However, no significant ascites is seen. Lymph nodes: No suspicious adenopathy is identified. Abdominal/pelvic wall: The patient is status post ventral hernia repair with surgical mesh material in place. Edema/ill-defined fluid is seen surrounding the mesh material as before. Subcutaneous edema is present and is severe at the right abdominal wall. Within the lower anterior abdominal wall and anterior pelvic wall, overlying the surgical mesh, there is an air-fluid collection. There has been interval placement of a surgical drain into this collection, and it has decreased in size. However, this is still concerning for an abscess. It measures approximately 15.2 x 4.5 cm on image 117, series 3 and 16 cm in craniocaudal dimension. Bones: There is multilevel degenerative change at the spine, mainly at the mid and lower lumbar spine. The patient is also status post left total hip replacement. No acute osseous process is identified. IMPRESSION: 1. An air-fluid collection is again seen within the lower anterior abdominal wall and anterior pelvic wall, overlying surgical mesh related to ventral hernia repair. There has been interval placement of a surgical drain into this collection, and it has decreased in size. However, it is still concerning for an abscess. 2. There is prominent subcutaneous edema, mainly at the right abdominal wall. 3. There is dependent atelectasis within both lower lobes and minimal bilateral pleural fluid, left greater than right. The pleural fluid has slightly decreased. 4. Bilateral adrenal nodules are present and are most consistent with adrenal adenomas. 5. Small hiatal hernia. 6. Mild colonic diverticulosis without evidence of diverticulitis. 7. Bilateral nonobstructing renal stones and bilateral renal cysts. The CT exam was performed using one or more of the following dose reduction techniques: Automated exposure control and adjustment of the mA and/or kV according to patient size. PROCEDURE INTERPRETED AT [facility] DEPARTMENT OF RADIOLOGY Final Report Signed by: Dr. Josephine Cook
[2017-01-15] MEDS: VANCOMYCIN INJ 1,250 MG in SODIUM CHLORIDE 0.9% 250 ML IV SCH ×2 (09:55→20:51)
[2017-01-15] MEDS: LORazepam 1 MG TABLET PO SCH (20:43)
[2017-01-15] MEDS: CITALOPRAM 40 MG TABLET PO SCH (20:44)
[2017-01-15] MEDS: ATORVASTATIN 20 MG TABLET PO SCH (20:44)
[2017-01-15] MEDS: CYCLOBENZAPRINE 10 MG TABLET PO PRN (20:44)
[2017-01-16] MEDS ORDERED: DEXAMETHASONE 10 MG/1 ML VIAL ONE (07:00)
[2017-01-16] MEDS ORDERED: GLYCOPYRROLATE 0.4 MG/2 ML VIAL ONE (07:00)
[2017-01-16] MEDS ORDERED: NEOSTIGMINE 10 MG/10 ML VIAL ONE (07:00)
[2017-01-16] MEDS ORDERED: KETOROLAC 30 MG/1 ML VIAL ONE (07:00)
[2017-01-16] MEDS ORDERED: LIDOCAINE 2% 5 ML VIAL ONE (07:00)
[2017-01-16] MEDS ORDERED: ONDANSETRON 4 MG/2 ML VIAL ONE ×2 (07:00→08:47)
[2017-01-16] MEDS ORDERED: PHENYLEPHRINE 1 MG/10 ML SYRINGE IV ONE (07:00)
[2017-01-16] MEDS ORDERED: PROPOFOL 200 MG/20 ML VIAL IV ONE (07:00)
[2017-01-16] MEDS ORDERED: ROCURONIUM 100 MG/10 ML VIAL IV ONE (07:00)
--- NOTE | 2017-01-16 08:03 | Family Practice Progress Note ---
Family Practice - PN: Subj Interval history: Patient out of the room this a.m. has been taken down surgery. I reviewed CT scan and discuss case this a.m. was Dr. Harvey. He plans to try to irrigate area and possibly remove part of the anterior mesh. She is otherwise doing well. Her vitals remained stable. Labs are stable. She should tolerate surgery well and I will check on patient later in the day Exam (Progress Note) - Constitutional Vitals: Period Temp Pulse Resp BP Sys/Gil Pulse Ox Last 24 Hr 96.8 F-97.7 F 60-71 16-18 91-111/50-56 92-98 Results - Labs CBC & BMP: 01/15/17 05:38 01/15/17 05:38
--- NOTE | 2017-01-16 08:19 | Operative Note ---
Date of procedure: 01/16/17 Pre-op diagnosis: Large infected seroma cavity anterior abdominal wall Post-op diagnosis: same Procedure: #1 evacuation of large infected seroma cavity subcutaneous space 15 x 25 cm 2. Removal of portion of anterior onlay Prolene mesh Findings and technique: After informed consent was obtained the patient was brought the operating room placed in supine position. After successful induction of general anesthesia the patient's abdomen was prepped and draped in usual sterile fashion. Her old incision was opened partially in the upper portion of the incision above her abdominal wall pannus. Sharp dissection was carried through a couple of centimeters of subcutaneous tissue and the seroma cavity entered. This was a large single cavity involving the entire anterior aspect of the abdominal wall anterior to her previous repair. This extended 25 cm transversely by 15 cm vertically. This was full of debris and purulent fluid that was thin. There was granulation tissue over the entire aspect the anterior abdominal wall she had the repair and there were 3 nickel sized exposed areas of mesh showing through the granulation tissue. I excised these areas of mesh but the rest of the mesh was firmly incorporated into the abdominal wall and I did not remove this. The granulation tissue was curetted on both the muscular surface of the anterior abdominal wall and also the subcutaneous seroma cavity higgins. All of this was copiously irrigated and cleaned of any debris and the plan was to make these higgins apparent so that this potential space could stay obliterated with negative pressure. 210 mm CIERRA drains were placed on either side of the midline and brought through separate stab incisions. The wound was then closed with mass closure of 2-0 nylon sutures through the skin and subcutaneous layer. There were extreme lateral forces on the midline pulling from either side because of the large amount of fatty tissue in her flanks. Between these retention sutures are placed skin clips. She appeared to tolerate the procedure well. She may end up losing the rest of the anterior mesh and this may have to be removed in the future and this was discussed with the patient when I placed with a second operation. This should be able to be removed without disrupting the integrity of her abdominal wall reconstruction. The problem that she has now is really limited to the subcutaneous space which was the large hernia space and areas that had to be undermined for her component separation. The abdominal wall itself is intact. Anesthesia: GETA Surgeon / Physician: Shaji Harvey III. Estimated blood loss: other (75 mm) Specimens: none sent Condition: stable Disposition: PACU Results - Labs CBC & BMP: 01/15/17 05:38 01/15/17 05:38 Discharge Plan - Discharge Medications No Action Ferrous Sulfate 325 mg PO BID Citalopram [CeleXA] 40 mg PO BEDTIME Atorvastatin Calcium 20 mg PO BEDTIME Vit No.124/Iron/Folic [ Vitamin Tablet] 1 each PO QAM Cyanocobalamin Inj [Vitamin B12 Inj] 1,000 mcg IM Q30D Aspirin [Ecotrin] 81 mg PO QAM Hydrocodone/Acetaminophen [[place] 10-325 Tablet] 1 each PO Q4H PRN PRN Reason: Pain cloNIDine TAB [Catapres Tab] 0.2 mg PO BEDTIME Sulfameth/Trimeth 800-160 Tab [Bactrim DS Tab] 1 tablet PO BID Omeprazole [Prilosec] 20 mg PO DAILY Lactobacillus Cmb#7/Fos/Inulin [Probiotic Complex Tablet] 1 each PO QAM Docusate Sodium Cap [Colace Cap] 100 mg PO BID PRN #0 capsule PRN Reason: Constipation Cyclobenzaprine HCl 10 mg PO BEDTIME PRN #0 PRN Reason: Muscle Spasm amLODIPine [Norvasc] 10 mg PO DAILY LORazepam [Lorazepam] 2 mg PO BEDTIME - Follow Up or Referral - Forms/Instructions
--- NOTE | 2017-01-16 08:35 | Anesthesia Post-Op ---
Anesthesia Post OP - Post Ansesthetic Evaluation Patient seen in post op: Yes Resp: within normal limits CV: within normal limits Mental: within normal limits Temp: within normal limits [id number]-Lc-Flgxrqger: within normal limits Nausea and Vomiting: within normal limits Pain: within normal limits
[2017-01-16] MEDS ORDERED: LACTATED RINGERS 1,000 ML IV ONE (08:37)
[2017-01-16] MEDS ORDERED: fentaNYL 100 MCG/2 ML VIAL ONE (08:37)
[2017-01-16] MEDS ORDERED: MIDAZOLAM 2 MG/2 ML VIAL ONE (08:37)
[2017-01-16] MEDS ORDERED: ACETAMINOPHEN 1,000 MG/100 ML VIAL IV ONE (08:37)
[2017-01-16] MEDS ORDERED: ePHEDrine 50 MG/ML AMP ONE (08:37)
[2017-01-16] MEDS ORDERED: SEVOFLURANE 1 UNIT/15 MINUTE INH ONE (08:38)
[2017-01-16] MEDS ORDERED: ONDANSETRON 4 MG/2 ML VIAL IV PRN (08:42)
[2017-01-16] MEDS ORDERED: HYDROmorphone 2 MG/1 ML VIAL ONE (08:47)
[2017-01-16] MEDS: HYDROmorphone 2 MG/1 ML VIAL IV PRN ×3 (08:51→09:12)
[2017-01-16] MEDS ORDERED: LACTATED RINGERS 1,000 ML IV SCH (09:00)
[2017-01-16] MEDS: ENOXAPARIN 40 MG/0.4 ML SYRINGE SUBCUT SCH (10:14)
[2017-01-16] MEDS: MAGNESIUM HYDROXIDE SUSP 30 ML UDCUP PO PRN (10:14)
[2017-01-16] MEDS: FERROUS SULFATE 325 MG TABLET PO SCH ×2 (10:15→21:21)
[2017-01-16] MEDS: LACTOBACILLUS RHAMNOSUS GG CAPSULE PO SCH (10:15)
[2017-01-16] MEDS: amLODIPine 10 MG TABLET PO SCH (10:15)
[2017-01-16] MEDS: MULTIVITAMIN (PRENATAL) TABLET PO SCH (10:15)
[2017-01-16] MEDS: ASPIRIN EC 81 MG TABLET PO SCH (10:15)
[2017-01-16] MEDS: PANTOPRAZOLE 40 MG TABLET PO SCH (10:15)
[2017-01-16] MEDS: VANCOMYCIN INJ 1,250 MG in SODIUM CHLORIDE 0.9% 250 ML IV SCH ×2 (10:17→21:21)
[2017-01-16] MEDS: CITALOPRAM 40 MG TABLET PO SCH (21:21)
[2017-01-16] MEDS: CYCLOBENZAPRINE 10 MG TABLET PO PRN (21:21)
[2017-01-16] MEDS: ATORVASTATIN 20 MG TABLET PO SCH (21:21)
[2017-01-16] MEDS: LORazepam 1 MG TABLET PO SCH (21:59)
[2017-01-17 05:23] LABS: Basophils % 0.2 % (0.0-0.8); Eosinophils % 0.1 % (0.00-10.9); Hematocrit 30.3 VOL% (35.7-47.0); Hemoglobin 9.4 GM/DL (12.0-16.0); Immature Granulocytes % 0.7 %; Immature Granulocytes Absolute 0.09 #; Lymphocytes # 1.7 10*3/uL (1.4-4.0); Lymphocytes % 13.2 % (21.3-54.2); Mean Corpuscular Hemoglobin 28 PG (27-34); Mean Corpuscular Volume 90.4 FL (87-102); Mean Platelet Volume 11.4 FL (9.6-12.0); Monocytes # 0.8 10*3/uL (0.11-0.8); Neutrophils # 10.1 10*3/uL (1.4-7.4); Neutrophils % 79.8 % (38.7-73.9); Platelet Count 463 T/CUMM (130-400); Red Blood Count 3.35 MC/CUMM (3.8-5.5); Red Cell Distribution Width 15.1 % (9.3-17.3); White Blood Count 12.6 T/CUMM (4-12)
[2017-01-17 05:46] LABS: Osmolality,Calculated 281.4 MOS/KG (273-304)
--- NOTE | 2017-01-17 08:12 | Family Practice Progress Note ---
Family Practice - PN: Subj Interval history: Patient tolerated procedure well. States her pain is much less this a.m. man she feels better overall. Reviewed surgeries patient was Dr. Harvey regarding none. Plans to place wound VAC tomorrow. Will obviously need long-term antibiotics on discharge. Her a.m. labs and vitals are stable. We will continue present treatment plan Exam (Progress Note) - Constitutional Vitals: Period Temp Pulse Resp BP Sys/Gil Pulse Ox Last 24 Hr 97.4 F-98.0 F 74-96 16-20 85-129/37-87 92-100 Results - Labs CBC & BMP: 01/17/17 04:47 01/17/17 04:47
[2017-01-17] MEDS: VANCOMYCIN INJ 1,250 MG in SODIUM CHLORIDE 0.9% 250 ML IV SCH (08:51)
[2017-01-17] MEDS: MAGNESIUM HYDROXIDE SUSP 30 ML UDCUP PO PRN (08:51)
[2017-01-17] MEDS: ASPIRIN EC 81 MG TABLET PO SCH (08:52)
[2017-01-17] MEDS: amLODIPine 10 MG TABLET PO SCH (08:52)
[2017-01-17] MEDS: MULTIVITAMIN (PRENATAL) TABLET PO SCH (08:52)
[2017-01-17] MEDS: ENOXAPARIN 40 MG/0.4 ML SYRINGE SUBCUT SCH (08:52)
[2017-01-17] MEDS: LACTOBACILLUS RHAMNOSUS GG CAPSULE PO SCH (08:52)
[2017-01-17] MEDS: PANTOPRAZOLE 40 MG TABLET PO SCH (08:53)
[2017-01-17] MEDS: FERROUS SULFATE 325 MG TABLET PO SCH ×2 (08:53→21:18)
--- NOTE | 2017-01-17 13:09 | Event Note ---
She feels much better. I am skeptical that this is a large chronic space is going to be fully collapsed with CIERRA drains. 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 We will also consult infectious diseases.
--- NOTE | 2017-01-17 13:20 | Pathology Report from [facility] ---
[facility] ACCESSION # : [id number] PATIENT NAME : Iza Perry ORDERING DR : KVNG VARGAS III, MD CLINICAL HX: Panniculitis POST-OP DX: Same SPECIMEN INFO: Infected hernia mesh GROSS DESCRIPTION: Received in formalin labeled IZA PERRY are three hyperemic pink fibrous tissue measuring 3.4 x up to 1.4 cm collectively, sectioned and submitted in one cassette. Also received in the specimen container are five pieces of synthetic mesh material with attached hyperemic tissue, submitted for gross exam only. DIAGNOSIS FOR IZA PERRY: INFECTED HERNIAL MESH: Synthetic mesh and attached fibrous tissue with acute inflammation and necrosis. COLLECTED DATE: 01/16/2017 [facility] REPORT DATE: 01/17/2017 ELECTRONICALLY SIGNED BY: Yariel Don M.D. 01/17/2017 - 10:10:41 [facility]ITAL[facility]ig[facility]
--- NOTE | 2017-01-17 18:28 | Infectious Disease Consult ---
Assessment and Plan (1) Panniculitis Status: Acute Current Visit: Yes (2) Large ventral wall hernia Status: Acute Current Visit: No (3) probable abscess mid abdomen Status: Acute Assessment and plan: She has infection of the abdominal wall associated with herniorrhaphy wound. MSSA was cultured. I think the infection is recurring because of the presence of the mesh. Staph aureus is almost impossible to clear with the presence of foreign material. Recommendations: 1. Because she did not have a life-threatening penicillin allergy and this was as a child, I am going to try her on cefazolin 2. Once we see that she tolerates the cefazolin I will stop the vancomycin 3. It might be difficult but if at all possible would be good for the mesh to be removed. If not and the patient after this initial treatment with IV antibiotics may need to be on chronic suppressive antibiotic therapy, at least until the mesh can be removed in the future Thank you very much for the consult. Will follow. Current Visit: No (4) Obesity Status: Chronic Current Visit: No (5) hypertension Status: Chronic Current Visit: No History of Present Illness Chief complaint: Infection of abdominal hernia repair site History of present illness: Ms. Ramachandran is a 61 year old female who has had multiple surgeries due to recurring infection of her abdominal wall since she had hernia repair emergently in June 2015. Before this admission her last surgery was in [place]. She did okay after that and presented to the hospital almost 2 weeks ago with increasing swelling and redness of the abdominal wall and also some blisters on her legs. She was felt to have an infected seroma and had percutaneous drainage of this. She has 2 CIERRA drains in situ currently but it is felt that these were likely not result in enough drainage to cause healing of the defect just below the subcutaneous tissues. She has had MSSA cultured on this occasion and has been on vancomycin because of a history to penicillin. She says this allergy was as a child and it caused a rash. She has not had any fever since this admission. Because of the recurring nature of this infection I am asked to assist with management. Of note the patient had the initial mesh removed in early 2015 with new mesh in situ since then. Home Medications Medication Instructions Recorded Confirmed Type Atorvastatin Calcium 20 mg PO BEDTIME 08/18/16 01/05/17 History Citalopram [CeleXA] 40 mg PO BEDTIME 08/18/16 01/05/17 History Ferrous Sulfate 325 mg PO BID 08/18/16 01/05/17 History Vit No.124/Iron/Folic 1 each PO QAM 10/10/16 01/05/17 History [ Vitamin Tablet] Aspirin [Ecotrin] 81 mg PO QAM 11/02/16 01/05/17 History Cyanocobalamin Inj [Vitamin B12 1,000 mcg IM Q30D 11/02/16 01/05/17 History Inj] Lactobacillus Cmb#7/Fos/Inulin 1 each PO QAM 11/02/16 01/05/17 History [Probiotic Complex Tablet] Docusate Sodium Cap [Colace Cap] 100 mg PO BID PRN #0 capsule 11/15/16 01/05/17 Rx Cyclobenzaprine HCl 10 mg PO BEDTIME PRN #0 12/18/16 01/05/17 Rx Hydrocodone/Acetaminophen [[place] 1 each PO Q4H PRN 01/05/17 01/05/17 History 10-325 Tablet] LORazepam [Lorazepam] 2 mg PO BEDTIME 01/05/17 01/05/17 History Omeprazole [Prilosec] 20 mg PO DAILY 01/05/17 01/05/17 History Sulfameth/Trimeth 800-160 Tab 1 tablet PO BID 01/05/17 01/05/17 History [Bactrim DS Tab] amLODIPine [Norvasc] 10 mg PO DAILY 01/05/17 01/05/17 History cloNIDine TAB [Catapres Tab] 0.2 mg PO BEDTIME 01/05/17 01/05/17 History Allergies Allergy/AdvReac Type Severity Reaction Status Date / Time morphine Allergy Severe Vomiting Verified 01/05/17 10:02 Penicillins Allergy Mild RASH Verified 01/05/17 10:02 12 point system: reviewed and no additional remarkable complaints except as stated (Per HPI) Medical,Surgical,& Family Hx - Medical History Cardio: History of: Hypertension No history of: Cardiac Dysrhythmia, CHF, MO, Pacemaker Psychological: History of: Depression Neurology: No history of: Seizures HEENT: History of: Eye Problem (GLASSSES) Endocrine: History of: Dyslipidemia No history of: Diabetes Mellitus (IDDM), Diabetes Mellitus (NIDDM) Rheumatology: History of;: Fibromyalgia Respiratory: No history of: Pulmonary Embolism, Pneumonia, Lung Cancer, Respiratory Problems (FLU VAC- YES; PNEU VAC- YES.) Gastrointestinal: History of: GERD Musculoskeletal: History of: Musculoskeletal Problems Hematology: History of: Anemia (history iron deficiency anemia) No history of: Blood Transfusion Reaction Other: History of: Miscellaneous Medical Problems (history of depression and B12 deficiency. IVC FILTER LEFT GROIN.) - Surgical History Cardiac Surgeries: Patient Denies: Cardiac Catheterization Thoracic Surgeries: Patient denies;: Organ Transplant, Lobectomy Neurologic Surgeries: Patient denies: Neurologic Surgery HEENT Surgeries: Patient denies: Tonsilectomy & Adenoidectomy Abdominal Surgeries: Surgical HX of: Abdominal Surgery, Cholecystectomy, Gastric Bypass Surgery (2009), Hernia Repair (06/2015 [facility]) Patient denies: Appendectomy Reproductive Surgeries: Surgical HX of;: Section (X2), Tubal Ligation Patient denies;: Genitourinary Surgery Orthopedic Surgeries: Surgical HX of;: Total Hip Replacement (left hip (2011)) - Family History Family History: Reports;: Family Cancer (mother-skin, father-penile, brother- prostate), Family Diabetes (brother and sister), Family Heart Disease, Family Hypertension - Social History Smoking Status: Smoker, status unknown Frequency of Alcohol Use: None Type of Drug Use: None Infectious Disease Exam H&P - Constitutional Vitals: Vital Signs Temp Pulse Resp BP Pulse Ox 97.8 F 89 16 108/53 96 01/17/17 15:23 01/17/17 15:23 01/17/17 15:23 01/17/17 15:23 01/17/17 15:23 Intake and Output 01/17/17 01/17/17 01/17/17 07:59 15:59 23:59 Intake Total 250 / 250 600 / 600 Output Total 750 / 750 40 / 40 0 / 0 Balance -500 / -500 560 / 560 0 / 0 Intake: IV 250 / 250 Vancomycin Inj 1,000 mg 250 / 250 In Ns 250 ml @ 250 mls/hr IV Q12H JACQUELINE Rx#: [id number] Oral 600 / 600 Output: Drainage 50 / 50 40 / 40 0 / 0 CIERRA#1 30 / 30 20 / 20 0 / 0 CIERRA#2 20 / 20 20 / 20 0 / 0 Urine 700 / 700 Other: Voiding Method Toilet # Voids 4 # Bowel Movements 0 0 Weight 94.619 kg Patient Weight 01/17/17 23:59 Weight 94.619 kg Exam: General: Patient relatively comfortable, met ambulating from bathroom, she is morbidly obese HEENT: Mucous membranes pink and moist, anicteric acyanotic, RIOS, no oropharyngeal exudates Neck: Supple, no thyroid gland enlargement, no lymphadenopathy Respiratory system: Breath sounds vesicular, no crepitations or wheezes Cardiovascular: Normal S1 and S2, no murmurs appreciated Abdomen: Midline surgical wound noted with deangelo in situ and no drainage apparent, she has CIERRA drains on both sides of the abdomen putting out serosanguineous material, her abdomen is quite tender to palpation therefore I was unable to appreciate any organomegaly or mass, normal bowel sounds Genitourinary: No suprapubic pain or bladder distention Extremities: no edema Skin: Healing papular rash to both legs Reports - Labs CBC & BMP: 01/17/17 04:47 01/17/17 04:47 Labs: Laboratory Results - last 24 hr 01/17/17 01/17/17 01/17/17 04:47 04:47 08:46 WBC 12.6 H D RBC 3.35 L Hgb 9.4 L Hct 30.3 L MCV 90.4 MCH 28 MCHC 31.0 L RDW 15.1 Plt Count 463 H MPV 11.4 Neut % (Auto) 79.8 H Lymph % (Auto) 13.2 L Childress % (Auto) 6.0 Eos % (Auto) 0.1 Baso % (Auto) 0.2 Neut # (Auto) 10.1 H Lymph # (Auto) 1.7 Childress # (Auto) 0.8 Eos # (Auto) 0.0 Baso # (Auto) 0.0 Immature Gran % 0.7 Nucleated RBC % 0.0 Immature Gran # 0.09 Nucleated RBCs # 0.00 Sodium 140 Potassium 5.0 Chloride 104 Carbon Dioxide 29 Anion Gap 12.0 BUN 18 Creatinine 0.70 GFR Calculation 101 BUN/Creatinine Ratio 25.00 H Glucose 121 H Calculated Osmolality 281.4 Calcium 8.0 L Vancomycin Trough 21.2 H - Reports Microbiology: Blood cultures 2 sets on admission negative, abdominal fluid culture positive for MSSA - Diagnostic Findings Procedure: CT Abdomen and Pelvis: report reviewed by me (A fluid collection in lower abdominal wall)
[2017-01-17] MEDS: LORazepam 1 MG TABLET PO SCH (21:18)
[2017-01-17] MEDS: CITALOPRAM 40 MG TABLET PO SCH (21:18)
[2017-01-17] MEDS: ATORVASTATIN 20 MG TABLET PO SCH (21:18)
[2017-01-17] MEDS: CYCLOBENZAPRINE 10 MG TABLET PO PRN (21:20)
[2017-01-18] MEDS ORDERED: VANCOMYCIN INJ 1,250 MG in SODIUM CHLORIDE 0.9% 250 ML IV SCH (03:00)
[2017-01-18 04:49] LABS: Basophils % 0.5 % (0.0-0.8); Eosinophils # 0.2 10*3/uL (0.0-0.87); Eosinophils % 2.6 % (0.00-10.9); Hematocrit 30.6 VOL% (35.7-47.0); Hemoglobin 9.3 GM/DL (12.0-16.0); Immature Granulocytes % 0.6 %; Immature Granulocytes Absolute 0.05 #; Lymphocytes # 2.4 10*3/uL (1.4-4.0); Lymphocytes % 27.8 % (21.3-54.2); Mean Corpuscular HGB Conc 30.4 GM/DL (32-36); Mean Corpuscular Hemoglobin 28 PG (27-34); Mean Corpuscular Volume 92.2 FL (87-102); Mean Platelet Volume 11.3 FL (9.6-12.0); Monocytes # 0.6 10*3/uL (0.11-0.8); Monocytes % 6.7 % (1.7-12.7); Neutrophils # 5.3 10*3/uL (1.4-7.4); Neutrophils % 61.8 % (38.7-73.9); Platelet Count 420 T/CUMM (130-400); Red Blood Count 3.32 MC/CUMM (3.8-5.5); Red Cell Distribution Width 15.7 % (9.3-17.3); White Blood Count 8.5 T/CUMM (4-12)
[2017-01-18 05:21] LABS: Calcium 7.7 MG/DL (8.5-10.1)
[2017-01-18 05:22] LABS: Osmolality,Calculated 295.3 MOS/KG (273-304); Potassium 4.3 MMOL/L (3.5-5.1)
[2017-01-18] MEDS ORDERED: BUPIVACAINE MPF 0.25% /EPI 30 ML VIAL ONE (06:57)
[2017-01-18] MEDS ORDERED: PHENYLEPHRINE 1 MG/10 ML SYRINGE IV ONE (07:30)
[2017-01-18] MEDS ORDERED: ONDANSETRON 4 MG/2 ML VIAL ONE ×2 (07:30→08:49)
[2017-01-18] MEDS ORDERED: ROCURONIUM 100 MG/10 ML VIAL IV ONE (07:30)
[2017-01-18] MEDS ORDERED: NEOSTIGMINE 10 MG/10 ML VIAL ONE (07:30)
[2017-01-18] MEDS ORDERED: LIDOCAINE 1% 5 ML VIAL ONE (07:30)
[2017-01-18] MEDS ORDERED: GLYCOPYRROLATE 0.4 MG/2 ML VIAL ONE (07:30)
--- NOTE | 2017-01-18 08:25 | Operative Note ---
Date of procedure: 01/18/17 Pre-op diagnosis: Large wound seroma Post-op diagnosis: same Procedure: Evacuation of the large wound seroma and placement of vacuum assisted closure dressing Findings and technique: After informed consent was obtained patient was brought the operating room and placed in supine position. After successful induction of general anesthesia the patient's abdomen was prepped and draped in usual sterile fashion. The mass closure retention type sutures and clips were removed from the midline and her abdominal wound explored. This was all in the subcutaneous layer. It consisted of a granulated chronic space within the subcutaneous layer and there was no exposed mesh or any signs of infection or necrosis. There is really nothing to debride. I irrigated out the seroma cavity and abraded the lining of the cavity with laparotomy pads and good hemostasis was noted. I then placed vacuum dressing. I did replace a couple of the retention type sutures to try to keep the skin and subcutaneous layer approximated at the midline and and counteract the extreme lateral forces pulling from her abdominal wall pannus. All of the erythema and panniculitis appearance that she had before had completely resolved. Anesthesia: KYLEA Surgeon / Physician: Shaji Harvey III. Estimated blood loss: none Specimens: none sent Condition: stable Disposition: PACU Results - Labs CBC & BMP: 01/18/17 04:25 01/18/17 04:25 Discharge Plan - Discharge Medications No Action Ferrous Sulfate 325 mg PO BID Citalopram [CeleXA] 40 mg PO BEDTIME Atorvastatin Calcium 20 mg PO BEDTIME Vit No.124/Iron/Folic [ Vitamin Tablet] 1 each PO QAM Cyanocobalamin Inj [Vitamin B12 Inj] 1,000 mcg IM Q30D Aspirin [Ecotrin] 81 mg PO QAM Hydrocodone/Acetaminophen [[place] 10-325 Tablet] 1 each PO Q4H PRN PRN Reason: Pain cloNIDine TAB [Catapres Tab] 0.2 mg PO BEDTIME Sulfameth/Trimeth 800-160 Tab [Bactrim DS Tab] 1 tablet PO BID Omeprazole [Prilosec] 20 mg PO DAILY Lactobacillus Cmb#7/Fos/Inulin [Probiotic Complex Tablet] 1 each PO QAM Docusate Sodium Cap [Colace Cap] 100 mg PO BID PRN #0 capsule PRN Reason: Constipation Cyclobenzaprine HCl 10 mg PO BEDTIME PRN #0 PRN Reason: Muscle Spasm amLODIPine [Norvasc] 10 mg PO DAILY LORazepam [Lorazepam] 2 mg PO BEDTIME - Follow Up or Referral - Forms/Instructions
--- NOTE | 2017-01-18 08:37 | Anesthesia Post-Op ---
Anesthesia Post OP - Post Ansesthetic Evaluation Patient seen in post op: Yes Resp: within normal limits CV: within normal limits Mental: within normal limits Temp: within normal limits [id number]-[id number]-Bfdeuxrju: within normal limits Nausea and Vomiting: within normal limits Pain: within normal limits
[2017-01-18] MEDS ORDERED: ONDANSETRON 4 MG/2 ML VIAL IV PRN (08:38)
[2017-01-18] MEDS ORDERED: fentaNYL 100 MCG/2 ML VIAL ONE (08:40)
[2017-01-18] MEDS ORDERED: MIDAZOLAM 2 MG/2 ML VIAL ONE (08:40)
[2017-01-18] MEDS ORDERED: SEVOFLURANE 1 UNIT/15 MINUTE INH ONE (08:40)
[2017-01-18] MEDS ORDERED: LACTATED RINGERS 1,000 ML IV ONE (08:40)
[2017-01-18] MEDS ORDERED: HYDROmorphone 2 MG/1 ML VIAL ONE (08:48)
[2017-01-18] MEDS: HYDROmorphone 2 MG/1 ML VIAL IV PRN ×3 (08:52→16:57)
[2017-01-18] MEDS: ENOXAPARIN 40 MG/0.4 ML SYRINGE SUBCUT SCH (10:11)
[2017-01-18] MEDS: MAGNESIUM HYDROXIDE SUSP 30 ML UDCUP PO PRN (10:12)
[2017-01-18] MEDS: PANTOPRAZOLE 40 MG TABLET PO SCH (10:12)
[2017-01-18] MEDS: FERROUS SULFATE 325 MG TABLET PO SCH ×2 (10:12→20:51)
[2017-01-18] MEDS: LACTOBACILLUS RHAMNOSUS GG CAPSULE PO SCH (10:12)
[2017-01-18] MEDS: ASPIRIN EC 81 MG TABLET PO SCH (10:13)
[2017-01-18] MEDS: MULTIVITAMIN (PRENATAL) TABLET PO SCH (10:13)
[2017-01-18] MEDS: amLODIPine 10 MG TABLET PO SCH (10:13)
--- NOTE | 2017-01-18 11:08 | Infectious Disease Progress ---
Assessment and Plan (1) Panniculitis Status: Acute Current Visit: Yes (2) Large ventral wall hernia Status: Acute Current Visit: No (3) probable abscess mid abdomen Status: Acute Assessment and plan: She has infected seroma below abdominal wall. MSSA was cultured. I think the infection is recurring because of the presence of the mesh from her hernia repair surgery. Staph aureus is almost impossible to clear with the presence of foreign material. Recommendations: 1. Patient tolerated the cefazolin thus will increase dose to 2 g every 6 hours , higher dose being given because of her obesity 2. Discontinue the vancomycin 3. When ready for discharge next week we will probably let her go on daily ceftriaxone at the infusion center for 1-2 weeks after which she will probably be on chronic suppressive oral antibiotic therapy 4. Check inflammatory markers on Saturday Current Visit: No (4) Obesity Status: Chronic Current Visit: No (5) hypertension Status: Chronic Current Visit: No Infectious Disease - PN: Subj Interval history: Patient doing fairly okay. She went to the operating room today for placement of wound VAC to mid abdominal wound. Operative note note reviewed and it was noted that all erythema and panniculitis changes have resolved. Patient has been afebrile. She has tolerated the cefazolin without any evidence of allergic reaction. Infectious Disease Exam (PN) - Constitutional Vitals: Temp Pulse Resp BP Pulse Ox 97.8 F 80 16 98/54 94 L 01/18/17 09:49 01/18/17 09:49 01/18/17 09:49 01/18/17 09:49 01/18/17 09:49 General appearance: no acute distress Exam: General appearance: no acute distress - Eye Eye exam: Present: EOMI. no icterus Pupils: Present: RIOS - ENT ENT exam: no oral exudates - Respiratory Respiratory exam: vesicular BS, no crepitations or wheezes - Cardiovascular Cardiovascular exam: regular rate and rhythm, no murmurs - GI/Abdominal GI/Abdominal exam: normal bowel sounds, obese, wound VAC to midline wound, no erythema noted - Extremities Exam Extremities exam: no edema - Skin Skin exam: no rash Results - Labs CBC & BMP: 01/18/17 04:25 01/18/17 04:25 Lab Results: I have reviewed the past 24 hour labs
--- NOTE | 2017-01-18 14:58 | Family Practice Progress Note ---
Family Practice - PN: Subj Interval history: Patient is taken to surgery this a.m. and tolerated procedure well. A.m. lab studies are stable. No new problems identified. Dr. Bangura has started patient on ceftezole in which he is tolerating well. Plan will be to continue antibiotics on discharge. We will continue present treatment plan Exam (Progress Note) - Constitutional Vitals: Period Temp Pulse Resp BP Sys/Gil Pulse Ox Last 24 Hr 97.3 F-98.4 F 66-90 14-20 98-126/45-75 93-100 Results - Labs CBC & BMP: 01/18/17 04:25 01/18/17 04:25
[2017-01-18] MEDS: ceFAZolin 2,000 MG in PREMIX 1 EACH IV SCH ×2 (15:22→20:50)
[2017-01-18] MEDS: CITALOPRAM 40 MG TABLET PO SCH (20:51)
[2017-01-18] MEDS: LORazepam 1 MG TABLET PO SCH (20:51)
[2017-01-18] MEDS: ATORVASTATIN 20 MG TABLET PO SCH (20:51)
[2017-01-18] MEDS: CYCLOBENZAPRINE 10 MG TABLET PO PRN (21:13)
[2017-01-19] MEDS: ceFAZolin 2,000 MG in PREMIX 1 EACH IV SCH ×4 (02:14→19:33)
[2017-01-19 05:16] LABS: Basophils % 0.6 % (0.0-0.8); Eosinophils # 0.3 10*3/uL (0.0-0.87); Hematocrit 28.5 VOL% (35.7-47.0); Hemoglobin 8.6 GM/DL (12.0-16.0); Immature Granulocytes % 0.4 %; Immature Granulocytes Absolute 0.03 #; Lymphocytes # 2.4 10*3/uL (1.4-4.0); Lymphocytes % 34.3 % (21.3-54.2); Mean Corpuscular HGB Conc 30.2 GM/DL (32-36); Mean Corpuscular Hemoglobin 28 PG (27-34); Mean Corpuscular Volume 92.5 FL (87-102); Mean Platelet Volume 11.4 FL (9.6-12.0); Monocytes # 0.6 10*3/uL (0.11-0.8); Monocytes % 8.9 % (1.7-12.7); Neutrophils # 3.6 10*3/uL (1.4-7.4); Neutrophils % 51.8 % (38.7-73.9); Platelet Count 387 T/CUMM (130-400); Red Blood Count 3.08 MC/CUMM (3.8-5.5); White Blood Count 6.9 T/CUMM (4-12)
[2017-01-19] MEDS: HYDROmorphone 2 MG/1 ML VIAL IV PRN ×3 (05:59→19:33)
[2017-01-19 08:22] LABS: Calcium 7.5 MG/DL (8.5-10.1); Osmolality,Calculated 282.1 MOS/KG (273-304); Potassium 4.6 MMOL/L (3.5-5.1)
[2017-01-19] MEDS: amLODIPine 10 MG TABLET PO SCH (09:43)
[2017-01-19] MEDS: ENOXAPARIN 40 MG/0.4 ML SYRINGE SUBCUT SCH (09:43)
[2017-01-19] MEDS: FERROUS SULFATE 325 MG TABLET PO SCH ×2 (09:43→21:24)
[2017-01-19] MEDS: LACTOBACILLUS RHAMNOSUS GG CAPSULE PO SCH (09:43)
[2017-01-19] MEDS: ASPIRIN EC 81 MG TABLET PO SCH (09:43)
[2017-01-19] MEDS: MULTIVITAMIN (PRENATAL) TABLET PO SCH (09:43)
[2017-01-19] MEDS: PANTOPRAZOLE 40 MG TABLET PO SCH (09:44)
--- NOTE | 2017-01-19 11:58 | Event Note ---
General Surgery Progress Note Chief complaint This patient is a 61-year-old woman with prior abdominal wall hernia repair admitted for evacuation of infected fluid collection of the abdominal wall and partial excision of her Prolene mesh on 01/16/2017 and wound VAC placement on [address] Harvey Interval history No events overnight. Patient is resting comfortably. Hemoglobin drifted down a little bit from 9.3 to 8.6. White blood cell count is normal. The patient is afebrile. She is on Ancef for MSSA infection of the seroma. Wound VAC is working well. Physical exam The abdominal exam reveals a functional wound VAC with no leak or obstruction. There is a moderate amount of drainage in the canister that appears serosanguineous. There is no erythema on the abdominal wall. Labs Reviewed, as above Imaging None new Assessment and plan Continue antibiotics and wound VAC therapy
--- NOTE | 2017-01-19 16:02 | Family Practice Progress Note ---
Family Practice - PN: Subj Interval history: Patient states that she does feel better today. States she feels extremely weak but this would be expected after having the 2 procedures and not to being out of bed much. Patient is afebrile. A.m. labs are stable. No new problems noted. Abdomen is soft no erythema noted. Wound VAC is functioning well. We will continue present treatment plan Exam (Progress Note) - Constitutional Vitals: Period Temp Pulse Resp BP Sys/Gil Pulse Ox Last 24 Hr 97.1 F-98.2 F 64-85 18-20 80-101/39-71 92-97 Results - Labs CBC & BMP: 01/19/17 04:39 01/19/17 04:39
[2017-01-19] MEDS: CYCLOBENZAPRINE 10 MG TABLET PO PRN (21:23)
[2017-01-19] MEDS: LORazepam 1 MG TABLET PO SCH (21:23)
[2017-01-19] MEDS: MAGNESIUM HYDROXIDE SUSP 30 ML UDCUP PO PRN (21:23)
[2017-01-19] MEDS: ATORVASTATIN 20 MG TABLET PO SCH (21:25)
[2017-01-19] MEDS: CITALOPRAM 40 MG TABLET PO SCH (21:25)
[2017-01-20] MEDS: ceFAZolin 2,000 MG in PREMIX 1 EACH IV SCH ×5 (02:27→20:06)
[2017-01-20 06:12] LABS: Basophils # 0.1 10*3/uL (0.0-0.2); Eosinophils # 0.3 10*3/uL (0.0-0.87); Eosinophils % 3.7 % (0.00-10.9); Hematocrit 30.8 VOL% (35.7-47.0); Hemoglobin 9.6 GM/DL (12.0-16.0); Immature Granulocytes % 0.4 %; Immature Granulocytes Absolute 0.03 #; Lymphocytes # 2.5 10*3/uL (1.4-4.0); Lymphocytes % 34.6 % (21.3-54.2); Mean Corpuscular HGB Conc 31.2 GM/DL (32-36); Mean Corpuscular Hemoglobin 29 PG (27-34); Mean Corpuscular Volume 91.4 FL (87-102); Mean Platelet Volume 11.7 FL (9.6-12.0); Monocytes # 0.6 10*3/uL (0.11-0.8); Monocytes % 8.8 % (1.7-12.7); Neutrophils # 3.7 10*3/uL (1.4-7.4); Neutrophils % 51.5 % (38.7-73.9); Platelet Count 409 T/CUMM (130-400); Red Blood Count 3.37 MC/CUMM (3.8-5.5); Red Cell Distribution Width 16.2 % (9.3-17.3); White Blood Count 7.3 T/CUMM (4-12)
[2017-01-20 06:42] LABS: Albumin 1.8 G/DL (3.4-5.0); Bilirubin,Total 0.4 MG/DL (0.2-1.0); Calcium 8.2 MG/DL (8.5-10.1); Osmolality,Calculated 283.8 MOS/KG (273-304); Potassium 4.4 MMOL/L (3.5-5.1); Total Protein 4.8 G/DL (6.4-8.3)
[2017-01-20] MEDS: ENOXAPARIN 40 MG/0.4 ML SYRINGE SUBCUT SCH (09:16)
[2017-01-20] MEDS: PANTOPRAZOLE 40 MG TABLET PO SCH (09:17)
[2017-01-20] MEDS: amLODIPine 10 MG TABLET PO SCH (09:17)
[2017-01-20] MEDS: LACTOBACILLUS RHAMNOSUS GG CAPSULE PO SCH (09:17)
[2017-01-20] MEDS: FERROUS SULFATE 325 MG TABLET PO SCH ×2 (09:17→20:07)
[2017-01-20] MEDS: MULTIVITAMIN (PRENATAL) TABLET PO SCH (09:17)
[2017-01-20] MEDS: ASPIRIN EC 81 MG TABLET PO SCH (09:24)
--- NOTE | 2017-01-20 12:07 | Event Note ---
General Surgery Progress Note Chief complaint This patient is a 61-year-old woman with prior abdominal wall hernia repair admitted for evacuation of infected fluid collection of the abdominal wall and partial excision of her Prolene mesh on 01/16/2017 and wound VAC placement on [address] Harvey Interval history The patient had a low-grade temperature yesterday. She still having quite a bit of pain. Physical exam The abdominal exam reveals a functional wound VAC with no leak or obstruction. There is a moderate amount of drainage in the canister that appears serosanguineous. There is a small amount of induration below the bottom of the incision. There is some blanching erythema here as well. This is slightly worse than yesterday. Labs Reviewed, as above Imaging None new Assessment and plan Continue antibiotics and wound VAC therapy Monitor fever curve
--- NOTE | 2017-01-20 12:31 | Family Practice Progress Note ---
Family Practice - PN: Subj Interval history: Patient states she continues to improve. She feels her abdominal pain is better. Erythema has improved. Tolerating medications well. We will continue present treatment plan Exam (Progress Note) - Constitutional Vitals: Period Temp Pulse Resp BP Sys/Gil Pulse Ox Last 24 Hr 97.6 F-99.7 F 71-84 18-20 76-114/42-60 91-96 Results - Labs CBC & BMP: 01/20/17 05:13 01/20/17 05:13
[2017-01-20] MEDS ORDERED: BISACODYL 10 MG SUPP RECTAL ONE (14:36)
[2017-01-20] MEDS: LORazepam 1 MG TABLET PO SCH (20:06)
[2017-01-20] MEDS: CITALOPRAM 40 MG TABLET PO SCH (20:07)
[2017-01-20] MEDS: CYCLOBENZAPRINE 10 MG TABLET PO PRN (20:07)
[2017-01-20] MEDS: ATORVASTATIN 20 MG TABLET PO SCH (20:07)
[2017-01-21] MEDS: ceFAZolin 2,000 MG in PREMIX 1 EACH IV SCH ×4 (02:24→21:46)
[2017-01-21] MEDS ORDERED: HYDROmorphone 2 MG/1 ML VIAL IV ONE (07:25)
--- NOTE | 2017-01-21 07:31 | Event Note ---
General Surgery Progress Note Chief complaint This patient is a 61-year-old woman with prior abdominal wall hernia repair admitted for evacuation of infected fluid collection of the abdominal wall and partial excision of her Prolene mesh on 01/16/2017 and wound VAC placement on [address] Harvey Interval history No events overnight. Physical exam The wound VAC was changed today. The wound bed is clean with no railing drainage or evidence of uncontrolled infection. There is no necrotic tissue. The wound VAC was replaced today. Labs Reviewed, as above Imaging None new Assessment and plan Continue antibiotics and wound VAC therapy Consult case management for home health planning and home IV antibiotics with home wound VAC PICC line placement
[2017-01-21] MEDS: ASPIRIN EC 81 MG TABLET PO SCH (09:10)
[2017-01-21] MEDS: PANTOPRAZOLE 40 MG TABLET PO SCH (09:10)
[2017-01-21] MEDS: amLODIPine 10 MG TABLET PO SCH (09:10)
[2017-01-21] MEDS: MULTIVITAMIN (PRENATAL) TABLET PO SCH (09:10)
[2017-01-21] MEDS: LACTOBACILLUS RHAMNOSUS GG CAPSULE PO SCH (09:10)
[2017-01-21] MEDS: FERROUS SULFATE 325 MG TABLET PO SCH ×2 (09:10→21:46)
[2017-01-21] MEDS: ENOXAPARIN 40 MG/0.4 ML SYRINGE SUBCUT SCH (09:11)
--- NOTE | 2017-01-21 10:19 | Post Interventional Procedure ---
Pre-op diagnosis: Hernia mesh abscess Post-op diagnosis: same Procedure: PICC LUE Flouroscopy: 0.1 min Radiologist: Mandeep Oneill Anesthesia: local Specimens: none sent Estimated blood loss: none Complications: none Condition: stable Assessment and Plan - Time spent with patient Time spent with patient: Less than 30 minutes
--- NOTE | 2017-01-21 10:44 | Interventional Radiology Rpt ---
IR PICC line insertion, US guide vascular access Indication: Hernia mesh infection. Long-term IV antibiotics. PICC LINE Description: A formal timeout was performed. Maximum sterile barrier technique was used. Sonographic evaluation of the left upper extremity demonstrates patent and compressible basilar vein. The upper arm was prepped and draped in sterile fashion. 3 cc 1% lidocaine was administered subcutaneously. Under sonographic guidance, a micropuncture needle was advanced into the vein. A captured sonographic image documents the position of the needle. Needle was exchanged over a wire for a peel-away sheath. A dual lumen power PICC, cut to 44 cm, was advanced over the wire until the tip was at the RA-SVC junction. The position of the catheter was confirmed with fluoroscopic guidance and an image stored in PACS. The wire and sheath were removed. Both ports of the PICC were aspirated and flushed with heparinized saline. The device was secured with a StatLock. Fluoroscopy: 0.1 minute. Impression: PICC line ready for immediate use. Routine catheter care. PROCEDURE INTERPRETED AT [facility] DEPARTMENT OF RADIOLOGY Final Report Signed by: Mandeep Oneill M.D.
--- NOTE | 2017-01-21 15:01 | Infectious Disease Progress ---
Assessment and Plan (1) Panniculitis Status: Acute Current Visit: Yes (2) Large ventral wall hernia Status: Acute Current Visit: No (3) probable abscess mid abdomen Status: Acute Assessment and plan: She has infected seroma below abdominal wall. MSSA was cultured. I think the infection is recurring because of the presence of the mesh from her hernia repair surgery. Recommendations: 1. Continue cefazolin while in hospital 2. When ready for discharge, until tomorrow, will switch to ceftriaxone for convenient daily dosing, 2 g daily 3. Will treat with IV antibiotics for about 2 weeks, depending on response of inflammatory markers which are moderately elevated 4. Appointment to see me in the office 1 week after discharge Current Visit: No (4) Obesity Status: Chronic Current Visit: No (5) hypertension Status: Chronic Current Visit: No Infectious Disease - PN: Subj Interval history: She doing relatively okay, says no soreness to abdominal wound. Tolerating cefazolin without any problems no allergic reaction. No fever. Infectious Disease Exam (PN) - Constitutional Vitals: Temp Pulse Resp BP Pulse Ox 98.3 F 81 18 123/53 92 L 01/21/17 11:52 01/21/17 11:52 01/21/17 11:52 01/21/17 11:52 01/21/17 11:52 General appearance: no acute distress Exam: General appearance: no acute distress - Eye Eye exam: Present: EOMI. no icterus Pupils: Present: RIOS - ENT ENT exam: no oral exudates - Respiratory Respiratory exam: vesicular BS, no crepitations or wheezes - Cardiovascular Cardiovascular exam: regular rate and rhythm, no murmurs - GI/Abdominal GI/Abdominal exam: normal bowel sounds, obese, wound VAC to midline wound, no erythema - Extremities Exam Extremities exam: no edema - Skin Skin exam: no rash Results - Labs CBC & BMP: 01/20/17 05:13 01/20/17 05:13 Lab Results: I have reviewed the past 24 hour labs
--- NOTE | 2017-01-21 16:15 | Family Practice Progress Note ---
Family Practice - PN: Subj Interval history: Patient states that she generally is doing well with minimal abdominal pain. Had wound VAC change today. Patient is on appropriate antibiotics based on cultures. Hopefully will be able to discharge soon. No new problems identified Exam (Progress Note) - Constitutional Vitals: Period Temp Pulse Resp BP Sys/Gil Pulse Ox Last 24 Hr 97.7 F-99.9 F 77-81 18-20 91-127/48-62 92-97 Results - Labs CBC & BMP: 01/20/17 05:13 01/20/17 05:13 Specialty Discharge - Follow Up or Referrals Follow up with: Angélica Lincoln MD [Physician] - 01/29/17 9:15 am
[2017-01-21] MEDS: LORazepam 1 MG TABLET PO SCH (21:46)
[2017-01-21] MEDS: ATORVASTATIN 20 MG TABLET PO SCH (21:46)
[2017-01-21] MEDS: CITALOPRAM 40 MG TABLET PO SCH (21:46)
[2017-01-21] MEDS: CYCLOBENZAPRINE 10 MG TABLET PO PRN (21:46)
[2017-01-22] MEDS: ceFAZolin 2,000 MG in PREMIX 1 EACH IV SCH (02:13)
[2017-01-22] MEDS: PANTOPRAZOLE 40 MG TABLET PO SCH (10:04)
[2017-01-22] MEDS: LACTOBACILLUS RHAMNOSUS GG CAPSULE PO SCH (10:04)
[2017-01-22] MEDS: FERROUS SULFATE 325 MG TABLET PO SCH ×2 (10:04→21:33)
[2017-01-22] MEDS: amLODIPine 10 MG TABLET PO SCH (10:04)
[2017-01-22] MEDS: MULTIVITAMIN (PRENATAL) TABLET PO SCH (10:04)
[2017-01-22] MEDS: ASPIRIN EC 81 MG TABLET PO SCH (10:04)
[2017-01-22] MEDS: ENOXAPARIN 40 MG/0.4 ML SYRINGE SUBCUT SCH (10:07)
[2017-01-22] MEDS: MAGNESIUM HYDROXIDE SUSP 30 ML UDCUP PO PRN (10:07)
[2017-01-22] MEDS: cefTRIAXone 1,000 MG in SODIUM CHLORIDE 0.9% 100 ML IV SCH (10:18)
--- NOTE | 2017-01-22 11:04 | Event Note ---
General Surgery Progress Note Chief complaint This patient is a 61-year-old woman with prior abdominal wall hernia repair admitted for evacuation of infected fluid collection of the abdominal wall and partial excision of her Prolene mesh on 01/16/2017 and wound VAC placement on [address] Harvey Interval history No events overnight. Physical exam PICC line placed yesterday and wound VAC replaced Labs Reviewed, as above Imaging None new Assessment and plan There is some difficulty placing the wound VAC at the bedside yesterday. We will do the next VAC change tomorrow in the operating room and we are currently working on discharge planning
--- NOTE | 2017-01-22 16:51 | Infectious Disease Progress ---
Assessment and Plan (1) Panniculitis Status: Acute Current Visit: Yes (2) Large ventral wall hernia Status: Acute Current Visit: No (3) probable abscess mid abdomen Status: Acute Assessment and plan: She has infected seroma below abdominal wall. MSSA was cultured. I think the infection is recurring because of the presence of the mesh from her hernia repair surgery. Recommendations: 1. She is now on ceftriaxone in preparation for discharge home; she will get this at the infusion center when she goes home 2. Will treat with IV antibiotics for about 2 weeks, depending on response of inflammatory markers which are moderately elevated 3. Appointment to see me in the office 1 week after discharge Current Visit: No (4) Obesity Status: Chronic Current Visit: No (5) hypertension Status: Chronic Current Visit: No Infectious Disease - PN: Subj Interval history: Patient doing relatively okay. I switched her to ceftriaxone thinking she was going home today. She remains here today as she has to have wound VAC change in the operating room tomorrow as there was some difficulty changing it today. She has no specific complaints and says she feels better overall. She has been afebrile. Infectious Disease Exam (PN) - Constitutional Vitals: Temp Pulse Resp BP Pulse Ox 98.8 F 75 18 112/60 95 01/22/17 11:25 01/22/17 11:25 01/22/17 11:25 01/22/17 11:25 01/22/17 11:25 General appearance: no acute distress Exam: General appearance: no acute distress - Eye Eye exam: Present: EOMI. no icterus Pupils: Present: RIOS - ENT ENT exam: no oral exudates - Respiratory Respiratory exam: vesicular BS, no crepitations or wheezes - Cardiovascular Cardiovascular exam: regular rate and rhythm, no murmurs - GI/Abdominal GI/Abdominal exam: normal bowel sounds, obese, wound VAC to midline wound - Extremities Exam Extremities exam: no edema - Skin Skin exam: no rash Results - Labs CBC & BMP: 01/20/17 05:13 01/20/17 05:13 Lab Results: I have reviewed the past 24 hour labs Specialty Discharge - Follow Up or Referrals Follow up with: Angélica Lincoln MD [Physician] - 01/29/17 9:15 am
[2017-01-22] MEDS: CYCLOBENZAPRINE 10 MG TABLET PO PRN (21:33)
[2017-01-22] MEDS: CITALOPRAM 40 MG TABLET PO SCH (21:33)
[2017-01-22] MEDS: LORazepam 1 MG TABLET PO SCH (21:33)
[2017-01-22] MEDS: ATORVASTATIN 20 MG TABLET PO SCH (21:33)
[2017-01-23] MEDS ORDERED: BUPIVACAINE MPF 0.25% /EPI 30 ML VIAL ONE (06:52)
--- NOTE | 2017-01-23 08:15 | Operative Note ---
Date of procedure: 01/23/17 Pre-op diagnosis: Abdominal wall wound Post-op diagnosis: same Procedure: Preoperative diagnosis Abdominal wall wound Postoperative diagnosis Same Procedures performed Wound VAC negative pressure dressing change under anesthesia Washout of abdominal wall wound Findings There was healthy granulation tissue throughout the cavity with no evidence of undrained fluid or infection. It seemed as though the bedside wound VAC change did an adequate job on Saturday. No debridement was needed. Complications None apparent Specimen None Anesthesia General LMA Blood loss Minimal Indications Abdominal wall wound Description of procedure The patient was taken to the operating room and transferred to the operating table in the supine position. Pressure points were padded and SCDs were placed to bilateral lower extremities. General LMA anesthesia was administered. Wound VAC was taken down the abdomen and prepped with water-based chlorhexidine. The abdomen was draped sterilely. Timeout was called. The abdomen wound was irrigated and suctioned. The wound was then inspected and appeared healthy. There is no evidence of undrained fluid or infection. There is no necrotic tissue. There is good granulation tissue bed in the wound. The wound was then dressed with a new wound VAC which was placed with the assistance of the wound care nursing. The VAC was hooked up to -125 mmHg suction. The patient was awakened from anesthesia and transferred to recovery. Postoperative plan Continue bedside dressing changes from here Anesthesia: EVANGELISTA Surgeon / Physician: Mario Colorado Estimated blood loss: minimal Specimens: none sent Condition: stable Disposition: PACU Results - Labs CBC & BMP: 01/20/17 05:13 01/20/17 05:13 Discharge Plan - Discharge Medications No Action Ferrous Sulfate 325 mg PO BID Citalopram [CeleXA] 40 mg PO BEDTIME Atorvastatin Calcium 20 mg PO BEDTIME Vit No.124/Iron/Folic [ Vitamin Tablet] 1 each PO QAM Cyanocobalamin Inj [Vitamin B12 Inj] 1,000 mcg IM Q30D Aspirin [Ecotrin] 81 mg PO QAM Hydrocodone/Acetaminophen [Hope 10-325 Tablet] 1 each PO Q4H PRN PRN Reason: Pain cloNIDine TAB [Catapres Tab] 0.2 mg PO BEDTIME Sulfameth/Trimeth 800-160 Tab [Bactrim DS Tab] 1 tablet PO BID Omeprazole [Prilosec] 20 mg PO DAILY Lactobacillus Cmb#7/Fos/Inulin [Probiotic Complex Tablet] 1 each PO QAM Docusate Sodium Cap [Colace Cap] 100 mg PO BID PRN #0 capsule PRN Reason: Constipation Cyclobenzaprine HCl 10 mg PO BEDTIME PRN #0 PRN Reason: Muscle Spasm amLODIPine [Norvasc] 10 mg PO DAILY LORazepam [Lorazepam] 2 mg PO BEDTIME - Follow Up or Referral Follow Up: Angélica Lincoln MD [Physician] - 01/29/17 9:15 am - Forms/Instructions
[2017-01-23] MEDS ORDERED: HYDROmorphone 2 MG/1 ML VIAL IV PRN (08:18)
[2017-01-23] MEDS ORDERED: ONDANSETRON 4 MG/2 ML VIAL IV PRN (08:18)
[2017-01-23] MEDS ORDERED: PROPOFOL 200 MG/20 ML VIAL IV ONE (08:20)
[2017-01-23] MEDS ORDERED: SEVOFLURANE 1 UNIT/15 MINUTE INH ONE (08:20)
[2017-01-23] MEDS ORDERED: MIDAZOLAM 2 MG/2 ML VIAL ONE (08:20)
[2017-01-23] MEDS ORDERED: ePHEDrine 50 MG/ML AMP ONE (08:21)
[2017-01-23] MEDS ORDERED: fentaNYL 100 MCG/2 ML VIAL ONE (08:21)
[2017-01-23] MEDS ORDERED: ACETAMINOPHEN 1,000 MG/100 ML VIAL IV ONE (08:22)
[2017-01-23] MEDS ORDERED: ONDANSETRON 4 MG/2 ML VIAL ONE ×2 (08:22→08:26)
[2017-01-23] MEDS ORDERED: HYDROmorphone 2 MG/1 ML VIAL ONE (08:26)
[2017-01-23] MEDS ORDERED: LACTATED RINGERS 1,000 ML IV SCH (08:30)
--- NOTE | 2017-01-23 09:04 | Anesthesia Post-Op ---
Anesthesia Post OP - Post Ansesthetic Evaluation Patient seen in post op: Yes Resp: within normal limits CV: within normal limits Mental: within normal limits Temp: within normal limits Tnox-Cb-[id number]: within normal limits Nausea and Vomiting: within normal limits Pain: within normal limits
[2017-01-23] MEDS: ASPIRIN EC 81 MG TABLET PO SCH (10:01)
[2017-01-23] MEDS: LACTOBACILLUS RHAMNOSUS GG CAPSULE PO SCH (10:01)
[2017-01-23] MEDS: FERROUS SULFATE 325 MG TABLET PO SCH ×2 (10:02→20:13)
[2017-01-23] MEDS: amLODIPine 10 MG TABLET PO SCH (10:02)
[2017-01-23] MEDS: PANTOPRAZOLE 40 MG TABLET PO SCH (10:02)
[2017-01-23] MEDS: cefTRIAXone 1,000 MG in SODIUM CHLORIDE 0.9% 100 ML IV SCH (10:02)
[2017-01-23] MEDS: MULTIVITAMIN (PRENATAL) TABLET PO SCH (10:02)
[2017-01-23] MEDS: ENOXAPARIN 40 MG/0.4 ML SYRINGE SUBCUT SCH (10:02)
--- NOTE | 2017-01-23 14:26 | Infectious Disease Progress ---
Assessment and Plan (1) Panniculitis Status: Acute Current Visit: Yes (2) Large ventral wall hernia Status: Acute Current Visit: No (3) probable abscess mid abdomen Status: Acute Assessment and plan: She has infected seroma below abdominal wall. MSSA was cultured. I think the infection is recurring because of the presence of the mesh from her hernia repair surgery. Recommendations: Continue ceftriaxone. She will get this in the outpatient infusion center on discharge. Will follow her in the office within a week of discharge. Current Visit: No (4) Obesity Status: Chronic Current Visit: No (5) hypertension Status: Chronic Current Visit: No Infectious Disease - PN: Subj Interval history: Patient doing relatively okay, had wound VAC change in the operating room today. She is experiencing less abdominal pain. No problems at the ceftriaxone no allergic reaction no nausea vomiting or diarrhea. Infectious Disease Exam (PN) - Constitutional Vitals: Temp Pulse Resp BP Pulse Ox 98.5 F 79 18 112/60 98 01/23/17 12:14 01/23/17 12:14 01/23/17 12:14 01/23/17 12:14 01/23/17 12:14 General appearance: no acute distress Exam: General appearance: no acute distress - Eye Eye exam: Present: EOMI. no icterus Pupils: Present: RIOS - ENT ENT exam: no oral exudates - Respiratory Respiratory exam: vesicular BS, no crepitations or wheezes - Cardiovascular Cardiovascular exam: regular rate and rhythm, no murmurs - GI/Abdominal GI/Abdominal exam: normal bowel sounds, obese, wound VAC to midline wound with mild surrounding tenderness, no erythema - Extremities Exam Extremities exam: no edema - Skin Skin exam: no rash Results - Labs CBC & BMP: 01/20/17 05:13 01/20/17 05:13 Lab Results: I have reviewed the past 24 hour labs Specialty Discharge - Follow Up or Referrals Follow up with: Angélica Lincoln MD [Physician] - 01/29/17 9:15 am
[2017-01-23] MEDS: LORazepam 1 MG TABLET PO SCH (20:13)
[2017-01-23] MEDS: CITALOPRAM 40 MG TABLET PO SCH (20:13)
[2017-01-23] MEDS: ATORVASTATIN 20 MG TABLET PO SCH (20:13)
[2017-01-23] MEDS: CYCLOBENZAPRINE 10 MG TABLET PO PRN (20:15)
[2017-01-24] MEDS: FERROUS SULFATE 325 MG TABLET PO SCH ×2 (09:23→20:53)
[2017-01-24] MEDS: amLODIPine 10 MG TABLET PO SCH (09:23)
[2017-01-24] MEDS: LACTOBACILLUS RHAMNOSUS GG CAPSULE PO SCH (09:23)
[2017-01-24] MEDS: ASPIRIN EC 81 MG TABLET PO SCH (09:23)
[2017-01-24] MEDS: MULTIVITAMIN (PRENATAL) TABLET PO SCH (09:23)
[2017-01-24] MEDS: PANTOPRAZOLE 40 MG TABLET PO SCH (09:23)
[2017-01-24] MEDS: ENOXAPARIN 40 MG/0.4 ML SYRINGE SUBCUT SCH (09:24)
[2017-01-24] MEDS: cefTRIAXone 1,000 MG in SODIUM CHLORIDE 0.9% 100 ML IV SCH (09:24)
--- NOTE | 2017-01-24 14:04 | Infectious Disease Progress ---
Assessment and Plan (1) Panniculitis Status: Acute Current Visit: Yes (2) Large ventral wall hernia Status: Acute Current Visit: No (3) probable abscess mid abdomen Status: Acute Assessment and plan: She has infected seroma below abdominal wall. MSSA was cultured. I think the infection is recurring because of the presence of the mesh from her hernia repair surgery. Recommendations: Continue ceftriaxone. She will get this in the outpatient infusion center on discharge. Will follow her in the office within a week of discharge. Current Visit: No (4) Obesity Status: Chronic Current Visit: No (5) hypertension Status: Chronic Current Visit: No Infectious Disease - PN: Subj Interval history: DOing ok, no new complaints. Supposed to have wound vac changed again tomorrow. Infectious Disease Exam (PN) - Constitutional Vitals: Temp Pulse Resp BP Pulse Ox 98.5 F 82 18 98/52 95 01/24/17 11:14 01/24/17 11:14 01/24/17 11:14 01/24/17 11:14 01/24/17 11:14 General appearance: no acute distress Exam: General appearance: no acute distress - Eye Eye exam: Present: EOMI. no icterus Pupils: Present: RIOS - ENT ENT exam: no oral exudates - Respiratory Respiratory exam: vesicular BS, no crepitations or wheezes - Cardiovascular Cardiovascular exam: regular rate and rhythm, no murmurs - GI/Abdominal GI/Abdominal exam: normal bowel sounds, obese, wound VAC to midline wound without surrounding tenderness, no erythema - Extremities Exam Extremities exam: no edema - Skin Skin exam: no rash Results - Labs CBC & BMP: 01/20/17 05:13 01/20/17 05:13 Lab Results: I have reviewed the past 24 hour labs Specialty Discharge - Follow Up or Referrals Follow up with: Angélica Lincoln MD [Physician] - 01/29/17 9:15 am
[2017-01-24] MEDS: CITALOPRAM 40 MG TABLET PO SCH (20:52)
[2017-01-24] MEDS: ATORVASTATIN 20 MG TABLET PO SCH (20:52)
[2017-01-24] MEDS: CYCLOBENZAPRINE 10 MG TABLET PO PRN (20:53)
--- NOTE | 2017-01-25 08:14 | Event Note ---
She feels much better. She is still having a difficult time with wound VAC changes. I would like to explore her wound under sedation in the operating room so that I can get a good look. See if there is any evidence of mesh involvement. The last time that I checked there was no visible mesh. I do not think that it is directly infected. It certainly is at high risk. We will explore this in the operating room and can change her wound VAC at that time. She is close to being able to be discharged with outpatient wound VAC but wound VAC changes can be difficult with this large wound space.
[2017-01-25] MEDS: cefTRIAXone 1,000 MG in SODIUM CHLORIDE 0.9% 100 ML IV SCH (08:32)
--- NOTE | 2017-01-25 09:25 | EKG Report ---
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
[2017-01-25] MEDS ORDERED: BUPIVACAINE MPF 0.25% /EPI 30 ML VIAL ONE (09:41)
[2017-01-25] MEDS ORDERED: PROPOFOL 200 MG/20 ML VIAL IV ONE (10:25)
--- NOTE | 2017-01-25 11:08 | Operative Note ---
Date of procedure: 01/25/17 Pre-op diagnosis: Large open subcutaneous wound space 22 x 15 x 2 cm Post-op diagnosis: same Procedure: Wound VAC change under sedation Findings and technique: After informed consent was obtained the patient was brought to the operating room and her wound VAC removed. Her wound was explored and there was no necrotic tissue or signs of active infection. There was no visible mesh in the base of the wound. We placed a new wound VAC and extended foam into these lateral spaces over an area of 22 cm. The VAC was replaced without difficulty. Her wound is too extensive into deep to do changes of her dressing at the bedside or as an outpatient. Anesthesia: MAC Surgeon / Physician: Shaji Harvey III. Estimated blood loss: none Specimens: none sent Condition: stable Disposition: PACU Results - Labs CBC & BMP: 01/20/17 05:13 01/20/17 05:13 Discharge Plan - Discharge Medications No Action Ferrous Sulfate 325 mg PO BID Citalopram [CeleXA] 40 mg PO BEDTIME Atorvastatin Calcium 20 mg PO BEDTIME Vit No.124/Iron/Folic [ Vitamin Tablet] 1 each PO QAM Cyanocobalamin Inj [Vitamin B12 Inj] 1,000 mcg IM Q30D Aspirin [Ecotrin] 81 mg PO QAM Hydrocodone/Acetaminophen [Palmer 10-325 Tablet] 1 each PO Q4H PRN PRN Reason: Pain cloNIDine TAB [Catapres Tab] 0.2 mg PO BEDTIME Sulfameth/Trimeth 800-160 Tab [Bactrim DS Tab] 1 tablet PO BID Omeprazole [Prilosec] 20 mg PO DAILY Lactobacillus Cmb#7/Fos/Inulin [Probiotic Complex Tablet] 1 each PO QAM Docusate Sodium Cap [Colace Cap] 100 mg PO BID PRN #0 capsule PRN Reason: Constipation Cyclobenzaprine HCl 10 mg PO BEDTIME PRN #0 PRN Reason: Muscle Spasm amLODIPine [Norvasc] 10 mg PO DAILY LORazepam [Lorazepam] 2 mg PO BEDTIME - Follow Up or Referral Follow Up: Angélica Lincoln MD [Physician] - 01/29/17 9:15 am - Forms/Instructions
--- NOTE | 2017-01-25 11:14 | Infectious Disease Progress ---
Assessment and Plan (1) Panniculitis Status: Acute Current Visit: Yes (2) Large ventral wall hernia Status: Acute Current Visit: No (3) probable abscess mid abdomen Status: Acute Assessment and plan: She has infected seroma below abdominal wall. MSSA was cultured. I had a long discussion with Dr. Candice Rayo about the patient's clinical situation, very complexed one. Productive Candice the mesh is just about completely covered with granulation tissue. It is felt that the infection is confined to the subcutaneous space with a large seroma was. Recommendations: Continue ceftriaxone for at least 2 weeks. Patient will be here through the weekend. She is having another wound VAC change on Saturday by Dr. Candice Tsai. I will continue to monitor the patient and finalize duration of IV antibiotic therapy based on Dr. Candice Rayo findings when he does the woundvac changes. After the IV antibiotic therapy she will likely be on oral antibiotics for for some time to ensure that the infection is completely eradicated. Current Visit: No (4) Obesity Status: Chronic Current Visit: No (5) hypertension Status: Chronic Current Visit: No Infectious Disease - PN: Subj Interval history: Patient without complaints, was getting ready to go to the operating room for repeat wound VAC change and this morning. Afebrile. Continues to tolerate the ceftriaxone without difficulty. Infectious Disease Exam (PN) - Constitutional Vitals: Temp Pulse Resp BP Pulse Ox 97.1 F L 69 18 129/72 95 01/25/17 07:01 01/25/17 07:01 01/25/17 07:01 01/25/17 07:01 01/25/17 07:01 General appearance: no acute distress Exam: General appearance: no acute distress - Eye Eye exam: Present: EOMI. no icterus Pupils: Present: RIOS - ENT ENT exam: no oral exudates - GI/Abdominal GI/Abdominal exam: normal bowel sounds, obese, wound VAC to midline - Extremities Exam Extremities exam: no edema - Skin Skin exam: no rash Results - Labs CBC & BMP: 01/20/17 05:13 01/20/17 05:13 Lab Results: I have reviewed the past 24 hour labs Specialty Discharge - Follow Up or Referrals Follow up with: Angélica Lincoln MD [Physician] - 01/29/17 9:15 am
[2017-01-25] MEDS ORDERED: ONDANSETRON 4 MG/2 ML VIAL IV PRN (11:23)
[2017-01-25] MEDS ORDERED: HYDROmorphone 2 MG/1 ML VIAL IV PRN (11:23)
[2017-01-25] MEDS ORDERED: ONDANSETRON 4 MG/2 ML VIAL ONE (11:36)
[2017-01-25] MEDS ORDERED: HYDROmorphone 2 MG/1 ML VIAL ONE (11:36)
[2017-01-25] MEDS: MAGNESIUM HYDROXIDE SUSP 30 ML UDCUP PO PRN (12:00)
[2017-01-25] MEDS: amLODIPine 10 MG TABLET PO SCH (12:01)
[2017-01-25] MEDS: ENOXAPARIN 40 MG/0.4 ML SYRINGE SUBCUT SCH (12:01)
[2017-01-25] MEDS: FERROUS SULFATE 325 MG TABLET PO SCH ×2 (12:01→20:51)
[2017-01-25] MEDS: MULTIVITAMIN (PRENATAL) TABLET PO SCH (12:01)
[2017-01-25] MEDS: ASPIRIN EC 81 MG TABLET PO SCH (12:02)
[2017-01-25] MEDS: LACTOBACILLUS RHAMNOSUS GG CAPSULE PO SCH (12:02)
[2017-01-25] MEDS: PANTOPRAZOLE 40 MG TABLET PO SCH (12:02)
[2017-01-25] MEDS ORDERED: MIDAZOLAM 2 MG/2 ML VIAL ONE (12:04)
[2017-01-25] MEDS ORDERED: KETAMINE 500 MG/10 ML VIAL ONE (12:05)
[2017-01-25] MEDS ORDERED: fentaNYL 100 MCG/2 ML VIAL ONE (12:05)
[2017-01-25] MEDS: ATORVASTATIN 20 MG TABLET PO SCH (20:51)
[2017-01-25] MEDS: LORazepam 1 MG TABLET PO SCH (20:52)
[2017-01-25] MEDS: CYCLOBENZAPRINE 10 MG TABLET PO PRN (20:52)
[2017-01-25] MEDS: CITALOPRAM 40 MG TABLET PO SCH (20:53)
[2017-01-26 05:29] LABS: Basophils # 0.1 10*3/uL (0.0-0.2); Basophils % 0.8 % (0.0-0.8); Eosinophils # 0.4 10*3/uL (0.0-0.87); Eosinophils % 4.7 % (0.00-10.9); Hematocrit 36.5 VOL% (35.7-47.0); Hemoglobin 11.1 GM/DL (12.0-16.0); Immature Granulocytes % 0.3 %; Immature Granulocytes Absolute 0.02 #; Lymphocytes # 2.8 10*3/uL (1.4-4.0); Lymphocytes % 36.1 % (21.3-54.2); Mean Corpuscular HGB Conc 30.4 GM/DL (32-36); Mean Corpuscular Hemoglobin 28 PG (27-34); Mean Corpuscular Volume 93.4 FL (87-102); Mean Platelet Volume 11.5 FL (9.6-12.0); Monocytes # 0.8 10*3/uL (0.11-0.8); Monocytes % 10.5 % (1.7-12.7); Neutrophils # 3.7 10*3/uL (1.4-7.4); Neutrophils % 47.6 % (38.7-73.9); Platelet Count 415 T/CUMM (130-400); Red Blood Count 3.91 MC/CUMM (3.8-5.5); Red Cell Distribution Width 17.3 % (9.3-17.3); White Blood Count 7.7 T/CUMM (4-12)
[2017-01-26 06:07] LABS: Calcium 8.3 MG/DL (8.5-10.1); Osmolality,Calculated 282.1 MOS/KG (273-304); Potassium 4.6 MMOL/L (3.5-5.1)
[2017-01-26] MEDS ORDERED: BISACODYL 10 MG SUPP RECTAL ONE (08:57)
--- NOTE | 2017-01-26 09:04 | Event Note ---
She looks and feels much better. I discussed the operative Hussain findings with her and her family. She is afebrile and has a normal white blood cell count. The main problem is her wound space is so large that it is not been feasible to do dressing changes or VAC changes at the bedside. Hopefully by Saturday she will be at a point where we can tolerate this at the bedside and this will give us a good indication that she is ready for outpatient care.
[2017-01-26] MEDS: FERROUS SULFATE 325 MG TABLET PO SCH ×2 (09:23→21:37)
[2017-01-26] MEDS: MULTIVITAMIN (PRENATAL) TABLET PO SCH (09:23)
[2017-01-26] MEDS: amLODIPine 10 MG TABLET PO SCH (09:23)
[2017-01-26] MEDS: ENOXAPARIN 40 MG/0.4 ML SYRINGE SUBCUT SCH (09:23)
[2017-01-26] MEDS: LACTOBACILLUS RHAMNOSUS GG CAPSULE PO SCH (09:23)
[2017-01-26] MEDS: DOCUSATE SODIUM 100 MG CAPSULE PO SCH ×2 (09:24→21:36)
[2017-01-26] MEDS: cefTRIAXone 1,000 MG in SODIUM CHLORIDE 0.9% 100 ML IV SCH (09:24)
[2017-01-26] MEDS: PANTOPRAZOLE 40 MG TABLET PO SCH (09:24)
[2017-01-26] MEDS: ASPIRIN EC 81 MG TABLET PO SCH (09:24)
--- NOTE | 2017-01-26 11:21 | Family Practice Progress Note ---
Family Practice - PN: Subj Interval history: Patient states that she generally is doing well with minimal abdominal pain. Has wound VAC change for Saturday. Patient is on appropriate antibiotics based on cultures. Hopefully will be able to discharge soon. No new problems identified Exam (Progress Note) - Constitutional Vitals: Period Temp Pulse Resp BP Sys/Gil Pulse Ox Last 24 Hr 97.5 F-99.3 F 66-89 16-20 99-120/50-70 92-99 Exam: GENERAL: NAD. NECK: Neck is supple. CVS: Regular rate and rhythm. S1 and S2 are normal. RESPIRATORY: Lungs are clear. No rales or rhonchi. ABDOMEN: Soft and nontender. Healing incisional wound on the abdominal wall. She still has some drainage EXT: No edema. Peripheral pulses are present. SKIN: Warm and dry. Rash resolving MSK: No obvious deformity. Results - Labs CBC & BMP: 01/26/17 05:01 01/26/17 05:01 Specialty Discharge - Follow Up or Referrals Follow up with: Angélica Lincoln MD [Physician] - 01/29/17 9:15 am
[2017-01-26] MEDS: LORazepam 1 MG TABLET PO SCH (21:26)
[2017-01-26] MEDS: CITALOPRAM 40 MG TABLET PO SCH (21:36)
[2017-01-26] MEDS: ATORVASTATIN 20 MG TABLET PO SCH (21:37)
[2017-01-26] MEDS: CYCLOBENZAPRINE 10 MG TABLET PO PRN (21:37)
[2017-01-27] MEDS: ENOXAPARIN 40 MG/0.4 ML SYRINGE SUBCUT SCH (09:06)
[2017-01-27] MEDS: LACTOBACILLUS RHAMNOSUS GG CAPSULE PO SCH (09:07)
[2017-01-27] MEDS: MULTIVITAMIN (PRENATAL) TABLET PO SCH (09:07)
[2017-01-27] MEDS: FERROUS SULFATE 325 MG TABLET PO SCH ×2 (09:07→21:04)
[2017-01-27] MEDS: amLODIPine 10 MG TABLET PO SCH (09:07)
[2017-01-27] MEDS: cefTRIAXone 1,000 MG in SODIUM CHLORIDE 0.9% 100 ML IV SCH (09:07)
[2017-01-27] MEDS: PANTOPRAZOLE 40 MG TABLET PO SCH (09:08)
[2017-01-27] MEDS: ASPIRIN EC 81 MG TABLET PO SCH (09:08)
[2017-01-27] MEDS: DOCUSATE SODIUM 100 MG CAPSULE PO SCH ×2 (09:08→21:04)
--- NOTE | 2017-01-27 10:10 | Family Practice Progress Note ---
Family Practice - PN: Subj Interval history: Patient seen. She is in no acute distress and we are just continue to monitor her very closely along with surgery. Temperature is at 99.9 this morning. Her weight is stable. She is very pleasant Exam (Progress Note) - Constitutional Vitals: Period Temp Pulse Resp BP Sys/Gil Pulse Ox Last 24 Hr 97.4 F-99.9 F 76-98 18-22 102-129/48-75 92-99 Exam: GENERAL: NAD. NECK: Neck is supple. CVS: Regular rate and rhythm. S1 and S2 are normal. RESPIRATORY: Lungs are clear. No rales or rhonchi. ABDOMEN: Soft and nontender. Healing incisional wound on the abdominal wall. EXT: No edema. Peripheral pulses are present. SKIN: Warm and dry. Rash resolving MSK: No obvious deformity. Results - Labs CBC & BMP: 01/26/17 05:01 01/26/17 05:01 Specialty Discharge - Follow Up or Referrals Follow up with: Angélica Lincoln MD [Physician] - 01/29/17 9:15 am
--- NOTE | 2017-01-27 10:27 | Event Note ---
She feels better. She is afebrile. Her cellulitis of her abdominal wall pannus appears to be resolved at this point. We will try changing her VAC at the bedside tomorrow. If this is feasible and then I think at that point we can get her home and do outpatient wound care.
[2017-01-27] MEDS: CYCLOBENZAPRINE 10 MG TABLET PO PRN (21:03)
[2017-01-27] MEDS: ATORVASTATIN 20 MG TABLET PO SCH (21:04)
[2017-01-27] MEDS: CITALOPRAM 40 MG TABLET PO SCH (21:04)
[2017-01-27] MEDS: LORazepam 1 MG TABLET PO SCH (21:05)
[2017-01-28] MEDS: cefTRIAXone 1,000 MG in SODIUM CHLORIDE 0.9% 100 ML IV SCH (09:13)
--- NOTE | 2017-01-28 09:29 | Event Note ---
She feels much better. Plan is to change her VAC at the bedside today and if she is able to tolerate this we can discharge her home with a home wound VAC and plans to follow-up in my office in 1 week. All visible signs of infection appear resolved. The panniculitis that we had before appears to be completely resolved.
[2017-01-28] MEDS: ENOXAPARIN 40 MG/0.4 ML SYRINGE SUBCUT SCH (10:57)
[2017-01-28] MEDS: MAGNESIUM HYDROXIDE SUSP 30 ML UDCUP PO PRN (10:57)
[2017-01-28] MEDS: LACTOBACILLUS RHAMNOSUS GG CAPSULE PO SCH (10:57)
[2017-01-28] MEDS: ASPIRIN EC 81 MG TABLET PO SCH (10:57)
[2017-01-28] MEDS: amLODIPine 10 MG TABLET PO SCH (10:57)
[2017-01-28] MEDS: PANTOPRAZOLE 40 MG TABLET PO SCH (10:57)
[2017-01-28] MEDS: FERROUS SULFATE 325 MG TABLET PO SCH (10:58)
[2017-01-28] MEDS: DOCUSATE SODIUM 100 MG CAPSULE PO SCH (10:58)
[2017-01-28] MEDS: MULTIVITAMIN (PRENATAL) TABLET PO SCH (10:58)
--- NOTE | 2017-01-28 11:06 | Discharge Summary ---
Hospital Course - Hospital Course Hospital Course: Abdominal CT revealed a large fluid collection adjacent to the implant mesh concerning for loculated abscess. Interventional radiology consultation was obtained for drain placement. Repeat imaging demonstrated persistent abscess patient underwent surgical exploration for debridement. Procedures were performed on 01/16, , 01/23, and 01/25; all of which with or without complication. Cultures grew methicillin sensitive staph aureus. Infectious disease consultation was obtained and antibiotic recommendations were appreciated. Also dietitian consultation was obtained the patient was noted to be nutritionally deficient and having difficulty with healing. Ultimately, the patient tolerated VAC changes at bedside with oral analgesics. She was discharged home with IV antibiotics and wound vac in good condition. Incidental findings: Positive fecal occult blood testing; H&H were stable. Also imaging concerns for adrenal adenoma. Recommendations were made to follow- up with PCP regarding these. 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 Harvey [facility] 2-3 days per week. Maintain abdominal binder at all times - Discharge Medications New HYDROcodone/ACETAMIN 10-325 [[place] 10-325] 1 - 2 tablet PO Q4H PRN #50 tablet PRN Reason: Pain Moderate To Severe (4-10) cefTRIAXone [Rocephin] 1,000 mg IV Q24H #14 vial Continue Ferrous Sulfate 325 mg PO BID Citalopram [CeleXA] 40 mg PO BEDTIME Atorvastatin Calcium 20 mg PO BEDTIME Vit No.124/Iron/Folic [ Vitamin Tablet] 1 each PO QAM Cyanocobalamin Inj [Vitamin B12 Inj] 1,000 mcg IM Q30D Aspirin [Ecotrin] 81 mg PO QAM Hydrocodone/Acetaminophen [[place] 10-325 Tablet] 1 each PO Q4H PRN PRN Reason: Pain cloNIDine TAB [Catapres Tab] 0.2 mg PO BEDTIME Sulfameth/Trimeth 800-160 Tab [Bactrim DS Tab] 1 tablet PO BID Omeprazole [Prilosec] 20 mg PO DAILY Lactobacillus Cmb#7/Fos/Inulin [Probiotic Complex Tablet] 1 each PO QAM Docusate Sodium Cap [Colace Cap] 100 mg PO BID PRN #0 capsule PRN Reason: Constipation Cyclobenzaprine HCl 10 mg PO BEDTIME PRN #0 PRN Reason: Muscle Spasm amLODIPine [Norvasc] 10 mg PO DAILY LORazepam [Lorazepam] 2 mg PO BEDTIME - Follow Up or Referral Follow Up: Angélica Lincoln MD [Physician] - 02/05/17 10:15 am Shaji Harvey III., MD [Physician] - 01/30/17 10:00 am (wound vac changes twice weekly - appt Tuesday 01/30) - Forms/Instructions Instructions: Hydrocodone/Acetaminophen (By mouth), Ceftriaxone (Injection) Additional Discharge Instructions: F/u PCP 7-10 days re: hospital follow-up and evaluation for incidental finding of adrenal adenoma on CT scan; (+) FOBT - likely benefit from GI referral on outpatient basis Exam - Constitutional Vitals: Period Temp Pulse Resp BP Sys/Gil Pulse Ox Last 24 Hr 97.7 F-99 F 77-88 18-18 100-133/53-80 92-99 General appearance: no acute distress - Eye Eye exam: Absent: conjunctival injection, scleral icterus - Respiratory Respiratory exam: Present: clear to auscultation bilaterally - Cardiovascular Cardiovascular exam: Present: regular rate and rhythm - GI/Abdominal GI/Abdominal exam: Present: normal bowel sounds, soft, other (Wound VAC change: Wound noted with healthy granulating tissue at base. See nurse note for details. No purulence, malodor, surrounding erythema or edema.) - Extremities Exam Extremities exam: Absent: calf tenderness, edema - Neurological Exam Neurological exam: Present: alert, oriented X3 - Psychiatric Psychiatric exam: Present: normal affect, normal mood - Skin Skin exam: Present: normal color, warm Discharge Results Procedures and tests throughout hospitalization: Pending Orders 01/13/17 10:30 Occult Blood, Stool Routine 01/29/17 04:00 Basic Metabolic Panel IN AM CBC [Comp Blood Count Auto Diff] IN AM Occult blood testing positive Abdominal abscess cultures methicillin sensitive staph aureus PICC line placement - Imaging and Cardiology Procedure: CT Abdomen and Pelvis: image reviewed by me, report reviewed by me, X -ray: image reviewed by me, report reviewed by me (ankle) DS: Provider Date of admission: 01/05/17 13:13 Primary care physician: Alvaro Sheets DO Attending physician on admission: Shaji Harvey III., Consults: 01/05/17 13:16 Consult to Physician [CONS] Routine Comment: Rash lower extremities Consulting Provider: Alvaro Sheets Person Notified: Dr. Mosqueda Date Notified: 01/05/17 Time Notified: 14:38 Consult Notification Comment: Dr. Mosqueda said he would see her in the AM. 01/05/17 14:37 Consult to Pharmacy [CONS] Routine Reason for Pharmacy Consult: Dose/Manage Vancomycin 01/07/17 18:30 Consult to Physician [CONS] Routine Comment: Consulting Provider: [facility] 01/17/17 12:24 Consult to Physician [CONS] Routine Comment: persistent abscess - failed abx Consulting Provider: Angélica Lincoln Consulting Provider Notified: Yes Person Notified: Pearl hutchison Date Notified: 01/17/17 Time Notified: 14:27 01/18/17 11:27 Consult to Dietitian [CONS] Routine Reason for Dietitian: Dietary Consult Consult Comment: albumin 1.6; poor healing 01/21/17 07:30 Consult to Case Mgmt/Social Srvs [CONS] Routine Reason for Case Mgmt/Social Srvs: Discharge Planning Consult Comment: wound vac and IV antibiotics 01/21/17 14:59 Consult to Case Mgmt/Social Srvs [CONS] Routine Reason for Case Mgmt/Social Srvs: Infusion Center Consult Comment: Range ceftriaxone 2 g daily at the infusion center Discharging clinician: Shayla Rose PA-C
--- NOTE | 2017-01-28 11:30 | Infectious Disease Progress ---
Assessment and Plan (1) Panniculitis Status: Acute Current Visit: Yes (2) Large ventral wall hernia Status: Acute Current Visit: No (3) probable abscess mid abdomen Status: Acute Assessment and plan: She has infected seroma below abdominal wall, mesh not exposed. MSSA was cultured. Recommendations: Continue ceftriaxone for at least 2 weeks, longer if inflammatory markers still elevated at that time. I will monitor her weekly while she remains on antibiotic therapy, checking inflammatory markers each time. Current Visit: No (4) Obesity Status: Chronic Current Visit: No (5) hypertension Status: Chronic Current Visit: No Infectious Disease - PN: Subj Interval history: Patient doing well, she tolerated wound VAC change at bedside today. No fever, and tolerating ceftriaxone without nausea vomiting or diarrhea. Infectious Disease Exam (PN) - Constitutional Vitals: Temp Pulse Resp BP Pulse Ox 98.0 F 83 18 125/77 92 L 01/28/17 07:14 01/28/17 07:14 01/28/17 07:14 01/28/17 07:14 01/28/17 07:14 General appearance: no acute distress Exam: General appearance: no acute distress - Eye Eye exam: Present: EOMI. no icterus Pupils: Present: RIOS - ENT ENT exam: no oral exudates - GI/Abdominal GI/Abdominal exam: normal bowel sounds, obese, wound VAC to midline - Extremities Exam Extremities exam: no edema - Skin Skin exam: no rash Results - Labs CBC & BMP: 01/26/17 05:01 01/26/17 05:01 Lab Results: I have reviewed the past 24 hour labs Specialty Discharge - Follow Up or Referrals Follow up with: Angélica Lincoln MD [Physician] - 02/05/17 10:15 am Shaji Harvey III., MD [Physician] - (wound vac changes twice weekly - appt Tuesday 01/30)
[2017-01-28 12:03] VITALS: BP 127/71
== END 2017-01-28 16:15 | disposition home health service (06) | DRG 580 ==
LOC: N.ED 09:57 → N.EDINP 13:13 → N.3E 13:55
PROVIDERS: ADMIT Surgery; ATTEND Surgery
PROC: [UNRECOGNIZED PROCEDURE] (2017-01-11 13:18)

== ENCOUNTER 2019-06-08 17:28 | Inpatient (IN) ==
[2019-06-08] MEDS ORDERED: VANCOMYCIN INJ 1,000 MG in SODIUM CHLORIDE 0.9% 250 ML IV STA (17:42)
[2019-06-08] MEDS ORDERED: CEFEPIME 1,000 MG in SODIUM CHLORIDE 0.9% 100 ML IV STA (17:43)
[2019-06-08] MEDS ORDERED: SODIUM CHLORIDE 0.9% 2,000 ML IV STA (17:51)
[2019-06-08] MEDS ORDERED: HYDROmorphone 2 MG/1 ML VIAL IV STA (17:55)
[2019-06-08 19:06] LABS: Basophils % 0.2 % (0.0-0.8); Eosinophils # 0.2 10*3/uL (0.0-0.87); Eosinophils % 2.3 % (0.00-10.9); Hematocrit 47.4 VOL% (35.7-47.0); Hemoglobin 15.1 GM/DL (12.0-16.0); Immature Granulocytes % 0.5 %; Immature Granulocytes Absolute 0.05 #; Lymphocytes # 2.3 10*3/uL (1.4-4.0); Lymphocytes % 24.3 % (21.3-54.2); Mean Corpuscular HGB Conc 31.9 GM/DL (32-36); Mean Corpuscular Volume 94.8 FL (87-102); Monocytes % 10.8 % (1.7-12.7); Neutrophils % 61.9 % (38.7-73.9); Platelet Count 172 T/CUMM (130-400); Red Cell Distribution Width 14.5 % (9.3-17.3); White Blood Count 9.5 T/CUMM (4-12)
[2019-06-08 19:27] LABS: Alanine Aminotransferase 22 U/L (13-56); Albumin 2.5 G/DL (3.4-5.0); Alkaline Phosphatase 170 U/L (45-117); Aspartate Amino Transferase 19 U/L (0-37); Bilirubin,Total < 0.39 MG/DL (0.2-1.0); Blood Urea Nitrogen 15 MG/DL (7-18); Calcium 7.9 MG/DL (8.5-10.1); Estimated Glom Filtration Rate 100 ML/MIN; Glucose 84 MG/DL (74-106); Osmolality,Calculated 282.1 MOS/KG (273-304); Total Protein 6.2 G/DL (6.4-8.3)
[2019-06-08] MEDS ORDERED: ONDANSETRON 4 MG/2 ML VIAL IM ONE (19:45)
[2019-06-08] MEDS ORDERED: ONDANSETRON 4 MG/2 ML VIAL ONE (19:47)
[2019-06-08] MEDS ORDERED: CEFTAROLINE 600 MG in SODIUM CHLORIDE 0.9% 100 ML IV SCH (21:37)
[2019-06-08] MEDS ORDERED: HYDROmorphone 2 MG/1 ML VIAL IV PRN (21:37)
[2019-06-08] MEDS ORDERED: ONDANSETRON 4 MG/2 ML VIAL IV PRN (21:37)
[2019-06-08] MEDS ORDERED: ESZOPICLONE 1 MG TABLET PO SCH (21:37)
[2019-06-08] MEDS ORDERED: ACETAMINOPHEN 325 MG TABLET PO PRN (21:37)
[2019-06-08] MEDS ORDERED: INFLUENZA VIRUS VACCINE 0.5 ML SYRINGE IM ONE (21:55)
[2019-06-08] MEDS: ATORVASTATIN 20 MG TABLET PO SCH (22:45)
[2019-06-08] MEDS: GABAPENTIN 300 MG CAPSULE PO SCH (22:45)
[2019-06-08] MEDS: FERROUS SULFATE 325 MG TABLET PO SCH (22:45)
[2019-06-08] MEDS: CITALOPRAM 40 MG TABLET PO SCH (22:45)
[2019-06-08] MEDS: DOCUSATE SODIUM 100 MG CAPSULE PO SCH (22:45)
[2019-06-08] MEDS: SODIUM CHLORIDE 0.9% 1,000 ML IV SCH (22:48)
[2019-06-08] MEDS: CYCLOBENZAPRINE 10 MG TABLET PO PRN (23:07)
[2019-06-08] MEDS ORDERED: CYANOCOBALAMIN 1000 MCG/1 ML VIAL IM SCH (23:30)
[2019-06-09 05:22] LABS: Basophils % 0.4 % (0.0-0.8); Eosinophils # 0.3 10*3/uL (0.0-0.87); Eosinophils % 3.7 % (0.00-10.9); Hematocrit 49.9 VOL% (35.7-47.0); Hemoglobin 15.5 GM/DL (12.0-16.0); Immature Granulocytes % 0.3 %; Immature Granulocytes Absolute 0.02 #; Lymphocytes # 2.2 10*3/uL (1.4-4.0); Lymphocytes % 31.4 % (21.3-54.2); Mean Corpuscular HGB Conc 31.1 GM/DL (32-36); Mean Corpuscular Volume 96.7 FL (87-102); Mean Platelet Volume 13.3 FL (9.6-12.0); Monocytes % 11.2 % (1.7-12.7); Platelet Count 182 T/CUMM (130-400); Red Blood Count 5.16 MC/CUMM (3.8-5.5); Red Cell Distribution Width 14.6 % (9.3-17.3); White Blood Count 6.9 T/CUMM (4-12)
[2019-06-09] MEDS: VANCOMYCIN INJ 1,500 MG in SODIUM CHLORIDE 0.9% 500 ML IV SCH ×2 (05:59→17:21)
[2019-06-09 06:12] LABS: Albumin 2.6 G/DL (3.4-5.0); Bilirubin,Total 0.4 MG/DL (0.2-1.0); Calcium 8.4 MG/DL (8.5-10.1); Osmolality,Calculated 284.8 MOS/KG (273-304); Total Protein 6.4 G/DL (6.4-8.3)
[2019-06-09] MEDS: SODIUM CHLORIDE 0.9% 1,000 ML IV SCH ×3 (08:20→22:09)
[2019-06-09] MEDS ORDERED: PANTOPRAZOLE 40 MG TABLET PO SCH (09:00)
[2019-06-09] MEDS: GABAPENTIN 300 MG CAPSULE PO SCH ×3 (12:22→20:07)
[2019-06-09] MEDS: PANTOPRAZOLE 40 MG TABLET PO SCH (12:23)
[2019-06-09] MEDS: VITAMIN E 400 UNIT CAPSULE PO SCH (12:23)
[2019-06-09] MEDS: ZINC GLUCONATE 50 MG TABLET PO SCH (12:23)
[2019-06-09] MEDS: CHOLECALCIFEROL 1,000 UNIT TABLET PO SCH (12:23)
[2019-06-09] MEDS: ASPIRIN EC 81 MG TABLET PO SCH (12:23)
[2019-06-09] MEDS: amLODIPine 10 MG TABLET PO SCH (12:23)
[2019-06-09] MEDS: DOCUSATE SODIUM 100 MG CAPSULE PO SCH ×2 (12:24→20:07)
[2019-06-09] MEDS: MULTIVITAMIN (CENTRUM) TABLET PO SCH (12:24)
[2019-06-09] MEDS: FERROUS SULFATE 325 MG TABLET PO SCH ×2 (12:24→20:07)
[2019-06-09] MEDS: SODIUM HYPOCHLORITE 0.25% IRRIG 473 ML BOTTLE TOP SCH (15:43)
[2019-06-09] MEDS: CYCLOBENZAPRINE 10 MG TABLET PO PRN (20:07)
[2019-06-09] MEDS: CITALOPRAM 40 MG TABLET PO SCH (20:07)
[2019-06-09] MEDS: ATORVASTATIN 20 MG TABLET PO SCH (20:07)
[2019-06-09] MEDS: LUNESTA PO SCH (20:15)
[2019-06-09] MEDS ORDERED: ZALEPLON 5 MG CAPSULE PO SCH (21:00)
[2019-06-10] MEDS: SODIUM CHLORIDE 0.9% 1,000 ML IV SCH ×3 (03:07→15:55)
[2019-06-10 04:36] LABS: Basophils % 0.5 % (0.0-0.8); Eosinophils # 0.3 10*3/uL (0.0-0.87); Eosinophils % 4.2 % (0.00-10.9); Hematocrit 42.7 VOL% (35.7-47.0); Hemoglobin 13.3 GM/DL (12.0-16.0); Immature Granulocytes % 0.3 %; Immature Granulocytes Absolute 0.02 #; Lymphocytes # 2.5 10*3/uL (1.4-4.0); Lymphocytes % 41.8 % (21.3-54.2); Mean Corpuscular HGB Conc 31.1 GM/DL (32-36); Mean Corpuscular Volume 96.4 FL (87-102); Mean Platelet Volume 12.7 FL (9.6-12.0); Monocytes % 10.9 % (1.7-12.7); Neutrophils % 42.3 % (38.7-73.9); Platelet Count 198 T/CUMM (130-400); Red Blood Count 4.43 MC/CUMM (3.8-5.5); Red Cell Distribution Width 14.6 % (9.3-17.3)
[2019-06-10 05:00] LABS: Albumin 2.2 G/DL (3.4-5.0); Bilirubin,Total 0.4 MG/DL (0.2-1.0); Calcium 7.9 MG/DL (8.5-10.1); Osmolality,Calculated 283.8 MOS/KG (273-304); Total Protein 5.3 G/DL (6.4-8.3)
[2019-06-10] MEDS: VANCOMYCIN INJ 1,500 MG in SODIUM CHLORIDE 0.9% 500 ML IV SCH ×2 (05:04→18:27)
[2019-06-10 06:39] LABS: Apearance,Urine Clear (Clear); Bacteria,Urine Occasional /HPF (Few); Bilirubin,Urine Negative (Negative); Blood, Urine NEGATIVE (Negative); Glucose,Urine (UA) Negative (Negative); Ketones,Urine Negative (Negative); Mucus,Urine Occasional /LPF (Occasional); Nitrite,Urine Negative (Negative); Protein,Urine Negative; RBC,Urine 1 /HPF (0-4); Squamous Epithelial Cell,Urine Occasional /HPF (0-10); Urine Color Yellow (Yellow); Urine Urobilinogen 0.2 EU/DL (0.2-1.0); WBC,Urine 13 /HPF (0-6)
[2019-06-10] MEDS: PANTOPRAZOLE 40 MG TABLET PO SCH (09:35)
[2019-06-10] MEDS: ASPIRIN EC 81 MG TABLET PO SCH (09:35)
[2019-06-10] MEDS: GABAPENTIN 300 MG CAPSULE PO SCH ×3 (09:35→20:29)
[2019-06-10] MEDS: DOCUSATE SODIUM 100 MG CAPSULE PO SCH ×2 (09:35→20:30)
[2019-06-10] MEDS: CHOLECALCIFEROL 1,000 UNIT TABLET PO SCH (09:36)
[2019-06-10] MEDS: ZINC GLUCONATE 50 MG TABLET PO SCH (09:36)
[2019-06-10] MEDS: amLODIPine 10 MG TABLET PO SCH (09:36)
[2019-06-10] MEDS: MULTIVITAMIN (CENTRUM) TABLET PO SCH (09:36)
[2019-06-10] MEDS: VITAMIN E 400 UNIT CAPSULE PO SCH (09:36)
[2019-06-10] MEDS: SODIUM HYPOCHLORITE 0.25% IRRIG 473 ML BOTTLE TOP SCH (14:21)
[2019-06-10] MEDS: ATORVASTATIN 20 MG TABLET PO SCH (20:29)
[2019-06-10] MEDS: CITALOPRAM 40 MG TABLET PO SCH (20:29)
[2019-06-10] MEDS: LUNESTA PO SCH (20:34)
[2019-06-11] MEDS: SODIUM CHLORIDE 0.9% 1,000 ML IV SCH (02:38)
[2019-06-11 05:15] LABS: Basophils # 0.1 10*3/uL (0.0-0.2); Eosinophils # 0.4 10*3/uL (0.0-0.87); Eosinophils % 4.8 % (0.00-10.9); Hematocrit 45.1 VOL% (35.7-47.0); Immature Granulocytes % 0.4 %; Immature Granulocytes Absolute 0.03 #; Lymphocytes # 3.2 10*3/uL (1.4-4.0); Lymphocytes % 41.9 % (21.3-54.2); Mean Platelet Volume 11.9 FL (9.6-12.0); Monocytes % 11.1 % (1.7-12.7); Neutrophils % 40.8 % (38.7-73.9); Platelet Count 208 T/CUMM (130-400); Red Cell Distribution Width 14.4 % (9.3-17.3); White Blood Count 7.7 T/CUMM (4-12)
[2019-06-11 05:40] LABS: Alanine Aminotransferase 147 U/L (13-56); Albumin 2.4 G/DL (3.4-5.0); Alkaline Phosphatase 297 U/L (45-117); Aspartate Amino Transferase 53 U/L (0-37); Bilirubin,Total < 0.39 MG/DL (0.2-1.0); Blood Urea Nitrogen 9 MG/DL (7-18); Estimated Glom Filtration Rate 109 ML/MIN; Glucose 83 MG/DL (74-106); Osmolality,Calculated 285.7 MOS/KG (273-304); Total Protein 5.2 G/DL (6.4-8.3)
[2019-06-11] MEDS: VANCOMYCIN INJ 1,500 MG in SODIUM CHLORIDE 0.9% 500 ML IV SCH (05:55)
[2019-06-11 06:27] LABS: Hepatitis B Core IgM Quant 0.28 Index; Hepatitis B Surface Ag Quant < 0.10 Index; Hepatitis B Surface Ag Result Negative (Negative); Hepatitis C Virus Ab Quant < 0.02 Index; Hepatitis C Virus Ab Result Negative (Negative)
[2019-06-11] MEDS: ASPIRIN EC 81 MG TABLET PO SCH (09:39)
[2019-06-11] MEDS: amLODIPine 10 MG TABLET PO SCH (09:39)
[2019-06-11] MEDS: ZINC GLUCONATE 50 MG TABLET PO SCH (09:39)
[2019-06-11] MEDS: VITAMIN E 400 UNIT CAPSULE PO SCH (09:40)
[2019-06-11] MEDS: DOCUSATE SODIUM 100 MG CAPSULE PO SCH (09:40)
[2019-06-11] MEDS: CHOLECALCIFEROL 1,000 UNIT TABLET PO SCH (09:40)
[2019-06-11] MEDS: PANTOPRAZOLE 40 MG TABLET PO SCH (09:40)
[2019-06-11] MEDS: GABAPENTIN 300 MG CAPSULE PO SCH (09:40)
[2019-06-11] MEDS: MULTIVITAMIN (CENTRUM) TABLET PO SCH (09:40)
[2019-06-11 12:17] VITALS: BP 129/78
== END 2019-06-11 15:20 | disposition home health service (06) | DRG 603 ==
LOC: EDUNIT# → N.ED 17:28 → N.EDINP 19:58 → N.2E 20:22
PROVIDERS: ADMIT Family Medicine; ATTEND Family Medicine